=== PATIENT | male | born 1985 | race Caucasian/White ===

== ENCOUNTER → 2017-09-20 11:46 | Outpatient (CLI) | payer MEDICAID, SELFPAY ==
[2017-09-20 12:50] LABS: Absolute Neutrophil Count 4.5 X10^3/uL (2.0-7.7); Basophil# 0.05 X10^3/uL; Basophil% 0.7 % (0-1); Eosinophil# 0.14 X10^3/uL; Eosinophils% 1.9 % (0-5); Hematocrit 42.7 % (40-54); Hemoglobin 14.1 g/dl (13.0-16.5); Lymphocyte % 28.2 % (19-41); Mean Corpuscular Hgb 28.7 pg (27.0-32.0); Mean Platelet Vol. 9.9 fl (6.2-12.0); Monocyte# 0.66 X10^3/uL; Monocyte% 8.8 % (0-10); Neutrophil % 60.3 % (47-70); Platelet Count 227 K/mm3 (150-450); RBC Distribution Width SD 40.7 fl (35.1-43.9); Red Blood Count 4.91 M/mm3 (4.6-6.2); White Blood Count 7.5 K/mm3 (4.4-11.0)
[2017-09-20 12:56] LABS: POSITIVE COUNT NO; POSITIVE DIFFERENTIAL NO; POSITIVE MORPHOLOGY NO
[2017-09-20 13:00] LABS: Erythrocyte Sedimentation Rate 38 mm/hr (0-15)
[2017-09-20 13:07] LABS: ALB/GLOB Ratio 0.8 RATIO (0.9-2.4); AST(SGOT) 27 U/L (15-37); Alanine Aminotransfer ALT/SGPT 41 U/L (16-61); Albumin, Serum 3.5 g/dL (3.2-5.0); Alkaline Phosphatase 102 U/L (45-117); Anion Gap 7 (5-15); BUN 18 mg/dL (7-18); BUN/Creat Ratio 16.7 RATIO (10-20); Calcium,Total 8.7 mg/dL (8.5-10.1); Chloride 100 mmol/L (98-107); Creatinine, Serum 1.08 mg/dL (0.70-1.30); EST Glomerular Filtration Rate 84 mL/min (>60); Est Glom Filt Rate - Afr Amer 102 mL/min (>60); Globulin 4.2 g/dL (2.2-4.2); Glucose 97 mg/dL (74-106); Potassium 3.7 mmol/L (3.5-5.1); Prealbumin 22.7 mg/dL (20.0-40.0); Protein, Total 7.7 g/dL (6.4-8.2); Sodium Level 138 mmol/L (136-145)
== END ==
PROVIDERS: Visit Provider Podiatrist Foot & Ankle Surgery
DX: L97.819 Non-pressure chronic ulcer of other part of right lower leg with unspecified severity (principal); R60.0 Localized edema
CPT/HCPCS: 36415; 80053; 84134; 85025; 85652; 86140

== ENCOUNTER 2017-09-25 15:30 | Outpatient (RCR) | payer MEDICAID, SELFPAY ==
[2017-09-18 14:43] VITALS: BP 147/92; PULSE 101; RESP 20; TEMP 37.3; BMI 78.1
--- NOTE | 2017-09-18 16:39 | HP.PCM_ITS ---
(1) Non-pressure chronic ulcer of other part of right lower leg with fat layer exposed Status: Acute Current Visit: Yes Code(s): L97.812 - Non-pressure chronic ulcer of other part of right lower leg with fat layer exposed (2) Bilateral leg edema Status: Chronic Current Visit: Yes Code(s): R60.0 - Localized edema (3) Morbid obesity Status: Chronic Current Visit: Yes Code(s): E66.01 - Morbid (severe) obesity due to excess calories History of Present Illness Date of Service: 09/18/17 Chief Complaint: R chester ulcer History of Wound: 31 year old man with multiple medical problems including HTN, a.fib., asthma, and super morbid obesity (BMI 78.1) presents with 2 month history of R chester ulceration. Pt states area blistered and ulcerated approximately 2 months ago. Has a history of similar blisters and open areas, but states that they have all healed in the past. He has been keeping the area open to air. Is currently taking Keflex 500 mg TID, and has 1 day remaining. Past Medical History Past Medical History: Chronic Problems Bilateral leg edema (Chronic) HTN (hypertension) (Chronic) Morbid obesity (Chronic) Past Medical History: asthma, atrial fibrillation Surgical History: no surgical history Allergies/Adverse Reactions: Allergies Pertussis Vaccines Allergy (Verified 11/18/15 10:37) High Fever Home Medications: Ambulatory Orders Medication Instructions Recorded Hydrochlorothiazide [Hctz] 25 mg PO DAILY 06/02/13 Metoprolol Tartrate [Lopressor 50 mg PO BID #60 tablet 06/03/13 (beta jelena)] Loratadine [Claritin] 10 mg PO DAILY 09/12/13 Pantoprazole Sodium [Protonix] 40 mg PO DAILY 09/12/13 Warfarin [Coumadin] 10 mg PO DAILY 09/12/13 Albuterol Inhaler [Ventolin Hfa 1 - 2 puff INHALATION Q4H PRN PRN 09/13/15 (SP)] Ergocalciferol [Vitamin D] 50,000 unit PO OCASIO 09/13/15 Furosemide [Lasix] 20 mg PO DAILY 09/13/15 Losartan Potassium [Cozaar] 50 mg PO BID 09/13/15 Meloxicam [Mobic] 7.5 mg PO DAILY 09/13/15 Mometasone/Formoterol [Dulera 200 2 inhaler INHALATION BID 09/13/15 Mcg/5 Mcg Inhaler] Montelukast [Singulair] 10 mg PO DAILY 09/13/15 Vitamin B Complex 1 each PO DAILY 09/13/15 Lives: With Family Smoking Status: Former smoker Tobacco Use: Non-smoker Alcohol: Rare Drugs: None Review of Systems Constitutional: Denies: Chills, Fever, Weight Change Eyes: Denies: Pain, Vision Change HEENT: Denies: Difficulty Hearing, Difficulty Swallowing, Sinus Congestion Cardiovascular: Reports: Edema. Denies: Chest Pain, Palpitations Respiratory: Denies: Cough, Shortness of Breath Gastrointestinal: Denies: Diarrhea, Nausea, Vomiting Genitourinary: Denies: Dysuria, Hematuria Musculoskeletal: Denies: Leg Pain Skin: Reports: Wounds - R chester Neurological: Denies: Slurred speech, Numbness, Tingling Psychiatric: Reports: Anxiety Endocrine: Denies: Heat/ Cold Intolerance, Polydipsia, Polyuria Hematologic/ Lymphatic: Denies: Easy Bruising, Easy Bleeding, Hx of blood clot - Physical Exam Vital Signs Temp Pulse Resp BP 99.1 F 101 H 20 H 147/92 H 09/18/17 14:43 09/18/17 14:43 09/18/17 14:43 09/18/17 14:43 General: Alert, Oriented x3, Cooperative, No apparent distress Abdomen: Obese Extremities: No clubbing, No cyanosis, Capillary Refill Less than 3 Seconds, No Calf Tenderness, Diminished Peripheral Pulses - Possibly secondary to bilateral lower extremity edema, Edema Skin: Ulcer/ Wound - R chester cluster with no pus, no malodor, no increased warmth , no TTP, no erythema. No clinical signs of acute bacterial infection noted. See wound/edema assessment below. Wound Measurements and Assessment WC - Nurse 1 - General Ulcer Measurement Start: 09/18/17 14:19 Freq: Status: Active Protocol: Activity Type Activity Date Activity User E-Sign Co-Sign Detail Recorded Client Recorded Date Recorded By Document 09/18/17 14:43 DV [id number] 09/18/17 15:06 DV 09/18/17 14:43 Wound Center Nurse 1 [Ulcer Assessment] #1 Right Lower [place] Cluster -Combined with other wound No -Current Size (cm) - Length 5.5 -Current Size (cm) - Width 4.0 -Current Size (cm) - Depth 0.1 -Total Square Cm 22.00 -Date of Last Picture (Recall this 09/18/17 field) -Photo Taken Yes -Epithelialization None Present -Tunneling No -Undermining/Tunneling No -Circular Undermining No -Classification - Thickness Full Thickness without Exposed Support Structure -Exudate Amt Medium (34-66%) -Exudate Type Serosanguineous -Wound Margin Flat & Intact -Granulation Amt Small (1-33%) -Granulation Quality Red -Slough/Fibrin Yes -Necrosis Amt Large (67-100%) -Necrotic Tissue Type Adherent Slough -Structure Exposed None/Limited to Skin Breakdown -Texture (Karely-wound Skin Appearance) Assessed -Moisture (Karely-wound Skin Appearance Assessed ) -Color (Karely-wound Skin Appearance) Assessed -Temperature (Karely-wound Skin No Abnormality Appearance) (Pt Warm) -Tenderness on Palpation (Karely-wound Yes Skin Appearance) -Ulcer Cleansing Rinsed/ Irrigated with Saline -Foul Odor after Cleansing No -Anesthetic Used 4% Lidocaine Solution [Edema Assessment] -Lower Limb Edema Present Yes -Right Calf (cm) 82.0 -Right Ankle (cm) 34.0 -Left Calf (cm) 79.0 -Left Ankle (cm) 33.0 WC - Nurse 2 - General Ulcer CM Notes Start: 09/18/17 14:19 Freq: Status: Active Protocol: Activity Type Activity Date Activity User E-Sign Co-Sign Detail Recorded Client Recorded Date Recorded By Document 09/18/17 15:29 MW [id number] 09/18/17 15:37 MW 09/18/17 15:29 Wound Center Nurse 2 [Procedure/Treatment] #1 Right Lower [place] Cluster -Time 15:29 -Correct Patient Yes -Correct Side, Site, Position Yes -Correct Procedure Yes -Procedure Performed Yes -Type of Procedure Debridement -Clinical Debridement Subcutaneous -Post Debridement Size (cm) - Length 5.5 -Post Debridement Size (cm) - Width 4.1 -Post Debridement Size (cm) - Depth 0.1 -Total Square Cm 22.55 -Wound/Ulcer Outcome Not Healed -Ulcer Cleansing Rinsed/ Irrigated with Saline -Foul Odor after Cleansing No -Bioengineered Tissue No -Bleeding Controlled with Pressure -Treatment Response Procedure Tolerated Well [See Physician Procedure note for Specifics] Pain Scale: 0-10 Numeric [Pain] -Is Patient Pain Free? Yes Musculoskeletal: No Tenderness to Palpation of Joints or Extremities, No Muscle Wasting Neurological: Deep Tendon Reflexes 2+/4 and Symmetrical, Neuro grossly intact, Motor Exam 5/5 strength throughout, Muscle tone normal, Sensory exam intact to light touch and pain, Coordination normal, Gait narrow based and stable Psych/Mental Status: Alert and oriented to time, place, person, mood and affect - wnl Debridement Note Post-Debridement Measurements/Treatment WC - Nurse 2 - General Ulcer CM Notes Start: 09/18/17 14:19 Freq: Status: Active Protocol: Activity Type Activity Date Activity User E-Sign Co-Sign Detail Recorded Client Recorded Date Recorded By Document 09/18/17 15:29 MW [id number] 09/18/17 15:37 MW 09/18/17 15:29 Wound Center Nurse 2 #1 Right Lower [place] Cluster -Time 15:29 -Correct Patient Yes -Correct Side, Site, Position Yes -Correct Procedure Yes -Procedure Performed Yes -Type of Procedure Debridement -Clinical Debridement Subcutaneous -Post Debridement Size (cm) - Length 5.5 -Post Debridement Size (cm) - Width 4.1 -Post Debridement Size (cm) - Depth 0.1 -Total Square Cm 22.55 -Wound/Ulcer Outcome Not Healed -Ulcer Cleansing Rinsed/ Irrigated with Saline -Foul Odor after Cleansing No -Bioengineered Tissue No -Bleeding Controlled with Pressure -Treatment Response Procedure Tolerated Well Pain Scale: 0-10 Numeric Is Patient Pain Free? Yes Wound debrided: R chester Laterality: Right Wound Grade/Stage: full thickness Type of Debridement: Excisional debridement Anesthesia Used: 4% Lidocaine Solution Depth: Down to and including healthy tissue, in the subcutaneous layer Percentage of wound debrided: 100 Instrument Used: 3mm curette Tissue Removed: fibrous slough Severity: Fat Layer Exposed Amount of bleeding with debridement: Mild Bleeding Controlled with: Pressure, Compression and gauze Patient tolerated procedure well Assessment/Plan Active Problems Bilateral leg edema (Chronic) Non-pressure chronic ulcer of other part of right lower leg with fat layer exposed (Acute) Morbid obesity (Chronic) Assessment: See diagnoses Plan: New pt exam. SQ/excisional debridement of R chester ulcer cluster as above. JEVON and venous duplex ordered. Pt admits to a large amount of clear drainage-- start aquacel ag and ABD daily for the next week, and hopefully we can decrease to every other day starting next week. Compression with jonny wraps from base of toes on RLE to just below the knee. Plan to increase compression to 3M 2-layer coban after vascular testing. Discussed importance of weight managment, leg elevation, avoiding idle sitting or standing, increased activity. Pt unable to take NSAIDs due to current use of coumadin. Pt is a former smoker, is non- diabetic. CBCD, CMP, pre-albumin, ESR, CRP ordered. Monitor for redness, pus, malodor, warmth, pain, inc swelling as well as for N/V/F/C/calf pain/SOB/chest pain and go to the ED with these. Return in 1 week, call wound center with questions prior to f/u appt.
[2017-09-25 14:38] VITALS: BP 110/90; PULSE 95; RESP 18; TEMP 36; BMI 78.1
--- NOTE | 2017-09-25 15:14 | PCM.WC.PN ---
(1) Non-pressure chronic ulcer of other part of right lower leg with fat layer exposed Status: Acute Current Visit: Yes Code(s): L97.812 - Non-pressure chronic ulcer of other part of right lower leg with fat layer exposed (2) Bilateral leg edema Status: Chronic Current Visit: Yes Code(s): R60.0 - Localized edema (3) Morbid obesity Status: Chronic Current Visit: Yes Code(s): E66.01 - Morbid (severe) obesity due to excess calories Type of Wound Date of Service: 09/25/17 Chief Complaint: R chester ulcer History of Wound: 31 year old man with multiple medical problems including HTN, a.fib., asthma, and super morbid obesity (BMI 78.1) presents with 2 month history of R chester ulceration. Pt states area blistered and ulcerated approximately 2 months ago. Has a history of similar blisters and open areas, but states that they have all healed in the past. He has been keeping the area open to air. Is currently taking Keflex 500 mg TID, and has 1 day remaining. 09/25--Has been applying aquacel ag and dry dressing daily. Drainage improved significantly. Ulcer measurements improved. Completed atbx as Rx by his PCP. Using jonny wraps for compression, having some difficulty with them falling down, will add spandage to try to keep jonny wraps in place. Progress of Wound: Improved. - Physical Exam Vital Signs Temp Pulse Resp BP 96.8 F L 95 18 110/90 H 09/25/17 14:38 09/25/17 14:38 09/25/17 14:38 09/25/17 14:38 General: Alert, Oriented x3, Cooperative, No apparent distress Extremities: Edema Skin: Ulcer/ Wound - R anterior lateral leg with no erythema, no malodor, no pus, no calor, no pain. No clinical signs of acute bacterial infection noted. See wound/edema assessment below. Wound Measurements and Assessment WC - Nurse 1 - General Ulcer Measurement Start: 09/18/17 14:19 Freq: Status: Active Protocol: Activity Type Activity Date Activity User E-Sign Co-Sign Detail Recorded Client Recorded Date Recorded By Document 09/25/17 14:38 LEX [id number] 09/25/17 14:40 LEX 09/25/17 14:38 Wound Center Nurse 1 [Ulcer Assessment] #1 Right Lower [place] Cluster -Combined with other wound No -Current Size (cm) - Length 6.0 -Current Size (cm) - Width 2.2 -Current Size (cm) - Depth 0.1 -Total Square Cm 13.20 -Photo Taken No -Epithelialization Small 1-33% -Tunneling No -Undermining/Tunneling No -Circular Undermining No -Exudate Amt Medium (34-66%) -Exudate Type Serosanguineous -Wound Margin Flat & Intact -Granulation Amt Large (67-100%) -Granulation Quality Red -Slough/Fibrin Yes -Necrosis Amt Small (1-33%) -Necrotic Tissue Type Adherent Slough -Structure Exposed N/A -Texture (Karely-wound Skin Appearance) Assessed Localized Edema -Moisture (Karely-wound Skin Appearance Assessed ) Dry/Scaly -Color (Karely-wound Skin Appearance) Assessed Hemosiderin Staining -Temperature (Karely-wound Skin No Abnormality Appearance) (Pt Warm) -Tenderness on Palpation (Karely-wound No Skin Appearance) -Ulcer Cleansing Rinsed/ Irrigated with Saline -Foul Odor after Cleansing No -Anesthetic Used 4% Lidocaine Solution [Edema Assessment] -Lower Limb Edema Present Yes -Right Calf (cm) 81.0 -Right Ankle (cm) 31.0 WC - Nurse 2 - General Ulcer CM Notes Start: 09/18/17 14:19 Freq: Status: Active Protocol: Activity Type Activity Date Activity User E-Sign Co-Sign Detail Recorded Client Recorded Date Recorded By Document 09/25/17 15:02 MW [id number] 09/25/17 15:07 MW 09/25/17 15:02 Wound Center Nurse 2 [Procedure/Treatment] #1 Right Lower [place] Cluster -Time 15:03 -Correct Patient Yes -Correct Side, Site, Position Yes -Correct Procedure Yes -Procedure Performed Yes -Type of Procedure Debridement -Clinical Debridement Subcutaneous -Post Debridement Size (cm) - Length 5.0 -Post Debridement Size (cm) - Width 2.8 -Post Debridement Size (cm) - Depth 0.1 -Total Square Cm 14.00 -Wound/Ulcer Outcome Not Healed -Ulcer Cleansing Rinsed/ Irrigated with Saline -Foul Odor after Cleansing No -Bioengineered Tissue No -Bleeding Controlled with Pressure -Treatment Response Procedure Tolerated Well [See Physician Procedure note for Specifics] Pain Scale: 0-10 Numeric [Pain] -Is Patient Pain Free? Yes Debridement Note Post-Debridement Measurements/Treatment WC - Nurse 2 - General Ulcer CM Notes Start: 09/18/17 14:19 Freq: Status: Active Protocol: Activity Type Activity Date Activity User E-Sign Co-Sign Detail Recorded Client Recorded Date Recorded By Document 09/18/17 15:29 MW [id number] 09/18/17 15:37 MW Document 09/25/17 15:02 MW [id number] 09/25/17 15:07 MW 09/18/17 09/25/17 15:29 15:02 Wound Center Nurse 2 #1 Right Lower [place] Cluster -Time 15:29 15:03 -Correct Patient Yes Yes -Correct Side, Site, Position Yes Yes -Correct Procedure Yes Yes -Procedure Performed Yes Yes -Type of Procedure Debridement Debridement -Clinical Debridement Subcutaneous Subcutaneous -Post Debridement Size (cm) - Length 5.5 5.0 -Post Debridement Size (cm) - Width 4.1 2.8 -Post Debridement Size (cm) - Depth 0.1 0.1 -Total Square Cm 22.55 14.00 -Wound/Ulcer Outcome Not Healed Not Healed -Ulcer Cleansing Rinsed/ Rinsed/ Irrigated with Irrigated with Saline Saline -Foul Odor after Cleansing No No -Bioengineered Tissue No No -Bleeding Controlled with Pressure Pressure -Treatment Response Procedure Procedure Tolerated Well Tolerated Well Pain Scale: 0-10 Numeric Is Patient Pain Free? Yes Yes Wound debrided: R leg Laterality: Right Wound Grade/Stage: full thickness Type of Debridement: Excisional debridement Anesthesia Used: 4% Lidocaine Solution Depth: Down to and including healthy tissue, in the subcutaneous layer Percentage of wound debrided: 100 Instrument Used: 5mm curette Tissue Removed: fibrous slough Severity: Fat Layer Exposed Amount of bleeding with debridement: Mild Bleeding Controlled with: Pressure, Compression and gauze Patient tolerated procedure well Assessment/Plan Active Problems Bilateral leg edema (Chronic) Non-pressure chronic ulcer of other part of right lower leg with fat layer exposed (Acute) Morbid obesity (Chronic) Assessment: See diagnoses Plan: SQ/excisional debridement of R chester ulcer cluster as above. JEVON and venous duplex ordered, not scheduled until 10/04. Drainage improved, decrease frequency of dressing change to every other day. Measurements improved-- Add adaptic to wound bed, cont to cover with aquacel ag and ABD. Compression with jonny wraps from base of toes on RLE to just below the knee. Use spandage to better keep in place. Plan to increase compression to 3M 2-layer coban after vascular testing. Discussed importance of weight managment, leg elevation, avoiding idle sitting or standing, increased activity. Pt unable to take NSAIDs due to current use of coumadin. Pt is a former smoker, is non-diabetic. CBCD, CMP, pre-albumin, ESR, CRP ordered. ESR, CRP elevated, but R leg does not show any signs of bacterial infection. Monitor for redness, pus, malodor, warmth, pain, inc swelling as well as for N/V/F/C/calf pain/SOB/chest pain and go to the ED with these. Return in 1 week, call wound center with questions prior to f/u appt. Possible referral to vascular surgery based on vascular results.
--- NOTE | 2017-09-25 15:20 | PN.PCM_ITS ---
(1) Non-pressure chronic ulcer of other part of right lower leg with fat layer exposed Status: Acute Current Visit: Yes Code(s): L97.812 - Non-pressure chronic ulcer of other part of right lower leg with fat layer exposed (2) Bilateral leg edema Status: Chronic Current Visit: Yes Code(s): R60.0 - Localized edema (3) Morbid obesity Status: Chronic Current Visit: Yes Code(s): E66.01 - Morbid (severe) obesity due to excess calories Type of Wound Date of Service: 09/25/17 Chief Complaint: R chester ulcer History of Wound: 31 year old man with multiple medical problems including HTN, a.fib., asthma, and super morbid obesity (BMI 78.1) presents with 2 month history of R chester ulceration. Pt states area blistered and ulcerated approximately 2 months ago. Has a history of similar blisters and open areas, but states that they have all healed in the past. He has been keeping the area open to air. Is currently taking Keflex 500 mg TID, and has 1 day remaining. --Has been applying aquacel ag and dry dressing daily. Drainage improved significantly. Ulcer measurements improved. Completed atbx as Rx by his PCP. Using jonny wraps for compression, having some difficulty with them falling down, will add spandage to try to keep jonny wraps in place. Progress of Wound: Improved. - Physical Exam Vital Signs Temp Pulse Resp BP 96.8 F L 95 18 110/90 H 09/25/17 14:38 09/25/17 14:38 09/25/17 14:38 09/25/17 14:38 General: Alert, Oriented x3, Cooperative, No apparent distress Extremities: Edema Skin: Ulcer/ Wound - R anterior lateral leg with no erythema, no malodor, no pus , no calor, no pain. No clinical signs of acute bacterial infection noted. See wound/edema assessment below. Wound Measurements and Assessment WC - Nurse 1 - General Ulcer Measurement Start: 09/18/17 14:19 Freq: Status: Active Protocol: Activity Type Activity Date Activity User E-Sign Co-Sign Detail Recorded Client Recorded Date Recorded By Document 09/25/17 14:38 LEX [id number] 09/25/17 14:40 LEX 09/25/17 14:38 Wound Center Nurse 1 [Ulcer Assessment] #1 Right [place] Cluster -Combined with other wound No -Current Size (cm) - Length 6.0 -Current Size (cm) - Width 2.2 -Current Size (cm) - Depth 0.1 -Total Square Cm 13.20 -Photo Taken No -Epithelialization Small 1-33% -Tunneling No -Undermining/Tunneling No -Circular Undermining No -Exudate Amt Medium (34-66%) -Exudate Type Serosanguineous -Wound Margin Flat & Intact -Granulation Amt Large (67-100%) -Granulation Quality Red -Slough/Fibrin Yes -Necrosis Amt Small (1-33%) -Necrotic Tissue Type Adherent Slough -Structure Exposed N/A -Texture (Karely-wound Skin Appearance) Assessed Localized Edema -Moisture (Karely-wound Skin Appearance Assessed ) Dry/Scaly -Color (Karely-wound Skin Appearance) Assessed Hemosiderin Staining -Temperature (Karely-wound Skin No Abnormality Appearance) (Pt Warm) -Tenderness on Palpation (Karely-wound No Skin Appearance) -Ulcer Cleansing Rinsed/ Irrigated with Saline -Foul Odor after Cleansing No -Anesthetic Used 4% Lidocaine Solution [Edema Assessment] -Lower Limb Edema Present Yes -Right Calf (cm) 81.0 -Right Ankle (cm) 31.0 WC - Nurse 2 - General Ulcer CM Notes Start: 09/18/17 14:19 Freq: Status: Active Protocol: Activity Type Activity Date Activity User E-Sign Co-Sign Detail Recorded Client Recorded Date Recorded By Document 09/25/17 15:02 MW [id number] 09/25/17 15:07 MW 09/25/17 15:02 Wound Center Nurse 2 [Procedure/Treatment] #1 Right [place] Cluster -Time 15:03 -Correct Patient Yes -Correct Side, Site, Position Yes -Correct Procedure Yes -Procedure Performed Yes -Type of Procedure Debridement -Clinical Debridement Subcutaneous -Post Debridement Size (cm) - Length 5.0 -Post Debridement Size (cm) - Width 2.8 -Post Debridement Size (cm) - Depth 0.1 -Total Square Cm 14.00 -Wound/Ulcer Outcome Not Healed -Ulcer Cleansing Rinsed/ Irrigated with Saline -Foul Odor after Cleansing No -Bioengineered Tissue No -Bleeding Controlled with Pressure -Treatment Response Procedure Tolerated Well [See Physician Procedure note for Specifics] Pain Scale: 0-10 Numeric [Pain] -Is Patient Pain Free? Yes Debridement Note Post-Debridement Measurements/Treatment WC - Nurse 2 - General Ulcer CM Notes Start: 09/18/17 14:19 Freq: Status: Active Protocol: Activity Type Activity Date Activity User E-Sign Co-Sign Detail Recorded Client Recorded Date Recorded By Document 09/18/17 15:29 MW [id number] 09/18/17 15:37 MW Document 09/25/17 15:02 MW [id number] 09/25/17 15:07 MW 09/18/17 09/25/17 15:29 15:02 Wound Center Nurse 2 #1 Right [place] Cluster -Time 15:29 15:03 -Correct Patient Yes Yes -Correct Side, Site, Position Yes Yes -Correct Procedure Yes Yes -Procedure Performed Yes Yes -Type of Procedure Debridement Debridement -Clinical Debridement Subcutaneous Subcutaneous -Post Debridement Size (cm) - Length 5.5 5.0 -Post Debridement Size (cm) - Width 4.1 2.8 -Post Debridement Size (cm) - Depth 0.1 0.1 -Total Square Cm 22.55 14.00 -Wound/Ulcer Outcome Not Healed Not Healed -Ulcer Cleansing Rinsed/ Rinsed/ Irrigated with Irrigated with Saline Saline -Foul Odor after Cleansing No No -Bioengineered Tissue No No -Bleeding Controlled with Pressure Pressure -Treatment Response Procedure Procedure Tolerated Well Tolerated Well Pain Scale: 0-10 Numeric Is Patient Pain Free? Yes Yes Wound debrided: R leg Laterality: Right Wound Grade/Stage: full thickness Type of Debridement: Excisional debridement Anesthesia Used: 4% Lidocaine Solution Depth: Down to and including healthy tissue, in the subcutaneous layer Percentage of wound debrided: 100 Instrument Used: 5mm curette Tissue Removed: fibrous slough Severity: Fat Layer Exposed Amount of bleeding with debridement: Mild Bleeding Controlled with: Pressure, Compression and gauze Patient tolerated procedure well Assessment/Plan Active Problems Bilateral leg edema (Chronic) Non-pressure chronic ulcer of other part of right lower leg with fat layer exposed (Acute) Morbid obesity (Chronic) Assessment: See diagnoses Plan: SQ/excisional debridement of R chester ulcer cluster as above. JEVON and venous duplex ordered, not scheduled until 10/04. Drainage improved, decrease frequency of dressing change to every other day. Measurements improved-- Add adaptic to wound bed, cont to cover with aquacel ag and ABD. Compression with jonny wraps from base of toes on RLE to just below the knee. Use spandage to better keep in place. Plan to increase compression to 3M 2-layer coban after vascular testing. Discussed importance of weight managment, leg elevation, avoiding idle sitting or standing, increased activity. Pt unable to take NSAIDs due to current use of coumadin. Pt is a former smoker, is non-diabetic. CBCD, CMP, pre-albumin, ESR, CRP ordered. ESR, CRP elevated, but R leg does not show any signs of bacterial infection. Monitor for redness, pus, malodor, warmth, pain, inc swelling as well as for N/V/F/C/calf pain/SOB/chest pain and go to the ED with these. Return in 1 week, call wound center with questions prior to f/u appt. Possible referral to vascular surgery based on vascular results.
== END 2017-09-26 23:59 ==
LOC: WC 15:30
PROVIDERS: Visit Provider Podiatrist Foot & Ankle Surgery
DX: L97.812 Non-pressure chronic ulcer of other part of right lower leg with fat layer exposed (principal); R60.0 Localized edema; E66.01 Morbid (severe) obesity due to excess calories; Z68.45 Body mass index [BMI] 70 or greater, adult; Z71.3 Dietary counseling and surveillance; I10 Essential (primary) hypertension; I48.91 Unspecified atrial fibrillation; J45.909 Unspecified asthma, uncomplicated; Z87.891 Personal history of nicotine dependence
CPT/HCPCS: 11042; 99203; G0463

== ENCOUNTER 2017-10-16 15:00 | Outpatient (RCR) | payer MEDICAID, SELFPAY ==
[2017-10-02 14:37] VITALS: BP 131/88; PULSE 111; RESP 18; TEMP 36.2
--- NOTE | 2017-10-02 15:00 | PCM.WC.PN ---
(1) Non-pressure chronic ulcer of other part of right lower leg with fat layer exposed Status: Acute Current Visit: Yes Code(s): L97.812 - Non-pressure chronic ulcer of other part of right lower leg with fat layer exposed (2) Bilateral leg edema Status: Chronic Current Visit: Yes Code(s): R60.0 - Localized edema (3) Morbid obesity Status: Chronic Current Visit: Yes Code(s): E66.01 - Morbid (severe) obesity due to excess calories Type of Wound Date of Service: 10/02/17 Chief Complaint: R chester ulcer History of Wound: 31 year old man with multiple medical problems including HTN, a.fib., asthma, and super morbid obesity (BMI 78.1) presents with 2 month history of R chester ulceration. Pt states area blistered and ulcerated approximately 2 months ago. Has a history of similar blisters and open areas, but states that they have all healed in the past. He has been keeping the area open to air. Is currently taking Keflex 500 mg TID, and has 1 day remaining. 09/25--Has been applying aquacel ag and dry dressing daily. Drainage improved significantly. Ulcer measurements improved. Completed atbx as Rx by his PCP. Using jonny wraps for compression, having some difficulty with them falling down, will add spandage to try to keep jonny wraps in place. 10/02--Has been applying adaptic, aquacel ag and dry dressing every other day. Drainage continues to improve. Ulcer measurements improved. Denies N/V/F/C. Denies pus, malodor, warmth, pain, increased warmth. Vascular testing scheduled for , 10/04. Progress of Wound: improved. - Physical Exam Vital Signs Temp Pulse Resp BP 97.1 F L 111 H 18 131/88 H 10/02/17 14:37 10/02/17 14:37 10/02/17 14:37 10/02/17 14:37 General: Alert, Oriented x3, Cooperative, No apparent distress Skin: Ulcer/ Wound - R chester with no erythema, no malodor, no pus, no pain, no calor. No clinical signs of acute bacterial infection noted. See wound/edema assessment below. Wound Measurements and Assessment WC - Nurse 1 - General Ulcer Measurement Start: 10/02/17 14:37 Freq: Status: Active Protocol: Activity Type Activity Date Activity User E-Sign Co-Sign Detail Recorded Client Recorded Date Recorded By Document 10/02/17 14:37 JF [id number] 10/02/17 14:39 JF 10/02/17 14:37 Wound Center Nurse 1 [Ulcer Assessment] #1 Right Lower [place] Cluster -Combined with other wound No -Current Size (cm) - Length 3.0 -Current Size (cm) - Width 1.8 -Current Size (cm) - Depth 0.1 -Total Square Cm 5.40 -Photo Taken No -Epithelialization Medium 34-66% -Tunneling No -Undermining/Tunneling No -Circular Undermining No -Exudate Amt Medium (34-66%) -Exudate Type Serosanguineous -Wound Margin Flat & Intact -Granulation Amt Large (67-100%) -Granulation Quality Red -Slough/Fibrin Yes -Necrosis Amt Small (1-33%) -Necrotic Tissue Type Adherent Slough -Structure Exposed N/A -Texture (Karely-wound Skin Appearance) Assessed Localized Edema -Moisture (Karely-wound Skin Appearance Assessed ) Dry/Scaly -Color (Karely-wound Skin Appearance) Assessed -Temperature (Karely-wound Skin No Abnormality Appearance) (Pt Warm) -Tenderness on Palpation (Karely-wound No Skin Appearance) -Ulcer Cleansing Rinsed/ Irrigated with Saline -Foul Odor after Cleansing No -Anesthetic Used 4% Lidocaine Solution [Edema Assessment] -Lower Limb Edema Present Yes -Right Calf (cm) 74.0 -Right Ankle (cm) 29.8 WC - Nurse 2 - General Ulcer CM Notes Start: 10/02/17 14:37 Freq: Status: Active Protocol: Activity Type Activity Date Activity User E-Sign Co-Sign Detail Recorded Client Recorded Date Recorded By Document 10/02/17 14:53 MW [id number] 10/02/17 14:58 MW 10/02/17 14:53 Wound Center Nurse 2 [Procedure/Treatment] #1 Right Lower [place] Cluster -Time 14:53 -Correct Patient Yes -Correct Side, Site, Position Yes -Correct Procedure Yes -Procedure Performed Yes -Type of Procedure Debridement -Clinical Debridement Subcutaneous -Post Debridement Size (cm) - Length 3.1 -Post Debridement Size (cm) - Width 2.1 -Post Debridement Size (cm) - Depth 0.1 -Total Square Cm 6.51 -Wound/Ulcer Outcome Not Healed -Ulcer Cleansing Rinsed/ Irrigated with Saline -Foul Odor after Cleansing No -Bioengineered Tissue No -Bleeding Controlled with Pressure -Treatment Response Procedure Tolerated Well [See Physician Procedure note for Specifics] Pain Scale: 0-10 Numeric [Pain] -Is Patient Pain Free? Yes Debridement Note Post-Debridement Measurements/Treatment WC - Nurse 2 - General Ulcer CM Notes Start: 10/02/17 14:37 Freq: Status: Active Protocol: Activity Type Activity Date Activity User E-Sign Co-Sign Detail Recorded Client Recorded Date Recorded By Document 10/02/17 14:53 MW [id number] 10/02/17 14:58 MW 10/02/17 14:53 Wound Center Nurse 2 #1 Right Lower [place] Cluster -Time 14:53 -Correct Patient Yes -Correct Side, Site, Position Yes -Correct Procedure Yes -Procedure Performed Yes -Type of Procedure Debridement -Clinical Debridement Subcutaneous -Post Debridement Size (cm) - Length 3.1 -Post Debridement Size (cm) - Width 2.1 -Post Debridement Size (cm) - Depth 0.1 -Total Square Cm 6.51 -Wound/Ulcer Outcome Not Healed -Ulcer Cleansing Rinsed/ Irrigated with Saline -Foul Odor after Cleansing No -Bioengineered Tissue No -Bleeding Controlled with Pressure -Treatment Response Procedure Tolerated Well Pain Scale: 0-10 Numeric Is Patient Pain Free? 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 JEVON and venous duplex ordered, not scheduled until 10/04. Drainage improved, decrease frequency of dressing change to 3x/week. Measurements improved-- cont adaptic to wound bed, cont to cover with aquacel ag and ABD. Compression with jonny wraps from base of toes on RLE to just below the knee. Use spandage to better keep in place. Plan to increase compression to 3M 2-layer coban after vascular testing if needed. Discussed importance of weight managment, leg elevation, avoiding idle sitting or standing, increased activity. Pt unable to take NSAIDs due to current use of coumadin. Pt is a former smoker, is non-diabetic. Monitor for redness, pus, malodor, warmth, pain, inc swelling as well as for N/V/F/C/calf pain/SOB/chest pain and go to the ED with these. Return in 1 week, call wound center with questions prior to f/u appt. Possible referral to vascular surgery based on vascular results. Rx circaid-juxtafit compression wraps (custom wraps) after vascular results to be started after ulcer heals for leg edema.
--- NOTE | 2017-10-02 15:04 | PN.PCM_ITS ---
(1) Non-pressure chronic ulcer of other part of right lower leg with fat layer exposed Status: Acute Current Visit: Yes Code(s): L97.812 - Non-pressure chronic ulcer of other part of right lower leg with fat layer exposed (2) Bilateral leg edema Status: Chronic Current Visit: Yes Code(s): R60.0 - Localized edema (3) Morbid obesity Status: Chronic Current Visit: Yes Code(s): E66.01 - Morbid (severe) obesity due to excess calories Type of Wound Date of Service: 10/02/17 Chief Complaint: R chester ulcer History of Wound: 31 year old man with multiple medical problems including HTN, a.fib., asthma, and super morbid obesity (BMI 78.1) presents with 2 month history of R chester ulceration. Pt states area blistered and ulcerated approximately 2 months ago. Has a history of similar blisters and open areas, but states that they have all healed in the past. He has been keeping the area open to air. Is currently taking Keflex 500 mg TID, and has 1 day remaining. --Has been applying aquacel ag and dry dressing daily. Drainage improved significantly. Ulcer measurements improved. Completed atbx as Rx by his PCP. Using jonny wraps for compression, having some difficulty with them falling down, will add spandage to try to keep jonny wraps in place. 10/02--Has been applying adaptic, aquacel ag and dry dressing every other day. Drainage continues to improve. Ulcer measurements improved. Denies N/V/F/C. Denies pus, malodor, warmth, pain, increased warmth. Vascular testing scheduled for , 10/04. Progress of Wound: improved. - Physical Exam Vital Signs Temp Pulse Resp BP 97.1 F L 111 H 18 131/88 H 10/02/17 14:37 10/02/17 14:37 10/02/17 14:37 10/02/17 14:37 General: Alert, Oriented x3, Cooperative, No apparent distress Skin: Ulcer/ Wound - R chester with no erythema, no malodor, no pus, no pain, no calor. No clinical signs of acute bacterial infection noted. See wound/edema assessment below. Wound Measurements and Assessment WC - Nurse 1 - General Ulcer Measurement Start: 10/02/17 14:37 Freq: Status: Active Protocol: Activity Type Activity Date Activity User E-Sign Co-Sign Detail Recorded Client Recorded Date Recorded By Document 10/02/17 14:37 JF [id number] 10/02/17 14:39 JF 10/02/17 14:37 Wound Center Nurse 1 [Ulcer Assessment] #1 Right Lower [place] Cluster -Combined with other wound No -Current Size (cm) - Length 3.0 -Current Size (cm) - Width 1.8 -Current Size (cm) - Depth 0.1 -Total Square Cm 5.40 -Photo Taken No -Epithelialization Medium 34-66% -Tunneling No -Undermining/Tunneling No -Circular Undermining No -Exudate Amt Medium (34-66%) -Exudate Type Serosanguineous -Wound Margin Flat & Intact -Granulation Amt Large (67-100%) -Granulation Quality Red -Slough/Fibrin Yes -Necrosis Amt Small (1-33%) -Necrotic Tissue Type Adherent Slough -Structure Exposed N/A -Texture (Karely-wound Skin Appearance) Assessed Localized Edema -Moisture (Karely-wound Skin Appearance Assessed ) Dry/Scaly -Color (Karely-wound Skin Appearance) Assessed -Temperature (Karely-wound Skin No Abnormality Appearance) (Pt Warm) -Tenderness on Palpation (Karely-wound No Skin Appearance) -Ulcer Cleansing Rinsed/ Irrigated with Saline -Foul Odor after Cleansing No -Anesthetic Used 4% Lidocaine Solution [Edema Assessment] -Lower Limb Edema Present Yes -Right Calf (cm) 74.0 -Right Ankle (cm) 29.8 WC - Nurse 2 - General Ulcer CM Notes Start: 10/02/17 14:37 Freq: Status: Active Protocol: Activity Type Activity Date Activity User E-Sign Co-Sign Detail Recorded Client Recorded Date Recorded By Document 10/02/17 14:53 MW [id number] 10/02/17 14:58 MW 10/02/17 14:53 Wound Center Nurse 2 [Procedure/Treatment] #1 Right Lower [place] Cluster -Time 14:53 -Correct Patient Yes -Correct Side, Site, Position Yes -Correct Procedure Yes -Procedure Performed Yes -Type of Procedure Debridement -Clinical Debridement Subcutaneous -Post Debridement Size (cm) - Length 3.1 -Post Debridement Size (cm) - Width 2.1 -Post Debridement Size (cm) - Depth 0.1 -Total Square Cm 6.51 -Wound/Ulcer Outcome Not Healed -Ulcer Cleansing Rinsed/ Irrigated with Saline -Foul Odor after Cleansing No -Bioengineered Tissue No -Bleeding Controlled with Pressure -Treatment Response Procedure Tolerated Well [See Physician Procedure note for Specifics] Pain Scale: 0-10 Numeric [Pain] -Is Patient Pain Free? Yes Debridement Note Post-Debridement Measurements/Treatment WC - Nurse 2 - General Ulcer CM Notes Start: 10/02/17 14:37 Freq: Status: Active Protocol: Activity Type Activity Date Activity User E-Sign Co-Sign Detail Recorded Client Recorded Date Recorded By Document 10/02/17 14:53 MW [id number] 10/02/17 14:58 MW 10/02/17 14:53 Wound Center Nurse 2 #1 Right Lower [place] Cluster -Time 14:53 -Correct Patient Yes -Correct Side, Site, Position Yes -Correct Procedure Yes -Procedure Performed Yes -Type of Procedure Debridement -Clinical Debridement Subcutaneous -Post Debridement Size (cm) - Length 3.1 -Post Debridement Size (cm) - Width 2.1 -Post Debridement Size (cm) - Depth 0.1 -Total Square Cm 6.51 -Wound/Ulcer Outcome Not Healed -Ulcer Cleansing Rinsed/ Irrigated with Saline -Foul Odor after Cleansing No -Bioengineered Tissue No -Bleeding Controlled with Pressure -Treatment Response Procedure Tolerated Well Pain Scale: 0-10 Numeric Is Patient Pain Free? 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 JEVON and venous duplex ordered, not scheduled until 10/04. Drainage improved, decrease frequency of dressing change to 3x/week. Measurements improved-- cont adaptic to wound bed, cont to cover with aquacel ag and ABD. Compression with jonny wraps from base of toes on RLE to just below the knee. Use spandage to better keep in place. Plan to increase compression to 3M 2-layer coban after vascular testing if needed. Discussed importance of weight managment, leg elevation, avoiding idle sitting or standing, increased activity. Pt unable to take NSAIDs due to current use of coumadin. Pt is a former smoker, is non-diabetic. Monitor for redness, pus, malodor, warmth, pain, inc swelling as well as for N /V/F/C/calf pain/SOB/chest pain and go to the ED with these. Return in 1 week, call wound center with questions prior to f/u appt. Possible referral to vascular surgery based on vascular results. Rx circaid-juxtafit compression wraps (custom wraps) after vascular results to be started after ulcer heals for leg edema.
--- NOTE | 2017-10-04 08:57 | VDLE_ITS ---
Reason For Study: Non-healing wound RIGHT LEFT CFV is compressible, spontaneous, phasic, CFV is compressible, spontaneous, phasic, competent and demonstrates normal competent, and demonstrates normal augmentation. augmentation. FV is compressible, spontaneous, phasic, FV is compressible, spontaneous, phasic, competent and demonstrates normal competent and demonstrates normal augmentation. augmentation. POP V is compressible, spontaneous, phasic, POP V is compressible, spontaneous, phasic, competent and demonstrates normal competent and demonstrates normal augmentation. augmentation. T/P Trunk is compressible. T/P Trunk is compressible. PTV is compressible. PTV is compressible. SFJ competent SFJ competent GSV competent GSV competent SSV not visualized. SSV not visualized. Procedure Exam performed in department. Technically difficult/limited exam due to body habitus. Interpretation Summary Deep veins of the lower extremities are bilaterally patent and compressible segmentally. There is no evidence of deep vein thrombosis on either side. Valvular competence appears intact within the proximal deep venous systems bilaterally. The greater saphenous veins appear bilaterally patent and compressible segmentally. Sapheno-femoral junctions are bilaterally competent . Valvular competence appears to be intact segmentally within the greater saphenous veins bilaterally. Small saphenous veins were not visualized bilaterally. Ordering Physician: Omar Bo Referring Physician: Omar Bo Performed By: Loan Adams RVT
--- NOTE | 2017-10-06 08:57 | LEAS_ITS ---
Arterial Study - Arterial Study Arterial Study: This is a 31-year-old male with a history of atrial fibrillation, hypertension, and morbid obesity. The patient presents with a chronic nonhealing wound to the right lower extremity. Suspecting the presence of atherosclerotic peripheral arterial occlusive disease, the patient was brought to the noninvasive vascular laboratory at this time for the purpose of bilateral noninvasive lower extremity arterial assessment. Doppler signal assessment was used to evaluate the pulses at ankle level bilaterally. The posterior tibial and dorsalis pedis pulses were triphasic bilaterally. Segmental limb pressures were obtained at ankle level bilaterally. The right ankle pressure, as determined by posterior tibial pulse, was measured at 134 mmHg. The right ankle pressure, as determined by dorsalis pedis pulse, was measured at 143 mmHg. The left ankle pressure, as determined by posterior tibial pulse, was measured at 136 mmHg. The left ankle pressure, as determined by dorsalis pedis pulse, was measured at 145 mmHg. Resting ankle-brachial indices were calculated bilaterally. The resting right ankle-brachial index was calculated to be 1.07. The resting left ankle- brachial index was calculated to be 1.08. Impression: Based upon the findings of this resting noninvasive lower extremity arterial study, there is no evidence of significant atherosclerotic peripheral arterial occlusive disease in the lower extremities bilaterally. Triphasic waveforms are noted at ankle levels bilaterally. Resting ankle-brachial indices are bilaterally normal. In summary, this represents a normal resting noninvasive lower extremity arterial study bilaterally.
[2017-10-09 14:34] VITALS: BP 144/91; PULSE 92; RESP 18; TEMP 36.6
--- NOTE | 2017-10-09 16:43 | PCM.WC.PN ---
(1) Non-pressure chronic ulcer of other part of right lower leg with fat layer exposed Status: Acute Current Visit: Yes Code(s): L97.812 - Non-pressure chronic ulcer of other part of right lower leg with fat layer exposed (2) Bilateral leg edema Status: Chronic Current Visit: Yes Code(s): R60.0 - Localized edema (3) Morbid obesity Status: Chronic Current Visit: Yes Code(s): E66.01 - Morbid (severe) obesity due to excess calories Type of Wound Date of Service: 10/09/17 Chief Complaint: R chester ulcer History of Wound: 31 year old man with multiple medical problems including HTN, a.fib., asthma, and super morbid obesity (BMI 78.1) presents with 2 month history of R chester ulceration. Pt states area blistered and ulcerated approximately 2 months ago. Has a history of similar blisters and open areas, but states that they have all healed in the past. He has been keeping the area open to air. Is currently taking Keflex 500 mg TID, and has 1 day remaining. 09/25--Has been applying aquacel ag and dry dressing daily. Drainage improved significantly. Ulcer measurements improved. Completed atbx as Rx by his PCP. Using jonny wraps for compression, having some difficulty with them falling down, will add spandage to try to keep jonny wraps in place. 10/02--Has been applying adaptic, aquacel ag and dry dressing every other day. Drainage continues to improve. Ulcer measurements improved. Denies N/V/F/C. Denies pus, malodor, warmth, pain, increased warmth. Vascular testing scheduled for , 10/04. 10/09--Has been applying adaptic, aquacel ag and dry dressing every other day. Drainage continues to improve. Ulcer measurements improved. Denies N/V/F/C. Denies pus, malodor, warmth, pain, increased warmth. Vascular testing reviewed. No venous reflux, arterial status normal. Progress of Wound: improved. - Physical Exam Vital Signs Temp Pulse Resp BP 97.8 F 92 18 144/91 H 10/09/17 14:34 10/09/17 14:34 10/09/17 14:34 10/09/17 14:34 General: Alert, Oriented x3, Cooperative, No apparent distress Skin: Ulcer/ Wound - R chester with no erythema, no malodor, no pus, no calor. No clinical signs of acute bacterial infection noted. See nurses wound/edema assessment below. Wound Measurements and Assessment WC - Nurse 1 - General Ulcer Measurement Start: 10/02/17 14:37 Freq: Status: Active Protocol: Activity Type Activity Date Activity User E-Sign Co-Sign Detail Recorded Client Recorded Date Recorded By Document 10/09/17 14:34 TN [id number] 10/09/17 14:41 TN 10/09/17 14:34 Wound Center Nurse 1 [Ulcer Assessment] #1 Right Lower [place] Cluster -Combined with other wound No -Current Size (cm) - Length 1.5 -Current Size (cm) - Width 1.8 -Current Size (cm) - Depth 0.1 -Total Square Cm 2.70 -Photo Taken No -Epithelialization None Present -Tunneling No -Undermining/Tunneling No -Circular Undermining No -Classification - Thickness Full Thickness without Exposed Support Structure -Exudate Amt Small (1-33%) -Exudate Type Serosanguineous -Wound Margin Distinct, Outline Attached -Granulation Amt Large (67-100%) -Granulation Quality Red -Slough/Fibrin Yes -Necrotic Tissue Type Adherent Slough -Structure Exposed None/Limited to Skin Breakdown -Texture (Karely-wound Skin Appearance) Assessed Localized Edema Scarring -Moisture (Karely-wound Skin Appearance No Abnormality ) Assessed -Color (Karely-wound Skin Appearance) Assessed Hemosiderin Staining -Temperature (Karely-wound Skin No Abnormality Appearance) (Pt Warm) -Tenderness on Palpation (Karely-wound No Skin Appearance) -Ulcer Cleansing Not Cleansed -Foul Odor after Cleansing No -Anesthetic Used 4% Lidocaine Solution [Edema Assessment] -Right Calf (cm) 77.5 -Right Ankle (cm) 33.5 WC - Nurse 2 - General Ulcer CM Notes Start: 10/02/17 14:37 Freq: Status: Active Protocol: Activity Type Activity Date Activity User E-Sign Co-Sign Detail Recorded Client Recorded Date Recorded By Document 10/09/17 15:07 MW [id number] 10/09/17 15:11 MW 10/09/17 15:07 Wound Center Nurse 2 [Procedure/Treatment] #1 Right Lower [place] Cluster -Time 15:07 -Correct Patient Yes -Correct Side, Site, Position Yes -Correct Procedure Yes -Procedure Performed Yes -Type of Procedure Debridement -Clinical Debridement Subcutaneous -Post Debridement Size (cm) - Length 1.6 -Post Debridement Size (cm) - Width 2.0 -Post Debridement Size (cm) - Depth 0.1 -Total Square Cm 3.20 -Wound/Ulcer Outcome Not Healed -Ulcer Cleansing Rinsed/ Irrigated with Saline -Foul Odor after Cleansing No -Bioengineered Tissue No -Bleeding Controlled with Pressure -Treatment Response Procedure Tolerated Well [See Physician Procedure note for Specifics] Pain Scale: 0-10 Numeric [Pain] -Is Patient Pain Free? Yes Debridement Note Post-Debridement Measurements/Treatment WC - Nurse 2 - General Ulcer CM Notes Start: 10/02/17 14:37 Freq: Status: Active Protocol: Activity Type Activity Date Activity User E-Sign Co-Sign Detail Recorded Client Recorded Date Recorded By Document 10/02/17 14:53 MW [id number] 10/02/17 14:58 MW Document 10/09/17 15:07 MW [id number] 10/09/17 15:11 MW 10/02/17 10/09/17 14:53 15:07 Wound Center Nurse 2 #1 Right Lower [place] Cluster -Time 14:53 15:07 -Correct Patient Yes Yes -Correct Side, Site, Position Yes Yes -Correct Procedure Yes Yes -Procedure Performed Yes Yes -Type of Procedure Debridement Debridement -Clinical Debridement Subcutaneous Subcutaneous -Post Debridement Size (cm) - Length 3.1 1.6 -Post Debridement Size (cm) - Width 2.1 2.0 -Post Debridement Size (cm) - Depth 0.1 0.1 -Total Square Cm 6.51 3.20 -Wound/Ulcer Outcome Not Healed Not Healed -Ulcer Cleansing Rinsed/ Rinsed/ Irrigated with Irrigated with Saline Saline -Foul Odor after Cleansing No No -Bioengineered Tissue No No -Bleeding Controlled with Pressure Pressure -Treatment Response Procedure Procedure Tolerated Well Tolerated Well Pain Scale: 0-10 Numeric Is Patient Pain Free? Yes Yes Wound debrided: R chester Laterality: Right Wound Grade/Stage: Full thickness leg ulcer Type of Debridement: Excisional debridement Anesthesia Used: 4% Lidocaine Solution Depth: Down to and including healthy tissue, in the subcutaneous layer Percentage of wound debrided: 100 Instrument Used: 3mm curette Tissue Removed: fibrous slough Severity: Fat Layer Exposed Amount of bleeding with debridement: Mild Bleeding Controlled with: Pressure, Compression and gauze Patient tolerated procedure well Assessment/Plan Active Problems Bilateral leg edema (Chronic) Non-pressure chronic ulcer of other part of right lower leg with fat layer exposed (Acute) Morbid obesity (Chronic) Assessment: See diagnoses Plan: SQ/excisional debridement of R chester ulcer cluster as above. JEVON and venous duplex ordered reviewed. Drainage improved, cont frequency of dressing change 3x/week. Measurements improved-- cont adaptic to wound bed, cont to cover with aquacel ag and ABD. Compression with jonny wraps from base of toes on RLE to just below the knee. Use spandage to better keep in place. Plan was to increase compression to 3M 2-layer coban after vascular testing if needed--however, ulcer continues to improve. Discussed importance of weight managment, leg elevation, avoiding idle sitting or standing, increased activity. Pt unable to take NSAIDs due to current use of coumadin. Pt is a former smoker, is non-diabetic. Monitor for redness, pus, malodor, warmth, pain, inc swelling as well as for N/V/F/C/calf pain/SOB/chest pain and go to the ED with these. Return in 1 week, call wound center with questions prior to f/u appt. Possible referral to vascular surgery based on vascular results. Rx circaid-juxtafit compression wraps (custom wraps) after vascular results to be started after ulcer heals for leg edema--pt is going to [facility] for this.
[2017-10-16 14:36] VITALS: BP 149/89; PULSE 97; RESP 20; TEMP 36
--- NOTE | 2017-10-16 15:05 | PCM.WC.PN ---
(1) Non-pressure chronic ulcer of other part of right lower leg with fat layer exposed Status: Acute Current Visit: Yes Code(s): L97.812 - Non-pressure chronic ulcer of other part of right lower leg with fat layer exposed (2) Bilateral leg edema Status: Chronic Current Visit: Yes Code(s): R60.0 - Localized edema (3) Morbid obesity Status: Chronic Current Visit: Yes Code(s): E66.01 - Morbid (severe) obesity due to excess calories Type of Wound Date of Service: 10/16/17 Chief Complaint: R chester ulcer History of Wound: 31 year old man with multiple medical problems including HTN, a.fib., asthma, and super morbid obesity (BMI 78.1) presents with 2 month history of R chester ulceration. Pt states area blistered and ulcerated approximately 2 months ago. Has a history of similar blisters and open areas, but states that they have all healed in the past. He has been keeping the area open to air. Is currently taking Keflex 500 mg TID, and has 1 day remaining. 09/25--Has been applying aquacel ag and dry dressing daily. Drainage improved significantly. Ulcer measurements improved. Completed atbx as Rx by his PCP. Using jonny wraps for compression, having some difficulty with them falling down, will add spandage to try to keep jonny wraps in place. 10/02--Has been applying adaptic, aquacel ag and dry dressing every other day. Drainage continues to improve. Ulcer measurements improved. Denies N/V/F/C. Denies pus, malodor, warmth, pain, increased warmth. Vascular testing scheduled for , 10/04. 10/09--Has been applying adaptic, aquacel ag and dry dressing every other day. Drainage continues to improve. Ulcer measurements improved. Denies N/V/F/C. Denies pus, malodor, warmth, pain, increased warmth. Vascular testing reviewed. No venous reflux, arterial status normal. 10/16--Has been applying adaptic, aquacel ag and dry dressing every other day. Drainage resolved. Ulcer healed. Denies N/V/F/C. Denies pus, malodor, warmth, pain, increased warmth. Vascular testing reviewed. No venous reflux, arterial status normal. Progress of Wound: Healed. - Physical Exam Vital Signs Temp Pulse Resp BP 96.8 F L 97 20 H 149/89 H 10/16/17 14:36 10/16/17 14:36 10/16/17 14:36 10/16/17 14:36 General: Alert, Oriented x3, Cooperative, No apparent distress Skin: No breakdown, Ulcer/ Wound - Previous ulcer R chester has healed - it is covered with epithelial tissue. Wound Measurements and Assessment WC - Nurse 1 - General Ulcer Measurement Start: 10/02/17 14:37 Freq: Status: Active Protocol: Activity Type Activity Date Activity User E-Sign Co-Sign Detail Recorded Client Recorded Date Recorded By Document 10/16/17 14:36 DL [id number] 10/16/17 14:41 DL 10/16/17 14:36 Wound Center Nurse 1 [Ulcer Assessment] #1 Right [place] Cluster -Current Size (cm) - Length 0 -Current Size (cm) - Width 0 -Current Size (cm) - Depth 0 -Total Square Cm 0 -Photo Taken Yes -Exudate Amt None Present (0 %) -Wound Margin Flat & Intact -Granulation Amt Large (67-100%) -Granulation Quality [place] -Necrosis Amt None Present (0 %) -Structure Exposed N/A -Texture (Karely-wound Skin Appearance) Scarring -Moisture (Karely-wound Skin Appearance No Abnormality ) -Color (Karely-wound Skin Appearance) Ecchymosis -Temperature (Karely-wound Skin No Abnormality Appearance) (Pt Warm) -Ulcer Cleansing Rinsed/ Irrigated with Saline -Foul Odor after Cleansing No [Edema Assessment] -Right Calf (cm) 74 -Right Ankle (cm) 33.9 -Left Calf (cm) 71 -Left Ankle (cm) 32 - Nurse 2 - General Ulcer CM Notes Start: 10/02/17 14:37 Freq: Status: Active Protocol: Activity Type Activity Date Activity User E-Sign Co-Sign Detail Recorded Client Recorded Date Recorded By Document 10/16/17 14:59 MW [id number] 10/16/17 15:02 MW 10/16/17 14:59 Wound Center Nurse 2 [Procedure/Treatment] #1 Right Lower [place] Cluster -Time 14:59 -Correct Patient Yes -Correct Side, Site, Position Yes -Correct Procedure Yes -Procedure Performed No -Post Debridement Size (cm) - Length 0 -Post Debridement Size (cm) - Width 0 -Post Debridement Size (cm) - Depth 0 -Total Square Cm 0 -Wound/Ulcer Outcome Healed- Epithelialized -Bleeding Controlled with NA -Treatment Response Procedure Tolerated Well [See Physician Procedure note for Specifics] Pain Scale: 0-10 Numeric [Pain] -Is Patient Pain Free? Yes Debridement Note Post-Debridement Measurements/Treatment WC - Nurse 2 - General Ulcer CM Notes Start: 10/02/17 14:37 Freq: Status: Active Protocol: Activity Type Activity Date Activity User E-Sign Co-Sign Detail Recorded Client Recorded Date Recorded By Document 10/02/17 14:53 MW [id number] 10/02/17 14:58 MW Document 10/09/17 15:07 MW [id number] 10/09/17 15:11 MW Document 10/16/17 14:59 MW [id number] 10/16/17 15:02 MW 10/02/17 10/09/17 10/16/17 14:53 15:07 14:59 Wound Center Nurse 2 #1 Right [place] Cluster -Time 14:53 15:07 14:59 -Correct Patient Yes Yes Yes -Correct Side, Site, Position Yes Yes Yes -Correct Procedure Yes Yes Yes -Procedure Performed Yes Yes No -Type of Procedure Debridement Debridement -Clinical Debridement Subcutaneous Subcutaneous -Post Debridement Size (cm) - Length 3.1 1.6 0 -Post Debridement Size (cm) - Width 2.1 2.0 0 -Post Debridement Size (cm) - Depth 0.1 0.1 0 -Total Square Cm 6.51 3.20 0 -Wound/Ulcer Outcome Not Healed Not Healed Healed- Epithelialized -Ulcer Cleansing Rinsed/ Rinsed/ Irrigated with Irrigated with Saline Saline -Foul Odor after Cleansing No No -Bioengineered Tissue No No -Bleeding Controlled with Pressure Pressure NA -Treatment Response Procedure Procedure Procedure Tolerated Well Tolerated Well Tolerated Well Pain Scale: 0-10 Numeric Is Patient Pain Free? Yes Yes Yes No debridement was completed today Assessment/Plan Active Problems Bilateral leg edema (Chronic) Non-pressure chronic ulcer of other part of right lower leg with fat layer exposed (Acute) Morbid obesity (Chronic) Assessment: See diagnoses Plan: Exam. A total of 15 minutes was spent [id number] with the patient, and over half of that time was spent on counseling, coordination of care, and discussing his diagnoses. Rx 30-40 mmHg CUSTOM compression stockings-thigh high, apply in AM, remove before sleep. Recommended lymphedema pumps as well for bilateral leg lympthedema--pt should get these from his PCP. Discussed importance of weight managment, leg elevation, avoiding idle sitting or standing, increased activity. Pt unable to take NSAIDs due to current use of coumadin. Pt is a former smoker, is non-diabetic. Monitor for recurrence of ulcer. Again, ulcer has healed; and pt has no open wounds on the lower extremities, return to see me at the wound center prn. Pt states his insurance will not pay for custom circaids, so provided Rx for custom stockings instead today. Pt will continue to f/u with his PCP for b/l lower extremity edema.
--- NOTE | 2017-10-16 15:10 | PN.PCM_ITS ---
(1) Non-pressure chronic ulcer of other part of right lower leg with fat layer exposed Status: Acute Current Visit: Yes Code(s): L97.812 - Non-pressure chronic ulcer of other part of right lower leg with fat layer exposed (2) Bilateral leg edema Status: Chronic Current Visit: Yes Code(s): R60.0 - Localized edema (3) Morbid obesity Status: Chronic Current Visit: Yes Code(s): E66.01 - Morbid (severe) obesity due to excess calories Type of Wound Date of Service: 10/16/17 Chief Complaint: R chester ulcer History of Wound: 31 year old man with multiple medical problems including HTN, a.fib., asthma, and super morbid obesity (BMI 78.1) presents with 2 month history of R chester ulceration. Pt states area blistered and ulcerated approximately 2 months ago. Has a history of similar blisters and open areas, but states that they have all healed in the past. He has been keeping the area open to air. Is currently taking Keflex 500 mg TID, and has 1 day remaining. --Has been applying aquacel ag and dry dressing daily. Drainage improved significantly. Ulcer measurements improved. Completed atbx as Rx by his PCP. Using jonny wraps for compression, having some difficulty with them falling down, will add spandage to try to keep jonny wraps in place. 10/02--Has been applying adaptic, aquacel ag and dry dressing every other day. Drainage continues to improve. Ulcer measurements improved. Denies N/V/F/C. Denies pus, malodor, warmth, pain, increased warmth. Vascular testing scheduled for , 10/04. 10/09--Has been applying adaptic, aquacel ag and dry dressing every other day. Drainage continues to improve. Ulcer measurements improved. Denies N/V/F/C. Denies pus, malodor, warmth, pain, increased warmth. Vascular testing reviewed. No venous reflux, arterial status normal. 10/16--Has been applying adaptic, aquacel ag and dry dressing every other day. Drainage resolved. Ulcer healed. Denies N/V/F/C. Denies pus, malodor, warmth, pain, increased warmth. Vascular testing reviewed. No venous reflux, arterial status normal. Progress of Wound: Healed. - Physical Exam Vital Signs Temp Pulse Resp BP 96.8 F L 97 20 H 149/89 H 10/16/17 14:36 10/16/17 14:36 10/16/17 14:36 10/16/17 14:36 General: Alert, Oriented x3, Cooperative, No apparent distress Skin: No breakdown, Ulcer/ Wound - Previous ulcer R chester has healed - it is covered with epithelial tissue. Wound Measurements and Assessment WC - Nurse 1 - General Ulcer Measurement Start: 10/02/17 14:37 Freq: Status: Active Protocol: Activity Type Activity Date Activity User E-Sign Co-Sign Detail Recorded Client Recorded Date Recorded By Document 10/16/17 14:36 DL [id number] 10/16/17 14:41 DL 10/16/17 14:36 Wound Center Nurse 1 [Ulcer Assessment] #1 Right Lower [place] Cluster -Current Size (cm) - Length 0 -Current Size (cm) - Width 0 -Current Size (cm) - Depth 0 -Total Square Cm 0 -Photo Taken Yes -Exudate Amt None Present (0 %) -Wound Margin Flat & Intact -Granulation Amt Large (67-100%) -Granulation Quality [address] -Necrosis Amt None Present (0 %) -Structure Exposed N/A -Texture (Karely-wound Skin Appearance) Scarring -Moisture (Karely-wound Skin Appearance No Abnormality ) -Color (Karely-wound Skin Appearance) Ecchymosis -Temperature (Karely-wound Skin No Abnormality Appearance) (Pt Warm) -Ulcer Cleansing Rinsed/ Irrigated with Saline -Foul Odor after Cleansing No [Edema Assessment] -Right Calf (cm) 74 -Right Ankle (cm) 33.9 -Left Calf (cm) 71 -Left Ankle (cm) 32 - Nurse 2 - General Ulcer CM Notes Start: 10/02/17 14:37 Freq: Status: Active Protocol: Activity Type Activity Date Activity User E-Sign Co-Sign Detail Recorded Client Recorded Date Recorded By Document 10/16/17 14:59 MW [id number] 10/16/17 15:02 MW 10/16/17 14:59 Wound Center Nurse 2 [Procedure/Treatment] #1 Right Lower [place] Cluster -Time 14:59 -Correct Patient Yes -Correct Side, Site, Position Yes -Correct Procedure Yes -Procedure Performed No -Post Debridement Size (cm) - Length 0 -Post Debridement Size (cm) - Width 0 -Post Debridement Size (cm) - Depth 0 -Total Square Cm 0 -Wound/Ulcer Outcome Healed- Epithelialized -Bleeding Controlled with NA -Treatment Response Procedure Tolerated Well [See Physician Procedure note for Specifics] Pain Scale: 0-10 Numeric [Pain] -Is Patient Pain Free? Yes Debridement Note Post-Debridement Measurements/Treatment WC - Nurse 2 - General Ulcer CM Notes Start: 10/02/17 14:37 Freq: Status: Active Protocol: Activity Type Activity Date Activity User E-Sign Co-Sign Detail Recorded Client Recorded Date Recorded By Document 10/02/17 14:53 MW [id number] 10/02/17 14:58 MW Document 10/09/17 15:07 MW [id number] 10/09/17 15:11 MW Document 10/16/17 14:59 MW [id number] 10/16/17 15:02 MW 10/02/17 10/09/17 10/16/17 14:53 15:07 14:59 Wound Center Nurse 2 #1 Right [place] Cluster -Time 14:53 15:07 14:59 -Correct Patient Yes Yes Yes -Correct Side, Site, Position Yes Yes Yes -Correct Procedure Yes Yes Yes -Procedure Performed Yes Yes No -Type of Procedure Debridement Debridement -Clinical Debridement Subcutaneous Subcutaneous -Post Debridement Size (cm) - Length 3.1 1.6 0 -Post Debridement Size (cm) - Width 2.1 2.0 0 -Post Debridement Size (cm) - Depth 0.1 0.1 0 -Total Square Cm 6.51 3.20 0 -Wound/Ulcer Outcome Not Healed Not Healed Healed- Epithelialized -Ulcer Cleansing Rinsed/ Rinsed/ Irrigated with Irrigated with Saline Saline -Foul Odor after Cleansing No No -Bioengineered Tissue No No -Bleeding Controlled with Pressure Pressure NA -Treatment Response Procedure Procedure Procedure Tolerated Well Tolerated Well Tolerated Well Pain Scale: 0-10 Numeric Is Patient Pain Free? Yes Yes Yes No debridement was completed today Assessment/Plan Active Problems Bilateral leg edema (Chronic) Non-pressure chronic ulcer of other part of right lower leg with fat layer exposed (Acute) Morbid obesity (Chronic) Assessment: See diagnoses Plan: Exam. A total of 15 minutes was spent [id number] with the patient, and over half of that time was spent on counseling, coordination of care, and discussing his diagnoses. Rx 30-40 mmHg CUSTOM compression stockings-thigh high , apply in AM, remove before sleep. Recommended lymphedema pumps as well for bilateral leg lympthedema--pt should get these from his PCP. Discussed importance of weight managment, leg elevation, avoiding idle sitting or standing , increased activity. Pt unable to take NSAIDs due to current use of coumadin. Pt is a former smoker, is non-diabetic. Monitor for recurrence of ulcer. Again, ulcer has healed; and pt has no open wounds on the lower extremities, return to see me at the wound center prn. Pt states his insurance will not pay for custom circaids, so provided Rx for custom stockings instead today. Pt will continue to f/u with his PCP for b/l lower extremity edema.
== END 2017-10-27 23:59 ==
LOC: WC 15:00
PROVIDERS: Visit Provider Podiatrist Foot & Ankle Surgery
DX: L97.812 Non-pressure chronic ulcer of other part of right lower leg with fat layer exposed (principal); R60.0 Localized edema; E66.01 Morbid (severe) obesity due to excess calories; Z68.45 Body mass index [BMI] 70 or greater, adult; I48.91 Unspecified atrial fibrillation; I10 Essential (primary) hypertension; J45.909 Unspecified asthma, uncomplicated; Z87.891 Personal history of nicotine dependence
CPT/HCPCS: 11042; 93922; 93970; 99212; G0463

== ENCOUNTER 2018-07-15 16:35 | Emergency (ER) | payer MEDICAID, SELFPAY ==
[2018-07-15 16:36] VITALS: BP 110/65; PULSE 116; RESP 17; TEMP 36.4; O2SAT 98; BMI 89.1
--- NOTE | 2018-07-15 17:05 | ED.VISSUMM ---
- ER Visit Summary Date of Service: 07/15/18 Chief Complaint: Rash History of Present Illness: The patient is a 32 M presenting for evaluation secondary to a rash. Patient has an underlying history of morbid obesity 104. He was on anticoagulation. Patient states that his INRs have been running therapeutic. Patient states that he had developed it in the last 24 hours of a rash on his right leg. He does endorse that he has had some subjective chills. Denies any pain or any other associated symptoms such as chest pain or shortness of breath. Review of systems otherwise negative. Physical Examination: Vital signs notable heart rate of 116. Morbidly obese male no acute distress. Right lower extremity shows a chronic plaque noted on the anterior portion of the patient's right chester which he states is from a difficult to heal skin wound. He has surrounding erythema over his anterior chester going somewhat to his posterior calf. No palpable cord or subcutaneous emphysema. Emergency Department Course and Treatment: Patient presented with a rash. Physical exam seems consistent with cellulitis. Patient will be treated with a course of Keflex. He has no signs of systemic toxicity or any need for further workup at this time. Disposition: Discharge Impression: Right leg cellulitis This note was generated with [employer] dictation software. It may contain incorrect words, spelling, and punctuation that were not noted in review of the chart prior to signing ED Disposition - Plan for ED Patient: Disposition: Home or Assisted Living Chief Complaint: Wound Diagnosis: Cellulitis Instructions: Discharge Instructions for Cellulitis Prescriptions: Cephalexin [Keflex] 500 mg PO Q6 #40 cap Referrals: Leola Fierro [Primary Care Provider] - 3-5 Days
--- OUTSIDE RECORDS SUMMARY | 2018-10-17 09:44 | XMS RPT_ITS ---
:1985 Author Organization [facility] Support Name Relationship Address Phone Gertrudis Vallejo Unavailable Unavailable + Maritza Floresnda Unavailable Unavailable + Fran Flores Unavailable Unavailable + Gertrudis Vallejo Unavailable Unavailable + Flores Liliya Unavailable Unavailable + Fran Flores Unavailable Unavailable + FLORES, LILIYA Unavailable [address] + [place] [address] UE Unavailable Unavailable Unavailable FLORES, LILIYA Unavailable [address] + [place] [address] UE Unavailable Unavailable Unavailable Gertrudis Vallejo Unavailable Unavailable + Flores Liliya Unavailable Unavailable + Fran Flores Unavailable Unavailable + Gertrudis Vallejo Unavailable Unavailable + Flores Liliya Unavailable Unavailable + Fran Flores Unavailable Unavailable + FLORES, LILIYA Unavailable [address] + [place] [address] UE Unavailable Unavailable Unavailable FLORES, LILIYA Unavailable [address] + [place] [address] UE Unavailable Unavailable Unavailable FLORES, LILIYA Unavailable [address] + [place] [address] UE Unavailable Unavailable Unavailable FLORES, LILIYA Unavailable [address] + [place] [address] UE Unavailable Unavailable Unavailable LILIYA FLORES Unavailable [address] + [place] [address] UE Unavailable Unavailable Unavailable Care Team Providers Name Role Phone Fran Wan Attending Unavailable PROVIDER, UNKNOWN Referring Unavailable No, PCP Primary Care Unavailable Fran Wan Attending Unavailable PROVIDER, UNKNOWN Referring Unavailable No, PCP Primary Care Unavailable Fran Wan Attending Unavailable PROVIDER, UNKNOWN Referring Unavailable No, PCP Primary Care Unavailable PROVIDER, UNKNOWN Referring Unavailable No, PCP Primary Care Unavailable Vaishali Bell Attending Unavailable [facility] Primary [facility] Unavailable Lucien Aparicio Attending Unavailable Laura Guajardo Attending Unavailable Laura Guajardo Referring Unavailable [facility] Primary Care Unavailable Omar Bo Attending Unavailable [facility] Primary Care Unavailable Omar Bo Attending Unavailable Omar Bo Referring Unavailable [facility] Primary Care Unavailable Omar Bo Attending Unavailable [facility] Primary Care Unavailable Omar Bo Attending Unavailable [facility] Primary Care Unavailable Omar Bo Referring Unavailable Omar Bo Attending Unavailable Omar Bo Referring Unavailable [facility] Primary Care Unavailable PROBLEMS PROBLEMS DATE TYPE CONDITION / CODE ATTENDING STATUS SOURCE 08/16/2018 Admitting Gastro-esophageal Fauzia Bellne [employer] [facility] [employer] Diagnosis reflux disease System without esophagitis Repository / K21.9(ICD-10) 08/16/2018 Admitting Essential (primary) Vaishali Bell [facility] Diagnosis hypertension / System I10(ICD-10) Repository 08/16/2018 Admitting Obstructive sleep [facility] Diagnosis apnea (adult) System (pediatric) / Repository G47.33(ICD-10) 08/16/2018 Admitting Morbid (severe) [facility] Diagnosis obesity due to System excess calories / Repository E66.01(ICD-10) 08/16/2018 Admitting Body mass index [facility] Diagnosis (BMI) 70 or System greater, adult / Repository Z68.45(ICD-10) 08/02/2018 Admitting Encounter for other [employer] Diagnosis preprocedural System examination / Repository Z01.818(ICD-10) 07/08/2018 Admitting Shortness of breath [facility] Diagnosis / R06.02(ICD-10) System Repository 07/08/2018 Admitting Dependence on other [facility] Diagnosis enabling machines System and devices / Repository Z99.89(ICD-10) 07/08/2018 Admitting Dorsalgia, [facility] Diagnosis unspecified / System M54.9(ICD-10) Repository 07/08/2018 Admitting Other fatigue / [facility] Diagnosis R53.83(ICD-10) System Repository 07/08/2018 Admitting Unspecified atrial [facility] Diagnosis fibrillation / System I48.91(ICD-10) Repository 09/19/2017 Unknown I73.9 - Peripheral Omar Bo vascular disease, Community unspecified / Hospital I73.9(ICD-10) Repository 09/19/2017 Unknown R60.0 - Localized [employer] Clarissa Arias edema / Community R60.0(ICD-10) Hospital Repository PROCEDURES PROCEDURES No Procedure Records FoundRESULTS RESULTS PROTHROMBIN TIME W/INR Collected: 08/02/2018 Status: C Source: [place] 3:28 PM [facility] REPOSITORY Order Comment: PLEASE CALL [phone] WITH RESULTS TYPE CODE TESTS RESULT OUT OF REFERENCE UNITS RANGE LAB L300.4150 11.7-14.9 SECONDS High PROTIME 29.2 Result Comment: RESULTS CALLED TO VIKTOR HERNANDES 08/02/18 1629 Christiano Prajapati. REPORT READ BACK BY VIKTOR. AMENDED REPORT 08/02/181628 PROTIME previously reported as: 29.2 H SECONDS LAB L300.4200 Normal INR 2.7 Performed By: #### L300.3900 #### [facility] [address] [place], [address] EMERGENCY DEPARTMENT Observed: 07/16/2018 Status: F Source: [place] SUMMARY 12:19 AM [facility] REPOSITORY [facility] Medical Records Department [address] [place] [address] Emergency Department Summary 07/15/18 1705 MR#: [id number] Acct: [id number] Name: FRAN FLORES II Rep #: [id number] : 1985 32 From: Lucien Aparicio MD PCP: GIANNA PRATER Status: DEP ER - ER Visit Summary Date of Service: 07/15/18 Chief Complaint: Rash History of Present Illness: The patient is a 32 M presenting for evaluation secondary to a rash. Patient has an underlying history of morbid obesity 104. He was on anticoagulation. Patient states that his INRs have been running therapeutic. Patient states that he had developed it in the last 24 hours of a rash on his right leg. He does endorse that he has had some subjective chills. Denies any pain or any other associated symptoms such as chest pain or shortness of breath. Review of systems otherwise negative. Physical Examination: Vital signs notable heart rate of 116. Morbidly obese male no acute distress. Right lower extremity shows a chronic plaque noted on the anterior portion of the patient's right chester which he states is from a difficult to heal skin wound. He has surrounding erythema over his anterior chester going somewhat to his posterior calf. No palpable cord or subcutaneous emphysema. Emergency Department Course and Treatment: Patient presented with a rash. Physical exam seems consistent with cellulitis. Patient will be treated with a course of Keflex. He has no signs of systemic toxicity or any need for further workup at this time. Disposition: Discharge Impression: Right leg cellulitis This note was generated with [employer] dictation software. It may contain incorrect words, spelling, and punctuation that were not noted in review of the chart prior to signing ED Disposition - Plan for ED Patient: Disposition: Home or Assisted Living Chief Complaint: Wound Diagnosis: Cellulitis Instructions: Discharge Instructions for Cellulitis Prescriptions: Cephalexin [Keflex] 500 mg PO Q6 #40 cap Referrals: Gianna Fierro [Primary Care Provider] - 3-5 Days What to do if you have Problems For any increased pain, shortness of breath, bleeding, nausea or vomiting, chest pain, or any unexpected problems, contact your Primary Care Provider. Call [facility] ([phone]) or report to the closest Emergency Room. Call 911 if necessary. 07/16/18 0019 <Electronically signed by Lucien Aparicio MD> Date Lucien Aparicio MD Cosigner Signature (If Indicated): Date CC: GIANNA TIAN [facility] LOWER EXT ARTERIAL Observed: 10/06/2017 Status: F Source: [facility] 8:57 AM [facility] REPOSITORY [facility] Cardiovascular Services [address] [place] [address] 10/06/17 0854 MR#: [id number] Acct: [id number] Name: FRAN FLORES II Rep #: [id number] : 1985 31 From: Umberto Metzger MD Attending Dr: Omar Bo DPM Status: REG RCR Ordering Dr: Date: 10/06/17 Location: [facility] Sex: M C Admitted: Arterial Study - Arterial Study Arterial Study: This is a 31-year-old male with a history of atrial fibrillation, hypertension, and morbid obesity. The patient presents with a chronic nonhealing wound to the right lower extremity. Suspecting the presence of atherosclerotic peripheral arterial occlusive disease, the patient was brought to the noninvasive vascular laboratory at this time for the purpose of bilateral noninvasive lower extremity arterial assessment. Doppler signal assessment was used to evaluate the pulses at ankle level bilaterally. The posterior tibial and dorsalis pedis pulses were triphasic bilaterally. Segmental limb pressures were obtained at ankle level bilaterally. The right ankle pressure, as determined by posterior tibial pulse, was measured at 134 mmHg. The right ankle pressure, as determined by dorsalis pedis pulse, was measured at 143 mmHg. The left ankle pressure, as determined by posterior tibial pulse, was measured at 136 mmHg. The left ankle pressure, as determined by dorsalis pedis pulse, was measured at 145 mmHg. Resting ankle-brachial indices were calculated bilaterally. The resting right ankle-brachial index was calculated to be 1.07. The resting left ankle-brachial index was calculated to be 1.08. Impression: Based upon the findings of this resting noninvasive lower extremity arterial study, there is no evidence of significant atherosclerotic peripheral arterial occlusive disease in the lower extremities bilaterally. Triphasic waveforms are noted at ankle levels bilaterally. Resting ankle-brachial indices are bilaterally normal. In summary, this represents a normal resting noninvasive lower extremity arterial study bilaterally. 10/06/17856 <Electronically signed by Umberto Metzger MD> Date Umberto Metzger MD CC: Omar Bo DPM; [facility] Date Dictated: 10/06/17853 Date Transcribed: 10/06/17853 Pricing Actuary: BRUNA Barrientos VENOUS DUPLEX LOWER Observed: 10/04/2017 Status: F Source: [place] 10:06 PM [facility] REPOSITORY [facility] Cardiovascular Services [address] [place] [id number] Venous Duplex - [facility] 10/04/17 09 MR#: [id number] Acct: [id number] Name: FRAN FLORES II Rep #: [id number] : 1985 31 From: Umberto Metzger MD Attending Dr: Omar Bo DPM Status: REG RCR Ordering Dr: Omar Bo DPM Date: 10/04/17 Location: [facility] Sex: M C Admitted: Reason For Study: Non-healing wound RIGHT LEFT CFV is compressible, spontaneous, phasic, CFV is compressible, spontaneous, phasic, competent and demonstrates normal competent, and demonstrates normal augmentation. augmentation. FV is compressible, spontaneous, phasic, FV is compressible, spontaneous, phasic, competent and demonstrates normal competent and demonstrates normal augmentation. augmentation. POP V is compressible, spontaneous, phasic, POP V is compressible, spontaneous, phasic, competent and demonstrates normal competent and demonstrates normal augmentation. augmentation. T/P Trunk is compressible. T/P Trunk is compressible. PTV is compressible. PTV is compressible. SFJ competent SFJ competent GSV competent GSV competent SSV not visualized. SSV not visualized. Procedure Exam performed in department. Technically difficult/limited exam due to body habitus. Interpretation Summary Deep veins of the lower extremities are bilaterally patent and compressible segmentally. There is no evidence of deep vein thrombosis on either side. Valvular competence appears intact within the proximal deep venous systems bilaterally. The greater saphenous veins appear bilaterally patent and compressible segmentally. Sapheno-femoral junctions are bilaterally competent . Valvular competence appears to be intact segmentally within the greater saphenous veins bilaterally. Small saphenous veins were not visualized bilaterally. Ordering Physician: Omar Bo Referring Physician: Omar Bo Performed By: Loan Adams RVT 10/04/172205 Date Umberto Metzger MD CC: Omar Bo [facility]; [facility] Date Dictated: 10/04/17901 Date Transcribed: 10/04/172205 Pricing Actuary: Signed CBC W/DIFF, AUTOMATED Collected: 09/20/2017 Status: F Source: [place] 11:50 AM [facility] REPOSITORY TYPE CODE TESTS RESULT OUT OF RANGE REFERENCE UNITS LAB L100.1000 4.4-11.0 K/mm3 Normal WBC 7.5 LAB L100.1200 4.6-6.2 M/mm3 Normal RBC 4.91 LAB L100.1300 13.0-16.5 g/dl Normal HGB 14.1 LAB L100.1400 40-54 % Normal HCT 42.7 LAB L100.1500 80-94 fL Normal MCV 87.0 LAB L100.1600 27.0-32.0 pg Normal MCH 28.7 LAB L100.1700 32-36 g/gl Normal MCHC 33.0 LAB L100.1810 11.6-14.6 % Normal RDW CV 13.0 LAB L100.1820 35.1-43.9 fl Normal RDW SD 40.7 LAB L100.1900 150-450 K/mm3 Normal PLT 227 LAB L100.2000 6.2-12.0 fl Normal MPV 9.9 LAB L100.2100 47-70 % Normal NEUT% 60.3 LAB L100.2200 19-41 % Normal LY% 28.2 LAB L100.2300 0-10 % Normal MONO% 8.8 LAB L100.2400 0-5 % Normal EO% 1.9 LAB L100.2500 0-1 % Normal BASO% 0.7 LAB L100.2550 0.0-0.9 % Normal IM GRAN % 0.100 Result Comment: IG% - Immature Granulocytes (promyelocytes, myelocytes and metamyelocytes) > 1% indicates that a LEFT SHIFT is Present. LAB L100.2620 2.0-7.7 X10 3/uL Normal Absolute Neut 4.5 LAB L100.2720 0.83-4.51 X10 3/ul Normal Absolute Lymph 2.10 Performed By: #### L100.0100, L101.9900 #### [facility] [address] [place], [place], [id number] ERYTHROCYTE SED RATE Collected: 09/20/2017 Status: F Source: [place] 11:50 AM [facility] REPOSITORY TYPE CODE TESTS RESULT OUT OF RANGE REFERENCE UNITS LAB L102.0000 0-15 mm/hr High SED RATE 38 Performed By: #### L100.0100, L101.9900 #### [facility] [address] [place], [address] COMPREHENSIVE METABOLIC Collected: 09/20/2017 Status: F Source: [facility] 11:50 AM [facility] REPOSITORY TYPE CODE TESTS RESULT OUT OF RANGE REFERENCE UNITS LAB L501.0100 74-106 mg/dL Normal GLU 97 Result Comment: Please note revised GLUCOSE reference range effective 2017. LAB L501.1000 7-18 mg/dL Normal BUN 18 LAB L501.1100 0.70-1.30 mg/dL Normal CREAT,SERUM 1.08 Result Comment: The validity of the calculated GFR AND GFRAA in patients over 70 years has not been determined. Clinical correlation is essential. LAB L501.1110 >60 mL/min Normal EST GFR 84 Result Comment: Non- GFR Calc LAB L501.1115 >60 mL/min Normal EST GFR - AA 102 Result Comment: GFR Calc LAB L501.1300 10-20 RATIO Normal BUN/CRE 16.7 LAB L501.1500 6.4-8.2 g/dL T Normal PROT 7.7 LAB L501.1800 3.2-5.0 g/dL Normal ALB 3.5 LAB L501.1950 2.2-4.2 g/dL Normal GLOB 4.2 LAB L501.2000 0.9-2.4 RATIO Low A/G 0.8 LAB L501.2200 8.5-10.1 mg/dL CA Normal 8.7 LAB L501.4100 15-37 U/L Normal AST 27 LAB L501.4305 45-117 U/L Normal ALK P 102 LAB L501.4405 16-61 U/L Normal ALT 41 Result Comment: Please note revised ALT reference range effective 2017. LAB L501.4600 0.20-1.00 mg/dL Normal T BILI 0.70 LAB L501.5300 136-145 mmol/L Normal NA 138 LAB L501.5600 3.5-5.1 mmol/L Normal K 3.7 LAB L501.5900 98-107 mmol/L Normal CL 100 LAB L501.6100 21.0-32.0 mmol/L Normal CO2 31.0 LAB L501.6200 5-15 Normal GAP 7 Performed By: #### L500.4050, L501.6710, L506.0500 #### [facility] [address] [place], [address] CRP Collected: 09/20/2017 Status: F Source: [place] 11:50 AM [facility] REPOSITORY TYPE CODE TESTS RESULT OUT OF RANGE REFERENCE UNITS LAB L501.6710 0.0-3.0 mg/L High 11.60 C-REACTIVE PROT Result Comment: C-Reactive Protein (CRP) provides useful information for the diagnosis, therapy and monitoring of inflammatory processes and associated diseases. For the evaluation of Relative Risk for Cardiovascular Disease, a High Sensitivity CRP (HSCRP) should be ordered. Performed By: #### L500.4050, L501.6710, L506.0500 #### [facility] [address] [place], [address] PREALBUMIN Collected: 09/20/2017 Status: F Source: [place] 11:50 AM [facility] REPOSITORY TYPE CODE TESTS RESULT OUT OF RANGE REFERENCE UNITS LAB L506.0500 20.0-40.0 mg/dL Normal PREALBUMIN 22.7 Performed By: #### L500.4050, L501.6710, L506.0500 #### [facility] [address] [place], [address] WOUND CTR HISTORY Observed: 09/18/2017 Status: F Source: [place] AND PHYSICAL 4:54 PM [facility] REPOSITORY [facility] Wound Healing Center [address] [facility] [address] Wound Ctr History AND Physical 09/18/17 1637 MR#: [id number] Acct: [id number] Name: FRAN FLORES II Rep #: [id number] : 1985 31 From: Omar Bo DPKobe PCP: [facility] Status: REG RCR Y Location: WC (1) Non-pressure chronic ulcer of other part of right lower leg with fat layer exposed Status: Acute Current Visit: Yes Code(s): L97.812 - Non- pressure chronic ulcer of other part of right lower leg with fat layer exposed (2) Bilateral leg edema Status: Chronic Current Visit: Yes Code(s): R60.0 - Localized edema (3) Morbid obesity Status: Chronic Current Visit: Yes Code(s): E66.01 - Morbid (severe) obesity due to excess calories History of Present Illness Date of Service: 09/18/17 Chief Complaint: R chester ulcer History of Wound: 31 year old man with multiple medical problems including HTN, a.fib., asthma, and super morbid obesity (BMI 78.1) presents with 2 month history of R chester ulceration. Pt states area blistered and ulcerated approximately 2 months ago. Has a history of similar blisters and open areas, but states that they have all healed in the past. He has been keeping the area open to air. Is currently taking Keflex 500 mg TID, and has 1 day remaining. Past Medical History Past Medical History: Chronic Problems Bilateral leg edema (Chronic) HTN (hypertension) (Chronic) Morbid obesity (Chronic) Past Medical History: asthma, atrial fibrillation Surgical History: no surgical history Allergies/Adverse Reactions: Allergies Pertussis Vaccines Allergy (Verified 11/18/15 10:37) High Fever Home Medications: Ambulatory Orders Medication Instructions Recorded Hydrochlorothiazide [Hctz] 25 mg PO DAILY 06/02/13 Metoprolol Tartrate [Lopressor 50 mg PO BID #60 tablet 06/03/13 (beta jelena)] Loratadine [Claritin] 10 mg PO DAILY 09/12/13 Lives: With Family Smoking Status: Former smoker Tobacco Use: Non-smoker Alcohol: Rare Drugs: None Review of Systems Constitutional: Denies: Chills, Fever, Weight Change Eyes: Denies: Pain, Vision Change HEENT: Denies: Difficulty Hearing, Difficulty Swallowing, Sinus Congestion Cardiovascular: Reports: Edema. Denies: Chest Pain, Palpitations Respiratory: Denies: Cough, Shortness of Breath Gastrointestinal: Denies: Diarrhea, Nausea, Vomiting Genitourinary: Denies: Dysuria, Hematuria Musculoskeletal: Denies: Leg Pain Skin: Reports: Wounds - R chester Neurological: Denies: Slurred speech, Numbness, Tingling Psychiatric: Reports: Anxiety Endocrine: Denies: Heat/ Cold Intolerance, Polydipsia, Polyuria Hematologic/ Lymphatic: Denies: Easy Bruising, Easy Bleeding, Hx of blood clot - Physical Exam Vital Signs Temp Pulse Resp BP 99.1 F 101 H 20 H 147/92 H 09/18/17 14:43 09/18/17 14:43 09/18/17 14:43 09/18/17 14:43 General: Alert, Oriented x3, Cooperative, No apparent distress Abdomen: Obese Extremities: No clubbing, No cyanosis, Capillary Refill Less than 3 Seconds, No Calf Tenderness, Diminished Peripheral Pulses - Possibly secondary to bilateral lower extremity edema, Edema Skin: Ulcer/ Wound - R chester cluster with no pus, no malodor, no increased warmth, no TTP, no erythema. No clinical signs of acute bacterial infection noted. See wound/edema assessment below. Wound Measurements and Assessment WC - Nurse 1 - General Ulcer Measurement Start: 09/18/17 14:19 Freq: Status: Active Protocol: Activity Type Activity Date Activity User E-Sign Co-Sign Detail Recorded Client Recorded Date Recorded By Document 09/18/17 14:43 DV [id number] 09/18/17 15:06 DV Wound Center Nurse 1 - Nurse 2 - General Ulcer CM Notes Start: 09/18/17 14:19 Freq: Status: Active Protocol: Activity Type Activity Date Activity User E-Sign Co-Sign Detail Recorded Client Recorded Date Recorded By Document 09/18/17 15:29 MW [id number] 09/18/17 15:37 MW Wound Center Nurse 2 Musculoskeletal: No Tenderness to Palpation of Joints or Extremities, No Muscle Wasting Neurological: Deep Tendon Reflexes 2+/4 and Symmetrical, Neuro grossly intact, Motor Exam 5/5 strength throughout, Muscle tone normal, Sensory exam intact to light touch and pain, Coordination normal, Gait narrow based and stable Psych/Mental Status: Alert and oriented to time, place, person, mood and affect - wnl Debridement Note Post-Debridement Measurements/Treatment WC - Nurse 2 - General Ulcer CM Notes Start: 09/18/17 14:19 Freq: Status: Active Protocol: Activity Type Activity Date Activity User E-Sign Co-Sign Detail Recorded Client Recorded Date Recorded By Document 09/18/17 15:29 MW [id number] 09/18/17 15:37 MW Wound Center Nurse 2 #1 Right Lower Chester Cluster -Time 15:29 -Correct Patient Yes -Correct Side, Site, Position Yes Wound debrided: R chester Laterality: Right Wound Grade/Stage: full thickness Type of Debridement: Excisional debridement Anesthesia Used: 4% Lidocaine Solution Depth: Down to and including healthy tissue, in the subcutaneous layer Percentage of wound debrided: 100 Instrument Used: 3mm curette Tissue Removed: fibrous slough Severity: Fat Layer Exposed Amount of bleeding with debridement: Mild Bleeding Controlled with: Pressure, Compression and gauze Patient tolerated procedure well Assessment/Plan Active Problems Bilateral leg edema (Chronic) Non-pressure chronic ulcer of other part of right lower leg with fat layer exposed (Acute) Morbid obesity (Chronic) Assessment: See diagnoses Plan: New pt exam. SQ/excisional debridement of R chester ulcer cluster as above. JEVON and venous duplex ordered. Pt admits to a large amount of clear drainage--start aquacel ag and ABD daily for the next week, and hopefully we can decrease to every other day starting next week. Compression with jonny wraps from base of toes on RLE to just below the knee. Plan to increase compression to 3M 2-layer coban after vascular testing. Discussed importance of weight managment, leg elevation, avoiding idle sitting or standing, increased activity. Pt unable to take NSAIDs due to current use of coumadin. Pt is a former smoker, is non-diabetic. CBCD, CMP, pre-albumin, ESR, CRP ordered. Monitor for redness, pus, malodor, warmth, pain, inc swelling as well as for N/V/F/C/calf pain/SOB/chest pain and go to the ED with these. Return in 1 week, call wound center with questions prior to f/u appt. 09/18/17 6703 <Electronically signed by Omar Bo DPM> Date Omar Bo DPM CC: Signed ALLERGIES ALLERGIES DATE TYPE / CODE NAME / CODE REACTION SEVERITY SOURCE 07/15/2018 Drug Pertussis High Fever Unknown [facility] Allergy/416 Vaccines/[id number] Hospital [id number](SNOM 074(RXNORM) Repository ED CT) 07/15/2018 Drug lisinopril/F0060 Other Unknown [facility] Allergy/416 23859(RXNORM) Hospital 275234(SNOM Repository ED CT) ENCOUNTERS ENCOUNTERS ADMIT/DISCHARGE ACCOUNT NUMBER ADMITTING ENCOUNTER LOCATION SOURCE CLASS 08/16/2018 [id number] [facility] Repository 08/02/2018 [id number] [facility] Repository 08/02/2018 [id number] Ambulatory [facility] ding:LAB Repository 07/15/2018/07/15/20 [id number] Emergency [address] ding:ED Repository 07/08/2018 [id number] Ambulatory [facility] Repository 07/08/2018 [id number] [facility] Repository 11/07/2017 [id number] Ambulatory [facility] ding:WC Repository 10/16/2017/10/28/19 [id number] Ambulatory [address] ding:WC Repository 10/04/2017 [id number] Ambulatory [place] [facility] ding:WC Repository 09/25/2017/09/26/19 [id number] Ambulatory [address] ding:WC Repository 09/20/2017 [id number] [facility] ding:LAB Repository PAYERS PAYERS ENCOUNTER GUARANTOR PAYER SUBSCRIBER SOURCE 08/16/2018 Fran A [facility]: [facility]CareSourceP [place]: System olicy Number: [id number] Repository Cemetery Effective Date: [place], [place] [address]Ymj: (HP) 08/02/2018 Fran A [facility] Insurance:Self [place]DOB: System PayPolicy Number: [id number] Repository Cemetery Effective Date: [place], [place] [address]Qof: (HP) 08/02/2018 FRAN A FLORES Primary FRAN A FLORES [place] [id number] CEMETERY Insurance:CARESOURCEP IIDOB: Pending sale to [facility] Number: [id number] [facility] [address]Kks: [phone] [id number] Repository [phone] () Date:2018-08-02[address]ATTN: [place] [id number]: 08/02/2018 Secondary NOT GIVENUNK [place] Insurance:SELF PAY [facility] Number: Effective Repository Date:2018-08-02 07/15/2018 FRAN A FLORES Primary FRAN A FLORES [place] [id number] [place]EM[place] Insurance:CARESOURCEP IIDOB: Pending sale to [facility] Number: [id number] [facility] [address]Pli: [phone] [id number] Repository [phone] () Date:2018-07-15[address]ATTN: [place] [phone]: 07/15/2018 Secondary NOT GIVENUNK [place] Insurance:SELF PAY [facility] Number: Effective Repository Date:2018-07-15 07/08/2018 Fran A Primary Fran A [employer] [facility] Insurance:Self MullinsDOB: System [id number] PayPolicy Number: [id number] Repository Cemetery Effective Date: [place], [place] [address]Joz: (HP) 07/08/2018 Fran A Primary Fran A [facility] [employer] [place]OB: Insurance:CareSourceP [facility] System [id number] olicy Number: [id number] Repository Cemetery Effective Date: [place], [place] [address]Gkk: (HP) 11/07/2017 FRAN A FLORES Primary FRAN A FLORES [place] [id number] [place] Insurance:CARESOURCEP IIDOB: Community [facility] Number: [id number] [address]Plr: [id number] Repository [phone] Date:2017-10-02 O -3 () [address]ATTN: [place] [id number]: 11/07/2017 Secondary NOT GIVENUNK [place] Insurance:SELF PAY [facility] Number: Effective Repository Date:2017-10-28 10/16/2017 FRAN A FLORES Primary FRAN A FLORES [place] [id number] CEMETERY Insurance:CARESOURCEP [facility]IDOB[facility]: [id number] [address]Lud: [id number] Repository [phone] Date:2017-10-02P O -3 () [address]ATTN: [place] [id number]: 10/16/2017 Secondary NOT GIVENUNK [place] Insurance:SELF PAY [facility] Number: Effective Repository Date:2017-10-02 10/04/2017 FRAN FLORES Primary FRAN FLORES [place] [id number] CEMETERY Insurance:CARESOURCEP [facility] Number: [id number] [address]Nlr: [id number] Repository [phone] Date:2017-09-18P O -3 () [address]ATTN: [place] [id number]: 10/04/2017 Secondary NOT GIVENUNK [place] Insurance:SELF PAY [facility] Number: Effective Repository Date:2017-09-27 09/25/2017 Fran Flores Primary Fran [place] [id number] [place] Insurance:CARESOURCEP IIDOB: [facility] cristela MACHADO [facility] Number: [id number] Hospital [address]Htp: [id number] Repository [phone] Date:2017-09-18P O -3 () [address]ATTN: [place] [address]QS: 09/25/2017 Secondary NOT GIVENUNK [place] Insurance:SELF PAY [facility] Number: Effective Repository Date:2017-09-18 09/20/2017 Fran Flores Primary Fran Flores [place] [id number] [place] Insurance:CARESOURCEP [facility] Number: [id number] [address]Oqc: [id number] Repository [phone] Date:2017-09-20P O -3 (HP) [address]ATTN: [place] [phone]: 09/20/2017 Secondary NOT GIVENUNK [place] Insurance:SELF PAY [facility] Number: Effective Repository Date:2017-09-20
== END 2018-07-15 17:34 | disposition home or self-care (01) ==
LOC: ED 17:27
PROVIDERS: Emergency Provider Emergency Medicine
DX: L03.115 Cellulitis of right lower limb (principal); I48.91 Unspecified atrial fibrillation; E66.01 Morbid (severe) obesity due to excess calories; Z79.01 Long term (current) use of anticoagulants; Z79.899 Other long term (current) drug therapy
CPT/HCPCS: 99283

== ENCOUNTER → 2018-08-02 14:59 | Outpatient (CLI) | payer MEDICAID, SELFPAY ==
[2018-07-15 16:36] VITALS: BMI 89.1
[2018-08-02 16:05] LABS: International Normalized Ratio 2.7
[2018-08-02 16:29] LABS: Prothrombin Time (Protime)PT. 29.2 SECONDS (11.7-14.9)
== END ==
PROVIDERS: Referring Provider Nurse Practitioner Family; Visit Provider Nurse Practitioner Family
DX: I48.91 Unspecified atrial fibrillation (principal)
CPT/HCPCS: 36415; 85610

== ENCOUNTER 2018-10-22 08:37 | Outpatient (RCR) | payer MEDICAID, SELFPAY ==
--- NOTE | 2018-10-22 09:00 | BH.SGPN.GN ---
Behaviors/Verbalizations/Mental Status: [] Eye contact is good. Motor activity is appropriate. Appearance is casual. Speech is Appropriate. Mood is anxious. Affect is congruent. Thoughts are linear and logical. No evidence of psychosis. Reviewed daily check in sheet and no reports of suicidal ideations or intent Client Response/Progress/Benefit: [] Pt was an active participant in group discussions. Emotion for today is nervous wreck. Pt very restless and utilizes worry stone and fidget spinner during groups. Reports that his anxiety is so severe that he cannot sit still. Constantly restless however due to his weight and health issues he is unable to be physically active. States that he isolates all day and is extremely lonely. Currently lives with 2 family members who are on hospice. Constantly worried about them and what his future will be like due to his health issues. Poor quality of life. Admits to unhealthy coping skills of eating when stressed, anxious, or depressed. States there is not much good news about myself or my life. Benefited from group support and encouragement. Will continue in IOP to prevent decompensation, decrease anxiety, and improve daily functioning. Narrative Note: []
--- NOTE | 2018-10-22 11:15 | BH.SGPN.GN ---
Behaviors/Verbalizations/Mental Status: []Client alert and oriented, neatly dressed and groomed. Eye contact good. Motor activity appropriate. Speech within normal limits. Affect congruent, mood anxious. Thoughts linear, logical, no signs of hallucinations or delusions. Client Response/Progress/Benefit: []client responded well to session, positive contributions. Client further explored his communication style and identified using the passive type. Client shared he is passive because he wants to avoid conflict, but it leads to client holding in his emotions and more anxiety. Client acknowledged that when he is passive ?things just get worse.? Client participated in the group activity and was able to practice strategies of assertive communication. Client helped the group discuss strategies to improve communication and he set a goal to increase his assertive communication. Client?s goal is to practice having courage in group to say his thoughts and opinions. Client appeared to benefit from increasing communication skills. Client?s first day in IOP. Client to continue to prevent decompensation and increase mood stability.
--- NOTE | 2018-10-24 09:01 | BH.SGPN.GN ---
Behaviors/Verbalizations/Mental Status: [Eye contact is good. Motor activity is appropriate at times restless. Appearance is casual. Speech is pressured. Mood is anxious and depressed. Affect is congruent. Thoughts appear to be racing. No evidence of psychosis. Reviewed daily check in sheet, pt reports a score of 1/5 for suicidal ideations though denies plan or intent. Pt is future oriented and agreeable to meeting with individual therapist following IOP for the day to further evaluate] Client Response/Progress/Benefit: [Pt engaged, attentive throughout group discussion and providing input. Emotion for today is tense as he is feeling more anxious about being in the group setting than earlier in the week but is unsure at to what may be contributing to his anxiety. Able to identify mental health positives as using his crafting to manage anxiety and prevent it from escalating while at home. Pt further explained that his home has several people and animals in it which can serve as a trigger for his anxiety. Shared coming to group continues to be a win because he has a lot of fear about being in a group setting. He discussed that group is not only helping him to work on his mental health but also helping him work towards goal of bariatric surgery. Identified this as well as his home environment are continual stressors for him. Benefited from supportive group environment and positive feedback provided in regard to developing strategies for managing anxiety. Will continue in IOP to prevent decompensation, improve thought challenging and anxiety management skills, and reduce depression.]
--- NOTE | 2018-10-24 10:20 | BH.SGPN.GN ---
Behaviors/Verbalizations/Mental Status: []Client alert and oriented, neatly dressed and groomed. Eye contact good. Motor activity restless as evidenced by needing to fidget with items and bouncing his leg. Speech within normal limits. Affect full, mood anxious. Thoughts linear, logical, no signs of hallucinations or delusions. Client Response/Progress/Benefit: []Client responded well to session as shown by client contributing his thoughts to discussion and attentive towards peers. Client connected with the topic of failure and famous people that have overcome setbacks. Client reported fear of failure can lead to quitting. Client stated he doesn't think it is possible to not be disappointed after a failure but recognizes how he responds to the disappointment can make a difference. Client engaged in a group activity that encouraged the group to overcome fear of failure and challenge their perspective of failure. Client was positive and provided verbal direction to group members. Client appeared to benefit from gaining awareness of how fear of failure negatively impacts mental health. Client showing progress with increased self-awareness and insight into how his choices impact his mental health. However, he continues to struggle with generalizing the skills learned outside of the treatment environment. Narrative Note: []
--- NOTE | 2018-10-25 08:29 | BH.MDN_ITS ---
Multi-Disciplinary Note - Note 45-min Individual Time Started:: 11:50 Date: 10/24/18 Purpose of session/treatment goals addressed:: The purpose of this session was to establish rapport as well as gather information on client's current symptoms, stressors, and mental healthy history. Another purpose was to begin development of treatment goals. Eye Contact:: Good Motor Activity:: Restless - fidgeting/shift in chair, wringing hands Appearance:: Casual Speech:: Tangential - able to return to main topic of discussion with redirection Mood:: Anxious, Depressed Affect:: Full Thoughts:: Linear, Logical, Racing, No evidence of hallucinations/delusions noted Staff Interventions:: Therapist used active listening and open-ended questions to gather information regarding client's current stressors, symptoms, and mental health history. Applied MS techniques to elicit change talk and begin establishment of treatment goals and identify potential barriers. Therapist used strengths perspective to build rapport and help client identify positives and personal strengths. Therapist provided emotional validation and psychoeducation on learned behaviors and coping. Therapist further assessed for risk factors and suicidal ideation given client scores of 1/5 for SI on daily symptom tracker. Identified plan to maintain safety for the remainder of the day. Client Response:: Pt open to meeting with this therapist and remained actively engaged throughout session. He was tearful throughout and indicated that he is hopeful regarding the IOP program and his ability to improve mental health sx. Discussed feeling anxious in the group environment but encourage to know that he is not the only one struggling with mental health sx. Pt went on to explain that he had been referred to IOP program by his psychologist a the [facility] following a psych evaluation for bariatric surgery in which pt failed. Per pt, the surgical team felt his mental health was not being managed at a level that would be appropriate for weight loss surgery and recommended he seek additional counseling. Pt in agreement with these findings. Notes that he has struggled with ruminating anxiety to the point of panic and overwhelming depression off and on since he was young. Noted that symptoms were recently exacerbated by his Aunt?s decline in health and recent introduction of home health aides into the home. Noted that the new people have made him anxious and that he has been struggling with increased worry that ?people will on me and I?ll be left alone?. Discussed wanting to work on improving self-confidence, anxiety management, and reduce depression. Reports that he has been receiving ongoing counseling through his psychologist at [facility]. Currently endorsing sx of crying spells, increased agitation, anxiety, guilt, ruminating thoughts, depression with passive SI, overwhelming emotions, low motivation, and anhedonia. Noted current sx have impacted his ability to function at baseline. Pt identified tx goals as improving emotion regulation skills, improving self- esteem, identifying healthy means of coping, and reducing depressive sx. Risks/Concerns:: No risks or concerns noted. Pt denies any active SI though reports passive thoughts of not wanting to be alive. Reports parents as major protective factor. Denies any plan, or intent as of this date. Future oriented and Pt aware of and willing to utilize the local crisis resources should he feel unable to maintain safety at any time. Progress Toward Goals/Plan:: Pt new to IOP tx and this is his 1st day in program, therefore limited progress currently noted. Reports he is motivated to make improvements for his own mental health, physical health, and relationships with supports. Pt endorses a depressed and anxious mood, negative thinking, anhedonia, guilt, and irritability. Identified goals for treatment as: improve ability to cope with his emotions, specifically that of anxiety, improve self- esteem, improve application of healthy coping skills, and decrease depression. Will continue IOP to prevent decompensation, maintain safety, improve daily functioning, and increase mood stability. Time Stopped:: 12:39
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
--- NOTE | 2018-10-25 10:47 | BH.NOTE ---
: Inpatient Note - Notes Behavioral Health Inpatient Note: Client requested that this RN call the prescriptions that Dr. Miles had written him in to [facility] in [place], [place]. The following prescriptions were left on pharmacy voicemail: Xanax 0.25mg PO daily PRN anxiety #20, no refills Topamax 25mg PO BID #60, 1 refill Celexa 10mg PO daily #30, 1 refill Original written prescriptions placed in client's chart. Medication education provided, mostly regarding Xanax use, and potential side effects of new medications. Client verbalizes understanding and will report any adverse effects to staff. Client denies additional questions or needs of this RN presently. Cornelio Barba, MSN, RN
--- NOTE | 2018-10-25 13:51 | BH.MTP_ITS ---
[facility] - Patient Information Program Physician:: Dr. Tremayne Miles Primary Therapist:: DAMIEN Romero - Psychiatric Diagnoses Psychiatric Diagnoses:: Persistent depressive disorder, generalized anxiety disorder, chronic adjustment disorder with anxiety, binge eating disorder Diagnosis Code(s):: F32.2 - Estimated LOS Estimated LOS (in weeks):: 6 Problem/Goal #1 - Problem/Goal #1 Stated Goal:: Client will increase mood stability and decrease depressive symptoms, and thoughts of due to Major Depressive Disorder through Intensive Outpatient Program. Description of Barriers: Stigma associated with mental illness, interpersonal relationship conflicts, hx of trauma, unhealthy coping via binge eating which has impacted mobility and decreased self-esteem. Functional Impact: Currently daily functioning is severely impacted by depression, mood instability, anxiety, and reliance on binge eating as a means of coping. Pt reports symptoms effecting his ability to socialize, increased isolation, impacted willingness to reach out to supports, decreased ability to work or leave his house for extended periods of time, and resulted in weight related medical issues. Goal Relevant Strengths/Supports: motivated to change, personable, willingness to learn and try new coping strategies, resilient, empathic - Objectives Objective #1 Stated Objective: Client will identify 2-3 triggers and 2-3 coping skills to reduce depressive symptoms that lead to suicidal thinking. Interventions: Through individual and group counseling will help client identify triggers and teach client various coping strategies to effectively cope with depressive symptoms. Discharge Criteria: Client will have achieved this goal when can identify at [address] triggers, verbalize two healthy coping strategies and defeat suicidal ideation. Target Date: 12/06/18 Review Date: 11/22/18 Problem/Goal #2 - Problem/Goal #2 Stated Goal:: Client will reduce overall frequency, intensity, and duration of the anxiety so that he is no longer relying on binge eating as a primary coping mechanism and daily functioning is not impaired. Description of Barriers: Stigma associated with mental illness, interpersonal relationship conflicts, hx of trauma, unhealthy coping via binge eating which has impacted mobility and decreased self-esteem. Functional Impact: Currently daily functioning is severely impacted by depression, mood instability, anxiety, and reliance on binge eating as a means of coping. Pt reports symptoms effecting his ability to socialize, increased isolation, impacted willingness to reach out to supports, decreased ability to work or leave his house for extended periods of time, and resulted in weight related medical issues. Goal Relevant Strengths/Supports: motivated to change, personable, willingness to learn and try new coping strategies, resilient, empathic - Objectives Objective #1 Stated Objective: Client will learn and implement 2-3 calming skills to reduce overall anxiety and manage anxiety symptoms. Interventions: Through individual and group counseling client will learn calming/relaxation skills and practices relaxation skills daily Discharge Criteria: Client will have achieved this goal when can verbalize at least 2 calming skills and implement those skills. Will report reduction in binge-eating behaviors. Target Date: 12/06/18 Review Date: 11/22/18 Objective #2 Stated Objective: Client will decrease ruminating thoughts which cause anxiety. Interventions: Through individual and group counseling pt. will be provided with education on anxiety and effective coping skills. Will explore more in-depth with pt. cause and triggers to ruminating thoughts as well as obstacles to overcoming these ruminative thoughts. Discharge Criteria: Will have completed cost analysis and be more self-aware of triggers to ruminations as well as strategies to better manage ruminations.
--- NOTE | 2018-10-25 15:13 | PCM.HP.BLA ---
History and Physical Date of Admission: 10/22/18 Chief Complaint: It is a 32-year old male who is referred by his health psychologist for treatment associated with his desire to undergo bariatric surgery. Has a history of binge eating, depression, anxiety, and borderline personality features. History of Present Illness: The patient underwent testing in preparation for undergoing bariatric surgery. According to his scores, his health psychologist that he would benefit from our program. The patient states that he has had problems with depression as long as he can remember. Some level of depression is present at least 80% of the time, and he has periods of worsening. He is now depressed every day. His sleep is erratic. He either sleeps too little or too much. His appetite is high and he has gained a lot of weight. His energy level is low. He cries frequently. He is able to enjoy little in life. His concentration is poor. He does have some hope for the future. He denied suicidal thoughts, but has had thoughts that he would rather just have a heart attack and . He notes that as a teenager he had bad depression and was treated with Prozac and trazodone. The patient has also had problems with anxiety as long as he can remember. He described himself as a huge worrier who is always worrying about many different things, especially his health and the health of his family. Is also easily overwhelmed by stress and lacks coping skills. Easily has been stressed out by his people in the home health problems. His father has cancer and his mother has had multiple strokes. The patient also has borderline personality features. He has frequent ups and downs of his mood. He has frequent good days followed by bad days. On bad days he has trouble getting out of bed. He has a history of anger outbursts during which she yells. He has abandonment fears people will on him. He feels empty inside of the time with thoughts that there is nothing to me. He has had identity issues. He has had some relationship problems with his parents. Can be impulsive at times spends money impulsively has a long history of impulsive and emotional eating. He is a binge eater. Past Psychiatric History: She has never been admitted to a psychiatric hospital and he denies any history of suicide attempts. He is treated with Prozac and trazodone when he was 18. Tried counseling on several occasions. He is currently seeing a psychiatrist at the counseling center. Current Psychiatric Medications: Cymbalta 30 mg twice daily, hydroxyzine 50 mg 3 times daily as needed, bupropion 300 mg daily Medical History: The patient is morbidly obese. He has edema treated with Lasix. He has hypertension treated with losartan, metoprolol and HCTZ. He has atrial fibrillation treated with warfarin. He has arthritis of his legs and back treated with meloxicam. He has asthma treated with Montelukast. He takes loratidine. Allergies: Lisinopril Family Psychiatric History: The patient is not aware of mental health problems in the family. Personal/Social History: The patient has always lived with his parents and has a good relationship with them. He is worried about their health. He lost a sister to leukemia when he was 7 years old. He has no other living siblings. Graduated from high school. He said that children always made fun of him in school because of his size. He last worked when he was in high school. 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 He has been receiving Social Security disability benefits for his physical problems for 1-2 years. He has never dated. He does not he does not view himself as being any positive qualities to attract a mate. No history of substance abuse. Review of Systems: Psychiatry: Depression, anxiety and moodiness as per HPI. He is not suicidal. There is no psychosis. He is cognitively intact. Constitutional: He is morbidly obese and his weight has increased. His energy level is poor. Sleep is erratic. All other systems reviewed and are negative other than as per the medical history above. Examination: The patient presents as a pleasant, cooperative male of morbidly obese build who is casually dressed and neatly groomed. He wears a small goatee and glasses. He demonstrates good social skills. Vital signs height 6 foot 2 inches, weight 626 pounds, respirations 17. Musculoskeletal: He experiences pain in his legs and back. His speech is fluent and spontaneous. His language is intact. His judgment and insight are intact. He is alert and oriented x3. His affect is cordial and appropriate. His recent and remote memory are intact. He demonstrates normal attention span and concentration on examination. He has normal thought processes and abstract reasoning. His associations are intact. No hallucinations or delusions and he is not suicidal. No straits normal age-appropriate fund of knowledge. Mental Status Examination: The patient presents as a pleasant, cooperative male of morbidly obese build who is casually dressed and neatly groomed. His thoughts are logical and coherent. He reports ongoing depression and anxiety as per HPI. He is not suicidal. Is no psychosis. He is cognitively intact Diagnoses: [] [place] I: Persistent depressive disorder, generalized anxiety disorder, chronic adjustment disorder with anxiety, binge eating disorder [place] II: Borderline personality traits [place] III: Morbid obesity, edema, GERD, asthma, hypertension, atrial fibrillation, chronic pain Plan: I am continuing bupropion XL 300 mg daily. I am stopping hydroxyzine. I am tapering Cymbalta and stopping it. I am prescribing Celexa 10 mg daily. I am adding Topamax 25 mg twice daily for weight control. I am also prescribing Xanax 0.25mg daily as needed. She will participate in the intensive outpatient groups. I will see him again for follow-up.
--- NOTE | 2018-10-25 15:34 | BH.DR.ITP ---
Initial Treatment Plan - Patient Information Visit Information: ADMISSION DATE: 10/22/18 EXPECTED LOS: 4-6 weeks Diagnoses:: Persistent depressive disorder; generalized anxiety disorder; chronic adjustment disorder with anxiety; binge eating disorder - Problems/Symptoms Problem #1:: depression Symptom:: low mood, anhedonia; low energy; low motivation Problem #2:: anxiety Symptom:: worry, anxiety, feeling overwhelmed; lacking in coping skills Problem #3:: binge eating Symptom:: emotional eating as a poor coping skill
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
== END 2018-10-27 23:59 ==
LOC: BHIOP 08:37
PROVIDERS: Referring Provider Psychiatry & Neurology Psychiatry; Visit Provider Psychiatry & Neurology Psychiatry
DX: F32.89 Other specified depressive episodes (principal); F41.1 Generalized anxiety disorder; F43.22 Adjustment disorder with anxiety; F50.81 Binge eating disorder
CPT/HCPCS: 99204; H0035; H2012; H2020; T1002; 90834

== ENCOUNTER 2018-10-28 09:00 | Outpatient (RCR) | payer MEDICAID, SELFPAY ==
--- NOTE | 2018-10-28 09:05 | BH.SGPN.GN ---
Behaviors/Verbalizations/Mental Status: [] Eye contact is good. Motor activity is appropriate. Appearance is casual. Speech is Appropriate. Mood is anxious. Affect is congruent. Thoughts are linear and logical. No evidence of psychosis. Reviewed daily check in sheet and pt reports 1/5 for suicidal ideations and 0/5 for intent. Therapist notified. Client Response/Progress/Benefit: [] Pt was an active participant in group discussion. Emotion for today is ok. States that he is tired and anxious. Reports that his anxiety continue to consume him and cause significant distress he did have a good weekend. Shared that he did not have any panic attacks this weekend. Spent time with family and was less isolative and avoidant. Kept his check-in short however did provided feedback and support to peers. Will continue in IOP to maintain safety, stabilize anxiety, and prevent decompensation. Progress noted per pt report. Narrative Note: []
--- NOTE | 2018-10-28 10:15 | BH.SGPN.GN ---
Behaviors/Verbalizations/Mental Status: [] Eye contact is good. Motor activity is appropriate. Appearance is casual. Speech is Appropriate. Mood is anxious. Affect is congruent. Thoughts are linear and logical. No evidence of psychosis. Restless and utilizing fidget spinner during group discussion. Client Response/Progress/Benefit: [] Pt was an active participant in group discussion and activity. Group worked together to identify the benefits of setting goals which included; having something to strive for, can be a positive motivator, can give a sense of purpose and accomplishment, can increase happiness and feeling of being proud, and can hold us accountable. Group discussed the barriers to following through with completing a goals which included; fearing change, lack of motivation, fear of failure, shame, disappointment, lack of support, and negative thoughts or emotions get in the way. Pt was attentive during psychoeducation on developing SMART (Specific, Measurable, Achievable, Realistic, Timely) goals as a tool to help with goal setting. Benefited from group by learning effective strategies for goal-setting and identifying barriers to completing goals. Narrative Note: []
--- NOTE | 2018-10-28 11:20 | BH.SGPN.GN ---
Behaviors/Verbalizations/Mental Status: []Pt eye contact good, casually dressed, motor activity restless, speech normal rate and tone, mood anxious, congruent affect, thoughts linear and logical, no evidence of delusions or hallucinations. Client Response/Progress/Benefit: []Pt listened attentively to others and contributed thoughts and ideas to discussion. Client identified his small SMART goal is to improve sleep routine by waking up by 9am each morning and not taking any naps throughout the day. Client stated this goal will benefit him by getting his day started off at a decent time and stop him from staying up so late. Pt identified barriers to include: trouble going to sleep at night, naps being his escape, and hate getting up early. Pt unable to identify strategies that can help him overcome potential barriers. Pt receptive to ideas and strategies from peers. Pt seemed to benefit from identifying a SMART goal and identifying ways to help overcome potential barriers. Pt progress could be hindered by pt often identifying how an idea or strategy will not work, which seems to maintain depressive symptoms. Pt to continue IOP level of care to decrease depression, increase utilization of healthy skills, and prevent decompensation. Narrative Note: []
--- NOTE | 2018-10-29 09:04 | BH.SGPN.GN ---
Behaviors/Verbalizations/Mental Status: [Eye contact is good. Motor activity is appropriate. Appearance is casual - wearing a headband he crocheted. Speech is Appropriate. Mood is anxious and euthymic. Affect is congruent. Thoughts are linear and logical - some evidence of rumination. No evidence of psychosis. Reviewed daily check in sheet and reports SI as 1/5 which is consistent with baseline, denies intent. ] Client Response/Progress/Benefit: [Pt attentive and engaged throughout AEB providing some input during discussion and processing current thoughts/concerns with the group. Emotion for today is optimistic as he noted getting more sleep that typical baseline which has helped in decreasing anxiety this morning. Pt did well to identify current mental agustina positives as continuing to attend group despite hx of not feeling comfortable in social settings and not resorting to eating as a means for managing sx of anxiety. Pt went on to discuss that this is a major win for him as he struggled his entire life with utilizing food to cope and is proud that he did not have to do so at all in the past day. Went on to discuss current stressor as needing to use a bariatric chair while in group, noting that this makes him feel embarrassed and as though he is a burden due to needing special accommodations. Pt benefited from fellow participants reassurance as well as assistance in identifying that we all need additional assistance at one time or another. Pt able to begin challenging his perspective on these thoughts and identify the evidence against distorted thought of being a burden. Pt recommended continued IOP tx to further improve use of thought challenging, maintain safety, as well as to decrease sx of depression and social anxiety which impact self-worth.] Narrative Note: []
--- NOTE | 2018-10-29 10:20 | BH.SGPN.GN ---
Behaviors/Verbalizations/Mental Status: [] Eye contact is good. Motor activity is appropriate. Appearance is casual. Speech is Appropriate. Mood is anxious. Affect is congruent. Thoughts are linear and logical. No evidence of psychosis. Client Response/Progress/Benefit: [] Pt was an active participant in group discussion and activity. Worked together with the group to define a crisis and discuss examples of crisis situations. Group identified warning signs that one is in crisis which include; intense anxiety, paranoia, excessive restlessness, distorted thinking, crying, labile, anger outbursts, self-harm, isolation, and pacing. Pt completed his own personal warning signs worksheet. Identified unhealthy ways to manage a crisis which included; over-eating, running away, anger, alcohol or substances, isolation, sleeping to escape, and self-harm. Benefited from group by increasing awareness of crisis and personal warning signs. Narrative Note: []
--- NOTE | 2018-10-29 11:20 | BH.SGPN.GN ---
Behaviors/Verbalizations/Mental Status: []Pt eye contact fair, casually dressed, motor activity restless, speech normal rate and tone, mood anxious, congruent affect, thoughts linear and logical, no evidence of delusions or hallucinations. Client Response/Progress/Benefit: []Client responded well to session as evidenced by client contributing to discussion and listening attentively to others. Client identified his warning signs for crisis and gained further awareness of her earliest warning signs. Client?s top three early warning signs were being negative thinking, racing thoughts/uncontrollable worry, and eating for comfort. Client recognized that awareness of these warning signs can prevent further crisis and help client utilize healthy coping skills to break the cycle. Client created a crisis action plan to help client better manage warning signs for crisis. Client struggled with identifying coping skills to help with his warning signs, accepted feedback from peers. Client connected with ideas of worry clock, writing down thoughts, and delay, distract, decide strategy. Client appeared to benefit from creating a crisis action plan and increasing his self-awareness. Client to continue IOP to decrease anxiety, increase utilization of healthy coping skills and preventing decompensation. Narrative Note: []
--- NOTE | 2018-10-31 10:21 | BH.SGPN.GN ---
Behaviors/Verbalizations/Mental Status: [Client eye contact good, grooming and attire casual - slight body odor, motor activity WNL, speech normal rate and tone, mood anxious, congruent affect, thoughts linear and intact - some evidence of rumination, no evidence of delusions or hallucinations] Client Response/Progress/Benefit: [Client responded well to session, providing input and attentive throughout discussion. At times struggling with making sarcastic or off topic remarks that distracted pt and other participants. He engaged in the discussion on what it means to ?take action? in one?s mental health treatment and the benefits of doing so. Pt expressed that ?taking action? can be scary but will ultimately help to improve confidence in oneself and reduce unhealthy means of coping that may contribute to mental health sx. Client agreed with peers that to make change, one needs self-awareness, motivation, and support. Client identified things in own life he wants to start taking control over and change. These things included: shutting down, isolation, distorted thought patterns, and anxiety. Client appeared to benefit from identifying things impacting mental wellness and learning what it means to ?take action.? Progress in increased levels of personal awareness regarding current barriers to mental health progress, though pt continues to struggle with skill application outside of tx environment. Continued IOP tx recommended to reduce anxiety, increase supports, continue to promote healthy change behaviors, and prevent decompensation.] Narrative Note: []
--- NOTE | 2018-10-31 11:20 | BH.SGPN.GN ---
Behaviors/Verbalizations/Mental Status: []Pt eye contact good, casually dressed, motor activity restless, speech normal rate and tone, mood anxious, congruent affect, thoughts linear and intact, no evidence of delusions or hallucinations. Client Response/Progress/Benefit: []Client engaged, provided input to the group however struggled with staying with the group when working on action plan often needing one on one assistance. Client identified for his action plan he wants to focus on decreasing personalization. Client reported this would benefit him because will spend less time ruminating and decrease stress. Client struggled with identifying small steps he can take to decrease personalization. With assistance from therapist and peers client identified two small steps towards this goal he plans to take in the next 30 Days include: writing in his journal the situation that he is personalizing and challenge any distorted thoughts from the situation he writes down in his journal. Progress could be hindered by client's continued difficulty with identifying what he can do to improve his mental health and move towards goals. He seemed to benefit from reflecting with the group on the importance of taking small actionable steps towards addressing barriers and making notable changes in life. Recommend continued IOP to increase generalization of healthy coping, identify and challenge distorted thoughts, and prevent decompensation. Narrative Note: []
--- NOTE | 2018-10-31 13:49 | BH.MDN_ITS ---
Multi-Disciplinary Note - Note 60-min Individual Time Started:: 08:41 Date: 10/31/18 Purpose of session/treatment goals addressed:: The purpose of this session was to assess current symptoms, stressors, and treatment progress. Another purpose was to discuss calming skills for improving anxiety management and reducing panic related sx. Eye Contact:: Good Motor Activity:: Restless Appearance:: Casual Speech:: Appropriate, Rambling Mood:: Anxious, Depressed Affect:: Full Thoughts:: Linear, Logical, No evidence of hallucinations/delusions noted Staff Interventions:: Therapist asked open ended and furthering questions to elicit information regarding client current symptoms, stressors, adjustment to group environment, and treatment goal progress. Provided supportive feedback and empathic responses to normalize pt anxieties and concerns. Provided ps ychoeducation on anxiety and anxiety management/calming skills. Used IA techniques to promote healthy change behaviors. Client Response:: Client was receptive of meeting and responded well to session. He discussed feeling that his first week in the IOP program has gone well, but that he continues to feel self-conscious and anxious in the group setting as he is not used to being around so many people. Noted feeling worried others are judging him. Went on to indicate that although he is nervous in the group setting, he feels supported and able to connect with other. Shared feeling more supported in group than in his own home environment and went on to explain that his supports are currently ?dealing with their own problems?. Pt discussed feeling that his family is so caught up with other stressors that they forget about him. Indicated feeling lonely and ignored, but struggles with guilt associated with these emotions as he knows his aunt is ill and requires more attention therefore reducing the amount his supports can provide for him. Pt explained that he has been isolating himself and often spends several hours alone in his room crying. He indicated worrying about his future and about what will happen to him if his parents ever pass away as pt in unable to care solely for himself due to medical limitations. Open to working with therapist on challenging these thoughts and identifying personal strengths. Additionally open to identifying strategies for reducing anxiety and preventing panic escalation. Noted connecting with dep breathing and use of 5-senses to help with mindfulness/grounding. Additionally, worked to identify activities pt may engage in to improve mood and reduce depressive symptoms. Identifies crocheting, journaling, and sitting outside. Risks/Concerns:: No risks or concerns noted. Pt denies any active SI, plan, or intent as of this date. 11/05/18. Progress Toward Goals/Plan:: Limited progress noted. Pt shared continued improvements in overall ability to engage in group environment and make connections between materials discussed and his own mental health. Pt reports ongoing issues with distorted thought patterns and social anxiety. Noted difficulties in ability to manage daily stressors which often results in escalation to panic, crying spells, and avoidance. Continues to note significant anxiety and depression. Discussed improved ability to identify warning signs and triggers and feels he has improved insight into his own mental health, thought struggles in application of coping skills learned. Reports difficulties in following through when given new goals or tasks if he does not have someone to help hold accountable. Pt to continue IOP tx to improve motivation and goal completion, improve mood stability, and maintain gains made. Time Stopped:: 09:55
--- NOTE | 2018-11-05 09:10 | BH.SGPN.GN ---
Behaviors/Verbalizations/Mental Status: [] Eye contact is good. Motor activity is appropriate. Appearance is casual. Speech is Appropriate. Mood is anxious. Affect is congruent. Thoughts are linear and logical. No evidence of psychosis. Reviewed daily check in sheet and pt reports 1/5 on suicidal ideations and 0/5 for suicidal intent. Per therapist this is baseline. Client Response/Progress/Benefit: [] Pt was an active participant in group discussion. Emotion for today is ok. States I'm better today than I was on Sunday. Shared that he weekend was an emotional rollercoaster stating that - Sunday he was happy and outgoing and Sunday he was isolative and had suicidal thoughts. Shared that his aunt is dying and that he was alone with her on Sunday attempting to feed her. Described a moffett of emotions specifically anger, worry, and depression. States that he immediately isolated himself and began to have suicidal thoughts. Identified that isolation was not helpful and sough out support to talk with. After talking with support about his thoughts he reported being less depressed and ultimately did not go to the ER. Group praised him for seeking out support and not isolating with his suicidal thoughts. Reports that he woke up yesterday and today feeling positive. Happy for getting through the rough patch. Regression over the weekend however did reach out and utilize support rather than isolate. Benefited from group praise, support, and feedback. Will continue in IOP to maintain safety, prevent decompensation, and stabilize mood. Narrative Note: []
--- NOTE | 2018-11-05 10:15 | BH.SGPN.GN ---
Behaviors/Verbalizations/Mental Status: []Pt eye contact fair, casually dressed, motor activity restless, speech normal rate and soft tone, mood anxious and depressed, full affect, thoughts linear and intact, no evidence of delusions or hallucinations. Client Response/Progress/Benefit: []Client listened attentively to peers and was actively engaged in discussion by contributing thoughts and ideas. Client reported I hate change reported it is easier to stay in his comfort zone than try to make a change and not know what the outcome will be. Client recognizes by not making changes he will continue to stay stuck. Client stated he struggles with motivation to get himself to start working on identified changes. Client identified a change he has made with a positive outcome is choosing to get help by attending IOP. Client stated he chose to get help because he knew if he didn't do something it could result in a very negative outcome. Client connected with the various emotions discussed that can impact change process. Client seemed to benefit from increased awareness of barriers that can get in the way of making a personal change and benefits of making change. Client progressing with increased insight into how lack of follow through has kept him stagnant for many years in his life. Narrative Note: []
--- NOTE | 2018-11-05 11:18 | BH.SGPN.GN ---
Behaviors/Verbalizations/Mental Status: []Client alert and oriented, casually dressed and groomed. Eye contact good. Motor activity appropriate. Speech within normal limits. Affect flat, mood dysthymic. Thoughts linear, logical, no signs of hallucinations or delusions. Client Response/Progress/Benefit: []Client responded well to session, active participant. Client participated in the activity and helped the group process challenges associated with making change. Client shared the activity reminded him that ?change cannot always be controlled or expected.? However, the group stated it is possible to adapt to change. Client reported communication and using support from others helped the group adapt to change. Client appeared to connect with the stages of change and self-identified as being between the contemplation and preparation stages. Client shared he recognizes he needs to change, but ?I?m so afraid the change will be worse, so I stay in my current crappy situation.? Client identified a change he would like to make to improve his mental health. Client?s goal is to journal every day. Client reported belief this would help client better process his emotions. Client appeared to benefit from overcoming challenges associated with making change and from identifying a change that would improve his mental health. Progress noted as client reported he avoided crisis this weekend, but he continues to struggle with a depressed mood and negative thinking.
--- NOTE | 2018-11-05 13:59 | BH.MDN_ITS ---
Multi-Disciplinary Note - Note 45-min Individual Time Started:: 08:23 Date: 11/05/18 Purpose of session/treatment goals addressed:: Purpose of session was to assess current symptoms, stressors, and treatment goal progress. Another purpose was to increase awareness regarding impact of emotions on thoughts and begin identifying ways to incorporate the DBT Summers Mind skill to decision making. Additional topics included: complete psychoeducation of cognitive distortions and review homework. Eye Contact:: Good Motor Activity:: Appropriate Appearance:: Casual Speech:: Appropriate Mood:: Anxious, Depressed Affect:: Congruent Thoughts:: Linear, Logical, No evidence of hallucinations/delusions noted Staff Interventions:: Therapist asked open ended and furthering questions to elicit information regarding current sx, stressors, and tx goal progress. Aroldo lied strengths based approach to aid in challenging feelings of guilt and use of self-deprecation. Provided psychoeducation on DBT Summers Mind Skill and discussed with Client how emotions can impact use of cognitive distortions. Completed review of thought distortions and utilized IA techniques to elicit change behaviors. Gave pt a handout on distortions and homework to identify and begin challenging common distortions he uses. Client Response:: Pt receptive of session and engaged throughout. Reports having the best, worst, greatest, most awful weekend and went on to describe having several relative visit for the weekend to spend time with his sick aunt. Pt discussed being happy to have them visit and excited to meet his cousin but began to struggle with feelings of frustration and rejection. Pt did well to identify triggers behind the change in mood as having limited space and feeling as though his needs were overlooked by the rest of his family. Displaying insight in ability to process emotions and went on to express I know logically that they have a lot going on and my aunt needs them but the [age] year old inside me thinks 'it's not fair' and 'no one cares'. Pt receptive of discussion reviewing DBT concept of Summers Mind and expressed primarily responding to situations based on his emotion in the moment. Pt worked with therapist to identify ways to balance rational and emotional approaches to his current stressor. Pt initially stuggled in problem solving and indicated I don't know when asked to brainstorm ways he may respect his aunt's needs and still get the support he desires from his family. With assistance, pt identified asking if everyone could begin eating dinner together or have a game night so he may feel more included. Additionally expressed openness to begin considering expanding supports outside of family. Pt continues to express anxiety in doing so and identified he fears rejection and is resistent to change. The remainder of session was focused on reviewing and identifying common thought distortions that impact ability to make changes and access summers mind thinking. Able to identify the impact of these cognitive distortions on his thoughts and emotions over the weekend and is open to beginning a thought log focused on identifying and beginning to challenge distortions. Risks/Concerns:: No risks or concerns noted. Denies any suicidal ideations, plan, or intent as of this date 11/05/18. Reported an increase SI over the weekend following an incident in which he began experiencing guilt related to his thoughts and feelings but was able to process in session and currently denies any active SI. Protective factors reported as his family and desire to improve his quality of life. Future-oriented. Reports improved ability to better manage mood swings since starting IOP and gaining additional supports. Progress Toward Goals/Plan:: Pt reports some regression over the weekend in which he struggled with overwhelming guilt and disappointment regarding thoughts of it being unfair that his ill grandmother gets more support than he has had. Discussed this led to crying spells and panic attack but did display progress in ability to refrain from emotional eating as a result. Reports increased hope and motivation when in group setting and was able to complete daily gratitude log which is positive progress. Pt continues to indicate limited coping skills and supports outside of immediate family to aid in management of emotions. Plan is to continue in IOP to increase coping skills, maintain safety, stabilize mood, and improve daily functioning. Time Stopped:: 09:07
--- NOTE | 2018-11-06 09:05 | BH.SGPN.GN ---
Behaviors/Verbalizations/Mental Status: []Client alert and oriented, casually dressed and fairly groomed. Eye contact good. Motor activity restless-shaking his leg throughout session. Speech within normal limits. Affect congruent, mood anxious. Thoughts linear, logical, no signs of hallucinations or delusions. Reviewed client?s symptom tracker, no risk for suicidal ideation, plan, or intent as of 11/06/18. Client Response/Progress/Benefit: []Client responded well to session, engaged throughout. Client reports feeling ?tense and high strung? today due to a recent family stressor. Client shared his cousin, who has schizophrenia, was not taking his medication and became violent. Client processed the event and emotions. Client shared ?I can only do so much, and I have to remain optimistic.? Client shared he crocheted to cope. Client reported before this situation happened, ?I had a really good day yesterday.? Client stated he was going to clean and organize his room yesterday and did not get to because of his cousin. Client was encouraged to continue working towards that goal today. Client appeared to benefit from reflecting on ways he can cope moving forward. Progress noted as client utilized healthy coping skills this morning. Client to continue IOP as he continues to report lack of follow through with his personal goals and challenging negative thoughts.
--- NOTE | 2018-11-06 10:15 | BH.SGPN.GN ---
Addendum entered and electronically signed by DAMIEN Romero 07/22/19 14:46: Pt in third group on date 11/06/18 at 11:17am for duration of 59 minutes; however, due to electronic restrictions unable to enter separate note. This addendum entered to represent missing documentation. Group Topic: [Obstacles & Solutions] # of Participants: [8] Goal of Group: [To identify obstacles in client?s path to mental wellness and identify strategies to help clients overcome these obstacles. ] Staff Interventions: [Therapist facilitated group discussion about obstacles and the challenges of overcoming obstacles/barriers. Therapist helped clients connect how each obstacle is preventing them from achieving their desired reality. Therapist led an activity aimed to help clients use teamwork and problem-solving and identify strategies for overcoming barriers. Therapist assisted clients in creating a list of various strategies to promote emotional wellness and overcome barriers. Therapist provided support by using reflective listening and providing feedback. ] Client alert and oriented, casually dressed, appearance appropriate. Eye contact good. Motor activity appropriate. Speech within normal limits. Affect congruent, mood euthymic and anxious. Thoughts linear, logical, no signs of hallucinations or delusions. Client was attentive and willing to engage throughout group discussion and activity. Pt taking notes and providing input throughout. Pt did well to work with the group to identify obstacles currently preventing from achieving identified desired reality. Barriers included: difficulties managing anxiety, cognitive distortion, fear of disappointing others, and negative self-talk. Client was able to identify personal resilience factors with assistance from group that can help overcome barriers. Client?s personal resilience factors included; willingness to ask for help, creativity, compassion for others, and focusing on taking things on step at a time. Actively participated during activity and worked with group to provide ideas on how to cope with internal barriers. Group identified various obstacles during the activity and developed strategies to overcome those obstacles to wellness and desired reality. Client selected wanting to work on the barrier of isolation/avoidance by continuing to attend prosocial activities and support groups. Benefited from group by identifying obstacles and solutions to desired reality. Will continue IOP tx to improve mood stability, increase use of healthy communication skills and boundary setting, and prevent decompensation. Original Note: Behaviors/Verbalizations/Mental Status: [] Eye contact is good. Motor activity is appropriate. Appearance is casual. Speech is Appropriate. Mood is anxious. Affect is congruent. Thoughts are linear and logical. No evidence of psychosis. Client Response/Progress/Benefit: [] Pt was an active participant in group activity and discussion. Pt completed a drawing depicting his current reality which is stuck and surrounded by support. Picture involved not being able to move forward as he doesn't know the skills to move forward towards less depression and anxiety. Worked with group to identify barrier to reaching desired reality which include; habit, unhealthy coping is easier, fear of failure, fear of changes, and sense of being vulnerable. Benefited from group as pt was able to identify current mental health state and barriers that are impacting progress. Narrative Note: []
--- NOTE | 2018-11-08 09:06 | BH.SGPN.GN ---
Behaviors/Verbalizations/Mental Status: [Client alert and oriented, casual dress. Eye contact good. Motor activity appropriate. Speech within normal limits. Affect congruent, mood depressed and anxious. Thoughts linear, logical, no signs of hallucinations or delusions. Reviewed client?s symptom tracker, no signs of suicidal ideation, plan, or intent as of today. ] Client Response/Progress/Benefit: [Pt was an active participant in group discussion, providing input and openly processing with the group. At times struggling to remain on topic and interrupting others. Emotion for today is empty and bunt out. Pt indicated that he has been struggling with chaos in the home and is currently stressed about his grandfather and aunt potentially losing hospice services. He was receptive of and appeared to benefit from support and empathy provided by the group. Pt indicated a current positive as diving into his journal which has been helpful with coping with the stress of his home environment. Some progress in his ability to identify healthy means for coping however continued IOP tx recommended to reduce depression and maintain safety. ] Narrative Note: []
--- NOTE | 2018-11-08 11:55 | BH.COMM ---
Communication Note - Communication with Client Communication Note: This therapist met with pt to check-in and further assess for risk as he indicated increased SI in first group. Pt reports feeling overwhelmed by the stress at home and is struggling to cope. He did well to process and discuss strategies for healthy coping over the weekend. Pt identified he could remove himself from the environment to calm down by going on the deck and crocheting or journaling. Pt and therapist discussed difference between passive thoughts of and suicidal ideation. He denies active SI, plan, or intent and indicated that he is experiencing more thoughts of not wanting to struggle or have to deal with his stressors anymore. Pt worked with therapist to identify what he can do over the weekend when feeling overwhelmed. He reports an ability to maintain safety and is willing to call the crisis line for additional support as needed. Pt is aware of local crisis resources and willing to go to the e.r. if feeling unable to maintain safety at any time.
--- NOTE | 2018-11-12 09:01 | BH.SGPN.GN ---
Behaviors/Verbalizations/Mental Status: [Client alert and oriented, casual dress, hygiene fair. Eye contact good. Motor activity appropriate. Speech rambling and often interrupting others. Affect bright, mood euthymic. Thoughts linear, logical, no signs of hallucinations or delusions. Reviewed client?s symptom tracker, no signs of suicidal ideation, plan, or intent as of today. ] Client Response/Progress/Benefit: [Pt was an active participant in group discussion, providing input throughout, though at times struggling with being off topic or interrupting others. Emotion for today is optimistic which is progress for pt as he consistently reports feeling depressed. Pt indicated improved mood as a result of following through with coping plan for the weekend which he notes was a huge mental health win for him. He went on describe setting aside time to sit outside and journal as well as following through with small forms of exercise such as walking to and from the mailbox. Pt expressed that he has a hard time not disqualifying the positive progress he has made as it doesn?t seem like much to him. Benefitted from group suggestion to keep track of personal wins daily so he can go back and look at the progress he has made over time. Pt discussed current stressor continues to bethe chaos of his home environment but was able to identify progress in his ability to step away form potentially triggering situations and sit outside. Recommended continued IOP tx to improve emotion regulation and implementation of healthy change behaviors, as well as prevent decompensation and depress depression/anxiety. ] Narrative Note: []
--- NOTE | 2018-11-12 10:10 | BH.SGPN.GN ---
Behaviors/Verbalizations/Mental Status: [] Eye contact is good. Motor activity is appropriate. Appearance is casual. Speech is Appropriate. Mood is anxious. Affect is congruent. Thoughts are linear and logical. No evidence of psychosis. Client Response/Progress/Benefit: [] Pt was an active participant in group discussion and activity. Worked together with the group to define conflict which they reported was; disagreement between people, different opinions on same topic, power struggle, and internal conflict (struggles with depression, motivation, goals, decisions). Discussed the benefits of conflict in progressing in relationships and mental health. Pt worked with group to identify barriers to over conflict which included; being stubborn, being afraid to hurt someone else's feelings, procrastination, lack of confidence, fear of not being liked, uncomfortable emotions, and distortions in perception of the conflict. Attentive during psychoeducation on different conflict styles such as avoiding, accommodating, competing, and collaborative. Reviewed benefits and drawbacks to each style. Benefited as she was able to identify and define conflict as well as increase awareness of how conflict style impacts his mental health. Will continue in IOP to maintain safety, prevent decompensation, and improve daily functioning. Narrative Note: []
--- NOTE | 2018-11-12 11:15 | BH.SGPN.GN ---
Behaviors/Verbalizations/Mental Status: []Client alert and oriented, casually dressed. Eye contact good. Motor activity restless-using fidget spinner. Speech within normal limits-off topic at times. Affect congruent, mood euthymic. Thoughts linear, logical, no signs of hallucinations or delusions. Client Response/Progress/Benefit: []Client responded well to session, engaged, but off topic at times. Client further processed his conflict resolution style. Client reported he is mostly the accommodating and avoiding types. Client shared he fears being assertive in conflict because ?I don?t want to hurt their feelings.? Client recognizes that when he avoids external conflict it increases internal conflict and impacts client?s self-esteem. Client was encouraged to practice being collaborative during the active. Client was able to be collaborative while also advocating for his needs. Client helped the group identify things that positively and negatively impact conflict resolution. Client agreed with group that ?talking it out? and thinking logically helped them effectively resolve conflict. Client helped the group identify strategies to better manage conflict such as avoiding triggering statements, focusing on the most important issue, and challenging negative thinking. Client appeared to benefit from learning conflict resolution strategies and increasing self-awareness. Progress noted as client reports following through with his goals from yesterday. Client to continue IOP as he reports ongoing depression and anxiety symptoms daily.
--- NOTE | 2018-11-14 09:00 | BH.SGPN.GN ---
Behaviors/Verbalizations/Mental Status: [] Eye contact is good. Motor activity is appropriate. Appearance is casual. Speech is Appropriate. Mood is anxious. Affect is congruent. Thoughts are linear and logical. No evidence of psychosis. Reviewed daily check in sheet and no reports of suicidal ideations or intent. Client Response/Progress/Benefit: [] Pt was an active participant in group discussion. Emotion for today is tense. Shared that he continue to worry extensively about what tis going to happen to his cousin. Reviewed the benefits and disadvantages of not having his cousin in the house. Shared that he has noticed improvement in his ability to challenge and reframe his thoughts. Reports setback yesterday which in the past would ruined my whole day however was able to reframe and challenge this thought which led to get over it and continue on with his day. Also shared that he has not utilized emotional eating as a coping skills all week. He discussed the benefits of IOP, socialization, and learning new coping skills. Is fearful of leaving the program however has recently reached out to local [facility] and is possibly going to try peer recovery. Discussed additional stressors and continued anxiety, worry, and depressive thoughts which impact his daily functioning however is more hopeful about the future. Progress noted. Will continue in IOP to maintain safety, prevent decompensation, and stabilize mood. Narrative Note: []
--- NOTE | 2018-11-14 10:00 | BH.SGPN.GN ---
Behaviors/Verbalizations/Mental Status: []Client alert and oriented, disheveled appearance. Eye contact good. Motor activity restless-using fidget spinner. Speech within normal limits. Affect constricted, mood depressed, anxious. Thoughts linear, logical, no signs of hallucinations or delusions. Client Response/Progress/Benefit: []Client responded well to session, engaged in discussion and receptive to thought challenging. Client discussed the quote and shared ?emotions just are? and that learning to manage emotions in healthy ways can prevent further issues. Client identified cognitive distortions, difficulty identifying feelings, and ?not getting the support you need? as barriers to communicating emotions in a stressful situation. Client shared today he feels down and stated, ?I?m thinking distorted.? Client reported the benefit of being able to communicate during stressful situations is getting the support one needs and preventing crisis. Client participated in the activity shared playing the passive role ?made me anxious.? Client appeared to benefit from increasing awareness of how emotions can impact communication and from practicing in the moment coping skills. Progress continues to be variable as client reports some application of coping skills, but continues to report lack of motivation and depressed mood.
--- NOTE | 2018-11-14 11:00 | BH.SGPN.GN ---
Behaviors/Verbalizations/Mental Status: [Eye contact is good. Motor activity is restless - playing with fidget spinners and clicking pen. Appearance is casual. Speech is Appropriate. Mood is dysthymic, anxious. Affect is congruent. Thoughts are linear and logical. No evidence of psychosis.] Client Response/Progress/Benefit: [Pt was an active participant in group discussion and zones of regulation activity, despite reporting increased anxiety. He did well to apply calming skills of his fidget spinner to prevent escalation. Attentive during psychoeducation on the 4 zones of regulation and provided input regarding common thoughts, feelings, and behaviors, as well as how he feels and acts in each zone. Pt noted helplessness and exhaustion when in the ?red zone? or crisis. Benefited from increased education on zones of regulation and healthy coping skills to use for each zone. Identified current zone as ?yellow? and indicated that this is because he is still struggling with managing his anxiety today and is feeling increasingly restless. Able to identify strategies to incorporate so he can support himself in returning to the ?green zone? which included; journaling and going outside to do crocheting. Progress noted in increased insight regarding what factors are contributing to current emotional state as well as what he needs to manage mental health sx today. Recommended continued IOP tx to promote ongoing application of skills, decrease anxiety, and prevent decompensation. ] Narrative Note: []
--- NOTE | 2018-11-15 11:30 | BH.SGPN.GN ---
Addendum entered and electronically signed by DAMIEN Romero 07/28/19 20:45: Note amended to add group #1 process note from this date. Due to technical error, this note was unable to be added separately. Please advise. process # of Participants:8 participants Goal of Group: [] The goal of today's group was to check-in with client's mood, stressors, and positives, and review goals Staff Interventions: [] Therapist used open-ended questions to elicit information about client's current stressors and mood state. Therapist was supportive by using active listening and reflection. Individual Note: Behaviors/Verbalizations/Mental Status: [] Eye contact is good. Motor activity is appropriate, fidgeting at times throughout session. Appearance is casual. Speech is Appropriate. Mood is anxious, dysthymic. Affect is congruent. Thoughts are linear and logical. No evidence of psychosis. Reviewed daily check in sheet and no reports of suicidal ideations or intent. Client Response/Progress/Benefit: [] Pt was receptive of session and willing to participate in group discussion. Reports his emotion for today is overwhelmed and anxious. Pt indicated that this is due to ongoing familial stressors and feeling as though he has been taking on others emotions. Shared that he continues to worry about how others in the house are duing which can be emotionally exhausting and negatively impacts his own mental health. Pt receptive of discussion on strategies for setting boundaries with oneself and limiting conversations on triggering topics with his supports. Able to identify some positives such as taking time for himself to margoth and journal when feeling overwhelmed by his family stressors. Reports plans to spend time with outside supports and is considering going to [employer] as a means for developing new supports. Appeared to benefit from supportive and structed group environment. Progress noted. Will continue in IOP to maintain safety, prevent decompensation, and stabilize mood. Original Note: Behaviors/Verbalizations/Mental Status: []Client alert and oriented, casually dressed and groomed. Eye contact good. Motor activity restless. Speech within normal limits. Affect congruent to topic being discussed, mood anxious. Thoughts linear, logical, no signs of hallucinations or delusions. Client Response/Progress/Benefit: []Limited participation in group discussion, however was attentive and was seen nodding in agreement with group suggestions. Completed activity. Pt completed a worksheet where he identified his own personal pitfalls which included: isolating, allowing others emotions to impact how he feels, shutting down, and distorted thoughts. Group worked together to identify strategies to overcome personal and general pitfalls which included; actively participating in mental health treatment, developing and committing to a plan, identifying decision-making and problem solving strategies, reflection on past experiences, identifying coping skills that are effective and not effective, reframing, and challenging negative thoughts. Benefited from identifying personal and general pitfalls and strategies to over these pitfalls. Will continue in IOP to decrease anxiety and prevent decompensation. Staff continues to provide support and education regarding depression and anxiety as well as encourage generalization of healthy skills/strategies. Narrative Note: []
--- NOTE | 2018-11-15 16:17 | BH.MDN_ITS ---
Multi-Disciplinary Note - Note 45-min Individual Time Started:: 10:34 Date: 11/15/18 Purpose of session/treatment goals addressed:: The purpose of this session was to assess current symptoms, stressors, and treatment progress. Another purpose was to discuss Borderline Personality Disorder and review strategies for informing pt family/supports about the diagnosis and ways they can best support him. Eye Contact:: Good Motor Activity:: Restless - fidngeting with various items throughout session. Appearance:: Casual Speech:: Appropriate Mood:: Euthymic, Anxious Affect:: Full Thoughts:: Linear, Logical, No evidence of hallucinations/delusions noted Staff Interventions:: Therapist asked open ended and furthering questions to elicit information regarding client current symptoms, stressors, application of coping skills, and treatment goal progress. Provided supportive feedback and empathic responses. Provided psychoeducation on Borderline Personality Disorder and added pt in identifying strategies for informing his family about his mental health and advocating for himself and his mental health needs. Used CT techniques to promote healthy change behaviors. Client Response:: Client responded well to session, actively engaged throughout. He discussed feeling ?better today than yesterday? and indicated that this was due to recognizing that he was in a bad or negative mood and asking himself ?what can I do to improve the way I feel?. Pt shared that he had initially struggled with trying to fight his frustrated mood and then noticed himself ?becoming upset and mad at being mad?. Pt went on to indicate that engaging in creative activities via crocheting helped to improve his overall mood. Pt went on to share that he has been doing some research on Borderline Personality Disorder and found he can connect with a variety of the common diagnostic characteristics such as; worry about emotional abandonment, extreme emotional swings, crying spells, and chronic passive SI. Pt noted wanting to speak with his family about this as well as discuss various aspects of his mental health and ways they may support him. Shared wanting to inform them of common triggers, such as when family members tell him to ?calm down?, as well as means of support. Pt noted beliefs that his family ay be able to better hold him accountable and aid in pt meeting personal goals of decreasing isolation and improving his ability to be more physically active. Discussed strategies for communicating with supports in healthy ways. Pt identified long-term goals of losing weight, securing employment, and having a family. Insight noted regarding pt ability to recognize these as long-term goals and identify shorter term goal of improving self-confidence by increasing physical activity via going on small daily 5-10 minute walks. Risks/Concerns:: No risks or concerns noted. Pt denies any active SI, plan, or intent as of this date. 11/15/18. Progress Toward Goals/Plan:: Progress noted. Pt shared continued improvements in overall insight levels and ability to better manage stressors, challenge negative thoughts, and engage in opposite action. Indicates improved mood and decreased mental health sx which pt attributes to increased understanding of mental health warning signs, triggers, and symptoms. Additionally, pt notes engaging in health coping skills such as regular journaling, increased use of supports, opposite action, reframing negative thoughts, and spending more time outdoors. Continues to report issues with anxiety, specifically fear of abandonment and being left by supports. Ongoing social anxiety sx and physical limitations, as well as distorted thought patterns continue to maintain sx of depression. Pt to continue IOP tx to decrease anxiety, continue to promote hea lthy change behaviors, increase small goal completion, improve mood stability, and maintain gains made. Time Stopped:: 11:20
--- NOTE | 2018-11-18 09:05 | BH.SGPN.GN ---
Behaviors/Verbalizations/Mental Status: [] Eye contact is good. Motor activity is appropriate. Appearance is casual. Speech is Appropriate. Mood is euthymic. Affect is full. Thoughts are linear and logical. No evidence of psychosis. Reviewed daily check in sheet and no reports of suicidal ideations or intent. Client Response/Progress/Benefit: [] Pt was an active participant in group discussion. Emotion for today is optimistic. Shared that the woke up this AM feeling good and I don't want to talk myself out of it. Shared that in the past when he is feeling normal or happy he will often find things to ruminate to cause stress, anxiety, or depression. Reports that it can often feel like being happy is a trap which signifies that something horrible is around the corner. Currently he is living in the present and enjoying his positive mood. Utilizing mindfullness techniques. Reports that his cousin remains in fci which he reports has decreased stress and tension around the house. Progress noted per pt report. Less isolative, more social, and more active. Working on starting a garden which he has not done in several years due to his weight. Denies eating to cope as well. Will continue in IOP to maintain gains and prevent decompensation. Narrative Note: []
--- NOTE | 2018-11-18 10:05 | BH.SGPN.GN ---
Behaviors/Verbalizations/Mental Status: []Pt eye contact good, casually dressed, motor activity restless as shown by shaking leg and fidgety with hands, speech normal rate and tone, mood euthymic and positive, high energy, congruent affect, thoughts linear and intact, no evidence of delusions or hallucinations. Client Response/Progress/Benefit: []Client responded well to session evidenced by providing input throughout discussion and activity. Client stated he had a lot of energy today which seemed to increase his contributions, however sometimes was off topic with his comments. Client reported he initially viewed IOP as something he couldn't stick with or would be really hard but has realized it was the best decision he has made. Client stated things often start off difficult and might seem impossible, but if keep trying likely discover the situation is not impossible. Client nodded that viewing situations as impossible can negatively impact one?s mental health. Client engaged in the group activity and the group did not complete the activity during second group. Despite lack of success, client did not fall into fixed thinking pitfalls and stayed involved. Client appeared to benefit from gaining awareness how viewing situations as impossible can negatively impact mental health progress. Client's continued difficulty with following through with goals and utilization of healthy coping could be hindrance to treatment progress. Client to continue IOP level of care to decrease depression, increase use of skills and prevent decompensation. Narrative Note: []
--- NOTE | 2018-11-18 11:10 | BH.SGPN.GN ---
Behaviors/Verbalizations/Mental Status: [Client maintained good eye contact, casually dressed and appropriate grooming, motor activity restless, speech tangential and often off topic, mood euthymic, affect full, thoughts linear, logical, no evidence of delusions or hallucinations.]] Client Response/Progress/Benefit: [Pt attentive, though often becoming off topic or interrupting others with comments. Pt did well to participate throughout discussion and growth mindset reflection activity, though continuing to struggle with maintaining focus. Pt brainstormed with the group on how fixed mindset thoughts experienced in the activity impacted ability to complete the task at hand. Pt indicated that thoughts of ?this is too hard? or ?we are never going to get it? caused him to begin giving up. Worked to identify important components of a growth mindset such as being open to help from others. Pt expressed having difficulties in using cognitive restructuring to reframe fixed thoughts as he expressed ?I can?t think of any fixed thoughts because I?m in a good mood today?. Pt did well to verbally complete the reframing activity with assistance from the group and discussed struggling with thoughts of ?I?m never going to live alone?. He benefitted from discussing benefits of growth mindset and strategies for reframing fixed thoughts. Progress limited due to pt difficulties in maintaining focus deterred from internalizing materials discussed. Continued IOP tx recommended to prevent decompensation, increase application of behavior activation and thought challenge skills, and continue to promote healthy change behaviors.] Narrative Note: []
--- NOTE | 2018-11-21 09:05 | BH.SGPN.GN ---
Behaviors/Verbalizations/Mental Status: []Client alert and oriented, casually dressed and groomed. Eye contact good. Motor activity restless-fidgeting. Speech within normal limits. Affect congruent, mood euthymic. Thoughts linear, logical, no signs of hallucinations or delusions. Reviewed client?s symptom tracker, no risk for suicidal ideation, plan, or intent as of 11/21/18. Client Response/Progress/Benefit: []Client responded well to session, offering supportive feedback to peers. Client reports feeling ?level? today which client shared he is both excited and anxious about feeling. Client stated, ?I haven?t been stable for a long time so it?s like when is something bad going to happen.? The group helped client recognize and challenge these negative, self-fulfilling thoughts. Client?s mental health wins include having a stretch of mood stability, actively challenging distortions, and engaging in healthy coping skills such as crocheting. Client reported his stressor is his worry that progress will not be lasting, but he was able to recognize this is a distorted thought. Client identified strategies he can use to promote maintenance. Client appeared to benefit from reflecting on progress and from challenging negative thoughts. Progress noted in client?s reduced depression and use of coping skills. Client to continue IOP to promote gains and increase consistent use of coping skills.
--- NOTE | 2018-11-21 10:23 | BH.SGPN.GN ---
Addendum entered and electronically signed by SUZY Flores 07/29/19 15:21: Addendum entered to correct client response and behaviors section of note for Group Therapy Session #3. Client behaviors and response should reflect the following: Behaviors/Verbalizations/Mental Status: []Client alert and oriented, casually dressed and groomed. Eye contact good. Motor activity appropriate. Speech within normal limits. Affect congruent, mood dysthymic. Thoughts linear, logical, no signs of hallucinations or delusions. Client Response/Progress/Benefit: [] Client was an engaged participant during session, listening to others and provided input at times. Client worked with the group to complete the challenge activity. Client stated sometimes he rushes when gets close to a goal which can result in making mistakes. Group identified barriers of stress management to include taking on the biggest stressor at once, not asking for help, and avoidance. Client actively listening during discussion about the 4 A's of managing stress. Client seemed to benefit from increased awareness of the impact of stress on mental health and increasing repertoire of stress management strategies. Will continue IOP tx increase use of healthy coping, challenge distorted thoughts and prevent decompensation. Original Note: Addendum entered and electronically signed by SUZY Flores 07/29/19 15:16: Addendum entered to include Group Therapy Session #3. Date of service: 11/21/18 Start: 11:20 End: 12:20 Clinical Training Coordinator: SUZY Etienne-S Group Topic: []Stress # of Participants: []9 Goal of Group: []To practice in the moment stress management strategies and increase repertoire of healthy coping skills to manage stress. Staff Interventions: []Therapist facilitated discussion about control versus no control and helped group members connect the concept to stressors. Therapist led group activity that provided participants opportunity to utilize stress management strategies in the moment. Therapist led discussion about importance of putting forth more energy on those stressors they can control. Therapist facilitated brainstorming of strategies to help manage stress and taught clients the four A?s of stress (adapt, alter, avoid, accept). Therapist provided support by using active listening and providing feedback. Behaviors/Verbalizations/Mental Status: []Client alert and oriented, casually dressed and groomed. Eye contact good. Motor activity appropriate. Speech within normal limits. Affect congruent, mood dysthymic. Thoughts linear, logical, no signs of hallucinations or delusions. Client Response/Progress/Benefit: [] Client was an passive participant during session AEB pt not contributing thoughts to discussion however did appear to listen to others. Client worked with the group to complete the challenge activity. Client actively listening during discussion about the 4 A's of managing stress. Client reported he is feeling stuck and stated ?there is nothing I can do about it?. Client not open to suggestions from peers. Progress could be hindered by client?s continued focus on what is out of his control. Will continue IOP tx increase use of healthy coping, challenge distorted thoughts and prevent decompensation. Original Note: Behaviors/Verbalizations/Mental Status: [Client alert and oriented, casually dressed. Eye contact good. Motor activity appropriate. Speech within normal limits, often rambling. Affect congruent, mood dysthymic and anxious. Thoughts linear, logical, no signs of hallucinations or delusions. ] Client Response/Progress/Benefit: [Pt receptive of session, actively listening and contributing to discussion on stress. Pt expressed connecting with discussion on impacts of unmanaged stress and reported if a person does not manage stress it can result in increased anxiety and negative thinking. Pt able to identify the difference between healthy and unhealthy stress and discussed often falling in the distress rather than eustress zone. He appeared to benefit from gaining awareness of current stressors and learning about the impact stress has on overall wellbeing. Participated in activity identifying current stressors impacting mental health. Pt's current stressors include: finances, physical health, other?s expectations of him, and his living situation. Pt continues to struggle with challenging negative thoughts and disqualifying the positive steps he is taking which may impede progress. Recommended continued IOP tx to continue to promote thought challenging and use on internal coping mechanisms, decrease anxiety, and prevent decompensation. ] Narrative Note: []
--- NOTE | 2018-11-22 09:05 | BH.SGPN.GN ---
Addendum entered and electronically signed by SUZY Flores 07/30/19 09:16: Addendum entered to include missing Group Psychotherapy Session Note #2. Group Topic: []Boundaries # of Participants: []9 Start Time: 10:18am Duration: 52 minutes Shingle Catcher: SUZY Etienne-S Goal of Group: []To increase understanding of importance of boundaries and gain awareness of how boundaries can impact mental health. Staff Interventions: Therapist facilitated group discussion about defining boundaries. Therapist led discussion about importance of boundaries, assisting group members with identifying how boundaries can impact mental health. Therapist provided psychoeducation about the different types of boundaries. Therapist led activity to increase self-awareness of current boundary setting behaviors. Behaviors/Verbalizations/Mental Status: Client alert and oriented, casually dressed and groomed. Eye contact fair. Motor activity appropriate. Speech within normal limits. Affect congruent to topic being discussed, mood anxious and depressed. Thoughts linear, logical, no signs of hallucinations or delusions. Client Response/Progress/Benefit: Client responded well to session, attentive and participating in small group discussion. Group identified the benefits to setting boundaries as well as the consequences of not setting healthy boundaries. Client stated he has a hard time setting boundaries with others because tends to be a ?people pleaser?. Client engaged during discussion of the different types of boundaries and engaged in the self-assessment activity. Client seemed to benefit from increased awareness how poor boundaries can negatively impact mental health. Client to continue IOP tx to increase healthy coping skills, prevent decompensation, and challenge distorted thoughts. Original Note: Addendum entered and electronically signed by DAMIEN Romero 07/24/19 14:37: Addendum added as this group was unable to be saved separately due to technical error. Pt was in attendance in group 2 on this date. Please advise. Group Topic: [Boundaries II] # of Participants: [5] Goal of Group: [To learn the different ways of setting boundaries and increase awareness of personal boundary style. Identify strategies to promote healthy boundaries. ] Staff Interventions: [Processed activity to help gain insight into current boundary setting behavior. Therapist provided psychoeducation about the three different ways of setting boundaries and led discussion about each style. Therapist had clients identify current boundary setting style and how current style is impacting their mental health. Therapist explored strategies to help promote healthy boundaries. ] Behaviors/Verbalizations/Mental Status: [Client alert and oriented, casual dress, hygiene appropriate. Eye contact good. Motor activity appropriate. Speech within normal limits. Affect congruent, mood anxious and euthymic. Thoughts linear, logical, no signs of hallucinations or delusions. ] Client Response/Progress/Benefit: [Pt responded well to session, active participant AEB willingness to provide input, take notes, and ask questions throughout. At times struggling with off topic comments or interrupting others, though did well to be redirected as needed. Pt did well to engage in the boundary self-assessment activity and worked with group to further process. Pt discussed that he has been able to more easily recognize how difficulties in opening up to others and rigid emotional [id number] has impacted his ability to expand support network and reinforced isolative behaviors. Appeared to benefit from group discussion on strategies for further improving personal boundaries. Identified wanting to improve his ability to be more open with others about his emotions and reach out to current supports so that they may better understand his mental health needs. Progress noted in pt ability to identify impact of current boundaries on mental health progress and emotion regulation skills. Pt to continue IOP tx to maintain gains made, improve communication and boundary setting skills, and continue to promote healthy change behaviors.] Original Note: Behaviors/Verbalizations/Mental Status: []Client alert and oriented, disheveled appearance-wearing clothes client wore to group yesterday. Eye contact good. Motor activity appropriate. Speech within normal limits. Affect constricted, mood anxious. Thoughts linear, logical, no signs of hallucinations or delusions. Reviewed client?s symptom tracker, no risk for suicidal ideation, plan, or intent as of 11/22/18. Client Response/Progress/Benefit: []Client responded well to session, providing supportive statements. Client reports feeling ?confused? today after waking up late and feeling rushed this morning. Client?s stressor today was almost missing group today and he shared ?I would have really beat myself up if I would have missed.? Client stated he is also stressed because his parents have been fighting about finances. The group provided client with ideas for coping with this stressor, and client appeared receptive to ideas. Client?s mental health wins include finishing a [employer] project and using coping skills this morning when he was anxious. Client appeared to benefit from connecting with peers and reflecting on wins. Progress noted as client reports improved mood, however, he reports having thoughts of ?when will the next shoe drop? which could impact progress.
--- NOTE | 2018-11-22 13:43 | PCM.PN.BLA ---
Progress Note Chief Complaint: The patient is a 32-year old male who is an active participant in the intensive outpatient mental health treatment program at [facility]. He has a history of binge eating, depression, anxiety, and borderline personality features. History of present illness/interim history: The patient described himself as a little better. My mood has definitely been better. I have had more up days and have had a more positive attitude. He said that the groups are very helpful and are teaching him coping skills as well as tools to use helping him feel better. He likes the groups and enjoys coming here. His anxiety level continues as before. He has not found much help from Xanax. He continues to worry about terminally ill relatives and financial problems. He has not made much progress on weight loss but said that he has not gained any weight. He complains of some numbness in his feet and hands, but I told him that I doubted this was a side effect of Celexa. tory of Present Illness/Interim History: The patient describes himself as a little better. My mood has definitely been more up. I'm having an easier time with a Current Psychiatric Medications: Bupropion 300 mg daily, Celexa 10 mg daily, Topamax 25 mg twice daily, Xanax 0.25 mg as needed Review of Symptoms: Psychiatry: Improving depression but continuing anxiety as per HPI. He is not suicidal. There is no psychosis. He is cognitively intact. Constitutional: He is morbidly obese and his weight has been steady. His energy level is good. Mental Status Examination: The patient presents as a pleasant, cooperative male of morbidly obese build who is casually dressed and neatly groomed. Wears glasses and a jones. His thoughts are logical and coherent. He reported improvement in depression. He is not suicidal. There is no psychosis. He is cognitively intact. Diagnoses: [] [place] I: Persistent depressive disorder, generalized anxiety disorder, chronic adjustment disorder with anxiety, binge eating disorder [place] II: Borderline personality traits [place] III: Morbid obesity, edema, GERD, asthma, hypertension, atrial fibrillation, chronic pain Plan: I am continuing the patient's current doses of bupropion, Celexa, and Topamax. I suggested that he could double up on his dose of Xanax as needed. He will continue participation in the intensive outpatient groups. I will see him again for follow-up.
--- NOTE | 2018-11-22 13:58 | PN_ITS ---
Progress Note Chief Complaint: The patient is a 32-year old male who is an active participant in the intensive outpatient mental health treatment program at [facility]. He has a history of binge eating, depression, anxiety, and borderline personality features. History of present illness/interim history: The patient described himself as a little better. My mood has definitely been better. I have had more up days and have had a more positive attitude. He said that the groups are very helpful and are teaching him coping skills as well as tools to use helping him feel better. He likes the groups and enjoys coming here. His anxiety level continues as before. He has not found much help from Xanax. He continues to worry about terminally ill relatives and financial problems. He has not made much progress on weight loss but said that he has not gained any weight. He complains of some numbness in his feet and hands, but I told him that I doubted this was a side effect of Celexa. tory of Present Illness/Interim History: The patient describes himself as a little better. My mood has definitely been more up. I'm having an easier time with a Current Psychiatric Medications: Bupropion 300 mg daily, Celexa 10 mg daily, Topamax 25 mg twice daily, Xanax 0.25 mg as needed Review of Symptoms: Psychiatry: Improving depression but continuing anxiety as per HPI. He is not suicidal. There is no psychosis. He is cognitively intact. Constitutional: He is morbidly obese and his weight has been steady. His energy level is good. Mental Status Examination: The patient presents as a pleasant, cooperative male of morbidly obese build who is casually dressed and neatly groomed. Wears glasses and a jones. His thoughts are logical and coherent. He reported improvement in depression. He is not suicidal. There is no psychosis. He is cognitively intact. Diagnoses: [] [place] I: Persistent depressive disorder, generalized anxiety disorder, chronic adjustment disorder with anxiety, binge eating disorder [place] II: Borderline personality traits [place] III: Morbid obesity, edema, GERD, asthma, hypertension, atrial fibrillatio n, chronic pain Plan: I am continuing the patient's current doses of bupropion, Celexa, and Topamax. I suggested that he could double up on his dose of Xanax as needed. He will continue participation in the intensive outpatient groups. I will see him again for follow-up.
--- NOTE | 2018-11-22 16:17 | BH.MDN_ITS ---
Multi-Disciplinary Note - Note 60-min Individual Time Started:: 10:16 Date: 11/22/18 Purpose of session/treatment goals addressed:: The purpose of this session was to assess current symptoms, stressors, and treatment progress. Another purpose was to discuss was to address self-deprecation and reduce anxiety via review locus of control. Eye Contact:: Good Motor Activity:: Appropriate Appearance:: Casual Speech:: Appropriate, Rambling Mood:: Anxious, Dysthymic Affect:: Congruent Thoughts:: Linear, Logical, No evidence of hallucinations/delusions noted Staff Interventions:: Therapist asked open ended and furthering questions to elicit information regarding client current symptoms, stressors, application of coping skills, and treatment goal progress. Provided supportive feedback and empathic responses. Provided psychoeducation on internal vs. external locus of control and assisted pt in identifying stressors within his control vs. those outside of his control. Aided pt in identifying strategies for challenging intrusive thoughts. Used [place] techniques to promote healthy change behaviors. Client Response:: Client responded well to session, actively engaged throughout. He discussed following through with his goal to complete a crocheted mihir bear for his niece and indicated feeling proud of his ability to accomplish this task. Pt went on to discuss that his emotions have felt more regulated and less depressed than prior to beginning IOP tx; however, he has struggled recently with ongoing anxiety, specifically that of catastrophizing and predicting the future. Reports that distorted and intrusive thinking patterns impact his ability to continue to make gains in managing emotions and reducing anxiety. Provided recent example of his parents arguing about finances and pt found himself beginning to catastrophize and assume that this meant his parents would lose the house or that they would end up . Pt able to identify distortion in this thought process and noted that he has been actively ?trying t o fight worry? but often struggles to be successful in doing so. Worked with therapist to apply CBT techniques in challenging identified distortions. Additionally, appeared to connect with discussion on locus of control and noted recognizing that he often ends up worrying about other people, their problems, or stressors outside of his control. Worked to identify current stressors within pt control that he can begin working to address. Identified self-image as primary stressor impacting his mental health and indicated that self-deprecating is often what maintains his negative view of self. Identified several positive affirmations he can say to increase confidence. Risks/Concerns:: No risks or concerns noted. Pt denies any active SI, plan, or intent as of this date. 11/22/18. Future oriented and reports plans to spend time with his family this afternoon. Progress Toward Goals/Plan:: Progress noted. Pt shared continued efforts to identify and challenge distorted thought patterns. Indicates he is doing well to recognize negative thought patterns but struggles with consistently being able to challenge and replace them. Additionally, pt notes continued difficulties in communicating his triggers and concerns with supports, though is working to increase use of healthy communication strategies and better advocate for his own mental health needs. Pt to continue IOP tx to decrease anxiety, continue to promote healthy change behaviors, reduce isolation, improve mood stability, and prevent decompensation. Time Stopped:: 11:12
--- NOTE | 2018-11-26 09:10 | BH.SGPN.GN ---
Behaviors/Verbalizations/Mental Status: [] Eye contact is good. Motor activity is appropriate. Appearance is casual. Speech is Appropriate. Mood is anxious/depressed. Affect is congruent. Thoughts are linear and logical. No evidence of psychosis. Reviewed daily check in sheet and reported 1/5/ for suicidal ideations and 0/5 for intent. This is baseline for patient Client Response/Progress/Benefit: [] Pt was an active participant in group discussion. Emotion for today is tired. States that he has slept very little in the past 2 days. Reports that these bouts of insomnia occur about once a month which impact his mood by increasing irritability, anxiety, and depressive symptoms. Reports I always feels like I'm walking on eggshells. Discussed how he appears easy-going however he avoids conflict at all costs and often internalizes any negative interactions around him. Group pointed out the negative consequences of this long-term. Regression noted however pt continues to be active and positive about life. Reframing thoughts. Will continue in IOP to maintain safety, improve daily functioning, and increase coping skills. Narrative Note: []
--- NOTE | 2018-11-26 10:15 | BH.SGPN.GN ---
Behaviors/Verbalizations/Mental Status: []Client alert and oriented, disheveled appearance. Eye contact good. Motor activity restless-playing with his pen and fidget spinner. Speech within normal limits, off topic at times. Affect congruent, mood tired, anxious. Thoughts linear, logical, no signs of hallucinations or delusions. Client Response/Progress/Benefit: []Client responded well to session, active participant. Client commented on the quote and shared how one handles stressors in life depends on ?how you adjust the load you carry.? Client reported in order to ?carry the load? one needs coping skills. Client shared there are ?good and bad? coping skills, or unhealthy and healthy coping skills. Client reported healthy coping skills have more benefits because they make a person feel accomplished and have less consequences. However, most people turn to unhealthy coping skills such as eating or avoidance because ?it feels good in the moment,? but it leads to shame or increased symptoms. Client engaged in the activity and was able to make the connection that one must have a strong base of internal and external coping skills. Client realized that during the activity he and his group kept looking for the ?quick fix? which they were able to connect to reverting to using coping skills that are easy, but not always healthy. Client appeared to benefit from increasing awareness of the importance of developing healthy coping skills. Progress noted as client reports increased use of healthy coping skills. However, client reports issues with sleep over the last three days that could impact progress.
--- NOTE | 2018-11-26 11:20 | BH.SGPN.GN ---
Behaviors/Verbalizations/Mental Status: [Pt eye contact good, casually dressed, motor activity appropriate -at times restless AEB fidgeting with fidget spinners and other items, speech normal rate and tone at times off topic, mood anxious, congruent affect, thoughts linear and intact, no evidence of delusions or hallucinations.] Client Response/Progress/Benefit: [Pt attentively listened to group discussion on different types of coping skills and contributed thoughts throughout discussion. Pt identified several healthy coping skills during group brainstorm and encouraged peers to participate as well. Pt indicated connecting with the idea that different types of coping skills can serve different purposes in managing stressors and that different skills work for different people. Pt seemed to benefit from increasing repertoire of healthy coping skills. Identified wanting to improve use of thought challenging coping skills by practicing using the T.H.I.N.K. acronym to challenge unhelpful thoughts. Pt progress in ability to identify healthy skills, however continues to struggle with relying on to reduce anxiety which at times can be inappropriate for the setting. Pt to continue IOP level of care to maintain gains, continue utilization of healthy coping and anxiety management, as well as prevent decompensation.] Narrative Note: []
== END 2018-11-26 23:59 ==
LOC: BHIOP 09:00
PROVIDERS: Referring Provider Psychiatry & Neurology Psychiatry; Visit Provider Psychiatry & Neurology Psychiatry
DX: F32.89 Other specified depressive episodes (principal); F41.1 Generalized anxiety disorder; F43.22 Adjustment disorder with anxiety; F50.81 Binge eating disorder; F60.3 Borderline personality disorder; E66.01 Morbid (severe) obesity due to excess calories; K21.9 Gastro-esophageal reflux disease without esophagitis; J45.909 Unspecified asthma, uncomplicated; I10 Essential (primary) hypertension; I48.91 Unspecified atrial fibrillation; Z79.899 Other long term (current) drug therapy; R60.9 Edema, unspecified
CPT/HCPCS: 99214; H0035; H2012; H2020; 90834; 90837

== ENCOUNTER 2018-11-28 09:00 | Outpatient (RCR) | payer MEDICAID, SELFPAY ==
--- NOTE | 2018-11-28 09:10 | BH.SGPN.GN ---
Behaviors/Verbalizations/Mental Status: [] Eye contact is good. Motor activity is appropriate. Appearance is casual. Speech is Appropriate. Mood is depressed. Affect is flat. Thoughts are linear and logical. No evidence of psychosis. Reviewed daily check in sheet and pt reports 1/5 for suicidal ideations and 0/5 for intent. This is baseline. Client Response/Progress/Benefit: [] Pt was an active participant in group discussion. Provided appropriate feedback. Emotion for today is confused, conflicted, but happy. Reports that he slept yesterday which was beneficial after 2 days without sleep. Ruminating, dwelling, and upset that he missed group yesterday. Tearful stating that he wants to get as much as he can from IOP mentioning upcoming discharge. Had significant difficulty getting all the negative thoughts out of his head yesterday. Tried several coping skills and distraction with limited benefit. Struggles with though reframing skills. Hopeful today and attempting to get a specialized walker which will help with increased physical activity. Benefited from group support. Will continue in IOP to maintain gains, prevent decompensation, and improve daily functioning. Narrative Note: []
--- NOTE | 2018-11-28 11:10 | BH.SGPN.GN ---
Behaviors/Verbalizations/Mental Status: []Client alert and oriented, disheveled appearance. Eye contact good. Motor activity restless. Speech within normal limits. Affect flat, mood dysthymic. Thoughts linear, logical, no signs of hallucinations or delusions. Client Response/Progress/Benefit: []Client responded well to session, engaged throughout session. Client further processed the group activity and shared that confidence and tuning out the negatives helped the group accomplish the activity. Client completed the fear of failure worksheet and he reported that fear of failure is keeping client from trying to improve his physical health and life. Client reported fear of getting better and no desire to address conflict are his barriers to overcoming fear of failure. Client shared ?what if I change and I don?t like that person.? Client helped the group identify strategies to overcome fear of failure and client selected a goal to help him overcome his fear of failure. Client?s goal is to work on self-acceptance and not beating himself up when he has a minor setback. Client appeared to benefit from gaining awareness and setting a goal to reduce fear of failure. Client showing progress in utilizing healthy coping skills, however, he continues to report difficulty with all or nothing thinking that per his report have led to self-sabotaging behaviors in the past.
--- NOTE | 2018-12-02 10:12 | BH.SGPN.GN ---
Behaviors/Verbalizations/Mental Status: [Pt alert and oriented, casually dressed. Eye contact good. Motor activity appropriate. Speech within normal limits. Affect congruent and bright, mood euthymic. Thoughts linear, logical, no signs of hallucinations or delusions. ] Client Response/Progress/Benefit: [Pt responded well to session, attentive and providing input throughout. Pt connected with discussion on different types of anxiety, as well as the difference between ?normal? anxiety and anxiety disorders. When processing quote pt stated he now realizes that anxiety has held him back from enjoying various aspects of his life and accomplishing goals. Pt helped the group identify examples of the various ways anxiety manifests and symptoms associated with thoughts, physical symptoms, and safety behaviors. Pt gained awareness of personal physical symptoms which included: tense muscles, sweating, pressure in chest, stomach upset, and fidgety with hands. Pt identified avoiding anxious situations and seeking reassurance from others as safety behaviors he has engaged in that provide short term relief but increase anxiety over time. Client appeared to benefit from gaining insight to safety behaviors and how anxiety manifests itself, as well as harmful impact of safety behaviors on mental health. Client appears to be progressing with increasing awareness of his mental health symptoms. Will continue IOP to promote continued skill application, challenge distorted thoughts, and prevent decompensation.] Narrative Note: []
--- NOTE | 2018-12-02 11:15 | BH.SGPN.GN ---
Behaviors/Verbalizations/Mental Status: []Pt eye contact good, casually dressed, motor activity restless as shown by shaking leg and fidgety with hands, speech normal rate and tone, mood anxious, congruent affect, thoughts linear and intact, no evidence of delusions or hallucinations. Client Response/Progress/Benefit: []Client responded well to session, engaged and providing examples. Client connected with peers during discussion about physical symptoms experience when anxious. Client stated isolation, distraction and avoidance are his safety behaviors. Client agreed with others that one cannot prevent anxious thoughts from occurring, but can learn strategies to manage anxiety. Client appeared to connect with mindfulness and the different ways one can practice mindfulness. Client reported he currently uses music, journaling, and talking as his healthy strategies to manage anxiety. Client created a mindfulness ?menu? and reported he plans to try engaging his senses, belly breathing, and labeling his emotions as mindfulness techniques to manage anxiety. Client appeared to benefit from practicing in the moment mindfulness techniques. Progress noted as client reports increased ability to cope with anxious symptoms and reporting being able to go to a store for the first time in a year. Client to continue IOP level of care to continue use of healthy coping, decrease isolative behaviors and prevent decompensation. Narrative Note: []
--- NOTE | 2018-12-02 13:49 | BH.MDN ---
Multi-Disciplinary Note - Note 45-min Individual Time Started:: 09:15 Date: 12/02/18 Purpose of session/treatment goals addressed:: The purpose of this session was to assess current symptoms, stressors, and treatment progress. Another purpose was to discuss small steps to continue to work towards goals of improving self-confidence and reducing social anxiety. Eye Contact:: Good Motor Activity:: Appropriate Appearance:: Casual Speech:: Appropriate Mood:: Euthymic, Anxious Affect:: Full Thoughts:: Linear, Logical, No evidence of hallucinations/delusions noted Staff Interventions:: Therapist asked open ended and furthering questions to elicit information regarding client current symptoms, stressors, application of coping skills, and treatment goal progress. Provided supportive feedback and empathic responses. Reviewed strategies for challenging intrusive thoughts. Used AL techniques to promote healthy change behaviors, address barriers impacting small goal progress, and continue to maintain gains. Client Response:: Client receptive of session and remained engaged throughout. He discussed feeling ?good but tired? on this date as he had been able to spend the week engaging in small active activities. Pt discussed being proud of himself for taking strides towards improving physical health and wellness by spending at least 10-20 minutes on his feet regularly. Noted that he had successfully gone to [place] with his father and was able to walk around for 30 minutes with out becoming overly tired or engaging in negative self-talk. Reported that he used skills of motivational and encouraging statements, as well as taking small breaks during the trip to prevent from taking on too much and wanting to quit. Went on to describe spending time pacing in the living room while watching television as a means of continuing to be active while in the home environment. Shared taking steps to contact [facility] to secure a bariatric walker to improve mobility as well. Pt expressed he was able to schedule an intake appointment for psychiatry with Linda Moreno for 12/25/18 but had not been able to follow through with his goal of going to [employer] to increase social activity. Pt expressed that this is because he continues to fear being judged or rejected by others. Worked with therapist to challenge use of emotional reasoning and disqualifying the positives. Discussed skills he may use to reduce social anxiety, such as mindfulness strategies via 5-senses and having ?fidget spinner? with him. Risks/Concerns:: No risks or concerns noted. Pt denies any active SI, plan, or intent as of this date. 12/02/18. Future oriented and reports plans to spend time with his family this afternoon. Progress Toward Goals/Plan:: Progress noted. Pt shared improved overall mood and reduced depression. He expressed that he has been able to successfully apply thought challenging strategies to reduce negative self-talk and use of distorted thinking patterns. Additionally shared use of opposite action via engaging in more physical activities such as going to the store and using his supports. Shared that he continues to struggle with social anxiety but is making progress in this area. Additionally continues to report inconsistent application of calming/mindfulness skills when becoming anxious or overwhelmed. Pt to continue IOP tx to decrease anxiety, continue to promote healthy change behaviors, reduce isolation, improve mood stability, and prevent decompensation. Time Stopped:: 09:56
--- NOTE | 2018-12-03 09:10 | BH.SGPN.GN ---
Behaviors/Verbalizations/Mental Status: [] Eye contact is good. Motor activity is appropriate. Appearance is casual. Speech is Appropriate. Mood is anxious/irritable. Affect is congruent. Thoughts are linear and logical. No evidence of psychosis. Reviewed daily check in sheet and no reports of suicidal ideations or intent Client Response/Progress/Benefit: [] Pt was an active participant in group discussion. Provided appropriate feedback. Emotion for today is conflicted. Shared that he was running late this AM which is a huge trigger for him. Feels rushed which exacerbates his anxiety and irritability. Attempting to calm self stating that I'm made it here before group started ... It wasn't my fault. Reports that he doesn't want this to cause him to catastrophize and give up on the day. Often a small failure or obstacle will result in him giving up. Group provided feedback to counter thoughts. Continues to be focused on his diet despite family members bringing in unhealthy foods (donuts). This gets him upset however he avoids confrontation and does not bring this to family's attention. Utilizing skills, distraction, and is more active which is improving overall health. Progress noted. Benefited from group support, feedback, and encouragement. Will continue in IOP to maintain gains. Narrative Note: []
--- NOTE | 2018-12-03 10:08 | BH.SGPN.GN ---
Behaviors/Verbalizations/Mental Status: []Client alert and oriented, casually dressed and groomed. Eye contact fair. Motor activity appropriate-crocheting throughout session. Speech within normal limits. Affect congruent, mood anxious. Thoughts linear, logical, no signs of hallucinations or delusions. Client Response/Progress/Benefit: []Client responded well to session, providing input and participating in session. Client connected with the quote and concept of having different chapters in one?s life. Group identified things that can prevent people from moving forward to their next chapter such as; fear of the unknown, negative thoughts, lack confidence, trauma, and lack of awareness. Client helped group discuss the ?chapters of my life? handout and was able to make connections to emotions, thoughts, and actions in each chapter. Client identified himself as in chapter 3 because ?I have hope and I have made changes, but I still fall sometimes.? Client reported barriers keeping him from getting to chapter 4 is lack of confidence in his ability to use coping skills. Client appeared to benefit from increasing self-awareness of current chapter and barriers. Progress noted as client reports reduced depression and increased use of healthy coping skills. Client to continue IOP to promote gains and further increase mood stability.
--- NOTE | 2018-12-03 11:17 | BH.SGPN.GN ---
Behaviors/Verbalizations/Mental Status: []Pt eye contact good, casually dressed, motor activity appropriate, speech normal rate and tone, mood euthymic, congruent affect, thoughts linear and intact, no evidence of delusions or hallucinations. Client Response/Progress/Benefit: []Pt was an active participant in group discussion. Completed WDEP (Wants, Doing, Evaluate, and Plan) worksheet. Pt identified want as I want to improve daily functioning and improve mental health. Able to identify that he is currently isolating, which he stated he recognizes is maintaining his depression and anxiety. Pt identified his plan is to decrease isolation by going to the [employer] on SundayDecember 09. Benefited from group by identifying thoughts and behaviors that are keeping him stuck and developing plan to become unstuck. Will continue in IOP to decrease isolation, prevent decompensation, and stabilize mood. Narrative Note: []
--- NOTE | 2018-12-05 09:05 | BH.SGPN.GN ---
Behaviors/Verbalizations/Mental Status: [] Eye contact is good. Motor activity is appropriate. Appearance is casual. Speech is Appropriate. Mood is anxious. Affect is congruent. Thoughts are linear and logical. No evidence of psychosis. Reviewed daily check in sheet and no reports of suicidal ideations or intent. Client Response/Progress/Benefit: [] Pt was an active participant in group discussion. Provided appropriate feedback. Is both excited and nervous about upcoming plan to attend programing at local [facility]. He was encouraged by therapist to continue with socialization and peer recovery as he reported benefits from group counseling in IOP. Continues to be more active in day to day activities. Reports anxiety and depression have been up and down. Frustrations at home which he rationalizes. Mentioned today desire to live independently however feels that this is so far away. Provided feedback and participated in group discussions on several topics. Progress noted. Benefited from group support, encouragement, and feedback. Will continue in IOP to maintain gains. Narrative Note: []
--- NOTE | 2018-12-05 10:12 | BH.SGPN.GN ---
Behaviors/Verbalizations/Mental Status: [Pt alert and oriented, casually dressed, appropriate grooming. Eye contact good. Motor activity restless. Speech appropriate rate/tone, at times rambling. Affect congruent, mood euthymic. Thoughts linear, logical, no signs of hallucinations or delusions. ] Client Response/Progress/Benefit: [Pt responded well to session, active participant in discussion. At times struggling to remain on topic and becoming distracted by self. Pt connected with the quote sharing, ?we assume others can read our mind.? Agreed with peers that ineffective communication can negatively impact mental health and relationships. Pt stated however that admitting when we are struggling can be hard to do and often leads to communication potholes. Pt helped the group discuss the different communication styles including the payoffs and costs of each. He provided an example of passive-aggressive communication as intentionally burning someone?s dinner. Pt appeared to benefit from increasing awareness of how communication impacts mental health. Progress noted in ability to identify personal barriers in effectively communicating. Recommended to continue IOP to promote healthy change behaviors, increase use of coping skills, and promote mood stability. ] Narrative Note: []
--- NOTE | 2018-12-06 15:00 | BH.NOTE ---
BH: Inpatient Note - Notes Behavioral Health Inpatient Note: 1500: Per verbal order from Dr. Miles, the following prescriptions were called into [facility] in [place], [place] ([id number]): buproprion 300mg PO daily, #30, 1 refill citalopram 10mg PO daily, #30, 1 refill Topamax 25mg PO BID, #60, 1 refill Cornelio Barba, MSN, RN
--- NOTE | 2018-12-10 09:10 | BH.SGPN.GN ---
Behaviors/Verbalizations/Mental Status: [] Eye contact is good. Motor activity is appropriate. Appearance is casual. Speech is Appropriate. Mood is anxious. Affect is congruent. Thoughts are linear and logical. No evidence of psychosis. Reviewed daily check in sheet and no reports of suicidal ideations or intent. Client Response/Progress/Benefit: [] Pt was an active participant in group discussion. Emotion for today is nervous. Shared with the group several stressors since last attending. Discussed that his therapist is moving to [place]. Reports thoughts and feelings of abandonment. Also frustration and anger. Upset that he has to start all over with another therapist. Group provided feedback and was able to reframe and challenge some of the thoughts which helped pt. Reports that he went to [facility] program yesterday and found it to be enjoyable. Discussed the positives as well as stressors. Some challenges due to his size with entering a room and utilizing the seat belt in the van. Started to come up with reasons to not follow through with [facility] due to perception of being uncomfortable due to weight. Group challenged him on this. Progress noted per pt report. Struggles with challenging own distortions and continues to need assistance from others. Over has reported improvement in depression and anxiety. Will continue in IOP to provided support, prevent decompensation, and maintain gains. Narrative Note: []
--- NOTE | 2018-12-10 10:15 | BH.SGPN.GN ---
Behaviors/Verbalizations/Mental Status: []Client alert and oriented, casually dressed and groomed. Eye contact fair. Motor activity appropriate-crocheting throughout session. Speech within normal limits. Affect congruent, mood euthymic. Thoughts linear, logical, no signs of hallucinations or delusions. Client Response/Progress/Benefit: []Client responded well to session, positive contributions and positive feedback. Client indicated connecting with the topic of cognitive distortions and shared ?it?s possible to change your negative thinking.? Client provided reassurance to peers that learning to combat cognitive distortions and reframe thoughts becomes easier. Client participated in the discussion of how negative thoughts impact one?s mental health and relationships. Client agreed with peers that cognitive distortions lead to avoidance, self-judgement, and increased intensity of mental health symptoms. Client contributed as the group defined and reflected upon various types of distortions. Client reported he has used most of the distortions, but he often finds himself personalizing, discounting the positives, and jumping to conclusions. Client shared he has been getting better with catching himself in his negative thoughts ?before I spiral.? Client benefitted from increasing awareness of cognitive distortions and how they can impact emotions and behaviors. Progress noted as client reports improved mood and use of coping skills. Client to continue IOP to promote gains and further increase mood stability and functioning.
--- NOTE | 2018-12-10 11:20 | BH.SGPN.GN ---
Behaviors/Verbalizations/Mental Status: [Client alert and oriented, casually dressed, hygiene fair. Eye contact fair to good. Motor activity appropriate, at times restless. Speech within normal limits, often struggling to remain on topic. Affect congruent and bright, mood euthymic and anxious. Thoughts linear, logical, no signs of hallucinations or delusions] Client Response/Progress/Benefit: [Pt responded well to session, active participant and providing input throughout. Pt engaged in the discussion reviewing various types of distortions as well as impact they have on mental health. Shared connecting with distortion of mind reading and provided an example of times he has used this distortion while in public, indicated thinking others were judging him. Pt helped the group practice challenging the example cognitive distortions and did well to identify evidence against negative thoughts. Pt assisted the group in learning ways to combat negative thinking and stated he plans to use the T.H.I.N.K acronym to remember to focus on helpful thoughts rather than the negative. Appeared to benefit from practicing thought challenging and gaining awareness of the effort it takes to reframe negative thoughts. Progress noted as client reports more consistent application of thought challenge skills. Pt to continue IOP to promote gains and further increase healthy supports.] Narrative Note: []
--- NOTE | 2018-12-12 09:10 | BH.SGPN.GN ---
Behaviors/Verbalizations/Mental Status: [] Eye contact is good. Motor activity is appropriate. Appearance is casual. Speech is Appropriate. Mood is anxious. Affect is congruent. Thoughts are linear and logical. No evidence of psychosis. Reviewed daily check in sheet and no reports of suicidal ideations or intent. Client Response/Progress/Benefit: [] Pt was an active participant in group discussion. Provided appropriate feedback to peers. States I'm good today despite being late. In the past this would have led to ruminations and dwelling which could have negatively impacted the rest of the day. Currently able to manage these thoughts and keep anxiety to a minimum. Enjoyed his time at [facility] on Sunday however is struggling with returning mainly due to his aunt's medical issues. Aunt is very close to according to patient and he feels that obligation to stay at home with her to help care for her. This bring on guilt, anxiety, frustration, and depression. Benefited from group feedback and support. Will continue in IOP to maintain gains, prevent decompensation, and to stabilize mood. Narrative Note: []
--- NOTE | 2018-12-12 10:20 | BH.SGPN.GN ---
Behaviors/Verbalizations/Mental Status: []Client alert and oriented, casually dressed and groomed. Eye contact good. Motor activity appropriate. Speech within normal limits, but off topic at times. Affect congruent, mood euthymic. Thoughts linear, logical, no signs of hallucinations or delusions. Client Response/Progress/Benefit: []Client responded well to session, at times off topic, but providing positive feedback to peers. Client verbally agreed with the quote and identified coming to IOP as a time when he wanted change more than he feared it. Client engaged in discussion of what it means to ?take action? in one?s mental health treatment. Client reported to make change one needs self-awareness and follow through. Client identified things in his life he wants to start taking control over. These things included: taking responsibility for other people?s issues, shutting down, minimizing, personalizing, and ?soaking up? other?s emotions. Client appeared to benefit from identifying things that are holding him back and from identifying times he made change.
--- NOTE | 2018-12-12 11:25 | BH.SGPN.GN ---
Behaviors/Verbalizations/Mental Status: [Client alert and oriented, casually dressed and groomed. Eye contact good. Motor activity appropriate. Speech appropriate rate and tone. Affect congruent, mood euthymic, anxious. Thoughts linear, logical, no signs of hallucinations or delusions.] Client Response/Progress/Benefit: [Client was an active participant AEB client providing input to discussion, providing feedback to others, and taking notes throughout. Attentive and contributing input to discussion of the different zones of taking action as well as the pros and cons of each. Client agreed with peers that to grow and improve mental health, one must step out of their comfort zone, but not take on too much at once to prevent staying stuck but also avoid burnout. Client completed worksheet in which he identified a problem area to focus on, a SMART goal to help work on problem area, and identify additional supports needed to be successful. Client identified he wants to reduce isolation and social anxiety. Client identified a small goal which is to identifying social outlets he would be interested in and looking [facility]. Client stated additional supports needed to be successful with goal which included: positive self-talk, encouragement from supports, reminding self of importance of doing so for his mental health, and using calming/grounding skills. Appeared to benefit from creating a small goal to aid in mental health progress. Will continue IOP tx to promote use of healthy coping skills, reduce anxiety, improve mood stability, and prevent decompensation.] Narrative Note: []
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
--- NOTE | 2018-12-17 10:20 | BH.SGPN.GN ---
Behaviors/Verbalizations/Mental Status: []Client alert and oriented, casually dressed and groomed. Eye contact good. Motor activity restless-crocheting throughout session. Speech within normal limits. Affect congruent, mood anxious,. Thoughts linear, logical, no signs of hallucinations or delusions. Client Response/Progress/Benefit: []Client receptive of session and providing to discussion. Did well to participate in the activity and contributed to the discussion of the group topic of resilience. Client shared being resilient means ?you got to be flexible and not too stiff in your ways.? Client defined resilience as being like a marshmallow ?they always bounce back.? Client gave examples for how resilience can positively impact mental health and wellness. Client stated having a positive mindset and viewing hardships as possible to overcome increases resilience. Client engaged in small group discussion about the various strategies that can help strengthen one's resilience and provided examples of the benefits of establishing supportive connections and moving towards one?s goals. Client seemed to benefit from increased awareness of various components that can contribute to increased resilience. Progress noted as client reports consistent application of coping skills to manage symptoms. Client to discharge from [facility] on , but he can benefit from one more [facility] day to reinforce healthy coping skills.
--- NOTE | 2018-12-17 11:17 | BH.SGPN.GN ---
Behaviors/Verbalizations/Mental Status: [Client alert and oriented, casually dressed and appropriately groomed. Eye contact good. Motor activity appropriate. Speech within normal limits. Affect congruent to topic being discussed, mood euthymic, anxious, positive. Thoughts linear, logical, no signs of hallucinations or delusions.] Client Response/Progress/Benefit: [Client engaged participant as evidenced by client providing input throughout discussion and listening attentively to peers. Client worked cooperatively with peers to identify how each resiliency factor can help increase personal resiliency. Client reported he wants to work on the resiliency component of taking care of himself. Client stated he will work on increasing personal resilience by improving his self-talk and spending time focusing on small positives each day. Client appeared to benefit from identifying goal to improve personal resilience factors. Client to continue IOP to continue use of healthy coping skills, continue to identify and challenge distorted thoughts, increase mood stability, and prevent decompensation.] Narrative Note: []
--- NOTE | 2018-12-19 08:13 | BH.IGGP_ITS ---
Aftercare Plan - Demographics Treatment End Date:: 12/19/18 Psychiatrist:: Tremayne Miles Psychiatrist Office #:: [phone] [facility]/IOP Therapist:: Zayra Argueta Therapist Phone #:: [phone] - Medications Home Medications: Home Medications Hydrochlorothiazide [Hctz] 25 mg PO DAILY 06/02/13 Metoprolol Tartrate [Lopressor (beta jelena)] 50 mg PO BID #60 tablet 06/03/13 Loratadine [Claritin] 10 mg PO DAILY 09/12/13 Warfarin [Coumadin] 13 mg PO DAILY 09/12/13 Ergocalciferol [Vitamin D] 50,000 unit PO OCASIO 09/13/15 Furosemide [Lasix] 40 mg PO DAILY 09/13/15 Losartan Potassium [Cozaar] 50 mg PO DAILY 09/13/15 Meloxicam [Mobic] 7.5 mg PO DAILY 09/13/15 Montelukast [Singulair] 10 mg PO DAILY 09/13/15 Vitamin B Complex 1 each PO DAILY 09/13/15 Omeprazole [Prilosec] 20 mg PO BID 09/18/17 buPROPion tablets [Wellbutrin] 300 mg PO DAILY 09/18/17 Alprazolam [Xanax] 0.25 mg PO DAILY PRN 10/25/18 Citalopram [Celexa] 10 mg PO DAILY 10/25/18 Topiramate [Topamax] 25 mg PO BID 10/25/18 - Plan Details Progress/Aftercare Plan Details:: Since admission to the [facility] program, Nahum has demonstrated progress with increased ability to manage his symptoms of depression and anxiety and increased in ability to connect with others. Nahum has displayed an overall improvement in ability to reduce use of unhealthy means for coping and instead is more consistently utilizing healthy coping skills during times of increased anxiety. He reports finding that healthy distraction, journaling, crocheting, and mindfulness to be helpful in successfully reducing anxiety. Nahum has additionally shown an increase in self- awareness regarding the impact of thoughts and behaviors on his mental health and ability to communicate with others. Nahum is continuing to apply thought challenging techniques to his daily life and indicates increased ability to see more ?shades of oliveira? rather then solely viewing things in absolutes. Nahum has successfully reduced sx of both depression and anxiety, as well as no longer reports active SI. Nahum continues to display some difficulties with personalization and ruminating on miscommunications, He would benefit from ongoing individual therapy focusing on the area of cognitive distortion. Overall, Nahum has shown progress in his ability to identify and utilize using healthier skills for coping and is better recognizing what behavior and thoughts are not healthy. The plan is for client to follow up with [facility] for individual outpatient counseling services as well as Dr. Hunt with [facility] psychology services for ongoing bariatric counseling. Nahum is planning to [facility] and is scheduled for his first appointment. He is additionally encouraged to follow-up with support through [id number]. Strategies for Success:: 1.Communicate, Communicate, Communicate! Needs can't be met unless let others know what you need and your voice won?t be considered if you don?t express your thoughts. 2. Remember ignoring the problem, doesn't work! Face it before it gets out of control and harder to manage. 3. Be mindful. Take time each day to check-in with yourself and ask yourself how your thoughts and behaviors are impacting your mental health. 4. Continue to be self-aware of distorted thoughts and reframe when necessary. Ask yourself ?What is the evidence for and against this? Am I personalizing?? 5. Utilize support system!!!! Keep reaching out and working on building supports outside of your family! We all need a wide net of supports. 6. Don?t forget to get out of the house! Crocheting can?t be your only coping skill! 7. Set small goals! Focus on one thing at a time! 8. Know your warning signs and limits! 9. SELF-CARE! - Appointments Appointments/Referrals to Other Services:: The plan is for client to follow up with [facility] for individual outpatient counseling services as well as Dr. Hunt with [facility] psychology services for ongoing bariatric counseling. Nahum is planning to continue medication [facility] with [facility] and is scheduled for his first appointment. He is additionally encouraged to follow-up with support through [id number].
--- NOTE | 2018-12-19 09:10 | BH.SGPN.GN ---
Behaviors/Verbalizations/Mental Status: [] Eye contact is good. Motor activity is appropriate. Appearance is casual. Speech is Appropriate. Mood is anxious. Affect is congruent. Thoughts are linear and logical. No evidence of psychosis. Reviewed daily check in sheet and no reports of suicidal ideations or intent. Client Response/Progress/Benefit: [] Pt was an active participant in group discussion. Emotion for today is sad as this is his last day in IOP program. He discussed at length how the program and his peers have been such a tremendous help to him. He discussed the progress that he has made and reports that this the most social and engaged with others he has been since in high school. Fear of reverting back to old behaviors and decompensating. Tearful at times. Group provided feedback and support. Encouraged him to follow up with [facility] to remain engaged with recovery. Encouraged looking into peer recovery program. Plan is for pt to be discharged today. Narrative Note: []
--- NOTE | 2018-12-19 11:30 | BH.SGPN.GN ---
Addendum entered and electronically signed by DAMIEN Romero 08/03/19 12:55: Amended to include missing group #2 documentation Date: 12/19/18 1025 Duration: 54 minutes Technical Internship: Zayra Argueta/DAMIEN Group Topic: [Rat Trap] # of Participants: [9] Goal of Group: [To identify within self what is keeping client trapped from achieving better quality of life.] Staff Interventions: [Therapist facilitated discussion about what is keeping client?s stuck from moving toward mental wellness. Therapist assisted clients in connecting how thoughts can contribute to keeping clients stuck. Therapist led discussion about barriers clients face from making changes to help one move forward. Therapist provided support by using active listening and giving feedback to others.] Behaviors/Verbalizations/Mental Status: Client alert and oriented, casually dressed and groomed. Eye contact good. Motor activity appropriate, some fidgeting. Speech within normal limits. Affect congruent, mood dysthymic, anxious. Thoughts linear, logical, no signs of hallucinations or delusions. Client Response/Progress/Benefit: Client responded well to session, attentive and participating in discussion. Noted connecting with quote and expressed his thoughts often keep him ?stuck? of prevent progress. Participated in discussion of things that can keep people feeling trapped or stuck in life including; isolation, lack of trust, past experiences, negative perspective, lack of awareness, denial, fear, and low self-esteem. Group discussed the connection between thoughts, emotions, and behaviors as well as how negative thinking can keep a person stuck. Client attentive during psychoeducation on maintenance cycles. Client able to identify negative thoughts that have reinforced depression and kept client feeling trapped. Client shared a negative thought maintaining depression as ?I?m never going to be good enough to get the things I want in life.? Client reported this thought has caused increased depression, hopelessness, and feeling like he is a failure. Appeared to benefit from gaining awareness of how negative thoughts reinforce mental health symptoms and keep people stuck. Progress noted in client?s report of improved awareness of thoughts keeping him stuck. Will continue IOP to prevent decompensation, increase emotional regulation, reduce negative self-talk, and maintain safety. Original Note: Behaviors/Verbalizations/Mental Status: []Client alert and oriented, casually dressed and groomed. Eye contact good. Motor activity restless-fidgeting with silly putty. Speech within normal limits. Affect constricted, mood anxious. Thoughts linear, logical, no signs of hallucinations or delusions. Client Response/Progress/Benefit: []Client responded well to session, active participant. Client appeared to connect with maintenance cycles and recognized how negative thinking can keep a person stuck. Client identified a negative thought that has kept him stuck. Client?s thought was ?I?m never going to get better and if I do my life will be mostly over.? Client shared when he thinks this way it causes client to feel depressed, apathetic, and revert to old habits and unhealthy coping. Client recognized that this thought is unrealistic, even though at times it feels realistic. Client able to reframe the thought to ?If I don?t try, I definitely won?t get better.? Client shared this thought would improve his mental health because he would be more willing to work on his goals. Client shared due to his anxiety being higher today, he feels less confident in his abilities to cope. However, with group support, client recognized the progress he has made since starting IOP. Client appeared to benefit from practicing challenging negative thinking. Client has made progress in implementing healthy coping skills to reduce mental health symptoms. Client to discharge from IOP as he has made progress in reducing symptoms and increasing mood stability.
--- NOTE | 2018-12-20 09:27 | BH.DS ---
Discharge Summary - Demographics Date of Admission:: 10/22/18 Discharge Date: 12/19/18 Presenting Problems at Admission:: The patient is a 32-year old male who was referred for treatment in the intensive outpatient mental health treatment program by his outpatient bariatric therapist, Dr. Sparks, at [facility] [place]. Pt referred for issues with anxiety and depression resulting in pt failing to pass the bariatric surgery psychological exam. At time of admission, pt reports panic attacks on an almost a daily basis, difficulties managing anxiety in social settings, hopelessness, guilt, depression, and passive SI. Pt reports a history of anxiety and depression. Discharge Diagnoses:: Persistent Depressive Disorder; Generalized Anxiety Disorder, Chronic Adjustment Disorder with Anxiety, Binge Eating Disorder Reason for Discharge:: Client has accomplished IOP treatment goals as evidenced by reduced DSM-5 scores, no longer reports suicidal ideation, and indicates reduced intensity of mental health symptoms. For these reasons client no longer meets [facility] level of care. - Treatment Progress During Treatment & Response: Since admission to the [facility] program, pt has demonstrated progress with increased ability to manage symptoms of depression and anxiety. He additionally reports increased in ability to connect with others. Pt has displayed an overall improvement in ability to reduce use of unhealthy means for coping and instead is more consistently utilizing healthy coping skills during times of increased anxiety. He reports at times struggling with binge eating when stressed or anxious but has greatly reduced these behaviors and reports he is making progress in his bariatric weight loss goals. As a means of healthy coping pt identified healthy distraction, journaling, crocheting, and mindfulness to be helpful in successfully reducing anxiety. Pt has additionally shown an increase in self-awareness regarding the impact of negative thoughts and unhealthy behaviors on his mental health and ability to communicate with others. Pt reports he is applying thought challenging techniques to his daily life and indicates increased ability to see more ?shades of oliveira? rather then solely viewing things in absolutes. Pt has successfully reduced sx of both depression and anxiety, as well as no longer reports active SI. Despite consistent progress, pt continues to display some difficulties with personalization and ruminating on miscommunications, as well as jumping to conclusions which may prevent ongoing maintenance of progress. He would benefit from ongoing individual therapy focusing on the area of cognitive distortion. Overall, Pt has shown progress in his ability to identify and utilize using healthier skills for coping and is better recognizing what behavior and thoughts are not healthy which is displayed in reduction of overall DSM Cross Cutting scores. At admission, pt scored an overall 46/ 94 and dropped to a score of 22/94. In the area of depression, pt decreased scores from 6/8 to a 3/8 and reports experiencing no SI. Pt additionally displayed drops in level of anxiety with overall scores decreasing from a 12/12 at intake to a score of 5/12. Patient additionally reports increased connectivity with others and himself. Issues Still to be Addressed:: Despite consistent progress, pt continues to display some difficulties with personalization and ruminating on miscommunications, as well as jumping to conclusions which may prevent ongoing maintenance of progress. He would benefit from ongoing individual therapy focusing on the area of cognitive distortion. Discharge Recommendations/Instructions:: The plan is for client to follow up with [facility] for individual outpatient counseling services as well as Dr. Hunt with [facility] psychology services for ongoing bariatric counseling, next appt 12/26/18. Planning to continue [facility] with [facility] and is scheduled for his first appointment 12/25/18. He is additionally encouraged to follow-up with support through [facility]. Discharge Handout: Complete Discharge Handout with client on aftercare options and continuity of care.
--- NOTE | 2018-12-26 16:35 | BH.DS_ITS ---
Discharge Summary - Demographics Date of Admission:: 10/22/18 Discharge Date: 12/19/18 Presenting Problems at Admission:: The patient is a 32-year old male who was referred for treatment in the intensive outpatient mental health treatment program by his outpatient bariatric therapist, Dr. Sparks, at [facility]. Pt referred for issues with anxiety and depression resulting in pt failing to pass the bariatric surgery psy chological exam. At time of admission, pt reports panic attacks on an almost a daily basis, difficulties managing anxiety in social settings, hopelessness, guilt, depression, and passive SI. Pt reports a history of anxiety and depression. Discharge Diagnoses:: Persistent Depressive Disorder; Generalized Anxiety Disorder, Chronic Adjustment Disorder with Anxiety, Binge Eating Disorder Reason for Discharge:: Client has accomplished IOP treatment goals as evidenced by reduced DSM-5 scores, no longer reports suicidal ideation, and indicates reduced intensity of mental health symptoms. For these reasons client no longer meets IOP level of care. - Treatment Progress During Treatment & Response: Since admission to the [facility] IOP program, pt has demonstrated progress with increased ability to manage symptoms of depression and anxiety. He additionally reports increased in ability to connect with others. Pt has displayed an overall improvement in ability to reduce use of unhealthy means for coping and instead is more consistently utilizing healthy coping skills during times of increased anxiety. He reports at times struggling with binge eating when stressed or anxious but has greatly reduced these behaviors and reports he is making progress in his bariatric weight loss goals. As a means of healthy coping pt identified healthy distraction, journaling, crocheting, and mindfulness to be helpful in successfully reducing anxiety. Pt has additionally shown an increase in self- awareness regarding the impact of negative thoughts and unhealthy behaviors on his mental health and ability to communicate with others. Pt reports he is applying thought challenging techniques to his daily life and indicates increased ability to see more ?shades of oliveira? rather then solely viewing things in absolutes. Pt has successfully reduced sx of both depression and anxiety, as well as no longer reports active SI. Despite consistent progress, pt continues to display some difficulties with personalization and ruminating on miscommunications, as well as jumping to conclusions which may prevent ongoing maintenance of progress. He would benefit from ongoing individual therapy focusing on the area of cognitive distortion. Overall, Pt has shown progress in his ability to identify and utilize using healthier skills for coping and is better recognizing what behavior and thoughts are not healthy which is displayed in reduction of overall DSM Cross Cutting scores. At admission, pt scored an overall 46/ 94 and dropped to a score of 22/94. In the area of depression, pt decreased scores from 6/8 to a 3/8 and reports experiencing no SI. Pt additionally displayed drops in level of anxiety with overall scores decreasing from a 12/12 at intake to a score of 5/12. Patient additionally reports increased connectivity with others and himself. Issues Still to be Addressed:: Despite consistent progress, pt continues to display some difficulties with personalization and ruminating on miscommunications, as well as jumping to conclusions which may prevent ongoing maintenance of progress. He would benefit from ongoing individual therapy focusing on the area of cognitive distortion. Discharge Recommendations/Instructions:: The plan is for client to follow up with [facility] for individual outpatient counseling services as well as Dr. Hunt with [facility] services for ongoing bariatric counseling, next appt 12/26/18. [facility] to [facility] and is scheduled for his first appointment 12/25/18. He is additionally encouraged to follow-up with support through [facility]. Discharge Handout: Complete Discharge Handout with client on aftercare options and continuity of care.
== END 2018-12-19 14:00 | disposition home or self-care (01) ==
LOC: BHIOP 09:00
PROVIDERS: Referring Provider Psychiatry & Neurology Psychiatry; Visit Provider Psychiatry & Neurology Psychiatry
DX: F32.89 Other specified depressive episodes (principal); F41.1 Generalized anxiety disorder; F43.22 Adjustment disorder with anxiety; F50.81 Binge eating disorder
CPT/HCPCS: H0035; H2012; H2020; 90832; 90834

== ENCOUNTER 2019-02-22 12:21 | Emergency (ER) | payer MEDICAID, SELFPAY ==
[2019-02-22 12:22] VITALS: BP 160/109; PULSE 86; RESP 20; TEMP 37; O2SAT 98; BMI 80.6
--- NOTE | 2019-02-22 12:43 | ED.VISSUMM ---
- ER Visit Summary Date of Service: 02/22/19 Chief Complaint: Right leg redness History of Present Illness: The patient is a 33 M who presents with redness to his right leg that has been getting worse over the past 2 to 3 days. Patient admits to fevers and chills at home. Patient states his temperature was up to 102 at home. Patient states he has a history of cellulitis in his right leg. Patient denies any nausea or vomiting. Patient denies any trauma or injury. Patient does admit to some tingling in the right leg. Patient denies any discharge or drainage. Patient denies any open wounds. Physical Examination: Vital signs are stable except for an elevated blood pressure 160/109. Patient is afebrile. Patient is in no acute distress. Oral mucosa is pink and moist. Neck is supple. Trachea is midline. There is no JVD noted. Heart was regular rate and rhythm. Lungs are clear and equal bilaterally. Skin is warm and dry. There is erythema and mild warmth over the right lower leg. There is no discharge or drainage. There is no open wounds. Sensation was intact to light touch in all areas of the lower extremities bilaterally. Strength is 5/5 bilaterally in the lower extremities. Test Results: CBC was normal. Basic metabolic profile showed a potassium 3.2 but was otherwise within normal limits. Emergency Department Course and Treatment: Patient was given a dose of Ancef here. Patient was given a dose of potassium here. Patient was given a prescription for Keflex. Patient was instructed to follow-up with his primary care physician in 3 to 5 days. Patient understood and was agreeable with the plan. All questions were answered. Disposition: Discharge home Impression: Cellulitis right leg This note was generated with [employer] dictation software. It may contain incorrect words, spelling, and punctuation that were not noted in review of the chart prior to signing ED Disposition - Plan for ED Patient: Disposition: Home or Assisted Living Diagnosis: Cellulitis of right lower leg Instructions: Cellulitis Prescriptions: Cephalexin [Keflex] 500 mg PO Q6 #40 cap Prescription Printed Referrals: Leola Fierro [Primary Care Provider] - 3-5 Days
[2019-02-22] MEDS: Cefazolin 1 GM/50 ML BAG IV (13:23)
[2019-02-22 13:37] LABS: Absolute Lymphocyte Count 1.42 X10^3/uL (0.83-4.51); Absolute Neutrophil Count 4.9 X10^3/uL (2.0-7.7); Basophil# 0.05 X10^3/uL; Basophil% 0.7 % (0-1); Eosinophils% 1.4 % (0-5); Hematocrit 43.3 % (40-54); Hemoglobin 14.3 g/dL (13.0-16.5); Lymphocyte # 1.42 X10^3/ul (4.0); Lymphocyte % 19.8 % (19-41); Mean Corpuscular Hgb 29.5 pg (27.0-32.0); Mean Corpuscular Volume 89.3 fL (80-94); Mean Platelet Vol. 9.8 fl (6.2-12.0); Monocyte# 0.69 X10^3/uL; Monocyte% 9.6 % (0-10); NRBC Flagged by Analyzer 0 % (0-5); Neutrophil # 4.87 X10^3/uL (2.7-7.7); Neutrophil % 67.9 % (47-70); Platelet Count 178 K/mm3 (150-450); RBC Distribution Width CV 13.2 % (11.6-14.6); Red Blood Count 4.85 M/mm3 (4.6-6.2); White Blood Count 7.2 K/mm3 (4.4-11.0)
[2019-02-22 13:47] LABS: Anion Gap 7 (5-15); BUN 20 mg/dL (7-18); BUN/Creat Ratio 17.7 RATIO (10-20); Calcium,Total 8.8 mg/dL (8.5-10.1); Chloride 105 mmol/L (98-107); Creatinine, Serum 1.13 mg/dL (0.70-1.30); EST Glomerular Filtration Rate 79 mL/min (>60); Est Glom Filt Rate - Afr Amer 96 mL/min (>60); Estimated Creatinine Clearance 111.13 ml/min; Glucose 95 mg/dL (74-106); Potassium 3.2 mmol/L (3.5-5.1); Sodium Level 139 mmol/L (136-145)
[2019-02-22 14:23] VITALS: PULSE 73; RESP 16; O2SAT 97
== END 2019-02-22 14:24 | disposition home or self-care (01) ==
PROVIDERS: Emergency Provider Emergency Medicine
DX: L03.115 Cellulitis of right lower limb (principal); I48.91 Unspecified atrial fibrillation; J45.909 Unspecified asthma, uncomplicated; R03.0 Elevated blood-pressure reading, without diagnosis of hypertension; K21.9 Gastro-esophageal reflux disease without esophagitis; F32.9 Major depressive disorder, single episode, unspecified; F41.9 Anxiety disorder, unspecified; E66.9 Obesity, unspecified; Z79.899 Other long term (current) drug therapy; Z79.01 Long term (current) use of anticoagulants
CPT/HCPCS: 36415; 80048; 85025; 96365; 99285; J7030; A4216

== ENCOUNTER → 2019-09-04 12:43 | Outpatient (CLI) | payer MEDICAID, SELFPAY ==
[2019-08-25 15:28] VITALS: BMI 78.8
--- NOTE | 2019-09-04 12:46 | ECHOCS_ITS ---
Reason For Study: DIA Procedure This was a 2D Doppler, Color Flow transthoracic echocardiogram. The study was technically limited. The study was technically difficult. Contrast injection was performed. Left Ventricle Normal LV size. The estimated ejection fraction is 60 %. Normal diastology for age. No regional wall motion abnormalities noted. Right Ventricle Normal RV size. Normal systolic function. Atria Normal left atrium. Normal right atrium. No doppler evidence for ASD. Mitral Valve Mitral valve not well visualized. There is no mitral valve stenosis. No mitral valve insufficiency. Tricuspid Valve There is no tricuspid stenosis. Unable to estimate RV systolic pressure due to insufficient tricuspid regurgitant envelope. No tricuspid valve insufficiency. Aortic Valve Not well visualized. There is no aortic stenosis. No aortic valve insufficiency. Pulmonic Valve There is no pulmonic valvular stenosis. No pulmonic valve insufficiency. Great Vessels Normal aortic root. Pericardium/Pleural No pericardial effusion. Medication 22 gauge I.V. with prn adaptor inserted into right arm. Diluted definity 7.0ml given slow IV push to enhance endocardial definition. MMode/2D Measurements & Calculations LVIDd: 5.4 cm IVSd: 1.4 cm LAV(MOD-sp4): 153.2 ml LVIDs: 3.8 cm LVPWd: 1.5 cm FS: 29.2 % LA A4 area: 36.6 cm2 LA dimension(2D): 3.9 cm Doppler Measurements & Calculations MV E max justin: 67.7 cm/sec Ao V2 max: 105.3 cm/sec LV V1 max: 73.5 cm/sec Ao max P.4 mmHg LV V1 max P.2 mmHg PA V2 max: 93.8 cm/sec Interpretation Summary The study was technically difficult. Contrast injection was performed. The estimated ejection fraction is 60 %. Normal diastology for age. The study was technically difficult. Contrast injection was performed. Ordering Physician: Fredrick Daniels Referring Physician: GIANNA TIAN [facility] Performed By: Liliya Rodriguez RDCS, RVT
[2019-09-04 14:54] LABS: Absolute Lymphocyte Count 1.84 X10^3/uL (0.83-4.51); Absolute Neutrophil Count 3.7 X10^3/uL (2.0-7.7); Basophil# 0.08 X10^3/uL; Basophil% 1.3 % (0-1); Eosinophils% 3.1 % (0-5); Hematocrit 43.9 % (40-54); Hemoglobin 14.3 g/dL (13.0-16.5); Lymphocyte # 1.84 X10^3/ul (4.0); Lymphocyte % 28.9 % (19-41); Mean Corp Hgb Conc 32.6 g/dL (32-36); Mean Corpuscular Hgb 29.5 pg (27.0-32.0); Mean Corpuscular Volume 90.5 fL (80-94); Monocyte% 7.8 % (0-10); NRBC Flagged by Analyzer 0 % (0-5); Neutrophil # 3.72 X10^3/uL (2.7-7.7); Neutrophil % 58.4 % (47-70); Platelet Count 202 K/mm3 (150-450); RBC Distribution Width CV 12.9 % (11.6-14.6); RBC Distribution Width SD 42.3 fl (35.1-43.9); Red Blood Count 4.85 M/mm3 (4.6-6.2); White Blood Count 6.4 K/mm3 (4.4-11.0)
[2019-09-04 15:26] LABS: ALB/GLOB Ratio 0.9 RATIO (0.9-2.4); AST(SGOT) 18 U/L (15-37); Alanine Aminotransfer ALT/SGPT 30 U/L (16-61); Albumin, Serum 3.6 g/dL (3.2-5.0); Alkaline Phosphatase 116 U/L (45-117); Anion Gap 3 (5-15); BUN 18 mg/dL (7-18); BUN/Creat Ratio 13.7 RATIO (10-20); Calcium,Total 9.2 mg/dL (8.5-10.1); Chloride 105 mmol/L (98-107); Creatinine, Serum 1.31 mg/dL (0.70-1.30); EST Glomerular Filtration Rate 67 mL/min (>60); Est Glom Filt Rate - Afr Amer 81 mL/min (>60); Globulin 4.1 g/dL (2.2-4.2); Glucose 91 mg/dL (74-106); Potassium 3.8 mmol/L (3.5-5.1); Protein, Total 7.7 g/dL (6.4-8.2); Sodium Level 139 mmol/L (136-145)
== END ==
PROVIDERS: Referring Provider Specialist; Visit Provider Specialist
DX: R06.00 Dyspnea, unspecified (principal)
CPT/HCPCS: 36415; 80053; 85025; 93306; Q9957; A4216; C8929

== ENCOUNTER → 2020-04-02 10:42 | Outpatient (CLI) | payer MEDICAID, SELFPAY ==
[2019-10-01 08:56] VITALS: BMI 78.0
[2020-04-02 11:49] LABS: Absolute Neutrophil Count 7.2 X10^3/uL (2.0-7.7); Basophil# 0.07 X10^3/uL; Basophil% 0.6 % (0-1); Eosinophil# 0.19 X10^3/uL; Eosinophils% 1.8 % (0-5); Hematocrit 46.4 % (40-54); Hemoglobin 14.6 g/dL (13.0-16.5); Lymphocyte % 24.1 % (19-41); Mean Corp Hgb Conc 31.5 g/dL (32-36); Mean Corpuscular Hgb 28.3 pg (27.0-32.0); Mean Corpuscular Volume 89.9 fL (80-94); Mean Platelet Vol. 10.2 fl (6.2-12.0); Monocyte# 0.67 X10^3/uL; Monocyte% 6.2 % (0-10); NRBC Flagged by Analyzer 0 % (0-5); Neutrophil # 7.23 X10^3/uL (2.7-7.7); Neutrophil % 67.1 % (47-70); Platelet Count 264 K/mm3 (150-450); RBC Distribution Width CV 13.1 % (11.6-14.6); RBC Distribution Width SD 42.9 fl (35.1-43.9); Red Blood Count 5.16 M/mm3 (4.6-6.2); White Blood Count 10.8 K/mm3 (4.4-11.0)
[2020-04-02 12:20] LABS: International Normalized Ratio 1.7
[2020-04-02 12:23] LABS: Vitamin D,25 Hydroxy 61.7 ng/mL
[2020-04-02 12:27] LABS: ALB/GLOB Ratio 0.8 RATIO (0.9-2.4); AST(SGOT) 19 U/L (15-37); Alanine Aminotransfer ALT/SGPT 33 U/L (16-61); Albumin, Serum 3.7 g/dL (3.2-5.0); Alkaline Phosphatase 116 U/L (45-117); Anion Gap 9 (5-15); BUN 25 mg/dL (7-18); BUN/Creat Ratio 19.1 RATIO (10-20); Calcium,Total 9.1 mg/dL (8.5-10.1); Chloride 104 mmol/L (98-107); Cholesterol 147 mg/dL (200); Creatinine, Serum 1.31 mg/dL (0.70-1.30); EST Glomerular Filtration Rate 67 mL/min (>60); Est Glom Filt Rate - Afr Amer 80 mL/min (>60); Globulin 4.6 g/dL (2.2-4.2); Glucose 102 mg/dL (74-106); High Density Lipoprotein 46 mg/dL; Potassium 3.6 mmol/L (3.5-5.1); Protein, Total 8.3 g/dL (6.4-8.2); Sodium Level 140 mmol/L (136-145); T4 Free Direct 0.96 ng/dL (0.76-1.46); Thyroid Stim Hormone (TSH) 1.81 uIU/mL (0.358-3.74); Triglycerides 141 mg/dL; Uric Acid 10.7 mg/dL (3.5-7.2); Very Low Density Lipoprotein 28 mg/dL (5-40)
== END ==
DX: I10 Essential (primary) hypertension (principal); E55.9 Vitamin D deficiency, unspecified; F33.0 Major depressive disorder, recurrent, mild; M10.9 Gout, unspecified; Z79.01 Long term (current) use of anticoagulants
CPT/HCPCS: 36415; 80053; 80061; 82306; 84439; 84443; 84550; 85025; 85610

== ENCOUNTER 2020-05-08 10:25 | Inpatient (IN) | payer MEDICAID, SELFPAY ==
[2019-10-01 08:56] VITALS: BMI 78.0
[2020-05-08] VITALS (13 sets, daily range): BP systolic 105–153; BP diastolic 49–98; PULSE 69–112; RESP 16–26; TEMP 37.1–38; O2SAT 94–98; BMI 79.3; BMI 79.4
--- NOTE | 2020-05-08 10:51 | EKG12_ITS ---
Test Reason : Blood Pressure : / mmHG Vent. Rate : 091 BPM Atrial Rate : 300 BPM P-R Int : 000 ms QRS Dur : 120 ms QT Int : 388 ms P-R-T Axes : 000 024 052 degrees QTc Int : 477 ms Atrial fibrillation with premature ventricular or aberrantly conducted complexes Non-specific intra-ventricular conduction delay Nonspecific ST abnormality Abnormal ECG Confirmed by JV ADDISON, VIDHYA ([id number]), photo editor MARCO ANTONIO JORDAN ([id number]) on 05/11/2020 12:36:33 PM Referred By: AYUSH Confirmed By:VIDHYA CARIAS MD
--- NOTE | 2020-05-08 10:56 | ED.DCSUM_ITS ---
History of Present Illness Informant: Patient, Family Onset: Weeks - 1 week Context: Gradual Onset Timing: Continuous Quality: sharp Location: left leg Current Severity: Severe Maximum Severity: Severe Worsened by: nothing Relieved by: nothing Associated Symptoms: chills Narrative: 34-year-old male history of morbid obesity recurrent cellulitis and atrial fibrillation presents to the emergency department with left leg pain redness and swelling. He has been on doxycycline per his primary care physician for cellulitis in this leg for the last 4 days. It has progressively worsened. His primary care physician riri a line across his leg and has significantly extended towards his knee past the line. He has been having chills at night. No documented fever. No vomiting or diarrhea. He is not lightheaded or dizzy. He is anticoagulated with Coumadin. Rest of his review of systems are negative. Prior similar symptoms: Yes Recent Illness/Hospitalization: No <Tao Perrin - Last Filed: 05/08/20 12:32> <Collin Dale - Last Filed: 05/08/20 12:45> Chief Complaint: Cellulitis Past Medical History Prior records reviewed: Yes Past Medical History: - - Morbid obesity, hypertension, hyperlipidemia, atrial fibrillation Surgical History: no surgical history Lives: With Family Smoking Status: Former smoker Alcohol: None Drugs: None <Tao Perrin - Last Filed: 05/08/20 12:32> <Collin Dale - Last Filed: 05/08/20 12:45> - Allergies and Home Meds Allergies/Adverse Reactions: Allergies lisinopril Allergy (Intermediate, Verified 05/08/20 10:26) Inflammation of lung cough and resp distress Pertussis Vaccines Allergy (Verified 05/08/20 10:26) High Fever Primary Care Physician: [facility] Leola Baum [Primary Care Provider] - Review of Systems All systems negative except as indicated General: Reports: Chills. Denies: Fever, Sweats Eyes: Denies: Visual changes - bilaterally, Diplopia ENT: Denies: Rhinorrhea, Sore throat Cardiovascular: Denies: Chest pain, Palpitations Respiratory: Denies: Dyspnea, Cough, Dyspnea on exertion Gastrointestinal: Denies: Abdominal pain, Nausea, Vomiting, Diarrhea, Melena, Hematochezia Genitourinary: Denies: Dysuria, Hematuria, Frequency Musculoskeletal: Reports: Swelling, Extremity Pain. Denies: Back pain Skin: Reports: Wounds. Denies: Rash Neurological: Denies: Headache, Weakness, Numbness <Tao Perrin - Last Filed: 05/08/20 12:32> Physical Exam Vital Signs/Narrative: Vital Signs Temp Pulse Resp BP Pulse Ox 05/08/20 10:26 98.9 F 104 H 26 H 143/98 H 96 Inital Vital Signs reviewed: Yes General: Well nourished, Well developed, Obese, No Acute Distress Head: Normocephalic, Atraumatic Eyes: Perrl, EOMI ENT: Moist mucous membranes, No rhinorrhea Neck: Supple, Nontender Cardiovascular: Regular rate, Regular rhythm, No murmurs Respiratory: No distress, CTA bilaterally, Chest nontender Abdomen: Soft, Nontender, Nondistended, Normal bowel sounds Back: Nontender, Normal Inspection Extremities: Tenderness, Edema, - - Patient has cellulitis of his left leg extending from the dorsum of his foot to the proximal leg just below the knee. DP and PT pulse normal. No abscess is noted. Compartments are soft. Sensation throughout left lower extremity is normal. Skin: Normal color, No rash Neurological: Alert, Oriented x3, Cranial nerves II-XII grossly intact, Normal Strength, Normal Sensation Psychological: Normal affect, Normal Mood <Tao Perrin - Last Filed: 05/08/20 12:32> Vital Signs/Narrative: Vital Signs Temp Pulse Resp BP Pulse Ox 05/08/20 10:26 98.9 F 104 H 26 H 143/98 H 96 <Collin Dale - Last Filed: 05/08/20 12:45> Diagnostic/Tx/Re-eval - Medical Decision Making Patient's white blood cell count is just over 11. He has stable vital signs but has had progressively worsening cellulitis of the left lower extremity. This is despite being on doxycycline now for 4 days. He will be admitted for IV antibiotics. He was given vancomycin and Zosyn. His potassium was 2.8 and he was given oral potassium replacement. I spoke with Dr. Blanchard who agreed to admit. <Tao Perrin - Last Filed: 05/08/20 12:32> - Medical Decision Making The patient was seen with Tao britt with history and physical as above, on exam he has obvious cellulitis involving the left leg that did not respond to outpatient doxycycline there is no signs of neurovascular abnormality no history of DVT he is not sure if he is ever had MRSA before there is no signs of sepsis, at this time given all the above ED evaluation see the chart for full details admission antibiotics <Collin Dale - Last Filed: 05/08/20 12:45> ED Disposition <Tao Perrin - Last Filed: 05/08/20 12:32> <Collin Dale - Last Filed: 05/08/20 12:45> - Plan for ED Patient: Disposition: Acute Care Hospital [facility] Diagnosis: Cellulitis of left leg, Failure of outpatient treatment, Atrial fibrillation, Obesity Referrals: Medical [place],Leola Medina [Primary Care Provider] -
[2020-05-08 12:03] LABS: ALB/GLOB Ratio 0.7 RATIO (0.9-2.4); AST(SGOT) 31 U/L (15-37); Alanine Aminotransfer ALT/SGPT 39 U/L (16-61); Alkaline Phosphatase 100 U/L (45-117); Anion Gap 7 (5-15); BUN 28 mg/dL (7-18); BUN/Creat Ratio 21.4 RATIO (10-20); Calcium,Total 8.8 mg/dL (8.5-10.1); Chloride 104 mmol/L (98-107); Creatinine, Serum 1.31 mg/dL (0.70-1.30); EST Glomerular Filtration Rate 66 mL/min (>60); Est Glom Filt Rate - Afr Amer 80 mL/min (>60); Estimated Creatinine Clearance 94.96 ml/min; Globulin 4.4 g/dL (2.2-4.2); Glucose 108 mg/dL (74-106); Potassium 2.8 mmol/L (3.5-5.1); Protein, Total 7.4 g/dL (6.4-8.2); Sodium Level 139 mmol/L (136-145)
[2020-05-08 12:06] LABS: Absolute Lymphocyte Count 1.28 X10^3/uL (0.83-4.51); Absolute Neutrophil Count 8.9 X10^3/uL (2.0-7.7); Basophil# 0.05 X10^3/uL; Basophil% 0.4 % (0-1); Eosinophil# 0.05 X10^3/uL; Eosinophils% 0.4 % (0-5); Hematocrit 39.7 % (40-54); Hemoglobin 12.9 g/dL (13.0-16.5); Lymphocyte # 1.28 X10^3/ul (4.0); Lymphocyte % 11.1 % (19-41); Mean Corp Hgb Conc 32.5 g/dL (32-36); Mean Corpuscular Hgb 29.2 pg (27.0-32.0); Mean Corpuscular Volume 89.8 fL (80-94); Mean Platelet Vol. 9.7 fl (6.2-12.0); Monocyte# 1.15 X10^3/uL; NRBC Flagged by Analyzer 0 % (0-5); Neutrophil # 8.94 X10^3/uL (2.7-7.7); Neutrophil % 77.8 % (47-70); Platelet Count 189 K/mm3 (150-450); RBC Distribution Width CV 13.2 % (11.6-14.6); RBC Distribution Width SD 43.9 fl (35.1-43.9); Red Blood Count 4.42 M/mm3 (4.6-6.2); White Blood Count 11.5 K/mm3 (4.4-11.0)
[2020-05-08 12:09] LABS: International Normalized Ratio 2.4; Prothrombin Time (Protime)PT. 25.5 SECONDS (11.7-14.9)
[2020-05-08 12:28] LABS: Lactic Acid 0.9 mmol/L (0.4-1.9)
--- NOTE | 2020-05-08 12:28 | ED.RN ---
1200: Sepsis Note: Pt's INR subtherapeutic as pt on Coumadin 13mg daily for Afib. Box not checked as Sepsis Alert.
--- NOTE | 2020-05-08 12:32 | PCM.HP.STD ---
Problem List (1) Cellulitis of left leg Status: Chronic (2) Shortness of breath Status: Acute (3) Chest pain Status: Acute Qualifiers: Chest pain type: unspecified Qualified Code(s): R07.9 - Chest pain, unspecified (4) Atrial fibrillation Status: Chronic Qualifiers: Atrial fibrillation type: unspecified Qualified Code(s): I48.91 - Unspecified atrial fibrillation (5) LAURENT treated with BiPAP Status: Chronic (6) History of cardioversion Status: Chronic (7) Essential hypertension Status: Chronic (8) Bilateral leg edema Status: Chronic (9) Morbid obesity with BMI of 70 and over, adult Status: Chronic History of Present Illness Date of Admission: 05/08/20 Chief Complaint: Left leg cellulitis for 4 days The patient is a 34 year old M with history of recurrent cellulitis, last January 2019 came to ED with left leg swelling, pain, redness for last 4 days. His temperature at home 102 Fahrenheit. His PCP put him on doxycycline but he did not had any improvement in last 3 days but getting worse. He does not remember inciting agent/injury or trauma but gets recurrent colitis every 2 to 3 years. Patient baseline is mild shortness of breath on exertion due to morbid obesity, BMI 79.4 kg/m? and he was feeling claustrophobic with a tight facemask. Patient denies cough, sputum production, chest pain or other respiratory symptoms. He denies exposure to crowds or gathering. He has a history of A. fib and chronic heart failure with preserved EF and follows Dr. Daniels. On Coumadin 13 mg daily, INR is 2. 4, therapeutic. The abnormal labs in the ED significant of leukocytosis 11.5 thousand with left shift. K2.8. BUN/creatinine 28/1.31 elevated from baseline 18/08.13. He denies any change or decrease in the urine output. Denies any history of DVT or PE. Past Medical History Past Medical History (Chronic Problems): Chronic Problems (Last Reviewed 02/10/20 @ 14:[address] Fredrick Daniels MD) Cellulitis of left leg (Chronic) Morbid obesity with BMI of 70 and over, adult (Chronic) Atrial fibrillation (Chronic) LAURENT treated with BiPAP (Chronic) History of cardioversion (Chronic ~08/2013) Essential hypertension (Chronic) Bilateral leg edema (Chronic) Medical History: Medical History (Last Reviewed 02/10/20 @ 14:[address] Fredrick Daniels MD) LAURENT treated with BiPAP (Chronic) G47.33 Essential hypertension (Chronic) I10 Bilateral leg edema (Chronic) R60.0 Gout M10.9 detention (current) use of anticoagulants Z79.01 Adjustment reaction to chronic stress F43.8 Asthma J45.909 Binge eating disorder F50.81 CHF (congestive heart failure) I50.9 Chronic atrial fibrillation I48.2 Cluster B personality disorder F60.89 RAMIREZ (generalized anxiety disorder) F41.1 GERD (gastroesophageal reflux disease) K21.9 Morbid obesity with BMI of 70 and over, adult E66.01, Z68.45 Persistent depressive disorder F34.1 Vitamin D deficiency E55.9 Non-pressure chronic ulcer of other part of right lower leg with fat layer exposed (Resolved) L97.812 New onset a-fib (Inactive) I48.91 Allergies lisinopril Allergy (Intermediate, Verified 05/08/20 10:26) Inflammation of lung cough and resp distress Pertussis Vaccines Allergy (Verified 05/08/20 10:26) High Fever Home Medications: Ambulatory Orders Medication Instructions Recorded Hydrochlorothiazide [Hctz] 25 mg PO DAILY 06/02/13 Metoprolol Tartrate [Lopressor 50 mg PO BID #60 tab 06/03/13 (beta jelena)] Loratadine [Claritin] 10 mg PO DAILY 09/12/13 Losartan Potassium [Cozaar] 50 mg PO DAILY 09/13/15 Meloxicam [Mobic] 7.5 mg PO DAILY 09/13/15 Vitamin B Complex 1 ea PO DAILY 09/13/15 Omeprazole [Prilosec] 20 mg PO BID 09/18/17 Citalopram [Celexa] 10 mg PO QHS 10/25/18 cholecalciferol (vitamin D3) 1,250 50,000 unit PO QWEEK 08/18/19 mcg (50,000 unit) capsule furosemide 40 mg tablet 40 mg PO DAILY 08/18/19 warfarin 1 mg tablet 1 mg PO QHS tab 08/18/19 biotin 1 mg tablet 1 mg PO DAILY 08/20/19 isosorbide mononitrate 30 mg 30 mg PO QAM #30 tab 08/20/19 tablet,extended release 24 hr oxcarbazepine 300 mg tablet 300 mg PO .COMPLEX 08/20/19 topiramate 100 mg tablet 150 mg PO BID tab 08/20/19 montelukast 10 mg tablet 10 mg PO DAILY 10/01/19 warfarin 10 mg tablet 10 mg PO DAILY tab 10/01/19 warfarin 2 mg tablet 2 mg PO DAILY 10/01/19 bupropion HCl 150 mg tablet,12 hr 300 mg PO DAILY ea 02/10/20 sustained-release Allopurinol [Zyloprim] 100 mg PO DAILYCM 05/08/20 Atorvastatin Calcium [Lipitor] 40 mg PO DAILY 05/08/20 Surgical History: Surgical History (Last Reviewed 02/10/20 @ 14:[address] Fredrick Daniels MD) History of cardioversion (Chronic) Onset Date: ~08/2013 Z98.890 Surgical History: no surgical history Psychiatric History: No pertinent psych hx Lives: With Family Smoking Status: Never smoker Alcohol: None Drugs: None - *Family History Paternal Family History: Family History (Last Reviewed 02/10/20 @ 14:[address] Fredrick Daniels MD) Father Cancer Heart disease Mother CVA (cerebral vascular accident) Grandfather Myocardial infarction Colon cancer Cancer Grandmother Diabetes History Items: - - His father was also morbid obesity. Review of Systems Constitutional: Reports: Chills, Fever, Malaise, Weakness HEENT: Denies: Head Aches, Sinus Congestion, Sinus Drainage Cardiovascular: Denies: Chest Pain, Palpitations Respiratory: Reports: Shortness of breath upon exertion - Chronic in nature. Denies: Cough, Shortness of breath at rest, Sputum production Gastrointestinal: Reports: Nausea. Denies: Abdominal Pain, Hematemesis, Hematochezia, Melena, Vomiting Genitourinary: Denies: Dysuria Musculoskeletal: Reports: Joint Pain. Denies: Back Pain, Joint Tenderness Skin: Denies: Rash, Wounds Neurological: Denies: Numbness, Tingling, Focal weakness Psychiatric: Reports: Anxiety, Depression. Denies: Homicidal Ideations, Suicidal Ideations Hematologic/ Lymphatic: Denies: Easy Bruising, Easy Bleeding VTE Information - Inpt Only VTE Present on Admission: No VTE Mechan Device Prophylaxis: None VTE Pharm Prophylaxis ordered?: No Reason prophylaxis not ordered:: Procedure Not Indicated - Patient already on Coumadin, INR therapeutic Patient Problems: Active and Suspected Problems (Last Reviewed 02/10/20 @ 14:[address] Fredrick Daniels MD) Failure of outpatient treatment (Acute) Obesity (Acute) Objective: Physical exam General: Alert, Oriented x3, Cooperative, super morbid obesity, BMI 79.4 kg/m? HEENT: Atraumatic, PERRLA, EOMI, Normocephalic Oral: Deep oropharyngeal structures not visualized. Neck: Supple, No JVD, Negative Carotid Bruits. Short and wide neck. Lungs: Air entry diminished in bilateral lung . No crepitation/rhonchi. No tachypnea or hypoxia Cardiovascular: Irregular rate and rhythm, Normal S1, Normal S2, No murmurs. No dyspnea at rest or orthopnea. Abdomen: Bowel Sounds Present, Soft, Non Tender, Non-Distended : No renal angle tenderness. No suprapubic tenderness. Extremities: Bilateral lower leg edema, Capillary Refill Less than 3 Seconds Skin: Left leg erythematous, induration, tenderness. Tenderness is more on the calf. Musculoskeletal: No Tenderness to Palpation of Joints or Extremities Neurological: Cranial nerves II-XII grossly intact, Deep Tendon Reflexes 2+/4 and Symmetrical, Neuro grossly intact Psych/Mental Status: Appropriate mood. History of depression and anxiety. - Physical Exam Vitals/I&O's: Vital Signs Temp Pulse Resp BP Pulse Ox 100.0 F H 73 20 H 109/53 L 94 05/08/20 12:00 05/08/20 12:00 05/08/20 12:00 05/08/20 12:00 05/08/20 11:29 Oxygen Delivery Method Room Air Weight: 635 lb Body Mass Index (BMI) 79.3 Intake and Output for Last 24 Hours 05/06/20 05/07/20 05/08/20 23:59 23:59 23:59 Intake Total 53.75 / 53.75 Balance 53.75 / 53.75 Laboratory Results 05/08/20 11:10: Sodium 139, Potassium 2.8 L, Chloride 104, Carbon Dioxide 28.0, Anion Gap 7, BUN 28 H, Creatinine 1.31 H, Estim Creat Clear Calc 94.96, Est GFR (MDRD) Af Amer 80, Est GFR (MDRD) Non-Af 66, BUN/Creatinine Ratio 21.4 H, Glucose 108 H, Calcium 8.8, Total Bilirubin 0.80, AST 31, ALT 39, Alkaline Phosphatase 100, Total Protein 7.4, Albumin 3.0 L, Globulin 4.4 H, Albumin/Globulin Ratio 0.7 L 05/08/20 11:52: WBC 11.5 H, RBC 4.42 L, Hgb 12.9 L, Hct 39.7 L, MCV 89.8, MCH 29.2, MCHC 32.5, RDW Std Deviation 43.9, RDW Coeff of Umesh 13.2, Plt Count 189, MPV 9.7, Immature Gran % (Auto) 0.300, Neut % (Auto) 77.8 H, Lymph % (Auto) 11.1 L, [place] % (Auto) 10.0, Eos % (Auto) 0.4, Baso % (Auto) 0.4, Absolute Neuts (auto) 8.9 H, Absolute Lymphs (auto) 1.28, Nucleated RBC % 0 05/08/20 11:52: PT 25.5 H, INR 2.4 05/08/20 11:52: Lactic Acid 0.9 Current Medications Vancomycin HCl 2,000 mg/ (Sodium Chloride) 540 mls @ 250 mls/hr IV X1 ONE Stop: 05/08/20 14:09 Last Admin: 05/08/20 12:20 Dose: 250 mls/hr Documented by: Sodium Chloride () 250 mls @ 15 mls/hr IV .[id number] PRN PRN Reason: Additional IVPB Infusion Last Infusion: 05/08/20 12:20 Dose: 0 mls/hr Documented by: Assessment/Plan All Active Problems (Last Reviewed 02/10/20 @ 14:[address] Fredrick Daniels MD) Failure of outpatient treatment (Acute) Obesity (Acute) Shortness of breath (Acute) Chest pain (Acute) Non-pressure chronic ulcer of other part of right lower leg with fat layer exposed (Resolved) The patient is a 34 year old M with history of recurrent cellulitis, last January 2019 came to ED with left leg swelling, pain, redness for last 4 days consistent with left lower extremity cellulitis, failed outpatient doxycycline. 1. Left lower extremity cellulitis: Patient is being admitted on MedSurg with telemetry. IV fluid normal saline at 75 mils per hour. IV cefazolin 2 g every 8 hourly. If patient is spikes fever will increase the frequency to every 6 hourly. Discussed with the pharmacist. MRSA nasal screen. Blood cultures x2 ordered from ER. 2. Chronic atrial fibrillation: Patient is on Coumadin, INR 2.4. On metoprolol 50 mg p.o. twice daily. Heart rate and blood pressure control. EKG was done and shows A. fib with PVC at 91 bpm. QRS 120 ms, QTC 477 ms. 3. Hypertension and chronic heart failure with preserved EF: Patient had last echo in August 2019 reported as EF 60% with normal LA and right atrium. Normal RV size and systolic function. It was suboptimal study. Patient is on isosorbide mononitrate, atorvastatin, losartan, furosemide and HCTZ. 4. Anxiety and depression/bipolar disorder: Patient denies any previous history of suicidal attempt but had suicidal ideations in the past. Currently denies any depression symptoms. Patient on citalopram, bupropion and oxcarbazepine continued 5. Asthma, chronic stable asthma: On montelukast. Albuterol not as needed. VTE prophylaxis: On Coumadin INR therapeutic. Inpatient E&M: 68134 Init Hosp L3
--- NOTE | 2020-05-08 12:58 | EKG12_ITS ---
Test Reason : Blood Pressure : / mmHG Vent. Rate : 078 BPM Atrial Rate : 122 BPM P-R Int : 000 ms QRS Dur : 120 ms QT Int : 402 ms P-R-T Axes : 000 021 051 degrees QTc Int : 458 ms Atrial fibrillation Nonspecific ST abnormality Abnormal ECG Confirmed by JV ADDISON, VIDHYA ([id number]), restaurant expeditor MARCO ANTONIO JORDAN ([id number]) on 05/11/2020 12:41:23 PM Referred By: LILLIAM Confirmed By:VIDHYA CARIAS MD
--- NOTE | 2020-05-08 14:24 | ED.RN ---
PT ON COUMADIN INR SUBTHERAPEUTIC.
[2020-05-08 17:04] LABS: Probe Check PASS; Specimen Processing Control PASS
--- NOTE | 2020-05-08 18:12 | VDLE_ITS ---
Reason For Study: Pain RIGHT LEFT GSV is normal. GSV is normal. CFV is compressible, spontaneous, phasic, CFV is compressible, spontaneous, phasic, competent and demonstrates normal competent, and demonstrates normal augmentation. augmentation. FV is compressible, spontaneous, phasic, FV is compressible, spontaneous, phasic, competent and demonstrates normal competent and demonstrates normal augmentation. augmentation. FV distal visualized with color only, unable FV distal visualized with color only, unable to compress. to compress. POP V is compressible, spontaneous, phasic, POP V is compressible, spontaneous, phasic, competent and demonstrates normal competent and demonstrates normal augmentation. augmentation. T/P Trunk is compressible. T/P Trunk is compressible. PTV is compressible. PTV is compressible. RT PerV is compressible. LT PerV is compressible. Procedure This is a venous duplex using B-mode, color flow and spectral Doppler. Exam performed portable in patient room. Technically difficult due to pt body habitus. A preliminary report was called and/or faxed to [facility] RN. Interpretation Summary No evidence for acute deep venous thrombosis bilateral lower extremities with patent and compressible bilateral great saphenous veins. Technically difficult examination with limitations as noted secondary to patient body habitus. Ordering Physician: Juan Jose Blanchard [facility] Phys[facility] Performed By: Chery Salvador RVT and Student
[2020-05-08 18:37] LABS: Magnesium 2.1 mg/dL (1.6-2.6); Phosphorus 2.3 mg/dL (2.5-4.9)
[2020-05-08] MEDS: 0.9% Normal Saline 1,000 ML 75 ML IV (19:15)
[2020-05-08] MEDS: Potassium Chloride 10mEq/100mL 10 MEQ/100 ML IV.SOLN. 100 MEQ IV BOLUS ×2 (19:19→20:21)
[2020-05-08] MEDS: Acetaminophen 325 MG Tablet 650 MG PO (22:42)
[2020-05-08] MEDS: Cefazolin 2 GM in 0.9% Normal Saline 100 ML IV (22:43)
[2020-05-08] MEDS: WARFARIN 13 MG PO (22:45)
[2020-05-08] MEDS: Topiramate 50 MG Tablet 150 MG PO (22:46)
[2020-05-08] MEDS: OXcarbazepine 150 MG Tablet PO (22:47)
[2020-05-08] MEDS: Citalopram 10 MG Tablet PO (22:48)
[2020-05-08] MEDS: Metoprolol Tartrate 50 MG Tablet PO (22:48)
[2020-05-08] MEDS: Atorvastatin Calcium 40 MG Tablet PO (22:48)
[2020-05-08] MEDS: OXcarbazepine 300 MG Tablet PO (22:53)
[2020-05-09] VITALS (14 sets, daily range): BP systolic 121–137; BP diastolic 61–68; PULSE 70–111; RESP 18–20; TEMP 36.4–36.8; O2SAT 98–100
[2020-05-09] MEDS: DiphenhydrAMINE 50 MG/ML Syringe 25 MG IV (00:52)
[2020-05-09] MEDS: 0.9% Saline Lock 10 ML Syringe IV (00:52)
[2020-05-09] MEDS: Cefazolin 2 GM in 0.9% Normal Saline 100 ML IV ×3 (05:17→21:52)
[2020-05-09 06:23] LABS: Absolute Lymphocyte Count 2.25 X10^3/uL (0.83-4.51); Absolute Neutrophil Count 7.6 X10^3/uL (2.0-7.7); Basophil# 0.06 X10^3/uL; Basophil% 0.5 % (0-1); Eosinophil# 0.12 X10^3/uL; Eosinophils% 1.1 % (0-5); Hematocrit 37.6 % (40-54); Hemoglobin 11.8 g/dL (13.0-16.5); Lymphocyte # 2.25 X10^3/ul (4.0); Lymphocyte % 19.9 % (19-41); Mean Corp Hgb Conc 31.4 g/dL (32-36); Mean Corpuscular Hgb 28.9 pg (27.0-32.0); Mean Corpuscular Volume 91.9 fL (80-94); Monocyte# 1.22 X10^3/uL; Monocyte% 10.8 % (0-10); NRBC Flagged by Analyzer 0 % (0-5); Neutrophil # 7.57 X10^3/uL (2.7-7.7); Platelet Count 161 K/mm3 (150-450); RBC Distribution Width CV 13.4 % (11.6-14.6); RBC Distribution Width SD 45.4 fl (35.1-43.9); Red Blood Count 4.09 M/mm3 (4.6-6.2); White Blood Count 11.3 K/mm3 (4.4-11.0)
[2020-05-09 06:32] LABS: International Normalized Ratio 2.5; Prothrombin Time (Protime)PT. 26.8 SECONDS (11.7-14.9)
[2020-05-09 06:47] LABS: Anion Gap 7 (5-15); BUN 24 mg/dL (7-18); BUN/Creat Ratio 19.5 RATIO (10-20); Calcium,Total 8.4 mg/dL (8.5-10.1); Chloride 104 mmol/L (98-107); Creatinine, Serum 1.23 mg/dL (0.70-1.30); EST Glomerular Filtration Rate 71 mL/min (>60); Est Glom Filt Rate - Afr Amer 86 mL/min (>60); Estimated Creatinine Clearance 101.14 ml/min; Glucose 93 mg/dL (74-106); Potassium 2.8 mmol/L (3.5-5.1); Sodium Level 139 mmol/L (136-145)
[2020-05-09] MEDS: Isosorbide Mononitrate 30 MG Tablet PO (08:23)
[2020-05-09] MEDS: Topiramate 50 MG Tablet 150 MG PO ×2 (08:23→21:53)
[2020-05-09] MEDS: Loratadine 10 MG Tablet PO (08:23)
[2020-05-09] MEDS: Montelukast 10 MG Tablet PO (08:23)
[2020-05-09] MEDS: Furosemide 40 MG Tablet PO (08:23)
[2020-05-09] MEDS: Losartan Potassium 50 MG Tablet PO (08:23)
[2020-05-09] MEDS: hydroCHLOROthiazide 25 MG Tablet PO (08:24)
[2020-05-09] MEDS: Pantoprazole Sodium 40 MG Tablet PO (08:24)
[2020-05-09] MEDS: Allopurinol 100 MG Tablet PO (08:24)
[2020-05-09] MEDS: Metoprolol Tartrate 50 MG Tablet PO ×2 (08:24→21:54)
[2020-05-09] MEDS: OXcarbazepine 300 MG Tablet PO ×2 (08:28→21:53)
[2020-05-09] MEDS: buPROPion (XL) 300 MG TABLET.XL PO (08:29)
--- NOTE | 2020-05-09 12:18 | PCM.PN.HOSP ---
Patient Problems: Active and Suspected Problems (Last Reviewed 02/10/20 @ 14:[address] Fredrick Daniels MD) Failure of outpatient treatment (Acute) Obesity (Acute) Reason for Visit: Lower extremity cellulitis with hypokalemia Objective: Seen and examined. Patient has decreased swelling and tenderness of left lower leg. T-max 100.3 last evening. No fever or chills. Physical exam General: Alert, Oriented x3, Cooperative, super morbid obesity, BMI 79.4 kg/m? HEENT: Atraumatic, PERRLA, EOMI, Normocephalic Oral: Deep oropharyngeal structures not visualized. Neck: Supple, No JVD, Negative Carotid Bruits. Short and wide neck. Lungs: Air entry diminished in bilateral lung . No crepitation/rhonchi. No tachypnea or hypoxia Cardiovascular: Irregular rate and rhythm, Normal S1, Normal S2, No murmurs. No dyspnea at rest or orthopnea. Abdomen: Bowel Sounds Present, Soft, Non Tender, Non-Distended : No renal angle tenderness. No suprapubic tenderness. Extremities: Bilateral lower leg edema, Capillary Refill Less than 3 Seconds Skin: Left leg erythematous, induration, tenderness has improved. No open wound or ulcer Musculoskeletal: No Tenderness to Palpation of Joints or Extremities Neurological: Cranial nerves II-XII grossly intact, Deep Tendon Reflexes 2+/4 and Symmetrical, Neuro grossly intact Psych/Mental Status: Appropriate mood. History of depression and anxiety. Vitals/I&O's: Vital Signs Temp Pulse Resp BP Pulse Ox 97.7 F L 111 H 18 137/67 H 99 05/09/20 08:48 05/09/20 10:00 05/09/20 08:48 05/09/20 08:48 05/09/20 08:48 Oxygen Flow Rate (L/min) 2 Oxygen Delivery Method Room Air Weight: 610 lb 5 oz Body Mass Index (BMI) 79.3 Intake and Output for Last 24 Hours 05/07/20 05/08/20 05/09/20 23:59 23:59 23:59 Intake Total 1463.75 / 2263.75 2500.0 / 2500.0 Balance 1463.75 / 2263.75 2500.0 / 2500.0 Laboratory Results 05/08/20 11:10: Phosphorus 2.3 L, Magnesium 2.1 05/08/20 11:52: Lactic Acid 0.9 05/08/20 13:40: COVID-19 (LUCIEN) Not Detected 05/09/20 05:15: PT 26.8 H, INR 2.5 05/09/20 05:15: WBC 11.3 H, RBC 4.09 L, Hgb 11.8 L, Hct 37.6 L, MCV 91.9, MCH 28.9, MCHC 31.4 L, RDW Std Deviation 45.4 H, RDW Coeff of Umesh 13.4, Plt Count 161, MPV 10.0, Immature Gran % (Auto) 0.700, Neut % (Auto) 67.0, Lymph % (Auto) 19.9, [place] % (Auto) 10.8 H, Eos % (Auto) 1.1, Baso % (Auto) 0.5, Absolute Neuts (auto) 7.6, Absolute Lymphs (auto) 2.25, Nucleated RBC % 0 05/09/20 05:15: Sodium 139, Potassium 2.8 L, Chloride 104, Carbon Dioxide 28.0, Anion Gap 7, BUN 24 H, Creatinine 1.23, Estim Creat Clear Calc 101.14, Est GFR (MDRD) Af Amer 86, Est GFR (MDRD) Non-Af 71, BUN/Creatinine Ratio 19.5, Glucose 93, Calcium 8.4 L Current Medications Acetaminophen (Tylenol) 650 mg PO Q4H PRN PRN PRN Reason: Temp > 100.7 F, pain 1-1010 Al Hydroxide/Mg Hydroxide (Mylanta Ii) 30 ml PO Q6H PRN PRN PRN Reason: Gastric Burning Albuterol Sulfate (Ventolin Aerosols) 2.5 mg INHALATION Q2H PRN PRN PRN Reason: Shortness of Breath/Wheezing [facility] Last Admin: 05/09/20 08:24 Dose: 100 mg Documented by: Atorvastatin Calcium (Lipitor) 40 mg PO QHS COUNTS INCLUDE 234 BEDS AT [facility] Last Admin: 05/08/20 22:48 Dose: 40 mg Documented by: Bupropion HCl (Wellbutrin Xl) 300 mg PO DAILY COUNTS INCLUDE 234 BEDS AT THE [facility] Last Admin: 05/09/20 08:29 Dose: 300 mg Documented by: Citalopram Hydrobromide (Celexa) 10 mg PO QHS COUNTS INCLUDE 234 BEDS AT THE [facility] Last Admin: 05/08/20 22:48 Dose: 10 mg Documented by: Diphenhydramine HCl (Benadryl) 25 mg IV Q6H PRN PRN PRN Reason: PRURITIS Last Admin: 05/09/20 00:52 Dose: 25 mg Documented by: Furosemide (Lasix) 40 mg PO DAILY COUNTS INCLUDE 234 BEDS AT THE [facility] Last Admin: 05/09/20 08:23 Dose: 40 mg Documented by: Hydrochlorothiazide (Hctz) 25 mg PO DAILY COUNTS INCLUDE 234 BEDS AT THE [facility] Last Admin: 05/09/20 08:24 Dose: 25 mg Documented by: Sodium Chloride () 250 mls @ 15 mls/hr IV .[id number] PRN PRN Reason: Additional IVPB Infusion Last Infusion: 05/08/20 12:20 Dose: 0 mls/hr Documented by: Cefazolin Sodium 2 gm/ Sodium (Chloride) 110 mls @ 150 mls/hr IV Q8 COUNTS INCLUDE 234 BEDS AT THE [facility] Last Infusion: 05/09/20 06:01 Dose: Infused Documented by: Potassium Phosphate 40 mm/ (Sodium Chloride) 513.3333 mls @ 62.5 mls/hr IV X1 ONE Stop: 05/09/20 18:42 Last Admin: 05/09/20 10:18 Dose: 62.5 mls/hr Documented by: Ibuprofen (Motrin) 400 mg PO Q4H PRN PRN PRN Reason: Pain Score 1-10/Temp > 100.7 F Isosorbide Mononitrate (Imdur) 30 mg PO QAM COUNTS INCLUDE 234 BEDS AT THE [facility] Last Admin: 05/09/20 08:23 Dose: 30 mg Documented by: Loratadine (Claritin) 10 mg PO DAILY COUNTS INCLUDE 234 BEDS AT THE [facility] Last Admin: 05/09/20 08:23 Dose: 10 mg Documented by: Losartan Potassium (Cozaar) 50 mg PO DAILY COUNTS INCLUDE 234 BEDS AT THE [facility] Last Admin: 05/09/20 08:23 Dose: 50 mg Documented by: Metoprolol Tartrate (Lopressor (Beta Zeenat)) 50 mg PO BID COUNTS INCLUDE 234 BEDS AT THE [facility] Last Admin: 05/09/20 08:24 Dose: 50 mg Documented by: Montelukast Sodium (Singulair) 10 mg PO DAILY COUNTS INCLUDE 234 BEDS AT THE [facility] Last Admin: 05/09/20 08:23 Dose: 10 mg Documented by: Morphine Sulfate () 2 mg IV Q3H PRN PRN PRN Reason: Pain Score 6-10 Nitroglycerin (Nitrostat) 0.4 mg SUBLINGUAL Q5M PRN PRN Reason: CARDIAC/CHEST PAIN Oxcarbazepine (Trileptal) 300 mg PO DAILY COUNTS INCLUDE 234 BEDS AT THE [facility] Last Admin: 05/09/20 08:28 Dose: 300 mg Documented by: Oxcarbazepine (Trileptal) 300 mg PO QHS COUNTS INCLUDE 234 BEDS AT THE [facility] Last Admin: 05/08/20 22:53 Dose: 300 mg Documented by: Oxcarbazepine (Trileptal) 150 mg PO QHS COUNTS INCLUDE 234 BEDS AT THE [facility] Last Admin: 05/08/20 22:47 Dose: 150 mg Documented by: Oxycodone HCl (Oxyir) 5 mg PO Q4H PRN PRN PRN Reason: Pain Score 4-5 Pantoprazole Sodium (Protonix) 40 mg PO DAILY COUNTS INCLUDE 234 BEDS AT THE [facility] Last Admin: 05/09/20 08:24 Dose: 40 mg Documented by: Prochlorperazine Edisylate (Compazine Iv) 5 mg IV Q4H PRN PRN PRN Reason: Breakthrough nausea/vomiting Senna/Docusate Sodium (Senokot-S, Karely-Colace) 2 tablet PO BID PRN PRN PRN Reason: Constipation Sodium Chloride () 10 - 40 ml IV UD PRN PRN Reason: SALINE FLUSH Last Admin: 05/09/20 00:52 Dose: 10 ml Documented by: Topiramate (Topamax) 150 mg PO BID COUNTS INCLUDE 234 BEDS AT THE [facility] Last Admin: 05/09/20 08:23 Dose: 150 mg Documented by: Warfarin Sodium 10 mg/ (Warfarin Sodium 3 mg) 13 mg PO DAILY@1700 COUNTS INCLUDE 234 BEDS AT THE [facility] Last Admin: 05/08/20 22:45 Dose: 13 mg Documented by: STROKE Vital Signs/Narrative: Vital Signs Temp Pulse Resp BP Pulse Ox 05/09/20 10:00 111 H 05/09/20 08:48 97.7 F L 77 18 137/67 H 99 05/09/20 08:24 77 137/67 H Medical Necessity - Tobacco Use Smoking Status: Never smoker Tobacco Use: Non-smoker Assessment/Plan All Active Problems (Last Reviewed 02/10/20 @ 14:[address] Fredrick Daniels MD) Failure of outpatient treatment (Acute) Obesity (Acute) Shortness of breath (Acute) Chest pain (Acute) Non-pressure chronic ulcer of other part of right lower leg with fat layer exposed (Resolved) The patient is a 34 year old M with history of recurrent cellulitis, last January 2019 came to ED with left leg swelling, pain, redness for last 4 days consistent with left lower extremity cellulitis, failed outpatient doxycycline. 1. Left lower extremity cellulitis: Patient is being admitted on MedSur with telemetry. Continue IV cefazolin 2 g every 8 hourly. Patient afebrile in the morning. Some nasal screen ordered. Blood cultures x2 are pending. 2. Chronic atrial fibrillation: Patient is on Coumadin, INR 2.5. On metoprolol 50 mg p.o. twice daily. Heart rate and blood pressure control. 3. Hypertension and chronic heart failure with preserved EF: Patient had last echo in August 2019 reported as EF 60% with normal LA and right atrium. Normal RV size and systolic function. It was suboptimal study. Patient is on isosorbide mononitrate, atorvastatin, losartan, furosemide and HCTZ. 4. Anxiety and depression/bipolar disorder: Patient denies any previous history of suicidal attempt but had suicidal ideations in the past. Currently denies any depression symptoms. Patient on citalopram, bupropion and oxcarbazepine continued 5. Asthma, chronic stable asthma and obesity hypoventilation syndrome: On montelukast. Albuterol not as needed. BiPAP ordered. VTE prophylaxis: On Coumadin INR therapeutic. Inpatient E&M: [id number] [facility] Hosp L2
[2020-05-09 13:57] LABS: M R Staph aureus DNA By PCR Negative (Negative); Probe Check PASS; Specimen Processing Control PASS
[2020-05-09] MEDS: WARFARIN 13 MG PO (16:40)
[2020-05-09] MEDS: OXcarbazepine 150 MG Tablet PO (21:53)
[2020-05-09] MEDS: Atorvastatin Calcium 40 MG Tablet PO (21:54)
[2020-05-09] MEDS: Citalopram 10 MG Tablet PO (21:55)
[2020-05-09 21:56] LABS: Potassium 3.2 mmol/L (3.5-5.1)
[2020-05-10] VITALS (8 sets, daily range): BP systolic 138–146; BP diastolic 71–74; PULSE 68–100; RESP 15–18; TEMP 36.6–36.9; O2SAT 97–100
[2020-05-10 06:09] LABS: Absolute Lymphocyte Count 2.94 X10^3/uL (0.83-4.51); Absolute Neutrophil Count 6.3 X10^3/uL (2.0-7.7); Basophil# 0.07 X10^3/uL; Basophil% 0.7 % (0-1); Eosinophil# 0.22 X10^3/uL; Hematocrit 38.5 % (40-54); Hemoglobin 12.2 g/dL (13.0-16.5); Lymphocyte # 2.94 X10^3/ul (4.0); Lymphocyte % 27.4 % (19-41); Mean Corp Hgb Conc 31.7 g/dL (32-36); Mean Corpuscular Volume 91.7 fL (80-94); Mean Platelet Vol. 9.8 fl (6.2-12.0); Monocyte# 1.09 X10^3/uL; Monocyte% 10.1 % (0-10); NRBC Flagged by Analyzer 0 % (0-5); Neutrophil # 6.27 X10^3/uL (2.7-7.7); Neutrophil % 58.4 % (47-70); Platelet Count 187 K/mm3 (150-450); RBC Distribution Width CV 13.3 % (11.6-14.6); RBC Distribution Width SD 45.3 fl (35.1-43.9); White Blood Count 10.7 K/mm3 (4.4-11.0)
[2020-05-10] MEDS: Cefazolin 2 GM in 0.9% Normal Saline 100 ML IV (06:09)
[2020-05-10] MEDS: Mag Hydrox/Al Hydrox/Simeth 30 ML UDC PO (06:09)
[2020-05-10 06:30] LABS: International Normalized Ratio 2.6; Prothrombin Time (Protime)PT. 27.8 SECONDS (11.7-14.9)
[2020-05-10 06:32] LABS: Anion Gap 7 (5-15); BUN 19 mg/dL (7-18); Calcium,Total 8.9 mg/dL (8.5-10.1); Chloride 102 mmol/L (98-107); Creatinine, Serum 1.12 mg/dL (0.70-1.30); EST Glomerular Filtration Rate 80 mL/min (>60); Est Glom Filt Rate - Afr Amer 96 mL/min (>60); Estimated Creatinine Clearance 111.07 ml/min; Glucose 89 mg/dL (74-106); Potassium 3.2 mmol/L (3.5-5.1); Sodium Level 137 mmol/L (136-145)
[2020-05-10 07:35] LABS: Magnesium 2.4 mg/dL (1.6-2.6); Phosphorus 3.9 mg/dL (2.5-4.9)
[2020-05-10] MEDS: Potassium Chloride 10mEq/100mL 10 MEQ/100 ML IV.SOLN. 100 MEQ IV BOLUS ×2 (08:26→09:43)
[2020-05-10] MEDS: Metoprolol Tartrate 50 MG Tablet PO (08:30)
[2020-05-10] MEDS: hydroCHLOROthiazide 25 MG Tablet PO (08:31)
[2020-05-10] MEDS: Losartan Potassium 50 MG Tablet PO (08:31)
[2020-05-10] MEDS: Montelukast 10 MG Tablet PO (08:31)
[2020-05-10] MEDS: Furosemide 40 MG Tablet PO (08:31)
[2020-05-10] MEDS: Pantoprazole Sodium 40 MG Tablet PO (08:31)
[2020-05-10] MEDS: Loratadine 10 MG Tablet PO (08:31)
[2020-05-10] MEDS: Isosorbide Mononitrate 30 MG Tablet PO (08:31)
[2020-05-10] MEDS: Allopurinol 100 MG Tablet PO (08:31)
[2020-05-10] MEDS: OXcarbazepine 300 MG Tablet PO (08:32)
[2020-05-10] MEDS: buPROPion (XL) 300 MG TABLET.XL PO (08:33)
[2020-05-10] MEDS: Topiramate 50 MG Tablet 150 MG PO (08:33)
--- NOTE | 2020-05-10 10:19 | DCINST_ITS ---
- Discharge Diagnoses Current Active Problems: Current Active and Chronic Problems (Last Reviewed 02/10/20 @ 14:[address] Fredrick Daniels MD) Cellulitis of left leg (Chronic) Morbid obesity with BMI of 70 and over, adult (Chronic) Failure of outpatient treatment (Acute) Obesity (Acute) Atrial fibrillation (Chronic) You will use the following diet at home:: Cardiac Your food should be the consistency of: Regular Discharge Activity: May Not Drive Weight Bearing Status: Weight bearing as tolerated Call your doctor if you observe: Fever of 101 or Higher, Numbness or Tingling, Change in Color, Inability to urinate, Inability to have a bowel movement, Shortness of breath, Dizziness, Fainting spells, Swelling in the ankles, Chest pain, Prolonged hiccoughing, Increased palpitations (irregular heartbeat), Calf discomfort, Uncontrolled pain Allergies/Adverse Reactions: Allergies lisinopril Allergy (Intermediate, Verified 05/08/20 10:26) Inflammation of lung cough and resp distress Pertussis Vaccines Allergy (Verified 05/08/20 10:26) High Fever Medications to take at Discharge Hydrochlorothiazide [Hctz] 25 mg PO DAILY 06/02/13 Metoprolol Tartrate [Lopressor (beta jelena)] 50 mg PO BID #60 tab 06/03/13 Loratadine [Claritin] 10 mg PO DAILY 09/12/13 Losartan Potassium [Cozaar] 50 mg PO DAILY 09/13/15 Meloxicam [Mobic] 7.5 mg PO DAILY 09/13/15 Vitamin B Complex 1 ea PO DAILY 09/13/15 Omeprazole [Prilosec] 20 mg PO BID 09/18/17 Citalopram [Celexa] 10 mg PO QHS 10/25/18 cholecalciferol (vitamin D3) 1,250 mcg (50,000 unit) capsule 50,000 unit PO QWEEK 08/18/19 furosemide 40 mg tablet 40 mg PO DAILY 08/18/19 warfarin 1 mg tablet 1 mg PO QHS tab 08/18/19 biotin 1 mg tablet 1 mg PO DAILY 08/20/19 isosorbide mononitrate 30 mg tablet,extended release 24 hr 30 mg PO QAM #30 tab 08/20/19 oxcarbazepine 300 mg tablet 300 mg PO .COMPLEX 08/20/19 topiramate 100 mg tablet 150 mg PO BID tab 08/20/19 montelukast 10 mg tablet 10 mg PO DAILY 10/01/19 warfarin 10 mg tablet 10 mg PO DAILY tab 10/01/19 warfarin 2 mg tablet 2 mg PO DAILY 10/01/19 bupropion HCl 150 mg tablet,12 hr sustained-release 300 mg PO DAILY ea 02/10/20 Allopurinol [Zyloprim] 100 mg PO DAILYCM 05/08/20 Atorvastatin Calcium [Lipitor] 40 mg PO DAILY 05/08/20 Cefadroxil 1 gm PO BID #16 tab 05/10/20 Potassium Chloride [K-Dur] 40 meq PO DAILY #6 tab 05/10/20 The following prescriptions were given: Cefadroxil 1 gm PO BID #16 tab Transmission Status: Pending to [facility] Potassium Chloride [K-Dur] 40 meq PO DAILY #6 tab Transmission Status: Received by [facility] Primary Care Physician: [facility] Leloa Baum [Primary Care Provider] - Please follow up with your Primary Care Physician in: IN 1 WEEK Test Results: Test results from this visit will be discussed in further detail at your follow- up appointment, if applicable. Please Follow Up With: David Robles MD When: needed in 1-2 week if cellulitis, pain and induration persists
--- NOTE | 2020-05-10 10:40 | PCM.DC.SUM ---
Discharge Date and Diagnosis Date of Admission: 05/08/20 Date of Discharge: 05/10/20 - Primary Discharge Diagnosis Acute Problems: Active Problems (Last Reviewed 02/10/20 @ 14:[address] Fredrick Daniels MD) Failure of outpatient treatment (Acute) Obesity (Acute) - Secondary Discharge Diagnosis Chronic Problems: Chronic Problems (Last Reviewed 02/10/20 @ 14:[address] Fredrick Daniels MD) Cellulitis of left leg (Chronic) Morbid obesity with BMI of 70 and over, adult (Chronic) Atrial fibrillation (Chronic) LAURENT treated with BiPAP (Chronic) History of cardioversion (Chronic ~08/2013) Essential hypertension (Chronic) Bilateral leg edema (Chronic) Hospital Course and Treatment Summary of Care Provided: [] The patient is a 34 year old M with history of recurrent cellulitis, last January 2019 came to ED with left leg swelling, pain, redness for last 4 days consistent with left lower extremity cellulitis, failed outpatient doxycycline. 1. Left lower extremity cellulitis: Patient is being admitted on [facility] with telemetry. She was treated with IV saline 2 g every 8 hourly. Patient induration, tenderness of left leg much improved. Patient MRSA nasal screen is negative. Blood cultures x2- for more than 48 hours. Patient is discharged on cefadroxil 1 g twice daily for 8 more days. 2. Chronic atrial fibrillation: Patient is on Coumadin, INR 2.6. On metoprolol 50 mg p.o. twice daily. Heart rate and blood pressure control. Mild hypokalemia K3.2: Potassium replaced. Repeat K3.5. 3. Hypertension and chronic heart failure with preserved EF: Patient had last echo in August 2019 reported as EF 60% with normal LA and right atrium. Normal RV size and systolic function. It was suboptimal study. Patient is on isosorbide mononitrate, atorvastatin, losartan, furosemide and HCTZ. 4. Anxiety and depression/bipolar disorder: Patient denies any previous history of suicidal attempt but had suicidal ideations in the past. Currently denies any depression symptoms. Patient on citalopram, bupropion and oxcarbazepine continued 5. Asthma, chronic stable asthma and obesity hypoventilation syndrome: On montelukast. Albuterol not as needed. On BiPAP at home VTE prophylaxis: On Coumadin INR therapeutic. Discharge medication reconciliation done. Discharge follow-up instructions completed. Discharge process discussed with the patient and all questions were answered to patient's satisfaction. Total time spent, exact 35 minutes on discharge meds reconciliation, examination, coordination of care with nurses and ancillary staff, review of imaging and blood test and discussion with the patient on follow-up instructions Objective: Seen and examined. Patient has decreased swelling, induration and tenderness of left lower leg. No fever or chills. Physical exam General: Alert, Oriented x3, Cooperative, super morbid obesity, BMI 79.4 kg/m? HEENT: Atraumatic, PERRLA, EOMI, Normocephalic Oral: Deep oropharyngeal structures not visualized. Neck: Supple, No JVD, Negative Carotid Bruits. Short and wide neck. Lungs: Air entry diminished in bilateral lung . No crepitation/rhonchi. No tachypnea or hypoxia Cardiovascular: Irregular rate and rhythm, Normal S1, Normal S2, No murmurs. No dyspnea at rest or orthopnea. Abdomen: Bowel Sounds Present, Soft, Non Tender, Non-Distended : No renal angle tenderness. No suprapubic tenderness. Extremities: Bilateral lower leg edema, Capillary Refill Less than 3 Seconds Skin: Left leg erythematous, induration, tenderness has much improved. No open wound or ulcer Musculoskeletal: No Tenderness to Palpation of Joints or Extremities Neurological: Cranial nerves II-XII grossly intact, Deep Tendon Reflexes 2+/4 and Symmetrical, Neuro grossly intact Psych/Mental Status: Appropriate mood. History of depression and anxiety. - Physical Exam Vitals/I&O's: Vital Signs Temp Pulse Resp BP Pulse Ox 97.9 F 81 18 138/71 H 100 05/10/20 08:21 05/10/20 08:33 05/10/20 08:21 05/10/20 08:21 05/10/20 08:21 Oxygen Flow Rate (L/min) 2 Oxygen Delivery Method Room Air Weight: 595 lb 6.4 oz Body Mass Index (BMI) 79.3 Intake and Output for Last 24 Hours 05/08/20 05/09/20 05/10/20 23:59 23:59 23:59 Intake Total 1463.75 / 2263.75 4033.3333 / 4533.3333 1248.75 / 1248.75 Balance 1463.75 / 2263.75 4033.3333 / 4533.3333 1248.75 / 1248.75 Laboratory Results 05/09/20 12:36: MRSA (PCR) Negative 05/09/20 21:30: Potassium 3.2 L 05/10/20 05:15: PT 27.8 H, INR 2.6 05/10/20 05:15: WBC 10.7, RBC 4.20 L, Hgb 12.2 L, Hct 38.5 L, MCV 91.7, MCH 29.0, MCHC 31.7 L, RDW Std Deviation 45.3 H, RDW Coeff of Umesh 13.3, Plt Count 187, MPV 9.8, Immature Gran % (Auto) 1.400 H, Neut % (Auto) 58.4, Lymph % (Auto) 27.4, [place] % (Auto) 10.1 H, Eos % (Auto) 2.0, Baso % (Auto) 0.7, Absolute Neuts (auto) 6.3, Absolute Lymphs (auto) 2.94, Nucleated RBC % 0 05/10/20 05:15: Sodium 137, Potassium 3.2 L, Chloride 102, Carbon Dioxide 28.0, Anion Gap 7, BUN 19 H, Creatinine 1.12, Estim Creat Clear Calc 111.07, Est GFR (MDRD) Af Amer 96, Est GFR (MDRD) Non-Af 80, BUN/Creatinine Ratio 17.0, Glucose 89, Calcium 8.9 05/10/20 05:15: Phosphorus 3.9, Magnesium 2.4 Current Medications Acetaminophen (Tylenol) 650 mg PO Q4H PRN PRN PRN Reason: Temp > 100.7 F, pain 1-10 Al Hydroxide/Mg Hydroxide (Mylanta Ii) 30 ml PO Q6H PRN PRN PRN Reason: Gastric Burning Last Admin: 05/10/20 06:09 Dose: 30 ml Documented by: Albuterol Sulfate (Ventolin Aerosols) 2.5 mg INHALATION Q2H PRN PRN PRN Reason: Shortness of Breath/Wheezing [facility] Last Admin: 05/10/20 08:31 Dose: 100 mg Documented by: Atorvastatin Calcium (Lipitor) 40 mg PO QHS [facility] Last Admin: 05/09/20 21:54 Dose: 40 mg Documented by: Bupropion HCl (Wellbutrin Xl) 300 mg PO DAILY [facility] Last Admin: 05/10/20 08:33 Dose: 300 mg Documented by: Citalopram Hydrobromide (Celexa) 10 mg PO QHS [facility] Last Admin: 05/09/20 21:55 Dose: 10 mg Documented by: Diphenhydramine HCl (Benadryl) 25 mg IV Q6H PRN PRN PRN Reason: PRURITIS Last Admin: 05/09/20 00:52 Dose: 25 mg Documented by: Furosemide (Lasix) 40 mg PO DAILY [facility] Last Admin: 05/10/20 08:31 Dose: 40 mg Documented by: Hydrochlorothiazide (Hctz) 25 mg PO DAILY [facility] Last Admin: 05/10/20 08:31 Dose: 25 mg Documented by: Sodium Chloride () 250 mls @ 15 mls/hr IV .[id number] PRN PRN Reason: Additional IVPB Infusion Last Admin: 05/10/20 08:30 Dose: 15 mls/hr Documented by: Cefazolin Sodium 2 gm/ Sodium (Chloride) 110 mls @ 150 mls/hr IV Q8 [facility] Last Infusion: 05/10/20 06:53 Dose: Infused Documented by: Potassium Chloride () 10 meq in 100 mls @ 100 mls/hr IV BOLUS Q1H [facility] Stop: 05/10/20 11:44 Last Admin: 05/10/20 09:43 Dose: 100 mls/hr Documented by: Ibuprofen (Motrin) 400 mg PO Q4H PRN PRN PRN Reason: Pain Score 1-10/Temp > 100.7 F Isosorbide Mononitrate (Imdur) 30 mg PO QAM [facility] Last Admin: 05/10/20 08:31 Dose: 30 mg Documented by: Loratadine (Claritin) 10 mg PO DAILY [facility] Last Admin: 05/10/20 08:31 Dose: 10 mg Documented by: Losartan Potassium (Cozaar) 50 mg PO DAILY [facility] Last Admin: 05/10/20 08:31 Dose: 50 mg Documented by: Metoprolol Tartrate (Lopressor (Beta Zeenat)) 50 mg PO BID [facility] Last Admin: 05/10/20 08:30 Dose: 50 mg Documented by: Montelukast Sodium (Singulair) 10 mg PO DAILY [facility] Last Admin: 05/10/20 08:31 Dose: 10 mg Documented by: Morphine Sulfate () 2 mg IV Q3H PRN PRN PRN Reason: Pain Score 6-10 Nitroglycerin (Nitrostat) 0.4 mg SUBLINGUAL Q5M PRN PRN Reason: CARDIAC/CHEST PAIN Oxcarbazepine (Trileptal) 300 mg PO DAILY [facility] Last Admin: 05/10/20 08:32 Dose: 300 mg Documented by: Oxcarbazepine (Trileptal) 300 mg PO QHS [facility] Last Admin: 05/09/20 21:53 Dose: 300 mg Documented by: Oxcarbazepine (Trileptal) 150 mg PO QHS [facility] Last Admin: 05/09/20 21:53 Dose: 150 mg Documented by: Oxycodone HCl (Oxyir) 5 mg PO Q4H PRN PRN PRN Reason: Pain Score 4-5 Pantoprazole Sodium (Protonix) 40 mg PO DAILY [facility] Last Admin: 05/10/20 08:31 Dose: 40 mg Documented by: Prochlorperazine Edisylate (Compazine Iv) 5 mg IV Q4H PRN PRN PRN Reason: Breakthrough nausea/vomiting Senna/Docusate Sodium (Senokot-S, Karely-Colace) 2 tablet PO BID PRN PRN PRN Reason: Constipation Sodium Chloride () 10 - 40 ml IV UD PRN PRN Reason: SALINE FLUSH Last Admin: 05/09/20 00:52 Dose: 10 ml Documented by: Topiramate (Topamax) 150 mg PO BID [facility] Last Admin: 05/10/20 08:33 Dose: 150 mg Documented by: Warfarin Sodium 10 mg/ (Warfarin Sodium 3 mg) 13 mg PO DAILY@1700 [facility] Last Admin: 05/09/20 16:40 Dose: 13 mg Documented by: Discharge Activity: May Not Drive Weight Bearing Status: Weight bearing as tolerated Call your doctor if you observe: Fever of 101 or Higher, Numbness or Tingling, Change in Color, Inability to urinate, Inability to have a bowel movement, Shortness of breath, Dizziness, Fainting spells, Swelling in the ankles, Chest pain, Prolonged hiccoughing, Increased palpitations (irregular heartbeat), Calf discomfort, Uncontrolled pain Home Medications: Medications to take at Discharge Hydrochlorothiazide [Hctz] 25 mg PO DAILY 06/02/13 Metoprolol Tartrate [Lopressor (beta zeenat)] 50 mg PO BID #60 tab 06/03/13 Loratadine [Claritin] 10 mg PO DAILY 09/12/13 Losartan Potassium [Cozaar] 50 mg PO DAILY 09/13/15 Meloxicam [Mobic] 7.5 mg PO DAILY 09/13/15 Vitamin B Complex 1 ea PO DAILY 09/13/15 Omeprazole [Prilosec] 20 mg PO BID 09/18/17 Citalopram [Celexa] 10 mg PO QHS 10/25/18 cholecalciferol (vitamin D3) 1,250 mcg (50,000 unit) capsule 50,000 unit PO QWEEK 08/18/19 furosemide 40 mg tablet 40 mg PO DAILY 08/18/19 warfarin 1 mg tablet 1 mg PO QHS tab 08/18/19 biotin 1 mg tablet 1 mg PO DAILY 08/20/19 isosorbide mononitrate 30 mg tablet,extended release 24 hr 30 mg PO QAM #30 tab 08/20/19 oxcarbazepine 300 mg tablet 300 mg PO .COMPLEX 08/20/19 topiramate 100 mg tablet 150 mg PO BID tab 08/20/19 montelukast 10 mg tablet 10 mg PO DAILY 10/01/19 warfarin 10 mg tablet 10 mg PO DAILY tab 10/01/19 warfarin 2 mg tablet 2 mg PO DAILY 10/01/19 bupropion HCl 150 mg tablet,12 hr sustained-release 300 mg PO DAILY ea 02/10/20 Allopurinol [Zyloprim] 100 mg PO DAILYCM 05/08/20 Atorvastatin Calcium [Lipitor] 40 mg PO DAILY 05/08/20 Cefadroxil 1 gm PO BID #16 tab 05/10/20 Potassium Chloride [K-Dur] 40 meq PO DAILY #6 tab 05/10/20 Following Prescriptions Were Given to Patient: Cefadroxil 1 gm PO BID #16 tab Transmission Status: Received by [facility] Potassium Chloride [K-Dur] 40 meq PO DAILY #6 tab Transmission Status: Received by [facility] Primary Care Physician: Bebo Gonzalez [Primary Care Provider] - Please follow up with your Primary Care Physician in: IN 1 WEEK Please Follow Up With: David Robles MD When: needed in 1-2 week if cellulitis, pain and induration persists Please Follow Up With: [facility] When: 1 week Medical Necessity - Tobacco Use Smoking Status: Never smoker Tobacco Use: Non-smoker Meaningful Use Info Meaningful Use Diagnoses (Choose all that apply): None applicable Inpatient E&M: [id number] [facility]
--- NOTE | 2020-05-10 11:40 | CASEMGMT ---
RN CM Face to Face with patient for initial transition planning/care coordination assessment. RN CM introduced self and role at [facility]. Patient sitting at edge of bed, alert and oriented. Patient willing to participate in assessment and is able to answer all questions appropriately. Care providers, pharmacy, and demographics verified. Patient wishes to discharge home, denies need for home health at this time. Patient states he has no further needs or concerns at this time. CM to follow for discharge planning needs that may arise. PCP: Leola Hicks Specialists: Blake, pain; Guillaume, pulmonology Preferred Pharmacy: [place] or [facility] Insurance: [employer] Prescription Benefit: yes Living Will/HPOA: yes mother Liliya Flores LNOK: Mother Living Arrangements: Patient lives alone in a 2nd floor apartment with elevator. Patient states he is independent at home Transportation: aunt, family DME/HHC: Patient states he has cane, grab bars, cpap, and nebulizer. Patient denies previous HHC. Disposition Plan: Patient to discharge home with family support and follow-up plans in place. Chery BUENO, RN, CM
--- NOTE | 2020-05-10 11:47 | PHA.DC.MC ---
Pharmacy Service has performed discharge medication reconciliation and counseling for this patient. The patient was counseled on the following discharge medications and changes in medications for homegoing were reviewed. 1. CEFADROXIL 2. KCL TABLET The Reason for Use, instructions for use, and potential side effects were reviewed for all new medications. The patient's questions regarding all of their medications were answered. The patient was able to verbally demonstrate an understanding of their discharge medications. Home Medications Hydrochlorothiazide [Hctz] 25 mg PO DAILY 06/02/13 Metoprolol Tartrate [Lopressor (beta jelena)] 50 mg PO BID #60 tab 06/03/13 Loratadine [Claritin] 10 mg PO DAILY 09/12/13 Losartan Potassium [Cozaar] 50 mg PO DAILY 09/13/15 Meloxicam [Mobic] 7.5 mg PO DAILY 09/13/15 Vitamin B Complex 1 ea PO DAILY 09/13/15 Omeprazole [Prilosec] 20 mg PO BID 09/18/17 Citalopram [Celexa] 10 mg PO QHS 10/25/18 cholecalciferol (vitamin D3) 1,250 mcg (50,000 unit) capsule 50,000 unit PO QWEEK 08/18/19 furosemide 40 mg tablet 40 mg PO DAILY 08/18/19 warfarin 1 mg tablet 1 mg PO QHS tab 08/18/19 biotin 1 mg tablet 1 mg PO DAILY 08/20/19 isosorbide mononitrate 30 mg tablet,extended release 24 hr 30 mg PO QAM #30 tab 08/20/19 oxcarbazepine 300 mg tablet 300 mg PO .COMPLEX 08/20/19 topiramate 100 mg tablet 150 mg PO BID tab 08/20/19 montelukast 10 mg tablet 10 mg PO DAILY 10/01/19 warfarin 10 mg tablet 10 mg PO DAILY tab 10/01/19 warfarin 2 mg tablet 2 mg PO DAILY 10/01/19 bupropion HCl 150 mg tablet,12 hr sustained-release 300 mg PO DAILY ea 02/10/20 Allopurinol [Zyloprim] 100 mg PO DAILYCM 05/08/20 Atorvastatin Calcium [Lipitor] 40 mg PO DAILY 05/08/20 Cefadroxil 1 gm PO BID #16 tab 05/10/20 Potassium Chloride [K-Dur] 40 meq PO DAILY #6 tab 05/10/20 The patient's discharge medication list was reviewed for discrepancies and discrepancies were resolved.
[2020-05-10 13:04] LABS: Potassium 3.5 mmol/L (3.5-5.1)
--- NOTE | 2020-05-11 15:59 | NURSING ---
[facility] DC F/U Call: DC Date: 05/10/2020 DC Diagnosis: Cellulitis with AFib Lace/Strata: 05/01 DC Disposition: Home Called Patient on listed cell phone, answered and introduced self/role. States he is doing good and has a f/u appointment with his provider on Sunday05/17/2020, states picked his DC medications up from [facility] upon DC. Denies any issues or concerns with aftercare instructions, medications or f/u. Thanked him for choosing [facility] for care and ended conversation. Anish Armenta RNCM
== END 2020-05-10 13:20 | disposition home or self-care (01) | DRG 383 ==
LOC: ED 12:34 → MS3 12:45
PROVIDERS: Admitting Provider Internal Medicine; Emergency Provider Physician Assistant Medical; Visit Provider Internal Medicine
DX: L03.116 Cellulitis of left lower limb (principal); I48.20 Chronic atrial fibrillation, unspecified; I11.0 Hypertensive heart disease with heart failure; I50.32 Chronic diastolic (congestive) heart failure; J45.909 Unspecified asthma, uncomplicated; F31.9 Bipolar disorder, unspecified; F41.9 Anxiety disorder, unspecified; E87.6 Hypokalemia; E66.2 Morbid (severe) obesity with alveolar hypoventilation; Z68.45 Body mass index [BMI] 70 or greater, adult; Z79.01 Long term (current) use of anticoagulants; Z79.1 Long term (current) use of non-steroidal anti-inflammatories (NSAID); Z79.899 Other long term (current) drug therapy
CPT/HCPCS: 36415; 80048; 80053; 83605; 83735; 84100; 84132; 85025; 85610; 87040; 87635; 87641; 93005; 93970; 94002; 97161; 97165; 97802; 99251; 99284; J7030; J7040; J7050; A4216; G0463; U0003

== ENCOUNTER → 2020-08-19 08:49 | Outpatient (CLI) | payer MEDICAID, SELFPAY ==
[2020-05-08 17:20] VITALS: BMI 79.3
[2020-08-19 10:05] LABS: Absolute Lymphocyte Count 2.53 X10^3/uL (0.83-4.51); Absolute Neutrophil Count 5.6 X10^3/uL (2.0-7.7); Basophil# 0.06 X10^3/uL; Basophil% 0.7 % (0-1); Eosinophil# 0.24 X10^3/uL; Eosinophils% 2.7 % (0-5); Hematocrit 43.7 % (40-54); Lymphocyte # 2.53 X10^3/ul (4.0); Mean Corpuscular Hgb 29.2 pg (27.0-32.0); Mean Platelet Vol. 10.2 fl (6.2-12.0); Monocyte# 0.62 X10^3/uL; Monocyte% 6.9 % (0-10); NRBC Flagged by Analyzer 0 % (0-5); Neutrophil # 5.57 X10^3/uL (2.7-7.7); Neutrophil % 61.5 % (47-70); Platelet Count 207 K/mm3 (150-450); RBC Distribution Width CV 12.9 % (11.6-14.6); RBC Distribution Width SD 43.1 fl (35.1-43.9)
[2020-08-19 10:33] LABS: Anion Gap 7 (5-15); BUN 25 mg/dL (7-18); BUN/Creat Ratio 20.5 RATIO (10-20); Calcium,Total 8.3 mg/dL (8.5-10.1); Chloride 107 mmol/L (98-107); Creatinine, Serum 1.22 mg/dL (0.70-1.30); EST Glomerular Filtration Rate 72 mL/min (>60); Est Glom Filt Rate - Afr Amer 87 mL/min (>60); Glucose 89 mg/dL (74-106); Potassium 3.3 mmol/L (3.5-5.1); Sodium Level 139 mmol/L (136-145)
== END ==
DX: I48.91 Unspecified atrial fibrillation (principal); I10 Essential (primary) hypertension; E87.6 Hypokalemia
CPT/HCPCS: 36415; 80048; 85025

== ENCOUNTER → 2020-10-19 10:05 | Outpatient (CLI) | payer MEDICAID, SELFPAY ==
[2020-10-19 09:24] VITALS: BMI 78.6
[2020-10-19 12:03] LABS: International Normalized Ratio 1.6; Prothrombin Time (Protime)PT. 18.1 SECONDS (11.7-14.9)
[2020-10-19 12:08] LABS: Anion Gap 9 (5-15); BUN 21 mg/dL (7-18); Calcium,Total 9.3 mg/dL (8.5-10.1); Chloride 106 mmol/L (98-107); Creatinine, Serum 1.31 mg/dL (0.70-1.30); EST Glomerular Filtration Rate 66 mL/min (>60); Est Glom Filt Rate - Afr Amer 80 mL/min (>60); Glucose 95 mg/dL (74-106); Potassium 3.3 mmol/L (3.5-5.1); Sodium Level 140 mmol/L (136-145)
== END ==
DX: E87.6 Hypokalemia (principal); I48.91 Unspecified atrial fibrillation; Z79.01 Long term (current) use of anticoagulants
CPT/HCPCS: 36415; 80048; 85610

== ENCOUNTER → 2021-03-03 10:15 | Outpatient (CLI) | payer MEDICAID, SELFPAY ==
[2020-10-19 09:24] VITALS: BMI 78.6
[2021-03-03 11:14] LABS: Absolute Lymphocyte Count 2.13 X10^3/uL (0.83-4.51); Absolute Neutrophil Count 6.6 X10^3/uL (2.0-7.7); Basophil# 0.06 X10^3/uL; Basophil% 0.6 % (0-1); Eosinophil# 0.24 X10^3/uL; Eosinophils% 2.5 % (0-5); Hematocrit 43.3 % (40-54); Hemoglobin 13.5 g/dL (13.0-16.5); Lymphocyte # 2.13 X10^3/ul (0.83-4.51); Lymphocyte % 21.8 % (19-41); Mean Corp Hgb Conc 31.2 g/dL (32-36); Mean Corpuscular Hgb 29.5 pg (27.0-32.0); Mean Corpuscular Volume 94.7 fL (80-94); Mean Platelet Vol. 9.9 fl (6.2-12.0); Monocyte# 0.74 X10^3/uL; Monocyte% 7.6 % (0-10); NRBC Flagged by Analyzer 0 % (0-5); Neutrophil # 6.58 X10^3/uL (2.7-7.7); Neutrophil % 67.1 % (47-70); Platelet Count 219 K/mm3 (150-450); RBC Distribution Width CV 13.3 % (11.6-14.6); RBC Distribution Width SD 46.2 fl (35.1-43.9); Red Blood Count 4.57 M/mm3 (4.6-6.2); White Blood Count 9.8 K/mm3 (4.4-11.0)
[2021-03-03 11:23] LABS: Prothrombin Time (Protime)PT. 22.3 SECONDS (11.7-14.9)
[2021-03-03 11:40] LABS: ALB/GLOB Ratio 0.8 RATIO (0.9-2.4); AST(SGOT) 21 U/L (15-37); Alanine Aminotransfer ALT/SGPT 38 U/L (16-61); Albumin, Serum 3.3 g/dL (3.2-5.0); Alkaline Phosphatase 116 U/L (45-117); Anion Gap 7 (5-15); BUN 28 mg/dL (7-18); BUN/Creat Ratio 23.7 RATIO (10-20); Calcium,Total 9.1 mg/dL (8.5-10.1); Chloride 107 mmol/L (98-107); Cholesterol 158 mg/dL (200); Creatinine, Serum 1.18 mg/dL (0.70-1.30); EST Glomerular Filtration Rate 75 mL/min (>60); Est Glom Filt Rate - Afr Amer 90 mL/min (>60); Globulin 4.3 g/dL (2.2-4.2); Glucose 99 mg/dL (74-106); High Density Lipoprotein 47 mg/dL; Protein, Total 7.6 g/dL (6.4-8.2); Sodium Level 143 mmol/L (136-145); Triglycerides 160 mg/dL; Very Low Density Lipoprotein 32 mg/dL (5-40)
[2021-03-03 11:52] LABS: Hemoglobin A1c 5.2 % (3.8-5.6)
== END ==
PROVIDERS: PCP Nurse Practitioner Adult Health; Referring Provider Nurse Practitioner Adult Health; Visit Provider Nurse Practitioner Adult Health
DX: I48.91 Unspecified atrial fibrillation (principal); E66.01 Morbid (severe) obesity due to excess calories; Z79.01 Long term (current) use of anticoagulants
CPT/HCPCS: 36415; 80053; 80061; 83036; 85025; 85610

== ENCOUNTER → 2021-05-24 13:40 | Outpatient (CLI) | payer MEDICAID, SELFPAY ==
[2021-05-24 14:40] LABS: Absolute Lymphocyte Count 2.19 X10^3/uL (0.83-4.51); Basophil# 0.06 X10^3/uL; Basophil% 0.6 % (0-1); Eosinophil# 0.18 X10^3/uL; Eosinophils% 1.9 % (0-5); Hematocrit 43.2 % (40-54); Hemoglobin 13.8 g/dL (13.0-16.5); Lymphocyte # 2.19 X10^3/ul (0.83-4.51); Lymphocyte % 23.7 % (19-41); Mean Corp Hgb Conc 31.9 g/dL (32-36); Mean Corpuscular Hgb 29.8 pg (27.0-32.0); Mean Corpuscular Volume 93.3 fL (80-94); Mean Platelet Vol. 9.9 fl (6.2-12.0); Monocyte# 0.79 X10^3/uL; Monocyte% 8.5 % (0-10); NRBC Flagged by Analyzer 0 % (0-5); Neutrophil # 6.01 X10^3/uL (2.7-7.7); Platelet Count 215 K/mm3 (150-450); RBC Distribution Width CV 12.9 % (11.6-14.6); RBC Distribution Width SD 43.7 fl (35.1-43.9); Red Blood Count 4.63 M/mm3 (4.6-6.2); White Blood Count 9.3 K/mm3 (4.4-11.0)
[2021-05-24 14:51] LABS: International Normalized Ratio 2.2; Prothrombin Time (Protime)PT. 23.7 SECONDS (11.7-14.9)
[2021-05-24 15:09] LABS: ALB/GLOB Ratio 0.7 RATIO (0.9-2.4); AST(SGOT) 19 U/L (15-37); Alanine Aminotransfer ALT/SGPT 31 U/L (16-61); Albumin, Serum 3.2 g/dL (3.2-5.0); Alkaline Phosphatase 130 U/L (45-117); Anion Gap 8 (5-15); BUN 22 mg/dL (7-18); BUN/Creat Ratio 17.6 RATIO (10-20); Calcium,Total 8.9 mg/dL (8.5-10.1); Chloride 108 mmol/L (98-107); Cholesterol 155 mg/dL (200); Creatinine, Serum 1.25 mg/dL (0.70-1.30); EST Glomerular Filtration Rate 70 mL/min (>60); Est Glom Filt Rate - Afr Amer 84 mL/min (>60); Globulin 4.5 g/dL (2.2-4.2); Glucose 99 mg/dL (74-106); High Density Lipoprotein 52 mg/dL; Potassium 3.9 mmol/L (3.5-5.1); Protein, Total 7.7 g/dL (6.4-8.2); Sodium Level 143 mmol/L (136-145); Triglycerides 158 mg/dL; Very Low Density Lipoprotein 32 mg/dL (5-40)
[2021-05-24 15:16] LABS: Hemoglobin A1c 5.1 % (3.8-5.6)
== END ==
PROVIDERS: PCP Nurse Practitioner Adult Health; Visit Provider Nurse Practitioner Adult Health
DX: I48.91 Unspecified atrial fibrillation (principal); E66.01 Morbid (severe) obesity due to excess calories; Z79.01 Long term (current) use of anticoagulants
CPT/HCPCS: 36415; 80053; 80061; 83036; 85025; 85610

== ENCOUNTER 2021-05-31 09:00 | Outpatient (RCR) | payer MEDICAID, SELFPAY ==
--- NOTE | 2021-05-31 10:15 | BH.SGPN.GN ---
Behaviors/Verbalizations/Mental Status: []Client alert and oriented, casually dressed and groomed. Eye contact good. Motor activity appropriate. Speech within normal limits. Affect constricted, mood dysthymic. Thoughts linear, logical, no signs of hallucinations or delusions. Client Response/Progress/Benefit: []Pt was well engaged in group AEB taking notes, providing input, and listening attentively throughout. Attentive during psychoeducation and discussed the importance of goal-setting with the group. Group identified potential benefits of having goals to include: to better oneself, increase self-confidence, improve relationships, create better boundaries, and improve mental health. Group also worked together to identify barriers to goal-setting which included; self-doubt, fear of failure, fear of success, and lack of motivation. Pt reported he personally struggles with fear of failure and setting goals only when he is feeling/functioning better. Benefited from increased awareness of benefits and barriers to goal-setting. First day of IOP tx. Will continue tx to prevent decompensation, gain healthy supports and coping skills, and improve functioning. Narrative Note: []
--- NOTE | 2021-05-31 10:34 | BH.COMM ---
Communication Note - Communication with Client Communication Note: Completed pre-admission intake, risk assessment, and initial paperwork for IOP level of care. Pt is low risk. Denies SI, plan, or intent. No hx of attempts.
--- NOTE | 2021-05-31 11:18 | BH.SGPN.GN ---
Behaviors/Verbalizations/Mental Status: []Client alert and oriented, casually dressed and groomed. Eye contact good. Motor activity appropriate. Speech within normal limits. Affect congruent, mood anxious and depressed. Thoughts linear, logical, no signs of hallucinations or delusions. Client Response/Progress/Benefit: []Pt was an active participant in group discussions and activities. Engaged in activity. Pt identified a SMART goal for the next week is to: To do at least one thing for self-care a day for the next week. Pt reported this would benefit her mental health by encouraging him to begin taking better care of himself to begin breaking the cycle of depression. Identified lack of energy as a potential barrier to completing this goal. Pt able to identify several solutions, such as opposite action, that can help overcome identified barriers. Benefited from group by being able to utilize SMART educate to create a goal. Pt to continue IOP to stabilize mood, increase self-care and social supports, reduce depression, as well as prevent decompensation. Narrative Note: []
--- NOTE | 2021-05-31 16:03 | BH.MDN ---
Multi-Disciplinary Note - Note 30-min Individual Time Started:: 09:20 Date: 05/31/21 Purpose of session/treatment goals addressed:: The purpose of this session was to gather information on client's current stressors, symptoms, and treatment goals. Another goal was to build rapport and provide psychoeducation on depression and self-care. Additionally, completed intake paperwork and CSSR risk assessment and lethal means screening. Eye Contact:: Good Motor Activity:: Appropriate Appearance:: Casual Speech:: Appropriate Mood:: Depressed Affect:: Congruent Thoughts:: Linear, Logical, No evidence of hallucinations/delusions noted Staff Interventions:: motivational interviewing, psychoeducation on: - depression maintenance cycles, self-care, rapport building, strengths perspective - identify resilience factors, treatment planning, completed risk assessment / safety planning - CSSR, goal setting Client Response:: Client responded well to session, open to meeting with therapist. Client reports looking forward to beginning the IOP program as he has been isolated and felt increasingly lonely over the past year. Discussed that following discharge from the IOP program in November of 2018 he had done well for awhile. Noted he was able to regularly attend [employer], moved into his own apartment, and was regularly attending weekly therapy sessions. However, after the COVID-19 pandemic begin he became increasingly isolated and depressed. Client is in a high-risk population which led him to be fearful of going out in public initially and his supports decreased substantially. When agencies began reopening, client was still limited as the transportation for [employer] had been adapted to meet COVID safety protocols and client could no longer fit in the van. Shared that he has also experienced several significant losses in the past year; as both of his grandfathers, his aunt, and his father have all in the past year. Client reports that he has struggled to cope with his grief and finds little enjoyment in things. Shared he used to margoth a lot and found this to be particularly enjoyable but no longer does so as he has traumatic memories associated with crocheting while his father had been hospitalized prior to his . Reports a desire to get back into this and learn healthy skills for coping with grief. Client discussed his current symptoms include hopelessness, poor concentration, apathy, anhedonia, crying spells, reduced energy, disrupted sleep, loneliness, and isolating behaviors. Shared that his functioning has been negatively impacted over the past few months and that he is having trouble with self-care. Decreased hygiene and no longer cooking for himself. Denies any suicidal ideation in the past month. Reports wanting to work on improving self-care, reducing depression, increasing social supports, and improving his relationship with self. Receptive of discussion on cycle of depression and maintenance cycles. Indicated connecting with poor hygiene and increased depressive thoughts. Reports wanting to work on improving healthy food choices to start with improving self-care. Risks/Concerns:: Client denies any active suicidal ideation, plan, or intent in the past month. Reports a hx of passive SI with no prior plan or attempts. Reports his family as protective factors. Completed [place] Suicide Screening with low risk. Future-oriented. Denies HI Progress Toward Goals/Plan:: Pt first day in IOP tx program therefore no progress noted. Reports goals of wanting to improve self-care in the areas of personal hygiene, socialization, and engaging in activities he used to enjoy that he no longer engages in. Reports grief, isolation, and loneliness as primary stressors. Additionally, pt noted his mother was recently hospitalized for psychiatric reasons which has been a new stressor for client as well. Client shared he worries that he will lose more people in his life which has led him to isolate and avoid finding new supports. Reports low motivation, limited ability to complete daily responsibilities, isolation and avoidance, racing thoughts, poor sleep, negative self-talk, and low energy. Recommended ongoing tx to improve mood stability and use of behavior activation skills, improve self-compassionate self-talk, and improve engagement in social activities. Time Stopped:: 09:47
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
--- NOTE | 2021-06-01 13:16 | BH.DR.ITP ---
Initial Treatment Plan Patient Information Visit Information: ADMISSION DATE: EXPECTED LOS: 4-6 weeks Problems/Symptoms Problem #1:: Depression Symptom:: Sadness, hopelessness, apathy, anhedonia, biological disruption of sleep, low energy, decreased concentration, passive thoughts of , Problem #2:: Anxiety Symptom:: Worry, rumination, panic attacks
--- NOTE | 2021-06-02 09:05 | BH.SGPN.GN ---
Behaviors/Verbalizations/Mental Status: [] Eye contact is good. Motor activity is appropriate. Appearance is disheveled. Speech is Appropriate. Mood is anxious/irritable. Affect is congruent. Thoughts are linear and logical. No evidence of psychosis. Reviewed daily check in sheet and no reports of suicidal ideations or intent. Client Response/Progress/Benefit: [] Pt was an active participant in group discussion on ways to combat negative thinking. Attentive. Provided appropriate feedback. Daily symptom tracker notes 4/5 for agitation and 3/5 for anxiety. Mental health wins include talking with his mother who is currently hospitalized. Reports that she is improving. Irritability due to being late this AM which group empathized with and gave some feedback to reframe. Shared with the group struggles with grief and loss of pleasure in activities in the past year. Discussed how his father's last year impacted him. He once loved to marogth and has not felt motivated in the past year. He has a goal to return to this which he is working with therapist on. Continues to isolate. No progress noted. Benefited from group discussion, feedback, and support. Will continue in [facility] to maintain safety, increase healthy coping, and improve functioning. Narrative Note: []
--- NOTE | 2021-06-02 10:11 | BH.SGPN.GN ---
Behaviors/Verbalizations/Mental Status: []Client alert and oriented, casually dressed and groomed. Eye contact good. Motor activity appropriate. Speech within normal limits. Affect congruent, mood depressed and anxious. Thoughts linear, logical, no signs of hallucinations or delusions. Client Response/Progress/Benefit: []Pt was an active participant in group discussion, taking notes and providing input throughout. Attentive during psychoeducation on communication styles. Along with peers, pt participated in providing insight into the benefits to effective communication on mental health which included; helps us get needs met, resolves problems, improves relationships, maintains boundaries, and prevents additional conflict. Identified that ?People used to misunderstand my tone because I speak loud, which is because my dad is deaf and I?m used to it, not because I?m actually mad?. Identified tone and language as a potential barrier to effective communication. Shared his anxiety also leads to shutting down and difficulties in effectively communicating. Benefited from increased awareness of different communication barriers, styles, and the importance of communicating effectively to improve mental wellness. Will continue IOP tx to prevent decompensation, learn healthy coping and self-care skills, stabilize mood, and improve overall functioning. Narrative Note: []
--- NOTE | 2021-06-02 11:10 | BH.SGPN.GN ---
Behaviors/Verbalizations/Mental Status: []Client alert and oriented, casually dressed and appropriately groomed. Eye contact fair. Motor activity restless Speech WNL. Affect constricted, mood anxious. Thoughts linear, logical, no signs of hallucinations or delusions. Client Response/Progress/Benefit: []Client responded well to session AEB client listening attentively to others and providing input during group discussion on the pay offs and costs of the different communication styles. Client stated he most often is a passive communicator which leads to his needs not getting met very often. Attentive during psychoeducation on interpersonal DBT skill KEVIN and client selected a communication skill to practice. Client selected the skill of expressing himself because he often tells others I'm fine when asked. Client seemed to benefit from increasing awareness of healthy strategies to improve communication. Will continue IOP tx to increase use of healthy coping, challenge negative thoughts and prevent decompensation.
--- NOTE | 2021-06-02 16:03 | BH.MTP_ITS ---
[facility] - Patient Information Program Physician:: Dr. Armida Hadley Primary Therapist:: JORDAN Romero - Psychiatric Diagnoses Psychiatric Diagnoses:: Major depressive disorder, recurrent, severe without psychosis, Persistent depressive disorder or dysthymia, Generalized anxiety disorder Diagnosis Code(s):: F 33.2 - Estimated LOS Estimated LOS (in weeks):: 6 Problem/Goal #1 - Problem/Goal #1 Stated Goal:: Client will reduce overall frequency, intensity, and duration of anxiety to improve functioning and social engagement. Description of Barriers: Pt reports increased stress due to recent decline in his mother?s mental health resulting in psychiatric hospitalization. Pt is st ruggling with grief related to several losses over the past year, including the loss of his father. Reports anxiety that ?everyone is going to leave me?. Pt struggles with avoidant traits and attributes much of this to poor self-esteem related to his weight and past experiences of being bullied. Pt is housebound at the moment as he is too large for many of the available means of public transport and does not currently have a vehicle. Functional Impact: The patient is a 35-year-old male with a history of morbid obesity, depression, and anxiety who was referred by his outpatient counselor, Bisi Kemp, to the [facility] behavioral health IOP program. Pt was referred due to worsening symptoms of depression following several losses in the past year. Pt previously completed the [facility] IOP program in 2019 and reports his functioning had been improved until the COVID-19 pandemic. Reports becoming increasingly isolated as a result and was no longer able to attend supportive community services, such as [facility], due to being high risk. Pt remains homebound as well due to lack of vehicle. Reports his primary stressors include ongoing grief related to the loss of both grandfathers, an aunt, and his father over the past year. Shared he has been struggling to accept these losses and find healthy means of coping. Shared he has become increasingly isolated as a result. Pt lives alone but does occasionally visit his cousin and mother who are supports. Reports however that his mother struggles with mental health issues and was placed in an inpatient psychiatric hospital yesterday which has been an added stressor. Pt discussed that he often turns to reading and eating as primary means of coping. Notes that his binge eating during times of stress has become a significant issue as pt has gained over 75 pounds in the past year, putting his health at risk as he is now at a BMI of 87.5. At time of admission, pt endorsing loss of interest, low motivation, poor concentration, passive thoughts of he would not care if he were not alive, crying spells, feeling down/sad, hopelessness, apathy and anhedonia, increased worry and panic approx.. 2-3x/week. He denies homicidal ideation, hallucinations, delusions or symptoms of amari ever. Pt recommended IOP level of treatment due to current sx impacting his ability to function at baseline, complete daily responsibilities, engage with social supports, and practice self-care on a regular basis. Goal Relevant Strengths/Supports: Pt has good insight to symptoms and has knowledge of coping skills. Pt has support from his cousin who is local and his mother, additionally has support from [facility] despite not currently being an active member of the agency. Pt is motivated to get better. Pt enjoys reading and margoth and would like to get back into crocheting. He is not suicidal. - Objectives Objective #1 Stated Objective: Pt will identify 2-3 cognitive distortions that lead to rumination and learn 2-3 ways to manage these thoughts to better manage anxiety AED pt repot and reduction in DSM-5 Symptoms. Interventions: Therapist will provide education on the most common cognitive distortions and teach pt the connection between thoughts, emotions, and feelings. Therapist will assist pt in identifying, challenging, and replacing dysfunctional thoughts with positive, more realistic thoughts. Therapist will use CBT and DBT techniques to help pt gain awareness of thinking errors and learn how to more effectively handle negative thoughts. Therapist will also use self-compassion to help pt set more realistic expectations for himself and reduce use of catastrophizing. Discharge Criteria: Pt will have accomplished this goal when can identify at least 2 cognitive distortions and at least 2 coping skills to manage negative thoughts, as well as through a decrease in DSM-5 scores for anxiety. Target Date: 07/12/21 Review Date: 06/28/21 Objective #2 Stated Objective: Client will increase social activity to at least one additional activity per week. Interventions: Therapist will provide education on anxiety, avoidance behaviors, and maintenance cycles. Therapist will teach client coping skills to improve emotional regulation, mindfulness, and distress tolerance to help client cope with anxiety in the moment. Discharge Criteria: Pt will have accomplished this goal when can report consistent engagement in at least one new social activity a week. Target Date: 07/12/21 Review Date: 06/28/21 Problem/Goal #2 - Problem/Goal #2 Stated Goal:: Client will reduce depressive symptoms, lack of motivation, and anhedonia due to major depressive disorder. Description of Barriers: Pt reports increased stress due to recent decline in his mother?s mental health resulting in psychiatric hospitalization. Pt is struggling with grief related to several losses over the past year, including the loss of his father. Reports anxiety that ?everyone is going to leave me?. Pt struggles with avoidant traits and attributes much of this to poor self-esteem related to his weight and past experiences of being bullied. Pt is housebound at the moment as he is too large for many of the available means of public transport and does not currently have a vehicle. Functional Impact: The patient is a 35-year-old male with a history of morbid obesity, depression, and anxiety who was referred by his outpatient counselor, Bisi Kemp, to the [facility] behavioral health IOP program. Pt was referred due to worsening symptoms of depression following several losses in the past year. Pt previously completed the [facility] IOP program in 2019 and reports his functioning had been improved until the COVID-19 pandemic. Reports becoming increasingly isolated as a result and was no longer able to attend supportive community services, such as [facility], due to being high risk. Pt remains homebound as well due to lack of vehicle. Reports his primary stressors include ongoing grief related to the loss of both grandfathers, an aunt, and his father over the past year. Shared he has been struggling to accept these losses and find healthy means of coping. Shared he has become increasingly isolated as a result. Pt lives alone but does occasionally visit his cousin and mother who are supports. Reports however that his mother struggles with mental h ealth issues and was placed in an inpatient psychiatric hospital yesterday which has been an added stressor. Pt discussed that he often turns to reading and eating as primary means of coping. Notes that his binge eating during times of stress has become a significant issue as pt has gained over 75 pounds in the past year, putting his health at risk as he is now at a BMI of 87.5. At time of admission, pt endorsing loss of interest, low motivation, poor concentration, passive thoughts of he would not care if he were not alive, crying spells, feeling down/sad, hopelessness, apathy and anhedonia, increased worry and panic approx.. 2-3x/week. He denies homicidal ideation, hallucinations, delusions or symptoms of amari ever. Pt recommended IOP level of treatment due to current sx impacting his ability to function at baseline, complete daily responsibilities, engage with social supports, and practice self-care on a regular basis. Goal Relevant Strengths/Supports: Pt has good insight to symptoms and has knowledge of coping skills. Pt has support from his cousin who is local and his mother, additionally has support from [facility] despite not currently being an active member of the agency. Pt is motivated to get better. Pt enjoys reading and margoth and would like to get back into crocheting. He is not suicidal. - Objectives Objective #1 Stated Objective: Client will learn and utilize 2-3 healthy coping strategies to better manage depressive symptoms as shown by reduced DSM-5 scores for depression. Interventions: Through group and individual sessions, therapist will help client identify triggers and warning signs of depression and emotional dysregulation including emotional, physical, and behavioral changes. Therapist will teach pt various coping skills to manage symptoms and give pt tangible resources to use to regulate emotions. Therapist will use cognitive restructuring techniques and help pt gain awareness of negative thoughts that reinforce guilt and depression. Therapist will provide psychoeducation on maintenance cycles and help pt learn ways to break unhealthy maintenance cycles. Therapist will help pt incorporate behavioral activation and assist client in setting SMART goals. Discharge Criteria: Pt will have met this goal when they can report learning and using at least 2 coping skills to manage depressive symptoms. Additionally, pt will have met this goal when depressive symptoms have reduced on the DSM-5 scale. Target Date: 07/12/21 Review Date: 06/28/21 Objective #2 Stated Objective: Pt will identify at least 2-3 negative self-talk messages used to reinforce guilt and negative core beliefs and replace thoughts with positive, realistic messages. Interventions: Therapist will help pt identify distorted, negative beliefs about self and replace with more realistic, affirmative messages. Therapist will use CBT to help pt increase insight to the connection between thoughts, emotions, and behaviors. Therapist will encourage pt to practice thought challenging. Discharge Criteria: Pt will have achieved this goal when can verbalize at least 2 negative self-talk messages and effectively replace those thoughts with affirmative messages. Target Date: 07/12/21 Review Date: 06/28/21
--- NOTE | 2021-06-03 09:00 | BH.SGPN.GN ---
Behaviors/Verbalizations/Mental Status: []Eye contact is good. Motor activity is fidgety. Appearance is casual. Speech is appropriate. Mood is anxious. Affect is congruent. Thoughts are linear and logical. No evidence of psychosis. Reviewed daily symptom tracker sheet with no reports of suicidal ideations, plan, or intent. Client Response/Progress/Benefit: []Client was engaged throughout group session, and reported his emotion as ?anxious?. Client discussed not sleeping well due to ruminating on not completing tasks he had planned to. Client discussed having ?all or nothing? thinking, and avoidance behaviors. Appeared to benefit from group discussion regarding setting small goals and acknowledging accomplishment of those goals. Client set a goal to use a timer to help complete 15 minutes of cleaning his home. Some progress indicated AEB client?s acknowledgement of his use of cognitive distortions. However, client indicated per daily symptom tracker an increase in depression, despite reports that his mood has been generally better. Will continue IOP treatment to increase anxiety management skills to increase client?s functioning and reduce avoidance. Narrative Note: []
--- NOTE | 2021-06-03 10:08 | BH.SGPN.GN ---
Behaviors/Verbalizations/Mental Status: []Eye contact is good. Motor activity is appropriate. Appearance is casual. Speech is Appropriate. Mood is depressed, anxious. Affect is congruent. Thoughts are linear and logical. No evidence of psychosis. Client Response/Progress/Benefit: []Pt was an active participant in group discussion AEB asking questions and providing input throughout. Attentive during psychoeducation. Pt along with peers added their perspective on the definition of stigma as it relates to mental health. Pt participated in interactive group discussion on the topic and the potential impacts of stigma on seeking help, confidence, and relationships with others. Pt reflected that mental health stigma has ?kept me from making friends in my building out of fear of rejection?. Reflected beliefs he allows stigma to maintain thoughts of ?I don?t deserve to be happy?. Benefited from increased awareness of mental health stigma and how it could impact patient. Will continue in IOP to improve mood stability as well as depression and anxiety management skills, increase healthy coping and engagement in activities he enjoys, and improve functioning. Narrative Note: []
--- NOTE | 2021-06-03 11:10 | BH.SGPN.GN ---
Behaviors/Verbalizations/Mental Status: []Client alert and oriented, casually dressed and groomed. Eye contact good. Motor activity appropriate. Speech within normal limits. Affect constricted, mood depressed. Thoughts linear, logical, no signs of hallucinations or delusions. Client Response/Progress/Benefit: []Client engaged participant AEB client providing some input during small group discussion, taking notes and listening attentively to others. Group brainstormed strategies to combat social and perceived stigma which included: educating others, no longer using negative language about mental illness, being vulnerable with supports, and attending support groups. Client shared one thing he can do to combat stigma is to try and catch negative self-talk to be less critical of himself. Appeared to benefit from increasing awareness of strategies to combat stigma. Client reports negative self-talk is one of his biggest barriers as it is reinforcing isolation and depression. Will continue IOP tx to prevent decompensation, improve overall functioning, and reduce isolation. Narrative Note: []
--- NOTE | 2021-06-07 09:04 | BH.SGPN.GN ---
Behaviors/Verbalizations/Mental Status: []Client alert and oriented, casually dressed and groomed. Eye contact good. Motor activity appropriate. Speech within normal limits. Affect congruent, mood anxious and depressed. Thoughts linear, logical, no signs of hallucinations or delusions. Reviewed client?s symptom tracker, no risk for suicidal ideation, plan, or intent as of 06/07/21. Client Response/Progress/Benefit: []Client responded well to session, attentive and willing to process with group. Client reports feeling ?scared and anxious this morning as his mother will be discharged from inpatient psychiatric hospitalization. Shared he is excited to see her but concerned with his ability to help support her and prevent decompensation. Able to challenge thoughts and identify small steps he can take to help support his mother. Went on to discuss feel proud of himself as he was able to accomplish several small self-care goals over the weekend. Discussed setting a goal of cleaning 10 minutes and then reading two chapters in a book and repeating this until he is finished cleaning. Noted this had been successful and he was able to clean several rooms which made him feel a sense of accomplishment. Additional win was getting his hair cut as client reports it had been bothering him and he had been putting this off. Client appeared to benefit from reflecting upon areas of progress as well as skills being used to promote that progress. Per symptom tracker, client?s mood has been generally worse, however this may be attributed to recent increase in familial stress. Will continue IOP tx to promote mood stability, further improve distress management and behavior activation skills, and prevent decompensation. Narrative Note: []
--- NOTE | 2021-06-07 10:12 | BH.SGPN.GN ---
Behaviors/Verbalizations/Mental Status: []Client alert and oriented, casually dressed and groomed. Eye contact good. Motor activity appropriate. Speech within normal limits. Affect constricted, mood depressed. Thoughts linear, logical, no signs of hallucinations or delusions. Client Response/Progress/Benefit: []Pt was an active participant in group discussion and activity. Attentive during psychoeducation on coping skills. Pt along with peers worked together to identify unhealthy coping skills such as; avoidance, substance use, and trying to take care of issues alone. Group was able to identify why people use unhealthy coping skills such as; easy, comfortable, work in the short-term, habit, or it?s what they were taught/learned from others. Pt noted it is hard for him to replace unhealthy coping skills in the moment because of lack of energy and motivation from depression. However, pt reflected on progress in implementing healthy breaks over the weekend which helped pt clean. Benefited from increased understanding of unhealthy coping skills and the need for developing healthy internal coping skills to manage mental health sx. Pt will continue in IOP to prevent decompensation and reduce negative self-talk. Narrative Note: []
--- NOTE | 2021-06-07 11:12 | BH.SGPN.GN ---
Behaviors/Verbalizations/Mental Status: []Client alert and oriented, casual dress, hygiene tended to. Eye contact good. Motor activity appropriate. Speech within normal limits. Affect congruent, mood anxious. Thoughts linear, logical, no signs of hallucinations or delusions. Client Response/Progress/Benefit: []Client responded well to session, actively listening and providing examples. Client stated he needs to gain both healthy internal and external skills. Client stated he needs to build healthy external supports because tends to isolate. Group discussed the different categories of coping skills which included distraction, emotional release, grounding, self-love, and thought challenging. Client participated in creating a coping skills ?menu? from the five categories of coping skills. Client's coping skill menu included: fidget tools, margoth, music, positive affimrations and identify daily GLAD (grateful, learned, accomplishment and delight). Appeared to benefit from increasing repertoire of healthy coping skills. Will continue tx to increase healthy coping, improve daily functioning and prevent decompensation. Narrative Note: []
--- NOTE | 2021-06-09 10:10 | BH.SGPN.GN ---
Behaviors/Verbalizations/Mental Status: [] Eye contact is good. Motor activity is appropriate. Appearance is casual. Speech is Appropriate. Mood is anxious. Affect is congruent. Thoughts are linear and logical. No evidence of psychosis. Client Response/Progress/Benefit: [] Pt was an active participant in group discussion and activity. Attentive during psychoeducation. Provided appropriate feedback. Group had an interactive discussion on defining pitfalls in the context of mental health. Group agreed with definition of events that impact progress or things that get you off track. Pt along with peers identified common mental health pitfalls which included; past experiences, current/past environments, poor communication, anxiety, any type of conflict, and feeling discomfort. Pt was able to identify the pitfalls and challenges that occurred during the experiential activity and worked with peers to identify strategies to overcome pitfalls. Able to make parallels between activity and ways to identify strategies to overcome pitfalls in real-life situations. Benefited from increased awareness of identifying and developing strategies to overcome pitfalls in mental health. Pt will continue in IOP to maintain safety, improve functioning, and increase healthy coping skills. Narrative Note: []
--- NOTE | 2021-06-09 10:12 | BH.SGPN.GN ---
Behaviors/Verbalizations/Mental Status: []Client alert and oriented, casually dressed and groomed. Eye contact good. Motor activity appropriate. Speech within normal limits. Affect congruent, mood anxious and euthymic. Thoughts linear, logical, no signs of hallucinations or delusions Client Response/Progress/Benefit: []Client receptive of session, engaged throughout AEB client actively listening, taking notes, and contributing to discussion. Client completed worksheet identifying personal pitfalls impacting mental health progress. Client identified the following pitfalls: self comparison, putting himself down, mindless eating, absorbing others emotions, and stressing over things outside of his control. Group brainstormed different coping skills to help manage pitfalls. Client selected ?putting myself down? as the pitfall client wants to overcome. Client plans to work on this by using more positive affirmations on a regular basis, beginning to keep a ?credit? journal or accomplishments log, and finding time to margoth this weekend as this makes him feel more confident. Benefited from identifying personal pitfalls and strategies to overcome these pitfalls. Will continue IOP tx to improve healthy socialization and develop more supports, reduce negative self-talk, begin engaging in more activities he enjoys on a regular basis. Narrative Note: []
--- NOTE | 2021-06-09 13:51 | BH.MDN ---
Multi-Disciplinary Note - Note 30-min Individual Time Started:: 09:08 Date: 06/10/21 Purpose of session/treatment goals addressed:: The purpose of this session was to address current stressors, triggers, and goals for improving self-care. Eye Contact:: Good Motor Activity:: Restless - playing with fidget-spinner throughout Appearance:: Casual Speech:: Appropriate Mood:: Euthymic, Anxious Affect:: Congruent Thoughts:: Linear, Logical, Other Staff Interventions:: thought challenging, motivational interviewing, CBT techniques, strengths perspective, goal setting, other - discussed importance of self-care and strategies for creating a calming environment as he attempts to re-engage in crocheting. Client Response:: Client responded well to session, open to meeting with therapist. Client discussed he has been feeling more positive over the past several days. Attributes this to the increased socialization and support provided by the group environment, his mother retuning home from hospitalization, as well as accomplishing several small goals for himself. Described his recently accomplished goals as cleaning around the house and doing his dishes, making time to shower daily, and going to get a haircut. Discussed that he is struggling with ?getting hung up on restarting margoth?. Shared this has been a significant form of support and provided a sense of purpose in the past, but he has not been able to re-engage in rochet since his father?s last year. Discussed that he had crocheted while in the hospital with his father and now associates the activity with his . Client and therapist explored the benefits of re-engaging in margoth both on his mental health and the grieving process. Client identified that this would give him a way to give back to others which is important to him, as well as allow him to feel more like himself. Worked with therapist to identify an appropriate goal as client fears if he starts with a small project, he will feel disappointed and as though he has taken steps back in his ability. Able to challenge these thoughts and discuss viewing his first completed project as more of a practice or warm-up prior to the first meaningful project upon returning to [facility]. Discussed fears he will become emotional and want to quit. Willing to create a plan for creating a calming and supportive environment for completing his goal as well as plans for reaching out to his cousin for support afterwards. Risks/Concerns:: Client denies any suicidal ideations, plan, or intent as of 06/09/21. Denies homicidal ideations. Progress Toward Goals/Plan:: Client reports progress with improved self-care and small goal completion. Continues to struggle with isolation, lack of support, fears of losing everyone he care for, worry, and feeling like a burden. Client will continue IOP tx improve emotional regulation skills, reduce depressive symptoms, and increase ability to increase social support net. Time Stopped:: 09:38
--- NOTE | 2021-06-14 09:00 | BH.SGPN.GN ---
Behaviors/Verbalizations/Mental Status: []Client alert and oriented, casually dressed and groomed. Eye contact good. Motor activity appropriate. Speech within normal limits. Affect flat, mood depressed. Thoughts linear, logical, no signs of hallucinations or delusions. Reviewed client?s symptom tracker, no risk for suicidal ideation, plan, or intent as of 06/14/21 Client Response/Progress/Benefit: []Client responded well to session, receptive to encouragement and feedback. Client reports feeling tense but hopeful this morning. Client shared he had a rough but good weekend as client got back into crocheting. Crocheting used to be client's main coping skill, but he had been unable to do this since his father . Client shared he had to alter his thought patterns and reach out to support while crocheting to process his feelings. Appeared to benefit from group encouragement and normalization of emotionally triggering coping skills. Client continues to struggle with combatting distortions that reinforce depression. Will continue IOP tx to increase application of healthy coping skills, improve self-care, and decrease depressive symptoms. Narrative Note: []
--- NOTE | 2021-06-14 10:05 | BH.SGPN.GN ---
Behaviors/Verbalizations/Mental Status: []Eye contact is good. Motor activity is restless. Appearance is neat. Speech is Appropriate. Mood is anxious and dysthymic. Affect is constricted. Thoughts are linear and logical. No evidence of psychosis. Client Response/Progress/Benefit: []Pt was an active participant in group discussion AEB taking notes and providing input throughout. Attentive during psychoeducation reviewing internal and external obstacles and provided examples at times. Pt struggled with understanding activity in which he was asked to depict his current and desired reality by drawing a picture. With coaching from therapist pt seemed to understand activity but still struggled with identifying desired reality. Benefited from group by increasing current awareness and expectations for progress. Pt to continue IOP to improve daily functioning, consistently apply healthy coping skills and prevent decompensation. Narrative Note: []
--- NOTE | 2021-06-14 11:10 | BH.SGPN.GN ---
Behaviors/Verbalizations/Mental Status: [] Eye contact is good. Motor activity is appropriate. Appearance is disheveled. Speech is Appropriate. Mood is anxious. Affect is congruent. Thoughts are linear and logical. No evidence of psychosis. Client Response/Progress/Benefit: [] Pt was an active participant in group discussion and activity. Attentive during psychoeducation. Provided appropriate feedback and insight. Pt identified obstacles that have prevented him from obtaining desired reality being negative thoughts and all or nothing thinking. Identified strategies to promote emotional wellness and overcome obstacles which included; identifying cognitive distortions when I use them and thought-reframing. Benefited from identifying obstacles in pt's path to mental wellness and developing strategies t minimize the impact of these obstacles. Will continue in IOP to prevent decompensation, maintain safety, and increase healthy coping skills. Narrative Note: []
--- NOTE | 2021-06-15 09:03 | BH.SGPN.GN ---
Behaviors/Verbalizations/Mental Status: []Client alert and oriented, casually dressed though appearing disheveled. Pt wearing the same outfit everyday attending IOP program thus far, clothing ripped. Eye contact good. Motor activity appropriate. Speech within normal limits. Affect congruent, mood anxious, dysthymic. Thoughts linear, logical, no signs of hallucinations or delusions. Reviewed client?s symptom tracker, no risk for suicidal ideation, plan, or intent as of 06/15/21. Client Response/Progress/Benefit: []Client receptive to session, attentive and willing to participate throughout. Reports feeling ?discouraged and tired this morning. Shared that had fallen asleep after group and did not wake again until 7:30pm that evening. Indicated not being able to sleep at night as a result and begin experiencing negative thoughts. Client discussed that he would typically reach out to a support if struggling with his thoughts but that it was too late to call anyone. Able to use some thought challenging strategies and try to ?see the [place] area? as client often uses absolutes. Reports he was able to successfully challenge unrealistic expectations of himself but is now struggling with thoughts of ?I should be doing more?. Receptive of group support and did well to recognize where he is making progress. Identified supports he can reach out to this afternoon as well. Appeared to benefit from supportive group environment and identifying areas of personal progress. Recommended continued IOP tx to improve mood stability, increase supports and healthy coping, as well as prevent decompensation. Narrative Note: []
--- NOTE | 2021-06-15 10:10 | BH.SGPN.GN ---
Behaviors/Verbalizations/Mental Status: []Client alert and oriented, casually dressed and groomed. Eye contact fair. Motor activity restless AEB fidgeting. Speech within normal limits. Affect congruent, mood anxious. Thoughts linear, logical, no signs of hallucinations or delusions. Client Response/Progress/Benefit: []Client responded well to session AEB client contributing to session and listening attentively to others. Client connected with the topic of perspective, and discussed its definition and how knowledge of a situation affects an individual's perception. Client shared that he finds maintaining a positive perspective very difficult, with the first negative experience causing him to go to a negative place. Client participated in the photo activity, and discussed how looking for negative vs. positive things changed his feelings toward self/experiences. Client seemed to benefit from increasing awareness of perspectives and how positive perspectives can aid in mental health recovery. Progress noted in client sharing and being vulnerable in group session. Will continue IOP treatment to improve self-care and prevent decompensation. Narrative Note: []
--- NOTE | 2021-06-15 11:10 | BH.SGPN.GN ---
Behaviors/Verbalizations/Mental Status: []Client alert and oriented, disheveled appearance. Eye contact fair. Motor activity appropriate. Speech within normal limits, quiet. Affect constricted, mood dysthymic. Thoughts linear, logical, no signs of hallucinations or delusions. Client Response/Progress/Benefit: []Pt did well to remain attentive throughout session, AEB providing input throughout discussion. Did well to take notes and complete worksheet provided. Engaged as group reviewed the importance of taking a strengths-based approach in order to foster a healthier perspective and better manage mental health symptoms. However, pt shared he struggles to use and acknowledge his strengths. Completed strengths exploration worksheet and identified personal strengths to include: empathy, kindness, common-sense, logic, and artistic ability. Pt shared he wants to work on becoming more forgiving of himself and he can do this by sitting with uncomfortable feelings when practicing positive self-talk. Benefited from identifying personal strengths and strategies for enhancing use of identified strengths. Pt to continue IOP tx to prevent decompensation, increase application of healthy coping skills, and reduce negative self-talk. Narrative Note: []
--- NOTE | 2021-06-15 12:08 | PCM.BH.PN_ITS ---
Progress Note Progress Note: In history of Present Illness/Interim History: [] Patient is a 35-year-old male with a history of morbid obesity, depression and anxiety who is seen in follow-up at the [facility] behavioral health IOP program. I last saw the patient about 2 weeks ago and at that time no medication changes were made. The patient states that he is doing okay. He feels that he is learning valuable skills in the IOP program and that is helping him cope with his issues. He really enjoys the support and the social company at the IOP program also. He describes his mood as less depressed and still fairly anxious. His mother is out of the hospital now and she is better but he states that he is still worried about her and is not sure why he is so worried about her. His panic attacks have increased almost daily now and the patient is uncertain why this is. He admits to occasional passive thoughts that he would not care if he . He denies suicidal ideation, homicidal ideation, hallucinations or delusions. He still states that his mother he feels needs him and he would not kill himself for that reason. The patient has been starting to margoth again and is enjoying this somewhat although it does bring up some difficult emotions for him. Current Psychiatric Medications: [] Trileptal 300 mg in the morning and 450 mg nightly; Topamax 150 mg daily; Wellbutrin XL 450 mg p.o. every morning; Celexa 20 mg p.o. daily; vitamin D3. Mental Status Examination: [] Patient is a morbidly obese male seen wearing a mask due to the pandemic and who is casually dressed and groomed with good hygiene. He has no psychomotor agitation or retardation. Eye contact is fair to good. Speech is normal rate and rhythm and fluent with no pressure. Mood is depressed. Affect is less constricted. Thought process is goal- directed and organized. Thought content: There is evidence of occasional passive thoughts of . There is no evidence of suicidal ideation, homicidal ideation, hallucinations, or delusions. Judgment is intact. Insight is good. Impulsivity is low to moderate. Diagnoses: [] 1. Major depressive disorder, recurrent, severe without psychosis 2. Persistent depressive disorder or dysthymia 3. Generalized anxiety disorder 4. Morbid obesity 5. Hypertension, asthma, A. fib, possible heart failure, chronic pain 6. Avoidant traits 7. Primary support and loss issues Plan: [] The patient will continue the IOP program at [facility] as the structure, support, education and group therapy will hopefully prevent worsening of the patient's symptoms which might require hospitalization. He felt safe during the interview and if he does not feel safe he will let us know or go to the emergency room. The risks, options, possible complications and side effects of the medications were again discussed with the patient and he understands accepts these. The patient agrees to increase his Celexa to 30 mg p.o. daily to hopefully reduce the frequency of his panic attacks and to decrease his anxiety. He will continue to try to do the things he enjoys such as crocheting. I will see the patient in follow-up in 2 weeks and he will also continue to follow-up with his outpatient medical and psychiatric providers.
--- NOTE | 2021-06-16 10:12 | BH.SGPN.GN ---
Behaviors/Verbalizations/Mental Status: []Client alert and oriented, disheveled appearance. Eye contact good. Motor activity appropriate. Speech within normal limits. Affect constricted, mood depressed. Thoughts linear, logical, no signs of hallucinations or delusions Client Response/Progress/Benefit: []Pt was an active participant in group discussion and activity. Attentive during psychoeducation on what it means to take action. Pt identified symptoms he wants to gain control over which included avoidance, fear of failure, fear of change, negative self-talk, and no self-compassion. Reports belief that if he could gain control over his negative self-talk and lack of self-compassion he would ?get along much better? in life. Increased insight into what could be holding pt back from mental wellness and the importance of taking action on symptoms and obstacles rather than avoiding or ignoring. Will continue in IOP to prevent decompensation, increase application of healthy coping skills, and improve functioning. Narrative Note: []
--- NOTE | 2021-06-16 11:12 | BH.SGPN.GN ---
Behaviors/Verbalizations/Mental Status: []Client alert and oriented, disheveled appearance. Eye contact good. Motor activity appropriate. Speech within normal limits. Affect constricted, mood depressed and anxious. Thoughts linear, logical, no signs of hallucinations or delusions. Client Response/Progress/Benefit: []Client responded well to session, taking notes and participating in worksheet discussion. Client set a goal to gain control over fear of change. Client plans to work on this by starting a new [employer] project that he has been avoiding. Client reports he will need help from his supports, music to listen to, and something to watch to help motivate himself. Appeared to benefit from identifying a small goal to benefit mental health. Client continues to struggle with challenging negative self-talk that reinforces depression and fear of failure. Will continue IOP tx to prevent decompensation, improve functioning, and increase self-care. Narrative Note: []
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
--- NOTE | 2021-06-16 15:13 | BH.MDN_ITS ---
<ShandaAllen - Last Filed: 07/01/21 16:14> Multi-Disciplinary Note - Note 60-min Individual Time Started:: 09:10 Date: 06/16/21 Eye Contact:: Good Motor Activity:: Restless - Fidgeting Appearance:: Casual Speech:: Appropriate Mood:: Anxious Affect:: Congruent Thoughts:: Linear, Logical Staff Interventions:: strengths perspective, goal setting, taught coping skills, other - Completed psychosocial assessment. Provided supportive feedback and validation. Client Response:: Client was open to meeting with clinician and was engaged throughout session, presenting as tearful. During session client participated in a psychosocial assessment, discussing his presenting problem, mental health and family history, and treatment history. Client discussed increased depression symptoms and social isolation, anxiety, recent losses and family illness leading client to seek IOP treatment. The client completed IOP treatment with [facility] previously. Client identified his support system as including his mother, cousin, and close family friend. Client states that he is hopeful about the program and is open to making changes to increase functioning. Risks/Concerns:: Client denies any active suicidal ideation, plan, or intent. Client endorses ambivalence to life, stating it would be a relief if he were to fall asleep and not wake up. Reports his family as protective factors. Future-oriented. Denies HI Progress Toward Goals/Plan:: Client is adjusting well to treatment, and has begun working toward his goal of lessening social isolation by contacting his friend, cousin, and mom on a regular basis, as well as visiting his cousin. Client discussed setting a goal to begin crocheting this weekend, as previously it had been a something he enjoyed. Time Stopped:: 10:10 <Zayra Argueta - Last Filed: 07/01/21 16:33> Multi-Disciplinary Note - Note 60-min Individual Purpose of session/treatment goals addressed:: Purpose of session was to gather additional information regarding client mental health background. Additional purpose was to address any current stressors.
--- NOTE | 2021-06-20 09:00 | BH.SGPN.GN ---
Behaviors/Verbalizations/Mental Status: []Eye contact is poor. Motor activity is restless. Appearance is casual. Speech is Appropriate. Mood is anxious and hopeful. Affect is congruent. Thoughts are linear and logical. No evidence of psychosis. Reviewed daily check in sheet and no reports of suicidal ideations or intent. Client Response/Progress/Benefit: []Pt responded well to session AEB pt sharing thoughts and feelings, listening attentively to others and providing feedback to others. Pt stated mental health positive as visiting family over the weekend. Pt stated he has been working on his goal set last week of finding a new animal pattern to [employer]. Pt expressed some anxiety that he won't accomplish goal of completing project within a week. Pt stated feeling relief to know he can adjust his goal and will try to complete new project before he completes IOP. Pt reported stressed about overeating at [facility] this week. Pt stated he did communicate to his family that he doesn't want leftovers so he doesn't have the urge to overeat at home. Pt to continue IOP to continue use of healthy coping, challenge distorted thoughts and prevent decompensation. Narrative Note: []
--- NOTE | 2021-06-20 10:05 | BH.SGPN.GN ---
Behaviors/Verbalizations/Mental Status: []Client alert and oriented, casually dressed and groomed. Eye contact fair. Motor activity restless AEB fidgeting. Speech within normal limits. Affect congruent, mood depressed. Thoughts linear, logical, no signs of hallucinations or delusions. Client Response/Progress/Benefit: []Client responded well to session AEB client contributing and listening attentively to others. Client connected with the idea of anger as a secondary emotion, and discussed the aftermath of anger as well as its effect on the body. Client completed the anger iceberg activity, identifying experiencing change, loss, and hunger as triggers for his anger. Discussed his anger warning signs as manifesting as venting, being extra fidgety, and twitchy. Identified consequences of unmanaged anger as not being invited to gatherings, and staying stagnant. Client appeared to benefit from increasing awareness of anger triggers and warning signs. Progress noted in client?s increased contribution; however, continues to endorse depressive sx. Will continue IOP treatment to increase use of self-care, improve application of healthy coping skills, and increase functioning. Narrative Note: []
--- NOTE | 2021-06-20 11:04 | BH.SGPN.GN ---
Behaviors/Verbalizations/Mental Status: []Client alert and oriented, casually dressed and groomed. Eye contact fair to good. Motor activity appropriate, at times appearing restless AEB fidgeting with fidget spiner and getting up on one occassion. Speech within normal limits. Affect congruent, mood anxious and euthymic. Thoughts linear, logical, no signs of hallucinations or delusions. Client Response/Progress/Benefit: [] Pt was engaged throughout AEB participating in discussion and taking notes. Pt struggled to identify his own anger warning signs and triggers which may have impeded overall awareness of and ability to identify internal costs of unmanaged anger. Contributed as participants worked in small groups to brainstorm healthy coping skills for better managing anger which included: reaching out to supports, journaling, taking breaks, exercise, DDD, and looking at the consequences of responding in anger. Pt appeared to benefit from identifying different techniques to manage anger as well as gaining awareness of the potential internal and external costs of anger. Pt selected learning more about his anger triggers and warning signs as well as finding music he enjoys when frustrated as potential skills for better managing anger. Will continue IOP tx to gain healthy coping skills to manage anxiety and depression, increase insight and support, and prevent decompensation. Narrative Note: []
--- NOTE | 2021-06-21 10:15 | BH.SGPN.GN ---
Behaviors/Verbalizations/Mental Status: []Eye contact is good. Motor activity is restless-playing with fidget spinner. Appearance is disheveled. Speech is Appropriate. Mood is depressed. Affect is constricted. Thoughts are linear and logical. No evidence of psychosis. Client Response/Progress/Benefit: []Pt was an engaged participant in group discussions. Attentive and provided insights during psychoeducation on benefits and disadvantages of anxiety and review of different types of anxiety disorders. Pt struggled with identifying positives of anxiety and shared that ?when I?m anxious I don?t perform well.? Completed worksheet on identifying own physical symptoms or signs of anxiety which pt reported numerous however identified most frequent as: feeling shaky, increased heart rate, feeling tense, restlessness, and whistling. Benefited from increased awareness of physiological signs of anxiety as well as differences between 'normal' anxiety and anxiety disorder. Will continue IOP tx to increase self-care, reduce isolation, and improve daily functioning. Narrative Note: []
--- NOTE | 2021-06-21 11:15 | BH.SGPN.GN ---
Behaviors/Verbalizations/Mental Status: []Client alert and oriented, casually dressed and groomed. Eye contact good. Motor activity appropriate. Speech within normal limits. Affect congruent, mood euthymic and anxious. Thoughts linear, logical, no signs of hallucinations or delusions. Client Response/Progress/Benefit: []Client was an active participant in group discussion, able to provide input and insight to discussion. Reviewed safety behaviors he engages in that reinforce anxiety. Some of client?s safety behaviors include: avoiding, turning to food or other distractions, and giving up. Attentive during psychoeducation on mindfulness coping skills and their impact on mental health wellness. The group worked together to brainstorm anxiety reduction strategies. Client selected trying to complete different category exercises as the mindfulness skill he will practice over the next three days. Client seemed to benefit from increased repertoire of anxiety reduction skills. Client will continue IOP tx to continue to reduce intensity of symptoms, improve overall functioning and social support network, as well as prevent decompensation. Narrative Note: []
--- NOTE | 2021-06-21 16:09 | BH.MDN_ITS ---
Multi-Disciplinary Note - Note 30-min Individual Time Started:: 09:30 Date: 06/21/21 Purpose of session/treatment goals addressed:: The purpose of this session was to discuss treatment progress and well as begin addressing unhealthy coping and avoidance behaviors maintaining mental health sx. Eye Contact:: Good Motor Activity:: Appropriate Appearance:: Casual Speech:: Appropriate Mood:: Anxious Affect:: Congruent Thoughts:: Linear, Logical, No evidence of hallucinations/delusions noted Staff Interventions:: thought challenging, motivational interviewing, psychoeducation on: - psychological components of addiction as related to food, CBT techniques, strengths perspective, goal setting, other Client Response:: Client responded well to session, open to meeting with therapist. Client reports he has been feeling overall more positive over the past week. Discussed feeling proud that he has successfully challenged himself to get back into crocheting as this has been a major support for him in the past. Shared that he has additionally be reaching out to familial support on a more regular basis and has been spending increased time visiting his cousin who is a primary support person as well. Pt reports these visits remain the only times he leaves the house outside of attending medical appointments. Discussed with pt the importance of a strong social support system in continuing to promote progress and reduce mental health sx. Pt shared insight that expanding his supports would reduce isolation and loneliness, as well as allow him to more consistently engage in activities outside of his apartment. Shared struggling with anxiety about meeting new people and fears being judged by others. Open to challenging these thoughts and begin exploring possible social activities he would be open to easing himself into becoming involved in while having the support of the IOP program. Went on to discuss pt?s physical self-care as he often wears stained or ripped clothing to groups. Discussed having several articles of clothing that are comforting to him which is why he continues to wear them even when ripped or stained. Went on to discuss however that his apartment is uncomfortable at times as pt is often confined to his room due to his furniture being worn to the point that it sits very low to the ground and pt fears he will not be able to get back up after sitting down. Notes wanting to get new furniture but as fearful of doing so as he does not want to risk breaking it due to his weight. Became tearful and discussed a variety of other areas of his life that are limited by his weight. Shared this has had s ignificant impacts on his mental health and self-esteem. Revealed that at times he struggles with thoughts of wishing his physical health would deteriorate to the point of killing him. Pt noted not actively wanting to but that he feels trapped by his size. Discussed several prior attempts at weight loss and indicated feeling hopeless after these were not successful. Receptive of discussion on the psychologically addictive components of sugar and overeating. Connected with feeling he eats compulsively and that he does not know how else to trigger dopamine levels in his brain to feel happy. Discussed using food as a means of coping with happy and sad emotions and feeling uncomfortable if he does not have it as a comfort during times of changing emotion. Receptive of discussion on seeking professional help in addressing the psychological component of binge eating. Reports wanting to discuss further with his supports this weekend and will continue this discussion next week. Risks/Concerns:: Client reports passive thoughts of not wanting to wake up; however, denies any active suicidal ideations, plan, or intent as of 06/21/21. Future oriented and able to identify protective factors. Denies homicidal ideations. Progress Toward Goals/Plan:: Client reports progress with continued improved self-care and small goal completion. Reports that he has successfully been able to reach out to familial support more and feels his mood has improved as a result. Discussed feeling accomplished and proud that he has beun re-engaging in margoth which has been a healthy emotion release and distraction skill. Pt continues to struggle with isolation and lack of support outside his family. Is open but apprehensive of pursuing additional external support options. Pt reports he has been struggling with his physical and emotional health surrounding his current weight. Reports that this is often the trigger for his passive thoughts of and maintains isolative and avoidant tendencies. Receptive of beginning discussions on seeking eating disorder treatment to address psychological components of binge eating disorders. Time Stopped:: 10:05
--- NOTE | 2021-06-27 09:04 | BH.SGPN.GN ---
Behaviors/Verbalizations/Mental Status: [] Eye contact is good. Motor activity is appropriate. Appearance is casual, grooming disheveled AEB stains and holes on sweatshirt. Speech is Appropriate. Mood is irritable, dysthymic. Affect is constricted. Thoughts are linear and logical. No evidence of psychosis. Reviewed daily check in sheet and no reports of suicidal ideations or intent. Client Response/Progress/Benefit: [] Pt receptive of session, attentive and willing to share. Discussed his hol and shared he was able to use skills of taking timed breaks, reading, and deep-breathing to remain at his family gathering despite experiencing increased anxiety at various moments. Noted this is a win as he would typically isolate and not return to the group. Additional win id not taking any leftover food home with him. Went on to share a current stressor as his mother trying to encourage him to attend rastafarian when he does not identify with any quaker. Appeared to benefit from group supportive feedback and suggestions. Recommended continued IOP tx to improve emotion regulation skills, further increase social supports, and prevent decompensation. Narrative Note: []
--- NOTE | 2021-06-27 10:10 | BH.SGPN.GN ---
Behaviors/Verbalizations/Mental Status: []Client alert and oriented, casually dressed and groomed. Eye contact fair. Motor activity appropriate. Speech within normal limits. Affect congruent, mood depressed. Thoughts linear, logical, no signs of hallucinations or delusions. Client Response/Progress/Benefit: []Client responded well to session AEB contributing to session and listening attentively to others. Client connected to the topic of making change, discussing barriers to change and the thought of ?who will I be if I change??. Client expressed discomfort with change , stating ?change stinks?. Client participated in the emotion pictionary activity, and was able to relate how each emotion could be experienced in relation to change. Client also participated in discussion regarding the stages of change and the feelings that accompany them. Identified that in the precontemplation stage, thoughts of ?What?s wrong with me?? ?Why do I have to change?? are likely to come up. Client seemed to benefit from increasing awareness of stages of change and the range of emotions that come with making change. Progress noted in client sharing personal feelings and being vulnerable in group. Will continue IOP treatment to decrease ruminating thoughts, prevent decompensation, and improve application of healthy coping skills. Narrative Note: []
--- NOTE | 2021-06-27 11:10 | BH.SGPN.GN ---
Behaviors/Verbalizations/Mental Status: []Client alert and oriented, disheveled appearance. Eye contact good. Motor activity appropriate. Speech within normal limits. Affect flat, mood depressed. Thoughts linear, logical, no signs of hallucinations or delusions. Client Response/Progress/Benefit: []Client responded well to session, attentive and contributing, but he reports today is ?a bad day? so he was more quiet than usual. Did well to process activity and work with group to relate the barriers and strategies used to overcome the barriers to managing change in own life. Client reminded group members that working on a goal should not be a competition or comparison to others. Client identified a change client would like to make as exercising. Client reports belief he is in the contemplation stage as client can see positives to changing, but he struggles with all or nothing thinking. Client also shared ?exercise has never made me feel better.? Client received ideations for making exercise more enjoyable from peers such as swimming. Appeared to benefit from identifying a small goal to work towards. Client will continue IOP tx to prevention decompensation, increase physical self-care, and challenge distorted thought patterns. Narrative Note: []
--- NOTE | 2021-06-28 08:40 | BH.MDN_ITS ---
Multi-Disciplinary Note - Note 60-min Individual Time Started:: 10:40 Date: 06/28/21 Purpose of session/treatment goals addressed:: To work on goals #1 & #2 of client's tx plan and to address current stressors, as well as barriers to healthy change behaviors. Eye Contact:: Good - tearful throughout Motor Activity:: Restless - often playing with his fidget spinner Appearance:: Disheveled - clothing stained and torn, continues to decline needing clothing resources Speech:: Appropriate, Soft Mood:: Anxious, Depressed Affect:: Congruent Thoughts:: Linear, Logical, No evidence of hallucinations/delusions noted Staff Interventions:: motivational interviewing, psychoeducation on: - addiction and the brain, decisional balance, mindfulness skills - deep breathing, treatment planning, goal setting, taught coping skills - reviewed healthy self- soothing skills, other Client Response:: Client responded well to session, open to meeting with therapist. Client reported he was not completely honest about know knowing why he had been anxious and irritable during group the previous date. Discussed that he had actually been struggling with the upcoming anniversary of his sister?s , which is today. Explained that he is unsure why but as he has grown older this anniversary date has become harder to cope with. Became tearful and noted feeling guilty that he has a more difficult time coping with his sister?s anniversary than his father?s. Receptive of sending a few moments engaging in deep breathing before continuing to process. Once calmer and able to regulate, client worked with therapist to identify thoughts and emotions surrounding this date that make it difficult. Identified guilt that he has had experiences his sister never will and sadness that he will never see her grow or have a family of her own. Therapist worked with client to normalize the variation of grief responses. Expressed that he often spends a majority of this date isolating, crying, and using food to self-sooth until visiting his sister?s grave with his mother. Able to identify the impact his current coping behaviors have had on his own mental and physical health. Client shared that in emotionally distressing times, food is the only comfort he finds to be effective. Shared that skills of reading or crocheting are too difficult to focus on and don?t provide the release needed. Willing to discuss with therapist the importance of developing healthy self-soothing skills outside of comfort eating. Client shared that he has wanted to do things like go swimming, on walks, or glassblowing; but, his current weight has limited his physical capabilities at this time. Receptive of working to identify skills he can use to self-sooth such as soaking his feet, playing with silly putty, and deep breathing. Additionally, client was receptive of conversation revisiting eating disorder specific treatment to further improve his ability to change healthy coping behaviors. Discussed concerns, as well as began to create a decisional balance regarding the treatment. Client willing to write down questions specific to seeking residential treatment, as well as complete his decisional balance regarding taking this step. Risks/Concerns:: Client denies any suicidal ideations, plan, or intent as of 06/28/21. Denies any homicidal ideations. Client?s weight and ongoing difficulties in addressing unhealthy coping continues to put his physical health at a significant risk as client has several heart issues. Progress Toward Goals/Plan:: Progress is variable. Client continues to make strides in implementing healthy skills at home such as crocheting and reaching out to familial supports; however, struggles with in the moment distress tolerance skills. Client self-reports that binge-eating is his primary coping mechanism and that this has significantly impeded his ability to socialize, maintains unhealthy thinking patterns and beliefs about self, as well as results in shame and overwhelming guilt. Client discusses a desire to change and has been receptive of referral resources, but continues to have apprehension about doing so. Will continue IOP tx to combat distorted thought patterns that reinforce depression, increase self-awareness, and improve emotion regulation skills. Time Stopped:: 11:38
--- NOTE | 2021-06-28 09:05 | BH.SGPN.GN ---
Behaviors/Verbalizations/Mental Status: []Client alert and oriented, disheveled appearance. Eye contact fair. Motor activity restless. Speech within normal limits. Affect flat, mood depressed. Thoughts linear, logical, no signs of hallucinations or delusions. Reviewed client?s symptom tracker, no risk for suicidal ideation, plan, or intent as of 06/28/21 Client Response/Progress/Benefit: C[]Client quiet, but when prompted chose to share during check-in. Client reports feeling depressed and grieving this morning. Client shared the reason he has been more down lately is because today is the anniversary of his sister passing away. Client stated it's been almost 30 years it's silly that I still feel this way. Therapist and peers provided emotional support to client and allowed client to verbally process his grief. Client identified coming to IOP today as a win as client reported he knew being at home would not be helpful today. Client appeared to benefit from connecting with peers and processing his emotions in a safe environment. Progress continues to be limited due to ongoing stressors, but client has started crocheting again which is progress. Will continue IOP tx to prevent decompensation, combat distortions, and improve physical self-care. Narrative Note: []
== END 2021-06-28 23:59 ==
LOC: BHIOP 09:00
PROVIDERS: PCP Nurse Practitioner Adult Health; Referring Provider Psychiatry & Neurology Psychiatry; Visit Provider Psychiatry & Neurology Psychiatry
DX: F33.2 Major depressive disorder, recurrent severe without psychotic features (principal); F41.1 Generalized anxiety disorder; E66.01 Morbid (severe) obesity due to excess calories; I10 Essential (primary) hypertension; J44.9 Chronic obstructive pulmonary disease, unspecified; I48.91 Unspecified atrial fibrillation; G89.29 Other chronic pain; Z79.899 Other long term (current) drug therapy
CPT/HCPCS: 90792; 99213; H2012; H2020; S9480; 90832; 90837

== ENCOUNTER 2021-06-29 09:00 | Outpatient (RCR) | payer MEDICAID, SELFPAY ==
--- NOTE | 2021-06-29 09:00 | BH.SGPN.GN ---
Behaviors/Verbalizations/Mental Status: [] Eye contact is good. Motor activity is appropriate. Appearance is disheveled. Speech is Appropriate. Mood is depressed. Affect is flat. Thoughts are linear and logical. No evidence of psychosis. Reviewed daily check in sheet and no reports of suicidal ideations or intent. Client Response/Progress/Benefit: [] Pt was an active participant in group discussion. Attentive. Provided appropriate feedback. Unable to identify any mental health wins except to say I'm better than yesterday. Yesterday was anniversary of his sister's . Visited cemetery with his mother however he reports that she was very focused on talking about amish to him even after he set boundaries with her. Group provided feedback and empathy regarding managing other's who continually don't respect boundaries. Struggling to utilize skills. Isolated. No progress noted per pt report. Benefited from group support, encouragement, and feedback. Will continue in IOP to maintain safety, increase healthy coping, and improve daily functioning. Narrative Note: []
--- NOTE | 2021-06-29 10:12 | BH.SGPN.GN ---
Behaviors/Verbalizations/Mental Status: []Eye contact is good. Motor activity is restless, loudly fidgeting with fidget spinners. Appearance is casual and grooming disheveled - continues to wear same stained and torn clothing. Speech is Appropriate. Mood is anxious and euthymic. Affect is congruent. Thoughts are linear and logical. No evidence of psychosis Client Response/Progress/Benefit: []Pt was an engaged participant in group discussion, providing input and was attentive during psychoeducation. Participated in short activity about automatic thoughts and shared that mood and current environment can impact automatic thoughts. Group was primarily educational; therapist introduced and gave examples of the most common cognitive distortions. Benefited from education and increased awareness of cognitive distortions and the role that they play our behaviors and emotions. Pt reported connecting with distortions such as emotional reasoning, predicting the future, and all or nothing thinking. Pt shared personal distortion he struggles with as ?I always go back to eating my emotions, so why bother trying something different??. Will continue IOP tx to challenge distortions that reinforce depression and anxiety while increasing ability to function. Narrative Note: []
--- NOTE | 2021-06-29 11:20 | BH.SGPN.GN ---
Behaviors/Verbalizations/Mental Status: []Eye contact is good. Motor activity is appropriate. Appearance is casual. Speech is Appropriate. Mood is euthymic, slightly anxious. Affect is congruent. Thoughts are linear and logical. No evidence of psychosis. Client Response/Progress/Benefit: []Pt was an engaged participant AEB pt providing input throughout group discussion and activity. Attentive during psychoeducation on cognitive distortions not discussed in previous group. Pt was an actively engaged participant in Cognitive Distortions Jeopardy, providing input and suggestions to small group. Utilized notes from psychoeducation on cognitive distortions to assist peers in correctly answering questions. Experiential activity was beneficial as it provided a way for patient to review notes and handouts during psychoeducation to answer questions for the game. Will continue in IOP tx to improve ability to manage stressors impacting ability to function at baseline, challenge negative thought patterns and prevent decompensation.
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
--- NOTE | 2021-06-29 12:40 | BH.TPR ---
Treatment Plan Review Date of Admission:: 05/31/21 Date of Treatment Plan Review:: 06/29/21 Admitting Diagnoses:: Major depressive disorder, recurrent, severe without psychosis, Persistent depressive disorder or dysthymia, Generalized anxiety disorder Current Diagnoses:: Major depressive disorder, recurrent, severe without psychosis, Persistent depressive disorder or dysthymia, Generalized anxiety disorder Patient's Response to Treatment:: Pt?s engagement has been consistent throughout his time in IOP. Pt is often actively engaged and does well to contribute to discussions. Pt completes all homework assigned, is able to connect with peers, and reports actively applying some healthy coping skills. Pt does however indicate giving up easily on using healthy skills when experiencing setbacks or barriers. Pt?s attendance is consistent, and he is complicate with medications. Pt?s overall DSM-5 scores have increased, due to reported decreased sleep; however, has seen a reduction in depression and anxiety symptoms. Status of Current Problems and Symptoms: Pt's symptoms of anxiety and depression are resolving, but pt continues to report internal conflict specifically related to impulse control and moderation. This is specific to client?s binge eating disorder. Open to exploring tx recommendations. Additionally, noted that he has been struggling with sleep. Pt recently experienced a significant stressor, the anniversary of his sister?s , which may also be impacting his symptoms as well. Reports poor sleep. Problem #1 Problem Name:: Anxiety Status of Goals:: Objective 1- complete with ongoing work encouraged. Client has learned about the different types of cognitive distortions and can more easily identify them, though struggles with doing so in the moment. Often able to recognize distorted thoughts when reflecting back upon a situation which made him anxious. Client has been practicing using calming skills such as his fidget spinners. Deep breathing, and margoth to ease anxiety. Additionally, utilizing his supports and thought challenging skills more frequently, though encouraged to continue to focus on these areas. Client has seen a small reduction in overall anxiety per DSM-5 score reduction of 11% and self-report. Objective 2- ongoing work encouraged. Client reports less avoidance behaviors when it comes to his family and is more actively reaching out and spending time with his support. However, client continues to struggle with finding healthy social supports outside of his family system. Often fixates on barriers or why he believes he will not be successful. Identifies his weight as a major contributing factor to avoidance and isolation behaviors as he has had past negative experiences and fears other?s will talk negatively about him or make fun of his weight, that he will break something, or not feel comfortable in the environment. Receptive of resources for addressing his binge eating disorder on a psychological and physical level. Team Recommendations:: Continue to work on identifying triggers/warning signs for anxiety and implementing healthy skills for coping. Will focus on self-soothing skills that are healthy. Continue to make connections to resources for additional support with his eating disorder. Problem #2 Problem Name:: Depression Status of Goals:: Objective 1- in progress. Client?s DSM-5 scores for depression reduced by 33% since admission. Client?s continues to deny any thoughts of actually hurting himself since [facility] admission. Client also reports utilizing healthier coping skills to manage depression such as crocheting, small goal setting, and reaching out to supports when feeling upset. Continues to struggle significantly with relying on food as his primary coping mechanism which reinforces both physical and psychological problems and has limited several of the coping skills client has identified as wanting to engage in if her were physically able to. Objective 2- in progress. Client is currently working on identifying his negative thought patterns which reinforce depression. Many of client?s negative thought appear to be exacerbated by his weight which he shares significantly impacts his self-esteem and sense of self-worth. Identifies the importance of addressing his unhealthy coping via compulsive eating in order to begin improving his ability to challenge and replace some of his more significant negative self-talk messages. Team Recommendations:: Continue to work on identifying triggers/warning signs for depression, including negative core beliefs. Continue to encourage implementing healthy skills for coping. Will focus on self-soothing skills that are healthy. Continue to make connections to resources for additional support with his eating disorder as well as to improve social supports.
--- NOTE | 2021-06-29 14:44 | BH.COMM ---
Communication Note - Communication with Client Communication Note: IOP program nurse was able to contact dietary and a referral was placed for client to begin receiving nutrition/dietary services. Will continue to follow-up.
--- NOTE | 2021-07-04 10:13 | BH.SGPN.GN ---
Behaviors/Verbalizations/Mental Status: []Client alert and oriented, casually dressed and groomed. Eye contact fair. Motor activity restless-crocheting during session. Speech within normal limits. Affect congruent, mood euthymic. Thoughts linear, logical, no signs of hallucinations or delusions. Client Response/Progress/Benefit: []Pt was well engaged in group AEB taking notes, providing input, and listening attentively throughout. Group identified potential barriers to goal setting to include: lack of confidence, lack of resources, fear of success, fear of change, and setting unrealistic expectations. Pt reported he struggles the most with all or nothing goal setting and ?what if? thinking. Group also worked together to identify benefits to goal-setting which include: improves relationships, increases motivation, personal growth, and improves mental health. Benefited from increased awareness of benefits and barriers to goal-setting. Progress noted as client has been continuing to margoth and is considering treatment for eating disorders. Will continue IOP tx to reduce cognitive distortions, increase self-care, and improve functioning. Narrative Note: []
--- NOTE | 2021-07-04 11:10 | BH.SGPN.GN ---
Behaviors/Verbalizations/Mental Status: []Client alert and oriented, casually dressed and groomed. Eye contact fair to good. Motor activity appropriate. Speech within normal limits. Affect constricted, mood anxious. Thoughts linear, logical, no signs of hallucinations or delusions. Client Response/Progress/Benefit: []Pt was an active participant in group discussions and activities. Engaged in activity. Pt identified a SMART goal for the next week is to: walk with one IOP staff member every time attends group. Pt reported this would benefit his mental health by ?feeling healthier. Identified high expectations and feeling uncomfortable as a potential barrier to completing this goal. Pt able to identify several solutions, such as positive self-talk, that can help overcome identified barriers. Benefited from group by being able to utilize SMART educate to create a goal. Pt to continue IOP to continue use of healthy coping skills, challenge distorted thought patterns as well as prevent decompensation.
--- NOTE | 2021-07-05 09:05 | BH.SGPN.GN ---
Behaviors/Verbalizations/Mental Status: []Client alert and oriented, casually dressed and groomed. Eye contact good. Motor activity appropriate. Speech within normal limits. Affect congruent to topics discussed, mood anxious. Thoughts linear, logical, no signs of hallucinations or delusions. Reviewed client?s symptom tracker, no risk for suicidal ideation, plan, or intent as of 07/05/21 Client Response/Progress/Benefit: C[]Client responded well to session, receptive to feedback from peers. Client reports feeling tired this morning and he was initially unsure why, but then gained awareness his fatigue was due to increased physical activity yesterday. Client shared yesterday was overall a good day as client did a lot of crocheting and talking with supports. Client stated today was the first time he ever had the thought of canceling his IOP session which is resulting in negative self-talk. Client shared he wanted to cancel because he was not looking forward to working on his goal, but he used opposite action and got to IOP. Receptive to group encouragement and ideas on how to increase follow through with goals. Appeared to benefit from challenging negative self-talk in the moment. Will continue IOP tx to increase physical self-care as it impacts mental health and to reduce negative self-talk. Narrative Note: []
--- NOTE | 2021-07-05 10:15 | BH.SGPN.GN ---
Behaviors/Verbalizations/Mental Status: []Client alert and oriented, casually dressed, hygiene appeared to be tended to. Eye contact good. Motor activity restless. Speech within normal limits. Affect congruent, mood euthymic. Thoughts linear, logical, no signs of hallucinations or delusions. Client Response/Progress/Benefit: []Client responded well to session, attentive and engaged throughout discussion and activity. The group identified benefits of failure as: learning new skills, gaining perspective, and helping individuals learn to succeed. Client stated you need failure when trying to create something new because it's the only way of finding out what doesn't work. Client reported failure can stop us from doing things that hurt or from going in the wrong direction. Client appeared to benefit from gaining awareness of the impact fear of failure can have on one?s mental health and wellbeing. Progress noted as client being able to challenge negative perspective. Will continue IOP to continue the use of healthy coping skills, challenge negative thoughts, and prevent decompensation. Narrative Note: []
--- NOTE | 2021-07-05 11:20 | BH.SGPN.GN ---
Behaviors/Verbalizations/Mental Status: []Client alert and oriented, casually dressed and groomed. Eye contact good. Motor activity appropriate. Speech within normal limits. Affect constricted, mood dysthymic and anxious. Thoughts linear, logical, no signs of hallucinations or delusions. Client Response/Progress/Benefit: []Client responded well to session, engaged in the experiential activity and attentive throughout group processing. Client completed the fear of failure worksheet and reported that fear of failure has kept client from ?being healthier? Client able to identify thoughts and behaviors that reinforce personal fear of failure which included: fear of success, fear of change, learned behaviors, distortions, and negative self-talk. Client attentive during discussion of the different strategies to help overcome fear of failure. Identified wanting to work on changing his learned behaviors by starting with small goals and celebrating his sucesses. Appeared to benefit from gaining self-awareness and learning strategies to overcome fear of failure. Client will continue IOP tx to combat distorted thoughts of self, reduce depression, and increase self-compassion. Narrative Note: []
--- NOTE | 2021-07-06 11:20 | BH.COMM ---
Communication Note - Communication with Client Communication Note: Spoke with client at this time to discuss EKG results and that it was okay for client to continue Celexa dose as ordered. Client states he has been taking Melatonin at night and has helped him with falling asleep and sleeping more at night. Client denies questions at this time.
--- NOTE | 2021-07-07 10:18 | BH.SGPN.GN ---
Behaviors/Verbalizations/Mental Status: []Client alert and oriented, casually dressed and groomed. Eye contact good. Motor activity appropriate, as times fidgetting. Speech within normal limits. Affect congruent, mood anxious and euthymic. Thoughts linear, logical, no signs of hallucinations or delusions.[] Client Response/Progress/Benefit: []Pt was an attentive participant AEB taking notes and contributing throughout. Attentive during psychoeducation on Conflict Styles ( Avoidant, Competing, Accommodating, and Collaborating). Participated in interactive group discussion on benefits of conflict.? Pt noted agreement that conflict is necessary to help get your needs met. Pt along with peers identified several reasons conflict is often avoided which included; anxiety, fear of other?s reaction, not wanting to face additional conflict, and negative past experiences. Pt reported connecting most with the avoidant conflict resolution style. Discussed that this has resulted in not getting his needs met and not feeling his opinion is heard. Benefited from increased awareness on conflict styles. Will continue in IOP to promote application of self-care, increase the use of healthy coping skills, and continue to improve ability to function. Narrative Note: []
--- NOTE | 2021-07-07 11:19 | BH.SGPN.GN ---
Behaviors/Verbalizations/Mental Status: []Client alert and oriented, casually dressed and groomed. Eye contact good. Motor activity restless, fidgeting throughout. Speech within normal limits. Affect congruent, mood anxious, dysthymic. Thoughts linear, logical, no signs of hallucinations or delusions. Client Response/Progress/Benefit: []Client engaged in session AEB actively participating in group activity and providing input during reflection exercise when prompted. Client did well to review his own approach to conflict in the activity versus how he approaches conflict outside group environment. Client reports his barriers to managing conflict are shutting down when overwhelmed, making assumptions, absolute thinking, and fear of other?s responses. Client wants to work on better managing conflict by taking more of a cooperative or competing approach. Shared he can do so by challenging himself not to make conclusions about other?s feelings or emotions. Appeared to benefit from gaining strategies to help client better manage conflict. Will continue IOP tx to reduce negative self-talk statements that reinforce depression and to improve overall functioning. Narrative Note: []
--- NOTE | 2021-07-07 16:24 | BH.MDN_ITS ---
Multi-Disciplinary Note - Note 45-min Individual Time Started:: 09:25 Date: 07/07/21 Purpose of session/treatment goals addressed:: To work on goals #1 & #2 of client's tx plan and discuss continued care referral resources. Eye Contact:: Good Motor Activity:: Appropriate, Restless - often fidgeting Appearance:: Casual Speech:: Appropriate Mood:: Anxious Affect:: Congruent Thoughts:: Linear, Logical, No evidence of hallucinations/delusions noted Staff Interventions:: thought challenging, motivational interviewing, psychoeducation on: - opposite action - behavior activation skills, discharge planning, strengths perspective, goal setting, other - provided PT and bariatric referrals Client Response:: Client responded well to session, engaged throughout. Client reported he spoke in process session about working on his goal to walk on days attending group meetings. Shared he has mixed feelings about this as he rationally knows this is a healthy and positive step towards his physical and mental health goals, but struggles with shame and embarrassment regarding his current capabilities. Willing to work with therapist to identify distortions and begin challenging these. Shared he is often ?all or nothing? when it comes to diet and exercise, at times going to extremes by fasting all day or pushing himself ?too far? physically. Noted that this results in feeling worse as he ends up either injuring himself or giving up. Able to recognize the physical and mental health risks of taking an ?all or nothing? approach to his health. Provided insight that he began to push himself to walk further than he had originally planned when working on this goal in group yesterday, resulting in feeling sore later on. Described feeling sad, frustrated, and ashamed as a result. Explained that he feels angry his physical health has declined more than he had thought and ashamed for not wanting to take better care of himself. Receptive of discussions regarding the mental health components of making long- term physical health changes. Connected with discussion reviewing client?s self- talk and willingness to give himself credit for the effort he is beginning to put into making healthy changes. Discussed not feeling he ?deserves it? and often ?bullies? himself. Receptive of challenging this mindset, reframing the goal as healthier physical and mental health choices rather than losing weight, as well as using self-compassion and identifying his motivations to improve his health. Shared wanting to ?feel better about myself?, feel ?accomplished?, reduce his risk of premature , and increase his supports and ability to e ngage with his niece and nephew. Discussed feeling he needs professional help to begin making more significant lifestyle changes and was receptive of bariatric referral resources, as well as being referred to physical therapy to improve ambulation. Risks/Concerns:: Client denies any suicidal ideations, plan, or intent as of 07/06/21. Denies any homicidal ideations. Client?s weight and ongoing difficulties in addressing unhealthy coping continues to put his physical health at a significant risk as client has several heart issues. Progress Toward Goals/Plan:: Progress noted. Client continues to make strides in challenging thought distortions as well as his perspective of self. Has been more open to the idea of making healthy change behaviors and is spending more time consistently reminding himself of the benefits in doing so. Continues to struggle significantly with self-esteem and negative self-talk, often impeding his ability to make consistent progress. Receptive of exploring longer term health and wellness referral options, however often struggles with follow through in these areas. Will continue IOP tx to combat distorted thought patterns that reinforce depression, continue to promote healthy change behaviors, and improve emotion regulation skills. Time Stopped:: 10:10
--- NOTE | 2021-07-11 09:07 | BH.SGPN.GN ---
Behaviors/Verbalizations/Mental Status: []Client alert and oriented, casually dressed and groomed. Eye contact good. Motor activity appropriate, at times restless. Speech within normal limits. Affect congruent, mood dysthymic and anxious. Thoughts linear, logical, no signs of hallucinations or delusions. Reviewed client?s symptom tracker, no risk for suicidal ideation, plan, or intent as of 07/11/21 Client Response/Progress/Benefit: []Client responded well to session, providing input to peers and willing to process with group. Client reports feeling blahhh? today as he reports having a difficult weekend. Shared that he was disappointed as Sunday was his mom?s birthday and he was unable to celebrate with her due to his family being in quarantine. Explained that this was the first year he had not spent her birthday with her and felt like a disappointment. Noted overall doing well to find positive ways to keep himself busy and refrain from ruminating. Receptive of suggestions provided by the group to find ways to still celebrate her birthday despite not being able to see her in person. Additional win noted as cooking his meals all weekend rather than ordering out which is a small goal towards healthier living that client has been working on. Appeared to benefit from group support and discussing skills client can use. Will continue IOP tx to continue to promote healthy change behaviors, improve small goal setting and thought challenging, as well as prevent decompensation. Narrative Note: []
--- NOTE | 2021-07-11 10:15 | BH.SGPN.GN ---
Behaviors/Verbalizations/Mental Status: []Client alert and oriented, neatly dressed and groomed. Eye contact fair. Motor activity restless. Speech within normal limits. Affect constricted, mood dysthymic. Thoughts linear, logical, no signs of hallucinations or delusions. Client Response/Progress/Benefit: []Client responded well to session, attentive and participating in discussion. Participated in discussion of things that can keep people feeling trapped or stuck in life including: avoidance, decreased confidence, give up easily and not try. Group discussed the connection between thoughts, emotions, and behaviors as well as how negative thinking can keep a person stuck. Client attentive during psychoeducation on maintenance cycles. Client able to identify negative thoughts that have kept client stuck which included I'll never be done. I used to be able to do way more. and Is all this even worth it. Appeared to benefit from gaining awareness of how negative thoughts reinforce mental health symptoms and keep people stuck. Will continue IOP tx to reinforce healthy coping skills, challenge negative thoughts and prevent decompensation.
--- NOTE | 2021-07-11 11:15 | BH.SGPN.GN ---
Behaviors/Verbalizations/Mental Status: []Client alert and oriented, disheveled appearance. Eye contact good. Motor activity restless-which is normal for client. Speech within normal limits. Affect flat, mood depressed. Thoughts linear, logical, no signs of hallucinations or delusions. Client Response/Progress/Benefit: []Client engaged during activity and discussion. Client worked in small group to apply skills learned to reframe own personal fixed thoughts. Appeared to benefit from suggestions provided by peers as client significantly struggled to reframe thinking. Therapist assisted client in identifying and reframing fixed thoughts as client was tearful. Client?s fixed thought was ?I?ll never be done working on myself? and client recognized he relates ?a lot? to all or nothing thinking. Client receptive to feedback from peers and reported that he may not be able to believe a different thought, but ?I?ll keep trying.? Benefitted from discussing benefits of growth mindset and brainstorming strategies for prompting growth-mindset. Will continue IOP tx to combat distorted thought patterns that continue to reinforce depression and lack of motivation. Narrative Note: []
--- NOTE | 2021-07-13 09:00 | BH.SGPN.GN ---
Behaviors/Verbalizations/Mental Status: []Eye contact is fair. Motor activity is appropriate. Appearance is disheveled. Speech is Appropriate. Mood is dysthymic. Affect is constricted. Thoughts are linear and logical. No evidence of psychosis. Reviewed daily check in sheet and no reports of suicidal ideations or intent. Client Response/Progress/Benefit: []Pt responded well to session AEB pt listening attentively to peers and sharing thoughts with group. Pt reported he has been struggling since Sunday evening due to not being able to challenge his negative thought patterns. Pt stated he would challenge one distorted thought but then several more negative thoughts would follow. Pt reported he has felt like he was going crazy. Pt receptive to feedback from therapist about engaging in a distraction activity after trying to challenge negative thoughts without relief. Pt stated additional stressor is finding out his mom is in the hospital with pneumonia. Pt expressed concern for his mom's health and recognizes his anxiety is heightened. Identified mental health positive as trying to use his skills. Seemed to benefit from support and feedback from peers. Pt to continue IOP to continue practicing challenging Narrative Note: []
--- NOTE | 2021-07-13 10:15 | BH.SGPN.GN ---
Behaviors/Verbalizations/Mental Status: []Client alert and oriented, disheveled appearance. Eye contact good. Motor activity restless which is normal for client. Speech within normal limits. Affect constricted, mood euthymic-improved from process group. Thoughts linear, logical, no signs of hallucinations or delusions. Client Response/Progress/Benefit: []Client engaged in session AEB taking notes, contributing to discussion, and providing examples throughout. Client assisted group with identifying benefits of setting boundaries such as ?helps us not crash,? preventing more harm, less anxiety and stress, and better quality of life. Client also identified personal barriers to setting boundaries such as fear of change and having a hard time saying no. Listened during psychoeducation on different types of boundaries. Client seemed to benefit from increased awareness of how boundaries impact mental health and the different types of boundaries there are. Client reports struggling this week due to his mother being in the hospital and difficulty challenging negative thoughts. Will continue IOP tx prevent decompensation, increase physical self-care, and combat distortions. Narrative Note: []
--- NOTE | 2021-07-13 12:07 | PCM.BH.PN_ITS ---
Progress Note Progress Note: History of Present Illness/Interim History: [] The patient is a 35-year-old single male with a history of morbid obesity, depression and anxiety who is seen in follow-up at the [facility] behavioral health IOP program. I last saw the patient about 4 weeks ago and at that time his Celexa was increased to 30 mg p.o. daily. A EKG was obtained and was within normal range. The patient feels that the increased dose of Celexa has helped his mood somewhat. He still remains depressed but he feels he is less depressed than before. He denies hopelessness. He still has some passive thoughts that he would not care if he but he denies suicidal ideation, plan for suicide, homicidal ideation, hallucinations or delusions. He is somewhat stressed by his mother being back in the hospital again. He also was disappointed to find out that the eating disorder program we referred him to said that he is too obese to attend their program. He is still crocheting and enjoying this and in fact showed a picture of a turtle he is crocheting. His panic attacks have decreased greatly and he only has 1-1 about twice a week now. He really feels he is learning valuable skills at the IOP program and especially has been able to cope with understanding and changing his all or none thinking. He has taken melatonin which is also helped his sleep which has improved. Current Psychiatric Medications: [] Trileptal 300 mg in the morning and 450 mg p.o. nightly; Topamax 150 mg daily; Wellbutrin XL 450 mg p.o. every morning; Celexa 30 mg p.o. daily (x3 weeks or more now dose); melatonin; vitamin D Mental Status Examination: [] The patient is a morbidly obese male who is seen wearing a mask due to the pandemic and is casually dressed and groomed with good hygiene. He has no psychomotor agitation or retardation. Eye contact is good and speech is normal rate and rhythm and fluent with no pressure. Mood is depressed. Affect is full and normal. Thought process is goal-directed and organized. Thought content: The patient wishes that he could attend the IOP program for a very long time as he thoroughly enjoys it. There is evidence of passive thoughts of rarely now. There is no evidence of suicidal ideation, homicidal ideation, plan for suicide, hallucinations or delusions. Judgment is intact. Insight is good. Impulsivity is low to moderate. Diagnoses: [] 1. Major depressive disorder, recurrent, severe without psychosis 2. Persistent depressive disorder or dysthymia 3. Generalized anxiety disorder 4. Morbid obesity 5. Binge eating disorder 6. Hypertension, asthma, congestive heart failure, chronic pain, history of A. fib 7. Primary support and loss issues Plan: [] The patient will continue the IOP program at [facility] as the structure, support, education and group therapy will hopefully prevent worsening of the patient's symptoms. He felt safe during the interview and if that he does not feel safe at any time he will let us know or go to the emergency room. The risk, options, possible complications and side effects of medications were again discussed with the patient and he understands and accepts these. No medication changes were made today. The patient will continue to follow-up with his outpatient medical and psychiatric providers.
--- NOTE | 2021-07-15 10:10 | BH.SGPN.GN ---
Behaviors/Verbalizations/Mental Status: []Eye contact is good. Motor activity is appropriate. Appearance is casual, hygiene fair. Speech is Appropriate. Mood is dysthymic. Affect is constricted. Thoughts are linear and logical. No evidence of psychosis. Client Response/Progress/Benefit: []Pt was an active participant in group discussion AEB taking notes and providing input throughout. Attentive during psychoeducation reviewing internal and external obstacles and provided examples throughout. Participated in the reflection activity in which clients riri pictures depicting their current and desired reality and shared with the group. Pt stated current reality feels like he has four heads because thoughts and emotions are all over the place. States he feels overwhelmed and hopeless. Reported desired reality is to feel more stable, able to manage thoughts more effectively and manage daily stressors more effectively. Benefited from group by increasing current awareness and expectations for progress. Pt to continue IOP to increase healthy coping skills, challenge distorted thoughts, give self credit for positives and prevent decompensation.
--- NOTE | 2021-07-15 11:10 | BH.SGPN.GN ---
Behaviors/Verbalizations/Mental Status: []Client alert and oriented, casually dressed and groomed. Eye contact good. Motor activity appropriate. Speech within normal limits. Affect congruent, mood anxious and dysthymic. Thoughts linear, logical, no signs of hallucinations or delusions. Client Response/Progress/Benefit: [] Client engaged during activity and provided group with ideas on how to cope with internal barriers that keep clients stuck from moving towards goals. Struggled at times with his own negative thoughts impeded ability to fully remain present in discussion, at times seeming distracted by own thoughts. Client able to identify personal barriers to their desired reality, which included: low motivation, not asking for help, not giving himself credit, distorted thoughts, and negative self-talk. Client wants to work on reducing distorted thoughts by practicing reframing through small steps each day. Reports this will aid in further improving overall confidence and ability to cope. Benefited from group by identifying personal obstacles and potential solutions to desired reality. Client will continue IOP tx to reduce anxiety symptoms, improve overall functioning, and decrease negative thinking. Narrative Note: []
--- NOTE | 2021-07-15 16:16 | BH.MDN ---
Multi-Disciplinary Note - Note 45-min Individual Time Started:: 09:23 Date: 07/15/21 Purpose of session/treatment goals addressed:: Reviewed current symptoms and progress in IOP. Addressed progress on treatment plan goals. Discussion on aftercare. Eye Contact:: Good - tearful at times Motor Activity:: Appropriate Appearance:: Casual Speech:: Appropriate Mood:: Euthymic, Anxious Affect:: Congruent Thoughts:: Linear, Logical, No evidence of hallucinations/delusions noted Staff Interventions:: thought challenging, motivational interviewing, discharge planning, strengths perspective, goal setting Client Response:: Pt reports feeling much more stable today and indicated ?I?m doing better than I had been a few days ago?. Shared that he had learned his niece had contracted COVID-19, his mother was recently hospitalized with pneumonia, and he knows IOP discharge date is coming up soon. Pt explained that increased anxiety related to these stressors had impeded his ability to effectively challenge his negative thoughts and resulted in increased self-criticism. Noted increased thoughts of ?I?m not as far in treatment as I had hoped? and labeling himself as a failure. Pt did well to identify skills used to challenge these distortions and improve his mood. Skills included reminding himself ?it?s okay to take a break when you?re overwhelmed?, challenging all or nothing thoughts by using more self-compassionate statements, and beginning to keep an accomplishment log to identify progress when struggling to see it. Addressed anxieties about IOP discharge next week and therapist encouraged pt to get back into [facility] as a support resource, as well as attend a weekly crocheting group at his local library. Discussed aftercare plans which include beginning the [facility] Aftercare program, beginning services with nutrition/dietary at the hospital, and begin process of getting into a bariatric weight loss program. Discussed working with his nurse case management to additionally become connected with transportation services for these various upcoming medical appointments. Reports feeling anxious about making changes to his physical health as he has struggled with becoming overwhelmed and quitting in the past. Also noted fear of losing his ?personality? by changing his weight. Able to challenge these thoughts and identify benefits to his mental health, as well as ways he will continue to be ?himself? despite how his physical health changes. Risks/Concerns:: Denies any suicidal ideations, plan, or intent as of this date 07/15/21. Progress Toward Goals/Plan:: Progress noted since starting IOP. Currently denies any SI, plan, or intent. Reports being more stable and was able to gain insight from groups and individual sessions. He is consistently improving in his ability to implement skills to better manage anxiety and depression. Improvement in ability to challenge urges to quit or give up when faced with a setback. Plan is to discharge next week. He is going to begin aftercare group and is in the process of being connected with nutrition services and physical therapy. Will continue counseling with Bisi Kemp in [place], case management through [facility], and psychiatry with Linda Moreno at [facility]. Time Stopped:: 10:14
--- NOTE | 2021-07-18 09:05 | BH.SGPN.GN ---
Behaviors/Verbalizations/Mental Status: [] Eye contact is good. Motor activity is appropriate. Appearance is disheveled. Speech is Appropriate. Mood is euthymic. Affect is full. Thoughts are linear and logical. No evidence of psychosis. Reviewed daily check in sheet and no reports of suicidal ideations or intent. Client Response/Progress/Benefit: [] Pt was an active participant in group discussion. Attentive. Provided appropriate feedback. Mental health wins included journaling everyday and seeing benefits. Talked at length regarding what he journals and his thoughts on why he thinks this has improved his mental health. Journaling his thoughts, accomplishment, stressors, and what he does during the day. He shared an event that led to rumination , guilt, and disappointment which he has been ruminating. Shared automatic thoughts associated with this event. Group was able to reframe and give different perspective which was helpful and beneficial to pt stating i never thought of it like that. Progress noted. Emotion for today is optimistic. Progress noted per pt report. Will continue in IOP to maintain gains, prevent decompensation, and improve functioning. Narrative Note: []
--- NOTE | 2021-07-18 10:10 | BH.SGPN.GN ---
Behaviors/Verbalizations/Mental Status: []Client alert and oriented, casually dressed and groomed. Eye contact good. Motor activity restless. Speech within normal limits. Affect congruent, mood anxious. Thoughts linear, logical, no signs of hallucinations or delusions. Client Response/Progress/Benefit: []Client was an engaged participant AEB contributing to discussion and staying engaged with group activity. Connected with the topic of pitfalls and helped the group discuss barriers that keep them from choosing a healthier path to mental wellness such as pitfalls. Group worked together to identify examples of personal pitfalls which included: lashing out, jumping to conclusions, social media, isolation and addictive behaviors. Client shared personal pitfalls as not giving self credit, comparing self to others, isolation, avoidance, and all or nothing thinking. Engaged during the activity by offering group members encouragement and problem solving techniques. Client benefited from group as learned personal barriers from improving mental health. Client will continue IOP to increase the use of healthy coping skills, reduce negative thinking, and prevent decompensation.
--- NOTE | 2021-07-18 11:10 | BH.SGPN.GN ---
b/Verbalizations/Mental Status: v[]Client alert and oriented, disheveled appearance. Eye contact good. Motor activity within client's baseline. Speech within normal limits. Affect congruent, mood euthymic. Thoughts linear, logical, no signs of hallucinations or delusions. Client Response/Progress/Benefit: []Client engaged throughout AEB client actively listening, taking notes, and at times contributing to discussion. Client completed worksheet identifying personal pitfalls impacting mental health progress. Client identified the following pitfalls: not giving himself credit, all or nothing thinking, isolation and avoidance, and comparing himself to others and ?my old self.? Group brainstormed different coping skills to help manage pitfalls. Client selected not giving himself credit as the pitfall client wants to overcome. Client plans to work on this by continuing to work on his accomplishment log and mood tracker. Benefited from identifying personal pitfalls and strategies to overcome these pitfalls. Will continue IOP tx to reinforce healthy coping skills and establish aftercare plan. Narrative Note: []
--- NOTE | 2021-07-20 09:15 | BH.MDN_ITS ---
Multi-Disciplinary Note - Note 45-min Individual Time Started:: 09:15 Date: 07/20/21 Purpose of session/treatment goals addressed:: The purpose of this session was to review client's progress in tx thus far, as well as review strategies that will promote mood stability and gains made in IOP. Another goal was to discuss discharge recommendations and process any current stressors. Eye Contact:: Good Motor Activity:: Appropriate, Restless Appearance:: Casual Speech:: Appropriate Mood:: Euthymic, Anxious Affect:: Congruent Thoughts:: Linear, Logical, No evidence of hallucinations/delusions noted Staff Interventions:: thought challenging, motivational interviewing - to identify areas of progress as well as areas for continues treatment focus post IOP discharge., CBT techniques - to address anxieties about upcoming discharge and challenge associated distortions., discharge planning, strengths perspective Client Response:: Client responded well to session, open to meeting with therapist. Client reports feeling he has made much progress since beginning IOP tx and feels more capable of managing his depression than he had several weeks ago. Discussed skills in which he has been applying to continue to manage mental health sx. These include crocheting, setting small daily goals around the house, going for small walks down his [place], beginning an accomplishment log, and actively working to challenge use of ?All or Nothing thoughts?. Client has struggled significantly with absolute thought patterns throughout treatments and at times this has impeded consistent progress. Reports he often becomes fixated on these thoughts or has a hard time identifying them in the moment. Reviewed several thought challenging skills he has been using to improve ability to challenge and reframe distortions. Describes self-talk messages he has been using as well. Client reports he is proud of the progress he has made but is sad to be leaving the IOP program. Reports fear he will revert to old behaviors and isolate now that he does not have the consistent support of the group setting. Worked with therapist on challenging this and identifying healthy supports he can continue to utilize post IOP discharge. Reports plans to begin making efforts to reach out to his friend, harmony King. Additionally, set a goal of giving [facility] another try, as well as starting to spend time in his apartment?s community room as well. Acknowledged the continued support he will have in the Aftercare program as well. Client reports he still wants to work on further reducing anxiety and moving towards improving consistency in working on the small goals he has set for himself. Risks/Concerns:: Client denies any suicidal ideations, plan, or intent as of 07/20/21. Hopeful and future oriented. Progress Toward Goals/Plan:: Pt's attendance in [facility] was consistent and he was consistently on time and ready to engage. Pt did well to actively incorporate the various treatment topics, skills, and activities into his own daily life, and has therefore seen significant progress since [facility] admission. DSM outcome measurements show a 65% decrease in overall symptoms since admission. DSM also shows a 67% reduction in scores on depression scale, 78% reduction on score in anxiety scale, and a 100% reduction on scores on the repetitive and intrusive thinking scales. Pt reports recognizing improvements in his own abilities to challenge distorted thoughts, specifically ?All or nothing? thoughts when recognizing them. He continues to put effort into his progress even when faced with setbacks or experiencing negative thoughts. He has made consistent progress in setting and working on small SMART goals. He is taking steps to improve both his physical and mental health and has plans to continue doing so with ongoing therapy, as well as beginning the path towards bariatric weight loss. Pt has made huge strides in improving self-care and getting back into activities he has previously enjoyed. Issues Still to be Addressed:: Would benefit from continued work on communication and challenging himself to reach out to social supports outside of his family. Recommended to continue with counseling to work on thought challenging skills, depression, anxiety, and overall mood management. Pt additionally given several referral resources to address his compulsive over eating which has played a significant role in pt?s physical health and mental wellness. Will continue with Bisi Kemp for individual counseling, next appt is 07/27/21. Continue with Linda Garrido at [facility] for m edication management, next appointment is 08/08/21. Appointment with [facility] on 07/25/21. Aftercare starts in July! The van will pick you up on 08/04/21 at 1:30pm! Time Stopped:: 10:02
--- NOTE | 2021-07-20 10:07 | BH.SGPN.GN ---
Behaviors/Verbalizations/Mental Status: []Eye contact is good. Motor activity is appropriate. Appearance is casual. Speech is Appropriate. Mood is anxious and euthymic. Affect is congruent. Thoughts are linear and logical. No evidence of psychosis. Client Response/Progress/Benefit: []Pt was an active participant in group discussion and activity. Attentive during psychoeducation on factors that build resiliency and providing input throughout. Worked with peers to define resilience and shared that resilience is ?bounciness. Or your ability to come back from something?. Pt engaged in discussion on benefits of resilience in promoting mental wellness. These included: improve self-confidence, feel more hopeful about the future, improve relationships, and better manage stress. Benefited from group by increasing awareness of mental health benefits of resilience. Additionally connected with discussion introducing 10 factors that can help build personal resiliency. Pt identified currently practicing resiliency factor of ?Move towards your goals?, sharing this has been an ongoing focus for him over the past 2 months. Will discharge from [facility] tx tomorrow and is encouraged to continue with outpatient counseling to maintain gains, continue to improve thought challenging and positive self-talk, as well as further improve use of healthy supports. Narrative Note: []
--- NOTE | 2021-07-20 11:15 | BH.SGPN.GN ---
Behaviors/Verbalizations/Mental Status: []Client alert and oriented, disheveled appearance. Eye contact good. Motor activity restless which is normal for client. Speech within normal limits. Affect constricted, mood anxious. Thoughts linear, logical, no signs of hallucinations or delusions Client Response/Progress/Benefit: []Client responded well to session AEB contributing to discussion and completing the resilience worksheet provided. Client participated in the discussion of how each resiliency component can help increase personal resiliency and worked cooperatively with group to identify strategies to enhance each of the components discussed. Client identifying doing well with the resilience component of moving towards his goals. Went on to reflect wanting to improve in the personal resilience component of ?Nurture a positive view of yourself?. Client stated he wants to work on giving himself more credit and ?believe it when people compliment me.? Client seemed to benefit from discussing strategies for improving personal resilience. Will continue IOP tx for one more day to reinforce healthy coping skills and continue to challenge distorted thought patterns. Narrative Note: []
--- NOTE | 2021-07-21 09:05 | BH.SGPN.GN ---
Behaviors/Verbalizations/Mental Status: []Eye contact is good. Motor activity is appropriate. Appearance is casual, disheveled. Speech is Appropriate. Mood is anxious. Affect is congruent. Thoughts are linear and logical. No evidence of psychosis. Reviewed daily check in sheet and no reports of suicidal ideations or intent. Client Response/Progress/Benefit: [] Pt responded well to session AEB pt listening attentively to peers and providing input and supportive feedback throughout. Pt reported he is feeling ?anxious but optimistic? today as this is his last day in the IOP program. Discussed that he is proud of some of the progress he has made while in the program but continues to struggle with giving himself credit for areas of improvement. Discussed using an accomplishment log has been helpful in this area. Additionally, discussed fears about maintaining gains post IOP discharge. Pt struggles significantly with absolute thinking patterns which often impedes his ability to challenge distorted thoughts; however, did well to do so with support of the group. Identified progress in improved small goal setting, reaching out to supports, and engaging in activities he enjoys. Shared plans to continue to work on these areas as well as challenging his thinking post IOP discharge. Seemed to benefit from supportive group environment. Pt to continue with outpatient counseling post discharge and will begin the aftercare program as well. Narrative Note: []
--- NOTE | 2021-07-21 10:10 | BH.SGPN.GN ---
Behaviors/Verbalizations/Mental Status: [] Eye contact is good. Motor activity is appropriate. Appearance is disheveled. Speech is Appropriate. Mood is euthymic. Affect is full. Thoughts are linear and logical. No evidence of psychosis. Client Response/Progress/Benefit: [] Pt was an active participant in group discussion and experiential activity. Attentive during psychoeducation. Group had an interactive discussion on the benefits of emotional regulation in which pt provided insight. Group identified several benefits to emotional regulation which included; less consequences, more stable relationships, improved communication, increased stability, decreased depression/anxiety, less impulsivity, decreased stress, and improved physical health. Group also was able to identify how emotions can impact our communication leading to; difficulty articulating our thoughts, saying things that one doesn't really mean, shutting down, confusion, and rambling. Pt participated in experiential activity which limited his ability to communicate with peers and shared how this impacted him. Benefited from increased awareness into how emotions can impact one's ability to effectively communicate. Plan is for patient to discharge from [facility] today after 7 weeks. Narrative Note: []
--- NOTE | 2021-07-21 10:36 | BH.DS_ITS ---
Discharge Summary - Demographics Date of Admission:: 05/31/21 Discharge Date: 07/21/21 Presenting Problems at Admission:: The patient is a 35-year-old male with a history of morbid obesity, depression, and anxiety who was referred by his outpatient counselor, Bisi Kemp, to the [facility] behavioral health IOP program. Pt was referred due to worsening symptoms of depression following several losses in the past year. Pt previously completed the [facility] IOP program in 2019 and reports his functioning had been improved until the COVID-19 pandemic. Reports becoming increasingly isolated as a result and was no longer able to attend supportive community services, such as [employer], due to being high risk. Pt remains homebound as well due to lack of vehicle. Reports his primary stressors include ongoing grief related to the loss of both grandfathers, an aunt, and his father over the past year. Shared he has been struggling to accept these losses and find healthy means of coping. Shared he has become increasingly isolated as a result. Pt lives alone but does occasionally visit his cousin and mother who are supports. Reports however that his mother struggles with mental health issues and was placed in an inpatient psychiatric hospital yesterday which has been an added stressor. Pt discussed that he often turns to reading and eating as primary means of coping. Notes that his binge eating during times of stress has become a significant issue as pt has gained over 75 pounds in the past year, putting his health at risk as he is now at a BMI of 87.5. At time of admission, pt endorsing loss of interest, low motivation, poor concentration, passive thoughts of he would not care if he were not alive, crying spells, feeling down/sad, hopelessness, apathy and anhedonia, increased worry and panic approx.. 2-3x/week. He denies homicidal ideation, hallucinations, delusions or symptoms of amari ever. Pt recommended IOP level of treatment due to current sx impacting his ability to function at baseline, complete daily responsibilities, engage with social supports, and practice self- care on a regular basis. Discharge Diagnoses:: Major depressive disorder, recurrent, severe without psychosis, Persistent depressive disorder or dysthymia, Generalized anxiety disorder Reason for Discharge:: Pt completed treatment plan goals and no longer meets criteria for IOP level of care. - Treatment Progress During Treatment & Response: Pt's attendance in IOP was consistent and he was consistently on time and ready to engage. Pt did well to actively i ncorporate the various treatment topics, skills, and activities into his own daily life, and has therefore seen significant progress since [facility] admission. DSM outcome measurements show a 65% decrease in overall symptoms since admission. DSM also shows a 67% reduction in scores on depression scale, 78% reduction on score in anxiety scale, and a 100% reduction on scores on the repetitive and intrusive thinking scales. Pt reports recognizing improvements in his own abilities to challenge distorted thoughts, specifically ?All or nothing? thoughts when recognizing them. He continues to put effort into his progress even when faced with setbacks or experiencing negative thoughts. He has made consistent progress in setting and working on small SMART goals. He is taking steps to improve both his physical and mental health and has plans to continue doing so with ongoing therapy, as well as beginning the path towards bariatric weight loss. Pt has made huge strides in improving self-care and getting back into activities he has previously enjoyed. Issues Still to be Addressed:: Would benefit from continued work on communication and challenging himself to reach out to social supports outside of his family. Recommended to continue with counseling to work on thought challenging skills, depression, anxiety, and overall mood management. Pt additionally given several referral resources to address his compulsive over eating which has played a significant role in pt?s physical health and mental wellness. Discharge Recommendations/Instructions:: Continue seeing Bisi! Your next appointment for individual counseling is 07/27/21. Continue with Linda Garrido at [facility] for medication management, next appointment is 08/08/21. Don?t forget your appointment with [facility] on 07/25/21. The van will pick you up at 1:30pm. Talk to them about a referral for a Bariatric Surgery program! It?s the first step towards many of the goals you have for activities you?d like to try in your life! Remember, physical therapy can be set up through [facility] with transportation services. They just need a referral from your doctor, Verenice Flores at [facility]. Please reach out to her. Also, don?t forget to use your rn field case manager, Monet, as a resource! She can help you with setting up transportation services if you need help. Lastly, Aftercare starts in July! The van will pick you up on 08/04/21 at 1:30pm! Discharge Handout: Complete Discharge Handout with client on aftercare options and continuity of care.
--- NOTE | 2021-07-21 10:55 | BH.AFTERPLAN ---
Aftercare Plan - Demographics Treatment End Date:: 07/21/21 Psychiatrist:: Armida Story Psychiatrist Office #:: [phone] [facility] Therapist:: Zayra Argueta Therapist Phone #:: [phone] - Plan Details Progress/Aftercare Plan Details:: Nahum's attendance in [facility] was consistent and Nahum was always on time and ready to engage. Because he did so well to actively incorporate the various treatment topics, skills, and activities into his own daily life, he has seen significant progress since [facility] admission. DSM outcome measurements show a 65% decrease in overall symptoms since admission. DSM also shows a 67% reduction in scores on depression scale, 78% reduction on score in anxiety scale, and a 100% reduction on scores on the repetitive and intrusive thinking scales. Nahum reports recognizing improvements in his own abilities to challenge distorted thoughts, specifically ?All or nothing? thoughts when recognizing them. He continues to put effort into his progress even when faced with setbacks or experiencing negative thoughts. Nahum has made consistent progress in setting and working on small SMART goals. He is taking steps to improve both his physical and mental health and has plans to continue doing so with ongoing therapy, as well as beginning the path towards bariatric weight loss. Nahum has made huge strides in improving self-care and getting back into activities he has previously enjoyed. Strategies for Success:: 1. Opposite Action!!! ? do what will help you, even when your brain is saying ?this is too hard? or ?I don?t feel like it?, even when it feels uncomfortable, even when you are tempted to give up, close yourself off, or fall back into unhealthy past coping behaviors. Doing the hard or the anxious thing is often the healthier option. 2. Challenge negative thought patterns by trying to look at things from the other perspective. Remember ?thoughts are thoughts, not facts?, especially those intrusive thoughts. They only have power if you give it to them. Ask yourself ?How else can I think about this?? ?Am I being extreme in how I?m looking at this?? ?Is there evidence against this thought??. 3. Remember that setbacks are just that ? setbacks. They do not mean you are starting over. Keep reminding yourself that you deserve compassion and a little kindness too. 4. Keep challenging yourself to find social activities that YOU enjoy and make YOU feel refreshed. Don?t hide yourself from the world! You deserve and have every right to engage with other! Strive to reach out to friends and supports and being your goofy awesome self, as well as letting them see the vulnerable and struggling side of yourself. 5. Continue to make time for yourself! Self-care is lino to maintaining progress and developing a healthier relationship with yourself! 6. COMMUNICATE, COMMUNICATE, COMMUNICATE. You are ALLOWED to set BOUNDARIES. 7. Reflect on where you've come and remember how resilient you have been. The Accomplishment log is important in maintaining the progress you?ve made! 8. Keep going to therapy! - Appointments Appointments/Referrals to Other Services:: Continue seeing Bisi! Your next appointment for individual counseling is 07/27/21. Continue with Linda Garrido at [facility] for medication management, next appointment is 08/08/21. Don?t forget your [facility]. The van will pick you up at 1:30pm. Talk to them about a referral for a Bariatric Surgery program! It?s the first step towards many of the goals you have for activities you?d like to try in your life! Remember, physical therapy can be set up through [facility] with transportation services. They just need a referral from your doctor, Verenice Flores at [facility]. Please reach out to her. Also, don?t forget to use your clinical case manager, Monet, as a resource! She can help you with setting up transportation services if you need help. Lastly, Aftercare starts in July! The van will pick you up on 08/04/21 at 1:30pm! - Medications Home Medications: Home Medications hydrochlorothiazide 25 mg PO DAILY 06/02/13 metoprolol tartrate 50 mg PO BID #60 tab 06/03/13 loratadine 10 mg PO DAILY 09/12/13 losartan 50 mg PO DAILY 09/13/15 vitamin B complex 1 ea PO DAILY 09/13/15 omeprazole 20 mg PO BID 09/18/17 cholecalciferol (vitamin D3) 1,250 mcg (50,000 unit) capsule 50,000 unit PO QWEEK 08/18/19 furosemide 40 mg tablet 40 mg PO DAILY 08/18/19 warfarin 1 mg tablet 1 mg PO QHS tab 08/18/19 oxcarbazepine 300 mg tablet 300 mg PO .COMPLEX 08/20/19 topiramate 100 mg tablet 150 mg PO BID tab 08/20/19 montelukast 10 mg tablet 10 mg PO DAILY 10/01/19 warfarin 10 mg tablet 10 mg PO DAILY tab 10/01/19 warfarin 2 mg tablet 4 mg PO DAILY 10/01/19 bupropion HCl 150 mg tablet,12 hr sustained-release 150 mg PO DAILY ea 02/10/20 allopurinol 100 mg PO DAILYCM 05/08/20 atorvastatin 40 mg tablet See Rx Instructions .ROUTE .COMPLEX #28 tablet 08/27/20 bupropion HCl 300 mg PO DAILY 06/01/21 isosorbide mononitrate 30 mg PO DAILY 06/01/21 potassium chloride 10 meq PO DAILY 06/01/21 citalopram [Celexa] 30 mg PO DAILY 30 Days #45 tab 06/15/21
--- NOTE | 2021-07-21 11:12 | BH.SGPN.GN ---
Behaviors/Verbalizations/Mental Status: []Client alert and oriented, neatly dressed and groomed. Eye contact good. Motor activity appropriate. Speech within normal limits. Affect congruent, mood anxious. Thoughts linear, logical, no signs of hallucinations or delusions. Client Response/Progress/Benefit: []Client engaged in session AEB client listening attentively to peers and providing input. Attentive during psychoeducation on 4 zones of regulation. Client able to identify feelings and behaviors for each zone. Client identified coping skills one can use to support self in each zone. Client stated belief that he is most often in the blue zone because more down and depressed. Pt stated he wants to work on using opposite action to help him get out of the blue zone when needed. Benefited from increased education on zones of regulation or stages of alertness for emotions and healthy coping skills to use for each zone. Pt has made significant treatment progress since starting IOP and will discharge today.
== END 2021-07-21 13:41 | disposition home or self-care (01) ==
LOC: BHIOP 09:00
PROVIDERS: PCP Nurse Practitioner Adult Health; Referring Provider Psychiatry & Neurology Psychiatry; Visit Provider Psychiatry & Neurology Psychiatry
DX: F33.2 Major depressive disorder, recurrent severe without psychotic features (principal); F41.1 Generalized anxiety disorder
CPT/HCPCS: 99213; H2012; H2020; S9480; 90834

== ENCOUNTER → 2021-07-04 09:04 | Outpatient (CLI) | payer MEDICAID, SELFPAY ==
--- NOTE | 2021-07-04 09:09 | EKG12_ITS ---
Test Reason : MED CHANGE Blood Pressure : / mmHG Vent. Rate : 087 BPM Atrial Rate : 084 BPM P-R Int : 000 ms QRS Dur : 114 ms QT Int : 394 ms P-R-T Axes : 000 042 064 degrees QTc Int : 474 ms Atrial fibrillation Abnormal ECG Confirmed by PARISH ADDISON, BERT ([id number]), newspaper copy editor TED BLUE ([id number]) on 07/05/2021 10:04:20 AM Referred By: Armida Story Confirmed By:BERT LUGO MD
== END ==
PROVIDERS: PCP Nurse Practitioner Adult Health; Referring Provider Psychiatry & Neurology Psychiatry; Visit Provider Psychiatry & Neurology Psychiatry
DX: Z79.899 Other long term (current) drug therapy (principal)
CPT/HCPCS: 93005

== ENCOUNTER 2021-07-25 14:05 | Outpatient (RCR) | payer MEDICAID, SELFPAY | END 2021-07-29 23:59 | LOC: NS 14:05 | PROVIDERS: PCP Nurse Practitioner Adult Health; Visit Provider Psychiatry & Neurology Psychiatry | DX: Z71.3 Dietary counseling and surveillance (principal); E66.01 Morbid (severe) obesity due to excess calories; Z68.45 Body mass index [BMI] 70 or greater, adult; I48.91 Unspecified atrial fibrillation; J45.909 Unspecified asthma, uncomplicated; K21.9 Gastro-esophageal reflux disease without esophagitis; I11.0 Hypertensive heart disease with heart failure; I50.9 Heart failure, unspecified; F41.9 Anxiety disorder, unspecified; F32.A Depression, unspecified | CPT/HCPCS: 97802 ==

== ENCOUNTER 2021-08-04 14:43 | Outpatient (RCR) | payer MEDICAID, SELFPAY ==
--- NOTE | 2021-08-04 14:00 | BH.SGPN.GN ---
Behaviors/Verbalizations/Mental Status: []Client alert and oriented, casually dressed and groomed. Eye contact good. Motor activity appropriate. Speech within normal limits. Affect flat, mood depressed. Thoughts linear, logical, no signs of hallucinations or delusions. Client Response/Progress/Benefit: []Client responded well to session, checked in using GAPS. Client?s emotion today is ?down? as client?s holidays were not want client expected and client is experiencing increased triggers due to starting with a securities dealer. Client reported he feels overwhelmed by the process of dieting because of client?s all or nothing thinking. Client shared ?I have a lot of bad thoughts when I diet? which in the past has led to client quitting when he does not follow the diet plan perfectly. Therapist and group provided gentle thought challenging and encouraged client to communicate his needs with the securities dealer. Receptive of discussion on self-talk and its influence in maintaining long-term mental health stability. Contributed to strategies for improving effective creation and application of believable personal affirmations. Client?s affirmational statements were ?everyone has talent including me? and ?it?s okay to not be ok.? Client to continue aftercare group to promote gains and further increase application of healthy coping skills. Narrative Note: []
--- NOTE | 2021-08-04 16:36 | BH.MTP ---
Master Treatment Plan - Patient Information Program Physician:: Dr. Armida Hadley Primary Therapist:: JORDAN Romero - Psychiatric Diagnoses Psychiatric Diagnoses:: Major depressive disorder, recurrent, severe without psychosis, Persistent depressive disorder or dysthymia, Generalized anxiety disorder Diagnosis Code(s):: F 33.2 - Estimated LOS Estimated LOS (in weeks):: 10 Problem/Goal #1 - Problem/Goal #1 Stated Goal:: Client will maintain or see a reduction in symptoms AEB client score on the DSM 5 cross-cutting measure and improve client's daily functioning. - Objectives Objective #1 Stated Objective: Client will continue to consistently apply healthy coping skills to maintain progress made in IOP tx. Interventions: Through group therapy, client will review warning signs and triggers as well as healthy coping skills learned in IOP tx to successfully maintain gains while transitioning into outpatient therapy. Discharge Criteria: Client will have accomplished this goal when client's score on the DSM-5 cross-cutting measure has either maintained or reduced over a 10 week period. Target Date: 10/06/21 Review Date: 09/01/21 Objective #2 Stated Objective: Client will learn and utilize 2-3 maintenance strategies to prevent decompensation. Interventions: Through group therapy, client will be provided with education on healthy maintenance behaviors, relapse prevention techniques, and healthy coping strategies. Discharge Criteria: Client will have accomplished this goal when can report using at least 2 maintenance skills to prevent decompensation. Target Date: 10/06/21 Review Date: 09/01/21
--- NOTE | 2021-08-11 14:00 | BH.SGPN.GN ---
Behaviors/Verbalizations/Mental Status: []Client alert and oriented, casually dressed and groomed. Eye contact good, at times tearful when sharing. Motor activity appropriate. Speech within normal limits. Affect congruent, mood anxious, dysthymic. Thoughts linear, logical, no signs of hallucinations or delusions. Client Response/Progress/Benefit: [] Pt responded well to session, engaged and remaining attentive and willing to participate in discussion throughout. Reports feeling ?a but wrecked? today as he has been struggling to follow the new diet he was suggested following an appointment with his systems admin. Shared feeling like a failure if he ?messes up? and struggling with distorted thoughts associated with this. Did well to challenge use of absolute thinking patterns which is progress as this is often difficult for pt. Additionally, noted plans to continue to make small steps towards improving his diet and exercise as he knows they are directly related to his mental health. Pt reports connecting with the topic of routine and structure and it?s importance in ongoing mental health maintenance. Pt engaged in brainstorming of various daily routine ideas. Pt completed task of identifying current routine practices as well as important tasks to begin more regularly implementing into a structured daily routine. Shared plans to begin incorporating regular meal prep into his routine to feel more prepared throughout the day. Pt seemed to benefit from support from peers and learning about benefits of routine. Pt to continue aftercare group to promote ongoing use of healthy coping, continue to challenge distortions, and prevent decompensation. Narrative Note: []
== END 2021-08-29 23:59 ==
LOC: BHOG 14:43
PROVIDERS: PCP Nurse Practitioner Adult Health; Referring Provider Psychiatry & Neurology Psychiatry; Visit Provider Psychiatry & Neurology Psychiatry
DX: F33.2 Major depressive disorder, recurrent severe without psychotic features (principal); F41.8 Other specified anxiety disorders
CPT/HCPCS: 90853

== ENCOUNTER 2021-08-26 12:27 | Emergency (ER) | payer MEDICAID, SELFPAY ==
[2021-08-26 12:29] VITALS: BP 125/79; PULSE 100; RESP 18; TEMP 36.8; O2SAT 98; BMI 78.7
--- NOTE | 2021-08-26 12:51 | EKG12_ITS ---
Test Reason : SOB Blood Pressure : / mmHG Vent. Rate : 091 BPM Atrial Rate : 086 BPM P-R Int : 000 ms QRS Dur : 110 ms QT Int : 366 ms P-R-T Axes : 000 020 057 degrees QTc Int : 450 ms Atrial fibrillation Nonspecific ST abnormality Abnormal ECG When compared with ECG of 04-JUL-2021 09:14, No significant change was found Confirmed by PARISH ADDISON, BERT ([id number]), image editor TED BLUE ([id number]) on 08/30/2021 8:44:17 AM Referred By: MINE Confirmed By:BERT LUGO MD
--- NOTE | 2021-08-26 12:53 | ED.VIS.DYS ---
HPI History of Present Illness Chief Complaint: Shortness of Breath Narrative Narrative: Patient presents from home via EMS with shortness of breath that has been increasing over the last week. He states he has past medical history of asthma, atrial fibrillation, and takes warfarin. He has been using his inhaler more frequently. He felt lightheaded and dizzy as if he were going to pass out because of his dyspnea on exertion. He is unsure if he had a fever because he does not have a thermometer at home, but subjectively felt hot. Additionally, he has a cough with green sputum production. He is experiencing chest tightness but no pain. No nausea or vomiting. No diaphoresis. 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 Major depressive disorder, recurrent severe without psychotic features Morbid obesity with BMI of 70 and over, adult New onset a-fib Non-pressure chronic ulcer of other part of right lower leg with fat layer exposed LAURENT treated with BiPAP Persistent depressive disorder Vitamin D deficiency Home Medications hydrochlorothiazide 25 mg PO DAILY 06/02/13 [History Last Taken Unknown] metoprolol tartrate 50 mg PO BID #60 tab 06/03/13 [Rx Last Taken 09/15/13] loratadine 10 mg PO DAILY 09/12/13 [History Last Taken Unknown] losartan 50 mg PO DAILY 09/13/15 [History Last Taken Unknown] vitamin B complex 1 ea PO DAILY 09/13/15 [History Last Taken Unknown] omeprazole 20 mg PO BID 09/18/17 [History Last Taken Unknown] cholecalciferol (vitamin D3) 1,250 mcg (50,000 unit) capsule 50,000 unit PO QWEEK 08/18/19 [History Last Taken Unknown] furosemide 40 mg tablet 40 mg PO DAILY 08/18/19 [History Last Taken Unknown] warfarin 1 mg tablet 1 mg PO QHS tab 08/18/19 [History Last Taken Unknown] oxcarbazepine 300 mg tablet 300 mg PO .COMPLEX 08/20/19 [History Last Taken Unknown] topiramate 100 mg tablet 150 mg PO BID tab 08/20/19 [History Last Taken Unknown] montelukast 10 mg tablet 10 mg PO DAILY 10/01/19 [History Last Taken Unknown] warfarin 10 mg tablet 10 mg PO DAILY tab 10/01/19 [History Last Taken Unknown] warfarin 2 mg tablet 4 mg PO DAILY 10/01/19 [History Last Taken Unknown] bupropion HCl 150 mg tablet,12 hr sustained-release 150 mg PO DAILY ea 02/10/20 [History Last Taken Unknown] allopurinol 100 mg PO DAILYCM 05/08/20 [History Last Taken Unknown] bupropion HCl 300 mg PO DAILY 06/01/21 [History Last Taken Unknown] potassium chloride 10 meq PO DAILY 06/01/21 [History Last Taken Unknown] citalopram [Celexa] 30 mg PO DAILY 30 Days #45 tab 06/15/21 [Rx Last Taken Unknown] atorvastatin 40 mg tablet See Rx Instructions .ROUTE .COMPLEX #28 tablet 07/27/21 [Rx Last Taken Unknown] isosorbide mononitrate 30 mg tablet,extended release 24 hr 30 mg PO DAILY #28 tab 07/27/21 [Rx Last Taken Unknown] dexamethasone [Decadron] 6 mg PO DAILY #7 tab 08/26/21 [Rx Last Taken Unknown] Allergy/AdvReac Type Severity Reaction Status Date / Time lisinopril Allergy Intermediate Inflammation Verified 08/26/21 12:32 of lung Pertussis Vaccines Allergy High Fever Verified 08/26/21 12:32 Family History Father Cancer prostate Heart disease Mother CVA (cerebral vascular accident) Grandfather Myocardial infarction Colon cancer Cancer prostate Grandmother Diabetes Surgical History History of cardioversion (~08/2013) Social History Smoking Status: Never smoker how long ago did patient quit smokin years ago alcohol intake: never substance use type: does not use caffeine: Yes Type: coffee Number of servings: 1 ROS ROS ED ROS Narrative Constitutional: No fever but subjectively hot, no chills. HEENT: No sore throat. No neck pain. No loss of vision. No rhinorrhea. Cardiovascular: No chest pain. Minimal chest tightness. No palpitations. No pedal edema. Respiratory: Positive cough with green phlegm production, positive shortness of breath. Positive dyspnea on exertion Abdominal: No abdominal pain. No nausea. No vomiting. Genitourinary: No dysuria. No hematuria. Musculoskeletal: No myalgias. No arthralgias. Neurologic: No headaches. Positive dizziness. Positive lightheadedness. Skin: No rash. No change in color. Psychiatric: No depression. No anxiety. EXAM Physical Exam Narrative Exam Narrative: Afebrile. Vital signs noted. HEENT: Normocephalic. Atraumatic. PERRL, EOMI. Neck soft and supple. No point tenderness or step off. Cardiovascular: Regular rate and rhythm. No murmurs, rubs, or gallops appreciated. Respiratory: No tachypnea. Lungs clear to auscultation bilaterally. Gastrointestinal: Morbidly obese. Abdomen soft, nontender, with normoactive bowel sounds. No rebound or guarding. Neurological: Awake. Alert. Nonfocal, nonlateralizing. Skin: No rash. Normal color. No pallor. Musculoskeletal: Chronic bilateral symmetric lymphedema. Full range of motion extremities. Const Vital Signs: 08/26/21 12:29 08/26/21 12:33 08/26/21 14:48 Temperature 98.2 F Temperature Source Oral Pulse Rate 100 89 Respiratory Rate 18 14 Respiratory Effort Short of Breath Blood Pressure 125/79 H 92/62 Blood Pressure Mean 94 72 Pulse Ox 98 100 Oxygen Delivery Method Room Air Room Air MDM MDM MDM Narrative Medical decision making narrative: Comprehensive work-up was pursued. In review of his problem list he does have history of CHF. I will obtain a chest x-ray, EKG, and laboratory work including troponin, and BNP. His EKG demonstrates atrial fibrillation that is rate controlled at [address] changes. CBC is grossly normal with white count of 4.9, hemoglobin stable at 14.2. INR therapeutic at 2.5. Electrolyte panel shows creatinine of 1.5 with potassium slightly low at 3.0. This will be replaced orally. Troponin negative at 13. BNP also negative. Chest x-ray shows bilateral lower lobe infiltrates consistent with viral infection. He is positive for Covid, negative for influenza. His pulse ox is normal. He states he has enough nebulizer treatments at home. He will be given a prescription for Decadron 6 mg to take for the next week. Treatment be symptomatic. Currently, monoclonal antibodies are not available to him. Return instructions were reviewed. Disposition is discharged home in stable condition. Lab Data Attestation: I reviewed the patient's lab results. Labs: Laboratory Results - last 24 hr 08/26/21 08/26/21 08/26/21 14:05 14:05 14:05 WBC 4.9 RBC 4.82 Hgb 14.2 Hct 43.5 MCV 90.2 MCH 29.5 MCHC 32.6 RDW Std Deviation 43.2 RDW Coeff of Umesh 13.1 Plt Count 118 L MPV 10.2 Immature Gran % (Auto) 0.400 Neut % (Auto) 75.6 H Lymph % (Auto) 15.7 L [place] % (Auto) 7.5 Eos % (Auto) 0.4 Baso % (Auto) 0.4 Absolute Neuts (auto) 3.7 Absolute Lymphs (auto) 0.77 L Nucleated RBC % 0 PT 26.2 H INR 2.5 Sodium 137 Potassium 3.0 L Chloride 103 Carbon Dioxide 27.0 Anion Gap 7 BUN 24 H Creatinine 1.51 H Estim Creat Clear Calc 81.61 Est GFR (MDRD) Af Amer 68 Est GFR (MDRD) Non-Af 56 L BUN/Creatinine Ratio 15.9 Glucose 107 H Calcium 8.7 Troponin I High Sens 13 B-Natriuretic Peptide 08/26/21 14:05 WBC RBC Hgb Hct MCV MCH MCHC RDW Std Deviation RDW Coeff of Umesh Plt Count MPV Immature Gran % (Auto) Neut % (Auto) Lymph % (Auto) [place] % (Auto) Eos % (Auto) Baso % (Auto) Absolute Neuts (auto) Absolute Lymphs (auto) Nucleated RBC % PT INR Sodium Potassium Chloride Carbon Dioxide Anion Gap BUN Creatinine Estim Creat Clear Calc Est GFR (MDRD) Af Amer Est GFR (MDRD) Non-Af BUN/Creatinine Ratio Glucose Calcium Troponin I High Sens B-Natriuretic Peptide 10.3 Radiography Diagnostic Testing: Clinical Impression(s) from Imaging Studies Chest X-Ray 08/26/21 13:25 IMPRESSION: Mild bibasilar pulmonary infiltrates. Radiographic follow-up is recommended. Electronically Signed: Daron Johnson MD at 13:49 EST , Discharge Plan Triage Chief Complaint: Shortness of Breath Other Complaint: Syncope ED Provider: Philippe Whatley Dx/Rx/DC Orders Clinical Impression: Pneumonia due to 2019 novel coronavirus, Dyspnea Prescriptions: New dexamethasone [Decadron] 6 mg tablet 6 mg PO DAILY Qty: 7 RF: 0 No Action topiramate 100 mg tablet 150 mg PO BID RF: 0 oxcarbazepine 300 mg tablet 300 mg PO .COMPLEX RF: 0 furosemide 40 mg tablet 40 mg PO DAILY RF: 0 cholecalciferol (vitamin D3) 1,250 mcg (50,000 unit) capsule 50,000 unit PO QWEEK RF: 0 warfarin 1 mg tablet 1 mg PO QHS RF: 0 warfarin 10 mg tablet 10 mg PO DAILY RF: 0 bupropion HCl 150 mg tablet sustained-release 12 hr 150 mg PO DAILY RF: 0 montelukast 10 mg tablet 10 mg PO DAILY RF: 0 hydrochlorothiazide 25 MG tablet 25 mg PO DAILY RF: 0 metoprolol tartrate 50 MG tablet 50 mg PO BID Qty: 60 RF: 0 loratadine 10 MG tablet 10 mg PO DAILY RF: 0 warfarin 2 mg tablet 4 mg PO DAILY RF: 0 losartan 50 MG tablet 50 mg PO DAILY RF: 0 vitamin B complex 1 EACH capsule 1 ea PO DAILY RF: 0 omeprazole 20 MG capsule 20 mg PO BID RF: 0 allopurinol 100 MG tablet 100 mg PO DAILYCM RF: 0 potassium chloride 10 mEq Tablet,Er Particles/Crystals 10 meq PO DAILY RF: 0 bupropion HCl 300 mg Tablet Extended Release 24 Hr 300 mg PO DAILY RF: 0 citalopram [Celexa] 20 mg tablet 30 mg PO DAILY 30 Days Qty: 45 RF: 1 atorvastatin 40 mg tablet See Rx Instructions .ROUTE .COMPLEX Qty: 28 RF: 11 isosorbide mononitrate 30 mg tablet extended release 24 hr 30 mg PO DAILY Qty: 28 RF: 11 Primary Care Provider: Verenice Flores Referrals: Verenice Flores, [employer] [Primary Care Provider] - Disposition Disposition: Home, Self Care
--- NOTE | 2021-08-26 13:25 | RAD_ITS ---
STUDY: X-RAY CHEST REASON FOR EXAM: Male, 35 years old. Shortness of Breath . Syncopal episodes. TECHNIQUE: Single AP portable view of the chest. COMPARISON: Comparison is made with prior study dated 06/24/2014. FINDINGS: Mild bibasilar pulmonary infiltrates. Follow-up is recommended. There is no demonstrated pleural abnormality. Normal size heart. Normal mediastinum and alonso. Normal visualized pulmonary arteries. Normal visualized aortic arch and descending thoracic aorta. Normal visualized thoracic spine. Normal visualized ribs, clavicles, and shoulders. There is no demonstrated abnormality of the visualized soft tissue structures of the upper abdomen. RAD/Chest 1 View (Portable) IMPRESSION: Mild bibasilar pulmonary infiltrates. Radiographic follow-up is recommended. Electronically Signed: Daron Johnson MD at 13:49 EST ,
--- NOTE | 2021-08-26 14:08 | ED.RN ---
DURING BLOOD DRAW. PT BECOMES DIZZY AND NAUSEATED, SLIGHTLY DIAPHORETIC. PT LEANED BACK. COLD WASH CLOTH PLACED. PT TOLD TO CLOSE EYES AND BREATH
[2021-08-26 14:20] LABS: Absolute Lymphocyte Count 0.77 X10^3/uL (0.83-4.51); Absolute Neutrophil Count 3.7 X10^3/uL (2.0-7.7); Basophil# 0.02 X10^3/uL; Basophil% 0.4 % (0-1); Eosinophil# 0.02 X10^3/uL; Eosinophils% 0.4 % (0-5); Hematocrit 43.5 % (40-54); Hemoglobin 14.2 g/dL (13.0-16.5); Lymphocyte # 0.77 X10^3/ul (0.83-4.51); Lymphocyte % 15.7 % (19-41); Mean Corp Hgb Conc 32.6 g/dL (32-36); Mean Corpuscular Hgb 29.5 pg (27.0-32.0); Mean Corpuscular Volume 90.2 fL (80-94); Mean Platelet Vol. 10.2 fl (6.2-12.0); Monocyte# 0.37 X10^3/uL; Monocyte% 7.5 % (0-10); NRBC Flagged by Analyzer 0 % (0-5); Neutrophil # 3.72 X10^3/uL (2.7-7.7); Neutrophil % 75.6 % (47-70); Platelet Count 118 K/mm3 (150-450); RBC Distribution Width CV 13.1 % (11.6-14.6); RBC Distribution Width SD 43.2 fl (35.1-43.9); Red Blood Count 4.82 M/mm3 (4.6-6.2); White Blood Count 4.9 K/mm3 (4.4-11.0)
[2021-08-26 14:32] LABS: International Normalized Ratio 2.5; Prothrombin Time (Protime)PT. 26.2 SECONDS (11.7-14.9)
[2021-08-26 14:34] LABS: Anion Gap 7 (5-15); BUN 24 mg/dL (7-18); BUN/Creat Ratio 15.9 RATIO (10-20); Calcium,Total 8.7 mg/dL (8.5-10.1); Chloride 103 mmol/L (98-107); Creatinine, Serum 1.51 mg/dL (0.70-1.30); EST Glomerular Filtration Rate 56 mL/min (>60); Est Glom Filt Rate - Afr Amer 68 mL/min (>60); Estimated Creatinine Clearance 81.61 ml/min; Glucose 107 mg/dL (74-106); Sodium Level 137 mmol/L (136-145); Troponin-I HS 13 pg/mL (3.0-78.0)
[2021-08-26 14:48] VITALS: BP 92/62; PULSE 89; RESP 14; O2SAT 100
[2021-08-26 15:19] LABS: BNP,B-Type NATRIURETIC PEPTIDE 10.3 pg/mL (0-100)
[2021-08-26 16:05] VITALS: BP 102/61; PULSE 94; RESP 12; O2SAT 93
[2021-08-26] MEDS: Potassium Chloride Oral Tablet 20 MEQ 40 MEQ PO (16:10)
== END 2021-08-26 16:43 | disposition home or self-care (01) ==
PROVIDERS: Emergency Provider Emergency Medicine; PCP Nurse Practitioner Adult Health; Visit Provider Emergency Medicine
DX: U07.1 COVID-19 (principal); I11.0 Hypertensive heart disease with heart failure; I50.9 Heart failure, unspecified; F33.2 Major depressive disorder, recurrent severe without psychotic features; I48.20 Chronic atrial fibrillation, unspecified; E66.01 Morbid (severe) obesity due to excess calories; Z68.45 Body mass index [BMI] 70 or greater, adult; J12.82 Pneumonia due to coronavirus disease 2019; E55.9 Vitamin D deficiency, unspecified; K21.9 Gastro-esophageal reflux disease without esophagitis; G47.33 Obstructive sleep apnea (adult) (pediatric); Z79.01 Long term (current) use of anticoagulants; Z79.899 Other long term (current) drug therapy; Z87.891 Personal history of nicotine dependence
CPT/HCPCS: 36415; 71045; 80048; 83880; 84484; 85025; 85610; 87426; 87804; 93005; 99285; A4216

== ENCOUNTER 2021-08-30 07:41 | Outpatient (RCR) | payer MEDICAID, SELFPAY ==
--- NOTE | 2021-09-08 13:33 | BH.MTP_ITS ---
Treatment Plan Review Date of Admission:: 08/04/21 Date of Treatment Plan Review:: 09/08/21 Admitting Diagnoses:: Major depressive disorder, recurrent, severe without psychosis F 33.2, Persistent depressive disorder or dysthymia, Generalized anxiety disorder Current Diagnoses:: Major depressive disorder, recurrent, severe without psychosis F33.2, Persistent depressive disorder or dysthymia, Generalized anxiety disorder Patient's Response to Treatment:: Pt's response to tx is variable. Pt reports benefitting from IOP aftercare and prior to the start of group, pt is social and engaged. However, once group starts, pt appears to shut down and he becomes more negative with his perspective on his tx. Pt has also been reporting difficulty using thought challenging coping skills on his own, but pt has been regularly attending outpatient counseling which is positive. Status of Current Problems and Symptoms: Pt continues to report symptoms of depression, anxiety, and negative thinking. Pt has been working with a nutr itionist since pt discharged from [facility] and this has been both a positive and significant stressor for pt. Pt reports dieting has always been a significant trigger for pt's depression and negative thinking. 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 Pt is also working on developing a daily routine after discharging from [facility]. Problem #1 Problem Name:: Pt will maintain or see a reduction in sx compared to IOP admission scores Status of Goals:: Obj 1 ? partially complete, ongoing work encouraged. Pt's scores for anxiety and depression have increased since IOP discharge, but pt has been able to prevent full decompensation AEB pt's current scores for anxiety being 22% lower than they were at IOP admission and depression being 33% lower than at IOP admission. The increase in symptoms is likely due to triggers with weight loss and leaving the support of IOP and will continue to be monitored. Obj 2 - in progress. Pt reports utilizing some of his coping skills that he learned in IOP, but he struggles with consistently using his skills and challenging negative thoughts. Team Recommendations:: Recommended pt continue IOP aftercare group in addition to attending regular outpatient counseling in order to maintain gains. Pt has a lso been encouraged by multiple staff members and peers to communicate with his explosives engineer pt's current struggles and negative thoughts about his weight loss. Lastly, pt has been encouraged to rejoin [facility] as pt used to be highly engaged in this community resource and found it very helpful.
--- NOTE | 2021-09-08 14:00 | BH.SGPN.GN ---
Behaviors/Verbalizations/Mental Status: []Client alert and oriented, casually dressed and groomed. Eye contact fair to good. Motor activity appropriate. Speech within normal limits. Affect congruent, mood anxious and dysthymic. Thoughts linear, logical, no signs of hallucinations or delusions. Client Response/Progress/Benefit: []Client responded well to session, engaged throughout. Client discussed with the group recent stressor of recovering from pneumonia and COVID-19 over the past few weeks. Discussed use of thought challenging, reaching out to supports for help, and remining himself to take things ?one day at a time?. Shared struggling with adjusting his expectations, but has done well to remain focused on current goals related to improving his physical health. Client participated in the group discussion of maintenance and the benefits of creating a maintenance plan. Client contributed as the group discussed what components make up a maintenance plan. Client created his own maintenance plan for depression. Client identified warning signs which included: hiding, eating more, crying, and not being able to form his thoughts. Client's coping skills included: reading, deep breathing, using his fidgets, and eating regular healthy meals. Appeared to benefit from creating a maintenance plan to promote gains and prevent setbacks. Will continue aftercare next week. Narrative Note: []
--- NOTE | 2021-09-15 14:00 | BH.SGPN.GN ---
Behaviors/Verbalizations/Mental Status: []Client alert and oriented, casually dressed and groomed. Eye contact good. Motor activity appropriate. Speech within normal limits, but off topic frequently. Affect full, mood euthymic. Thoughts linear, logical, no signs of hallucinations or delusions. Client Response/Progress/Benefit: []Pt responded well to session AEB pt openly sharing thoughts and feelings and completing worksheet. Pt is feeling ?optimistic? today and was upbeat throughout session. Pt stated he visited a friend over the weekend and it was the first time he has been social (outside of [facility]) for months. Pt lost 26 pounds so far and he reports sticking to his nutrition plan. Pt?s stressor is that he continues to struggle with negative thinking during his weight loss journey, but pt is responding well to challenging these distortions. Pt responded well to group discussion and review about self-care. Pt stated he will work on following self-care activities: going to therapy, journaling, reading, completing chores, and crocheting. Pt seemed to benefit from support from peers and identifying self-care plan. Pt to continue aftercare to prevent decompensation and continue use of healthy coping. Narrative Note: []
--- NOTE | 2021-09-22 14:00 | BH.SGPN.GN ---
Behaviors/Verbalizations/Mental Status: []Client alert and oriented, casually dressed and groomed. Eye contact good. Motor activity restless. Speech within normal limits. Affect congruent, mood depressed AEB tearfulness. Thoughts linear, logical, no signs of hallucinations or delusions. Client Response/Progress/Benefit: []Client responded well to session AEB providing supportive feedback throughout and listening attentively to others. Client discussed experiencing ?depressive moments?, and struggling to maintain his prescribed diet by his dietitian. Clinician normalized client?s feelings and group provided suggestions, which client responded well to. Client identified additional stressors, including his health and recent doctors appointments. Mental health wins identified by client include working on margoth and coming to group today. Client was engaged throughout group discussion of gratitude and the importance of practicing both internal and external gratitude into your routine. Client completed a one-week gratitude challenge schedule, setting a goal to incorporate both internal and external gratitude into his routine by appreciating a personal talent he possesses, and item he uses every day, and a person in his family. Appeared to benefit from increased knowledge of the internal and external gratitude in relation to mental health and increased self-awareness. Client to continue aftercare group to continue increasing application of healthy coping skills to promote mood stability. Narrative Note: []
== END 2021-09-26 23:59 ==
LOC: BHOG 07:41
PROVIDERS: PCP Nurse Practitioner Adult Health; Referring Provider Psychiatry & Neurology Psychiatry; Visit Provider Psychiatry & Neurology Psychiatry
DX: F33.2 Major depressive disorder, recurrent severe without psychotic features (principal); F41.8 Other specified anxiety disorders
CPT/HCPCS: 90853

== ENCOUNTER 2021-09-07 14:04 | Outpatient (RCR) | payer MEDICAID, SELFPAY | END 2021-09-26 23:59 | LOC: NS 14:04 | PROVIDERS: PCP Nurse Practitioner Adult Health; Visit Provider Psychiatry & Neurology Psychiatry | DX: Z71.3 Dietary counseling and surveillance (principal); E66.01 Morbid (severe) obesity due to excess calories; Z68.45 Body mass index [BMI] 70 or greater, adult; I48.91 Unspecified atrial fibrillation; J45.909 Unspecified asthma, uncomplicated; K21.9 Gastro-esophageal reflux disease without esophagitis; I11.0 Hypertensive heart disease with heart failure; I50.9 Heart failure, unspecified; F41.9 Anxiety disorder, unspecified; F32.A Depression, unspecified | CPT/HCPCS: 97803 ==

== ENCOUNTER 2021-09-22 08:23 | Outpatient (CLI) | payer MEDICAID, SELFPAY ==
--- NOTE | 2021-09-22 08:43 | RAD_ITS ---
EXAM: XR Chest, 2 Views CLINICAL INDICATION: 35 years old, Male; OBSTRUCTIVE SLEEEP APENA TECHNIQUE: Frontal and lateral views of the chest. This report was created using [employer] report generation technology. COMPARISON: Chest x-ray dated 08/26/2021. FINDINGS: Lungs and pleural spaces: Infiltrate or atelectasis in the lung bases, similar to prior study. No pneumothorax. No effusion. Heart: Unremarkable. Cardiac silhouette not enlarged. Mediastinum: Central airways and mediastinal contour are unremarkable. Bones/joints: Unremarkable. Soft tissues: Unremarkable. RAD/Chest PA and Lateral IMPRESSION: Infiltrate or atelectasis in the lung bases, similar to prior study. Electronically Signed: Virgil Villanueva MD at 7:57 EST ,
--- NOTE | 2021-09-23 09:53 | PFT ---
INTRODUCTION: The patient is a 35-year-old male that presents for pulmonary function studies secondary to a diagnosis of asthma. Respiratory therapy reported that the patient's weight was 626 pounds and was therefore unable to perform body plethysmography. Bronchodilators were used during testing. INTERPRETATION: Forced expiration spirometry demonstrates no evidence of a large airways obstructive ventilatory defect. There was no significant response to aerosolized bronchodilators. Lung volumes were unable to be obtained due to the patient's weight. Diffusing capacity by single breath CO was reduced to 56% of predicted. IMPRESSION: Moderate reduction in diffusing capacity which could be related to an underlying pulmonary vascular disorder such as pulmonary hypertension.
== END 2021-09-22 23:59 | disposition home or self-care (01) ==
DX: G47.33 Obstructive sleep apnea (adult) (pediatric) (principal); J45.909 Unspecified asthma, uncomplicated
CPT/HCPCS: 71046; 94060; 94729

== ENCOUNTER 2021-09-27 07:52 | Outpatient (RCR) | payer MEDICAID, SELFPAY ==
--- NOTE | 2021-09-29 14:00 | BH.SGPN.GN ---
Behaviors/Verbalizations/Mental Status: []Client alert and oriented, casually dressed and groomed. Eye contact good. Motor activity restless. Speech within normal limits. Affect congruent, mood agitated. Thoughts linear, logical, no signs of hallucinations or delusions. Client Response/Progress/Benefit: []Client responded well to session AEB sharing and listening attentively to others. Client reported his emotion as ?overwhelmed?. Client shared that he is feeling upset with himself because he did not follow his diet this week and canceled his dietitian appointment. Group provided supportive feedback normalizing client?s feelings and encouraging him to reach out to his dietitian. Client was semi-engaged throughout group discussion defining self compassion, reviewing the three lino elements, and identifying what self compassion is not, at times appearing to struggle with his own negative thoughts, impeding ability to fully participate. Client completed exercise working through a past situation where they could have benefited from self compassion. 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 Client applied self compassion to this situation, stating ?it?s ok to make mistakes, maybe the wheel of fortune dealer can help me work something out?. Appeared to benefit from increased knowledge of self compassion and increased self awareness. Will continue aftercare treatment to reinforce application of healthy coping skills and increase self compassion. Narrative Note: []
--- NOTE | 2021-09-29 14:25 | BH.TPR ---
Treatment Plan Review Date of Admission:: 08/04/21 Date of Treatment Plan Review:: 09/29/21
--- NOTE | 2021-10-13 02:00 | BH.SGPN.GN ---
Behaviors/Verbalizations/Mental Status: []Client alert and oriented, casually dressed and groomed. Eye contact good. Motor activity appropriate. Speech within normal limits. Affect congruent, mood euthymic. Thoughts linear, logical, no signs of hallucinations or delusions. Client Response/Progress/Benefit: []Client responded well to session AEB sharing and listening attentively to others. Client discussed journaling, communicating with his supports, and using opposite action to come to aftercare group this week. Client stated that he is taking his medications consistently and has an appointment to see his psychiatrist set up. Client participated in group discussion defining vulnerability, how and why we avoid it, and the benefits. Client provided examples and shared personal experiences of being vulnerable returning to the IOP program. Clinician encouraged client to practice vulnerability this week by reaching out to a community organization that had been a support for him in the past. Will continue aftercare treatment to reinforce healthy coping skills and prevent decompensation. Narrative Note: []
--- NOTE | 2021-10-20 14:00 | BH.SGPN.GN ---
Behaviors/Verbalizations/Mental Status: []Client alert and oriented, disheveled appearance. Eye contact good. Motor activity appropriate. Speech within normal limits. Affect constricted, mood anxious. Thoughts linear, logical, no signs of hallucinations or delusions. Client Response/Progress/Benefit: []Pt receptive of session, engaged throughout. Pt completed her aftercare self-reflection worksheet sharing he sees his therapist tomorrow, he has not seen his psychiatrist this week, he is taking his medications, and he has been using deep breathing and opposite action. Receptive of discussion on personal accountability and its importance in maintaining mental health stability. Pt worked cooperatively with group to identify benefits of maintaining personal accountability. Engaged in brainstorming strategies for improving ability to hold themselves accountable. Reported he wants to work on recognizing and challenging distortions that prevent pt from following through with his goals. Pt seemed to benefit from support from peers and increasing understanding of personal accountability benefits and strategies. Will continue IOP aftercare group to maintain gains and prevent decompensation. Narrative Note: []
--- NOTE | 2021-10-27 14:00 | BH.SGPN.GN ---
Behaviors/Verbalizations/Mental Status: []Client alert and oriented, casually dressed and groomed. Eye contact good. Motor activity appropriate. Speech within normal limits. Affect congruent, mood euthymic. Thoughts linear, logical, no signs of hallucinations or delusions. Client Response/Progress/Benefit: []Client responded well to session AEB sharing and listening attentively to others. Client reported journaling and using thought challenging as coping skills he used in the last week, and reported continuing with his ongoing outpatient individual therapist psychiatrist. Client reports taking his medications consistently. Client was an active participant in group discussion of healthy decision making, including what goes into making a healthy decision and what keeps us from making them. Client participated in experiential small group activity and processing. Client identified physical self-care and finances as two areas in life where he would like to make healthier decisions. Client?s goal to start working toward making healthier decisions is to remove autopay from his mobile game account. Appeared to benefit from increased knowledge of healthy decision making and increased self-awareness of areas in need of growth. Client to discharge from [facility] aftercare as client has met treatment goals and will continue with outpatient counseling. Narrative Note: []
--- NOTE | 2021-10-27 14:35 | BH.DS ---
Discharge Summary - Demographics Date of Admission:: 08/04/21 Discharge Date: 10/27/21 Presenting Problems at Admission:: Client discharged from IOP tx and transitioned to IOP aftercare to maintain gains client made in IOP and to reinforce healthy coping skills. At admission to IOP aftercare, client reported experiencing mild-moderate symptoms of anxiety and depression. Client was reporting ongoing issues with prioritizing self-care and making healthy choices, maintaining consistent with socializing with healthy supports, reducing isolation and avoidance behaviors, as well as challenging distorted thought patterns. Client was also experiencing life stressors including physical health problems, family health problems, finances, and limited transportation. Discharge Diagnoses:: Major depressive disorder, recurrent, severe without psychosis F 33.2, Persistent depressive disorder or dysthymia, Generalized anxiety disorder Reason for Discharge:: Client has accomplished tx goals AEB ability to continue to improve healthy coping and maintain gains made in IOP. Client will transition to traditional outpatient counseling. - Treatment Progress During Treatment & Response: Pt progress was variable throughout IOP aftercare program. Pt did miss several weeks due to COVID and other medical issues, however was otherwise consistent with attendance. When in attendance, pt was engaged in IOP aftercare and actively participated in group discussions; however, on various occasions his contribution would be pessimistic or sarcastic in nature and often focused on negative or distorted thoughts he was experiencing. Pt self-reported difficulties with consistently applying coping skills to maintain gains made in IOP tx, which may have reinforced negative perspective and contributed to variable progress as well. At discharge from IOP aftercare, client self-reported that he was experiencing overall less depression and anxiety since program admission and acknowledged the foundational skills learned for continuing to promote progress. Client's DSM-5 scores decreased by an additional 46% since IOP discharge. Client's anxiety decreased by an additional 67% and depression decreased by an additional 33%. Issues Still to be Addressed:: Client can benefit from ongoing outpatient counseling and medication management to promote gains, reinforce healthy coping skill,s and prevent decompensation. Client can continue to work on increasing consistency of self-care, self-compassion, healthy use of his supports more consistently, as well as ongoing work on thought challenging. Discharge Recommendations/Instructions:: Continue seeing [facility] for individual counseling. Continue with Linda Garrido at [facility] for medication management. Discharge Handout: Complete Discharge Handout with client on aftercare options and continuity of care.
== END 2021-10-27 23:59 | disposition home or self-care (01) ==
LOC: BHOG 07:52
PROVIDERS: Referring Provider Psychiatry & Neurology Psychiatry; Visit Provider Psychiatry & Neurology Psychiatry
DX: F33.2 Major depressive disorder, recurrent severe without psychotic features (principal); F34.1 Dysthymic disorder; F41.1 Generalized anxiety disorder
CPT/HCPCS: 90853

== ENCOUNTER → 2021-11-24 | Outpatient (CLI) | payer MEDICAID, SELFPAY ==
[2021-11-24 12:30] VITALS: PULSE 101; PULSE 108; PULSE 122; PULSE 128; PULSE 145; PULSE 84; PULSE 98; O2SAT 95; O2SAT 96; O2SAT 97; O2SAT 98
--- NOTE | 2021-11-24 12:51 | CPS ---
Pt took a rest from minute 4 to 5 minutes 30 seconds for increased shortness of breath, dizziness, and wobbly legs.
--- NOTE | 2021-11-24 13:31 | WT_ITS ---
PSN 6 Minute Walk Test 6 Minute Walk Test 6 Minute Walk Test: 6 Minute Walk Test PSN:6-Minute Walk Test Start: 11/24/21 12:43 Freq: Status: Active Protocol: [id number] Document 11/24/21 12:[address] [facility] (Rec: 11/24/21 12:[address] [facility] [id number]) 6 Minute Walk Test Date Performed 11/24/21 Time Performed 12:30 Height 6 ft 3 in Weight: 284.402 kg Weight in Pounds 627.[address]: Dr Galaviz Assistive device used: None Pre-test Oxygen Delivery Method Room Air Pulse Ox (%) 98 Pulse Rate (60-100 beats/min) 84 Dyspnea Tk Scale (0-10) 0 Exertion Tk Scale (6-20) 6 1st minute Oxygen Delivery Method Room Air Pulse Ox (%) 97 Pulse Rate (60-100 beats/min) 108 H 2nd minute Oxygen Delivery Method Room Air Pulse Ox (%) 95 Pulse Rate (60-100 beats/min) 101 H 3rd minute Oxygen Delivery Method Room Air Pulse Ox (%) 97 Pulse Rate (60-100 beats/min) 101 H 4th minute Oxygen Delivery Method Room Air Pulse Ox (%) 95 Pulse Rate (60-100 beats/min) 145 H Dyspnea Tk Scale (0-10) 4 Number of Rests Taken 1 Reported Symptoms Increased Work of Breathing, Dizziness 5th minute Oxygen Delivery Method Room Air Pulse Ox (%) 98 Pulse Rate (60-100 beats/min) 128 H Dyspnea Tk Scale (0-10) 4 Number of Rests Taken 1 Reported Symptoms Increased Work of Breathing, Dizziness 6th minute Oxygen Delivery Method Room Air Pulse Ox (%) 96 Pulse Rate (60-100 beats/min) 122 H Dyspnea Tk Scale (0-10) 2 Exertion Tk Scale (6-20) 15 Post-test Oxygen Delivery Method Room Air Pulse Ox (%) 96 Pulse Rate (60-100 beats/min) 98 Full Laps Walked 9 Partial Lap, Number of Tiles Walked 28 Total Distance Walked (ft) 559 11/24/21 12:51 Cardiopulmonary Services by Bryanna Garsia Pt took a rest from minute 4 to 5 minutes 30 seconds for increased shortness of breath, dizziness, and wobbly legs. Initialized on 11/24/21 12:51 - END OF NOTE Interpretation Interpretation: The patient was able to ambulate 559 feet over the course of 6 minutes on room air with no assistive devices and 2 breaks. Patient experienced no significant desaturation, but did have significant tachycardia as high as 145 bpm. These findings are consistent with a cardiovascular limitation exercise tolerance. Recommendations Recommendations: No supplemental oxygen is indicated at this time.
== END | disposition home or self-care (01) ==
LOC: PSN 12:16
PROVIDERS: Referring Provider Internal Medicine Critical Care Medicine; Visit Provider Internal Medicine Critical Care Medicine
DX: R06.02 Shortness of breath (principal)
CPT/HCPCS: 94618

== ENCOUNTER → 2022-04-21 | Outpatient (CLI) | payer MEDICAID, SELFPAY ==
[2022-04-21 09:42] LABS: Absolute Lymphocyte Count 2.39 X10^3/uL (0.83-4.51); Basophil# 0.08 X10^3/uL; Basophil% 1.1 % (0-1); Eosinophil# 0.22 X10^3/uL; Hematocrit 44.9 % (40-54); Hemoglobin 14.6 g/dL (13.0-16.5); Lymphocyte # 2.39 X10^3/ul (0.83-4.51); Lymphocyte % 32.8 % (19-41); Mean Corp Hgb Conc 32.5 g/dL (32-36); Mean Corpuscular Hgb 29.9 pg (27.0-32.0); Mean Corpuscular Volume 91.8 fL (80-94); Mean Platelet Vol. 9.9 fl (6.2-12.0); Monocyte# 0.53 X10^3/uL; Monocyte% 7.3 % (0-10); NRBC Flagged by Analyzer 0 % (0-5); Neutrophil # 4.04 X10^3/uL (2.7-7.7); Neutrophil % 55.5 % (47-70); Platelet Count 216 K/mm3 (150-450); RBC Distribution Width CV 13.2 % (11.6-14.6); RBC Distribution Width SD 43.8 fl (35.1-43.9); Red Blood Count 4.89 M/mm3 (4.6-6.2); White Blood Count 7.3 K/mm3 (4.4-11.0)
[2022-04-21 10:15] LABS: Hemoglobin A1c 5.2 % (3.8-5.6)
[2022-04-21 10:27] LABS: ALB/GLOB Ratio 0.8 RATIO (0.9-2.4); AST(SGOT) 25 U/L (15-37); Alanine Aminotransfer ALT/SGPT 32 U/L (16-61); Albumin, Serum 3.4 g/dL (3.2-5.0); Alkaline Phosphatase 114 U/L (45-117); Anion Gap 8 (5-15); BUN 19 mg/dL (7-18); BUN/Creat Ratio 14.6 RATIO (10-20); Calcium,Total 9.2 mg/dL (8.5-10.1); Chloride 107 mmol/L (98-107); Cholesterol 142 mg/dL (200); EST Glomerular Filtration Rate 66 mL/min (>60); Est Glom Filt Rate - Afr Amer 80 mL/min (>60); Globulin 4.2 g/dL (2.2-4.2); Glucose 115 mg/dL (74-106); High Density Lipoprotein 51 mg/dL; Protein, Total 7.6 g/dL (6.4-8.2); Sodium Level 142 mmol/L (136-145); Thyroid Stim Hormone (TSH) 2.58 uIU/mL (0.358-3.74); Triglycerides 130 mg/dL; Very Low Density Lipoprotein 26 mg/dL (5-40)
== END | disposition home or self-care (01) ==
DX: I48.91 Unspecified atrial fibrillation (principal); E66.01 Morbid (severe) obesity due to excess calories; I10 Essential (primary) hypertension; E87.6 Hypokalemia; Z79.01 Long term (current) use of anticoagulants
CPT/HCPCS: 36415; 80053; 80061; 83036; 84443; 85025

== ENCOUNTER → 2024-09-24 | Outpatient (CLI) | payer MEDICAID, SELFPAY ==
[2024-09-24 17:40] LABS: Absolute Lymphocyte Count 2.16 X10^3/uL (0.83-4.51); Absolute Neutrophil Count 5.7 X10^3/uL (2.0-7.7); Basophil# 0.09 X10^3/uL; Eosinophil# 0.19 X10^3/uL; Eosinophils% 2.1 % (0-5); Hematocrit 43.8 % (40-54); Hemoglobin 14.4 g/dL (13.0-16.5); Lymphocyte # 2.16 X10^3/ul (0.83-4.51); Lymphocyte % 24.3 % (19-41); Mean Corp Hgb Conc 32.9 g/dL (32-36); Mean Corpuscular Volume 91.3 fL (80-94); Mean Platelet Vol. 11.2 fl (6.2-12.0); Monocyte# 0.76 X10^3/uL; Monocyte% 8.5 % (0-10); NRBC Flagged by Analyzer 0 % (0-5); Neutrophil # 5.67 X10^3/uL (2.7-7.7); Neutrophil % 63.8 % (47-70); POSITIVE COUNT YES; RBC Distribution Width CV 12.2 % (11.6-14.6); RBC Distribution Width SD 40.5 fl (35.1-43.9); White Blood Count 8.9 K/mm3 (4.4-11.0)
[2024-09-24 17:56] LABS: Cholesterol 138 mg/dL (<=200); High Density Lipoprotein 45 mg/dL; Low Density Lipoprotein Calc. 68 mg/dL; Triglycerides 124 mg/dL; Very Low Density Lipoprotein 25 mg/dL (5-40); Vitamin D,25 Hydroxy 62.9 ng/mL (30-100); cholesterol:hdl ratio screen 3.07
[2024-09-24 18:30] LABS: Hemoglobin A1c 5.2 % (<=5.6)
[2024-09-24 18:37] LABS: ALB/GLOB Ratio 1.2 RATIO (0.9-2.4); AST(SGOT) 21 U/L (<=37); Alanine Aminotransfer ALT/SGPT 19 U/L (<=46); Alkaline Phosphatase 141 U/L (40-129); Anion Gap 12 (5-15); BUN 20 mg/dL (4-19); BUN/Creat Ratio 16.5 RATIO (10-20); Calcium 9.2 mg/dL (7.6-11.0); Carbon Dioxide 22.3 mmol/L (22.0-29.0); Chloride 104 mmol/L (96-108); Creatinine, Serum 1.2 mg/dL (0.8-1.3); EST Glomerular Filtration Rate 78 (>60); Globulin 3.3 g/dL (2.2-4.2); Glucose 93 mg/dL (70-99); Potassium 3.8 mmol/L (3.3-5.1); Protein, Total 7.3 g/dL (5.9-8.4); Sodium Level 138 mmol/L (133-145); Total Bilirubin 0.64 mg/dL (0.00-1.30)
[2024-09-24 18:41] LABS: Differential Indicated SCAN CRITERIA MET
[2024-09-24 18:45] LABS: Platelet Estimate MOD INC (ADEQ); Platelet Morphology CLUMPED
[2024-09-24 18:47] LABS: Anisocytosis 1+; Atypical Lymphocyte 1+ %; Polychromasia RARE
[2024-09-29 15:08] LABS: Trileptal-Oxcarbazepine 11 ug/mL (10-35)
== END | disposition home or self-care (01) ==
LOC: VSLAB 15:36
PROVIDERS: PCP Nurse Practitioner Family; Visit Provider Registered Nurse
DX: Z51.81 Encounter for therapeutic drug level monitoring (principal); E66.01 Morbid (severe) obesity due to excess calories; I10 Essential (primary) hypertension; E55.9 Vitamin D deficiency, unspecified; E78.00 Pure hypercholesterolemia, unspecified; Z79.899 Other long term (current) drug therapy
CPT/HCPCS: 36415; 80053; 80061; 82306; 82542; 83036; 84443; 85025